=== PATIENT | female | born 1960 | race Caucasian/White ===

== ENCOUNTER 2016-10-24 21:49 | Inpatient (IN) | payer OTHER ==
[~2016-10-24] VITALS: Ht 154.9 cm; Wt 67.2 kg
[~2016-10-24 21:49] MED LIST: ACET325T96 PO; AMLO10TA4 PO; ASPI-461 PO; ATOR-24 PO; B-COCAP21 PO; BISA10SU3 PR; CALC1CHW43 PO; CLOP1TAB15 PO; CLR10 PO; CYAN10005 PO; FLV1 PO; GLGKIT IM; INSDGI SQ; INSPMPHMLG; INSU100I SQ; LCTX PO; METO25TA3 PO; MIRT15TA PO; PREG100C PO; PRLSR20 PO; PYRI50TA77 PO; SEVE800T7 PO; SUPPLEMENT SHAKE PO; TOPI25TA55 PO; VNCS125 PO; [UNRECOGNIZED DRUG - CODE] SC
[2016-10-24] MEDS ORDERED: ACETAMINOPHEN 500 MG TAB PO STA (21:56)
[2016-10-24] MEDS ORDERED: IBUPROFEN 800 MG TAB PO STA (21:56)
[2016-10-24] MEDS ORDERED: SODIUM CHLORIDE 0.9% 500ML 500 ML IV STA ×2 (21:56→23:56)
[2016-10-24] MEDS ORDERED: METRONIDAZOLE 500MG / 100ML NSS IV STA (22:08)
[2016-10-24] MEDS ORDERED: INSDGI SC ×2 (22:18→22:21)
[2016-10-24] MEDS ORDERED: Protein Supplement PO (22:27)
--- NOTE | 2016-10-24 22:51 | DIAGNOSTIC IMAGING REPORT ---
CHEST ONE VIEW PORTABLE HISTORY: Sepsis COMPARISON: None. FINDINGS: No pleural effusions. No pneumothorax. The heart is normal in size. Rotated study. Left upper extremity vascular stents are noted. Mild diffuse interstitial thickening which is likely chronic. No focal lung consolidations to suggest pneumonia. IMPRESSION: Mild diffuse interstitial thickening is likely chronic. Otherwise, no acute process within the chest. Electronically signed by: Bill Recinos M.D. 10/24/2016 10:49 PM Dictated Date/Time: 10/24/2016 10:48 PM
[2016-10-24] MEDS ORDERED: TAP WATER ENEMA PR (22:56)
[2016-10-24] MEDS ORDERED: DEXT40GE PO (22:56)
[2016-10-24 22:58] LABS: BASO % 0.3 %; BASO ABS # 0.03 K/uL (0-0.2); COMPLETE YES; EOS % 0.4 %; HEMATOCRIT 39.7 % (37-47); IG% 0.3 %; LYMPH % 10.6 %; LYMPH ABS # 1.24 K/uL (1.2-3.4); MEAN CELL VOLUME 85.6 fL (80-100); MEAN CORPUSCULAR HGB CONC 32.7 g/dl (32-36); MEAN PLATELET VOLUME 12.4 fL (7.4-10.4); MONO % 8.3 %; NEUT % 80.1 %; PLATELET COUNT 188 K/uL (130-400); RED BLOOD COUNT 4.64 M/uL (4.2-5.4); WHITE BLOOD COUNT 11.75 K/uL (4.8-10.8)
[2016-10-24] MEDS ORDERED: IBUPROFEN 200 MG TAB ONE (23:00)
[2016-10-24] MEDS ORDERED: IBUPROFEN 600 MG TAB ONE (23:00)
[2016-10-24 23:36] LABS: ALB/GLOB RATIO 0.7 (0.9-2); ALKALINE PHOSPHATASE 291 U/L (45-117); ALT/SGPT 27 U/L (12-78); BLOOD UREA NITROGEN 69 mg/dl (7-18); BUN/CREATININE RATIO 10.6 (10-20); CALCIUM 8.5 mg/dl (8.5-10.1); CARBON DIOXIDE 22 mmol/L (21-32); CHLORIDE 96 mmol/L (98-107); GLUCOSE 270 mg/dl (70-99); SODIUM 132 mmol/L (136-145)
[2016-10-25] VITALS (60 sets, daily range): BP systolic 60–131; BP diastolic 29–75; PULSE 68–97; TEMP 36.3–37.4; O2SAT 90–100; Ht 154.9 cm; Wt 67.2 kg
[2016-10-25 00:06] LABS: INR 1.3 (0.9-1.1); PARTIAL THROMBOPLASTIN RATIO 1.1; PROTHROMBIN TIME (PATIENT) 13.5 SECONDS (9.0-12.0)
[2016-10-25] MEDS ORDERED: SODIUM CHLORIDE 0.9% 500ML 500 ML IV STA (00:13)
[2016-10-25 00:22] LABS: MAGNESIUM 1.5 mg/dl (1.8-2.4); POTASSIUM 6.2 mmol/L (3.5-5.1)
--- NOTE | 2016-10-25 00:28 | History and Physical ---
History & Physical Date & Time of Service: Oct 25, 2016 at 00:24 Chief Complaint: Ab Pain Primary Care Physician: Shanna Boles History of Present Illness Source: patient Ms Lakisha Lam is a 56 yo F with multiple co-morbidities, including blindness from diabetic retinopathy and on dialysis, who presents from the [facility] with fever and abdominal pain. She reports she felt ok the last few days, and earlier today she was playing bingo and noticed a sudden onset right lower quadrant abdominal pain, 8/10 severity, which radiated to the upper right side of her abdomen. It was associated with feeling sweaty and a fever (though she did not measure it). She reports she had a few loose bowel movements, which were painful. She presumed she had the flu. She attended dialysis today and then came from there since she felt unwell. She gets dialysis Mon, Sat, Sat. In 08/22 she was recently admitted for C Diff ascending colitis and septic shock. She reports since then her blood pressure has always been low. Her only colonoscopy on file in [facility] records from 04/2014 shows gross findings c/w ischemic colitis in the same area of ascending colon and cecum. Past Medical/Surgical History Medical Problems: 1. ESRD, on dialysis. 2. Hypertension. 3. Hyperlipidemia. 4. Insulin-dependent diabetes, poorly-controlled. 5. GERD. 6. Renal cyst 7. Depression, previously requiring inpatient psychiatric stay Surgical Problems: (1) S/P appendectomy Status: Resolved Family History History of colostomy MOTHER SISTER Social History Smoking Status: Never Smoker Drug Use: none Marital Status: single Occupational Status: disabled Immunizations History of Influenza Vaccine: Unknown History of Tetanus Vaccine?: Unknown History of Pneumococcal: Unknown History of Hepatitis B Vaccine: Unknown Multi-Drug Resistant Organisms History of MDRO: No Allergies Coded Allergies: Penicillins (Verified Allergy, Mild, RASH, 05/05/13) Quinolones (Verified Allergy, Mild, (CIPRO) HOT;RED;ITCHY, 05/05/13) Ciprofloxacin (Unverified Allergy, Unknown, UNKNOWN, 07/15/16) Iodinated Diagnostic Agents (Verified Allergy, Unknown, IVP DYE, 08/17/16) Prednisone (Unverified Allergy, Unknown, POTASSIUM AND SUGAR SPIKES, ) Varenicline (Verified Allergy, Unknown, Unknown, 10/24/16) Home Medications Scheduled Amlodipine Besylate (Norvasc), 10 MG PO DAILY Aspirin (Aspirin), 81 MG PO DAILY Atorvastatin (Lipitor), 40 MG PO QPM B-Complex W/ C & Folic Acid ([place] Caps), 1 CAP PO DAILY Calcium Carbonate (Antacid) (Tums E-X 750), 750 MG PO TID Clopidogrel (Plavix), 75 MG PO DAILY Cyanocobalamin (Vitamin B-12), 1,000 MCG PO DAILY Folic Acid (Folic Acid), 1 MG PO BID Heparin Sod (Porcine) (Heparin Sodium), 1,000 UNITS SC 3XWK Insulin Glargine (Lantus), 5 UNITS SQ 3XWK Insulin Glargine (Lantus), 5 UNITS SC 4XWK Insulin Glargine (Lantus), 7 UNITS SC UD Insulin Lispro (Human) (Humalog), 5 UNITS SQ AC Lactobacillus Acidophilus (Lactinex), 1 TAB PO TID Metoprolol Succ (Toprol Xl) (Toprol-Xl), 12.5 MG PO DAILY Mirtazapine (Remeron), 15 MG PO HS Omeprazole (Prilosec), 20 MG PO DAILY Pregabalin (Lyrica), 100 MG PO BID Pyridoxine Hcl (Vitamin B 6), 50 MG PO DAILY Sevelamer Carbonate (Renvela), 800 MG PO TID [Protein Supplement], 30 ML PO BID Scheduled PRN Acetaminophen Tab (Tylenol), 650 MG PO Q6H PRN for Pain or Fever Bisacodyl (Dulcolax), 1 SUPP MO UD PRN for Constipation Dextrose (Diabetic Use) (Insta-Glucose), 1 APPLN PO UD PRN for HYPOGLYCEMIA PROTOCOL Glucagon (Glucagon Emergency Kit), 1 DOSE IM UD PRN for HYPOGLYCEMIA PROTOCOL Loratadine (Claritin), 10 MG PO Q24H PRN for Congestion [Tap Water Enema], 1 EA MO UD PRN for Constipation Review of Systems See HPI for pertinent positives & negatives. A total of 10 systems reviewed and were otherwise negative. Physical Exam Vital Signs Date Time Temp Pulse Resp B/P Pulse Ox O2 Delivery O2 Flow Rate FiO2 10/25/16 00:00 100 20 83/46 95 Room Air 10/24/16 23:46 39.5 108 20 74/44 95 Room Air 10/24/16 23:11 112 20 97/47 94 Room Air 10/24/16 22:05 121 10/24/16 22:03 38.9 126 20 114/67 97 General Appearance: WD/WN, + mild distress Head: normocephalic, atraumatic Eyes: normal inspection, + pertinent finding (poor visual acuity) ENT: normal ENT inspection Neck: supple, no JVD Respiratory/Chest: lungs clear, normal breath sounds, no respiratory distress Cardiovascular: regular rate, rhythm, no murmur, normal peripheral pulses, + systolic murmur Abdomen/GI: + tenderness (tenderness w/light palpation to RLQ and RUQ, with mild rebound. BS active.) Neurologic/Psych: alert, normal mood/affect, oriented x 3 Diagnostics Laboratory Results Results Past 24 Hours Test 10/24/16 22:35 10/24/16 23:41 Range/Units White Blood Count 11.75 4.8-10.8 K/uL Red Blood Count 4.64 4.2-5.4 M/uL Hemoglobin 13.0 12.0-16.0 g/dL Hematocrit 39.7 37-47 % Mean Corpuscular Volume 85.6 80-100 fL Mean Corpuscular Hemoglobin 28.0 25-34 pg Mean Corpuscular Hemoglobin Concent 32.7 32-36 g/dl Platelet Count 188 130-400 K/uL Mean Platelet Volume 12.4 7.4-10.4 fL Neutrophils (%) (Auto) 80.1 % Lymphocytes (%) (Auto) 10.6 % Monocytes (%) (Auto) 8.3 % Eosinophils (%) (Auto) 0.4 % Basophils (%) (Auto) 0.3 % Neutrophils # (Auto) 9.43 1.4-6.5 K/uL Lymphocytes # (Auto) 1.24 1.2-3.4 K/uL Monocytes # (Auto) 0.97 0.11-0.59 K/uL Eosinophils # (Auto) 0.05 0-0.5 K/uL Basophils # (Auto) 0.03 0-0.2 K/uL RDW Standard Deviation 49.8 36.4-46.3 fL RDW Coefficient of Variation 15.9 11.5-14.5 % Immature Granulocyte % (Auto) 0.3 % Immature Granulocyte # (Auto) 0.03 0.00-0.02 K/uL Sodium Level 132 136-145 mmol/L Potassium Level 6.2 3.5-5.1 mmol/L Chloride Level 96 98-107 mmol/L Carbon Dioxide Level 22 21-32 mmol/L Anion Gap 14.0 3-11 mmol/L Blood Urea Nitrogen 69 7-18 mg/dl Creatinine 6.40 0.60-1.20 mg/dl Est Creatinine Clear Calc Drug Dose 8.7 ml/min Estimated GFR () 7.8 Estimated GFR (Non- 6.8 BUN/Creatinine Ratio 10.6 10-20 Random Glucose 270 70-99 mg/dl Calcium Level 8.5 8.5-10.1 mg/dl Magnesium Level 1.5 1.8-2.4 mg/dl Total Bilirubin 0.5 0.2-1 mg/dl Aspartate Amino Transf (AST/SGOT) 20 15-37 U/L Alanine Aminotransferase (ALT/SGPT) 27 12-78 U/L Alkaline Phosphatase 291 45-117 U/L Total Creatine Kinase 45 26-192 U/L Creatine Kinase MB 1.5 0.5-3.6 ng/ml Creatine Kinase MB Ratio 0-3.0 Troponin I < 0.015 0-0.045 ng/ml Total Protein 7.7 6.4-8.2 gm/dl Albumin 3.2 3.4-5.0 gm/dl Globulin 4.5 2.5-4.0 gm/dl Albumin/Globulin Ratio 0.7 0.9-2 Prothrombin Time 13.5 9.0-12.0 SECONDS Prothromb Time International Ratio 1.3 0.9-1.1 Activated Partial Thromboplast Time 29.6 21.0-31.0 SECONDS Partial Thromboplastin Ratio 1.1 Microbiology Results 10/24/16 Blood Culture, Received Pending 10/24/16 Blood Culture, Received Pending 10/24/16 Shiga Toxin Test, Qi Batch Pending 10/24/16 Stool Culture, Qi Batch Pending 10/24/16 C.difficile Toxin B Gene (PCR), Qi Batch Pending Diagnostic Radiology CT ABDO PELVIS Prelim read: Small bowel wall thickening in pelvis, RLQ, and right abdomen concerning for infectious, inflammatory, or ischemic enteritis. Possible related colitis from the cecum and less likely tumor. No abscess or free air or free fluid. No evidence of appendicitis. Evidence of prior cholecystectomy. Borderline nonspecific splenomegaly. Impression Assessment and Plan 56 yo F on dialysis who presents with 1 day history of right sided abdominal pain, diarrhea, and fever - differential includes C Diff colitis, mesenteric ischemia, appendicitis, influenza, iatrogenic. Plan: Sepsis, from GI source - Was not hypotensive on arrival, now BP has decreased - Fluid resuscitation 250mL/hour bolus, then repeat if SBP < 85 - Will add pressors if no response to aim for MAP > 65 - Blood cultures taken - Pending C Diff result, will start PO Vanco and give a dose of IV Vanc. Received IV Flagyl in ED. - Will check lactic acid and repeat in 4 hours Diarrhea - Stool sample for C Diff and culture - Flu swab Diabetic nephropathy - Dialysis Sat/Sat/Sat - Needs repeat BMP from ED (specimen hemolyzed) T2DM - Recheck HbA1c - Glycemic consult History of hypertension - Will hold amlodipine and Toprol XL for now Depression - Continue mirtazapine 15mg qHS Diabetic neuropathy - Continue Lyrica 100mg BID VTE - Heparin CODE STATUS: Patient has a POLST form saying she is a DNR but told me that she wants to be a full code. Agreed to compressions and intubation if indicated. Resident Physician Supervision Note: I was present with Dr. Gutierrez during the history and exam. I discussed the case with the resident and agree with the findings and plan as documented in the note. Any exceptions or clarifications are listed here. Pt seen/examined - familiar to me from previous admit for C-diff and presents with similar symptoms of abd pain and diarrhea in addition to hypotension and fever. She has had only a minimal response to fluids thus far Plan: Admit to ICU - received PO Vanc and will provide 1 dose IV Vanc as she had symptom onset following dialysis and we do not have a (+) C-diff result at present She will be bolused with fluids and we will consider pressor use if her BP does not improve or she exhibitis volume overload She is due for dialysis AM - nephrology will be contacted Sliding scale provided for DM Of note - there is a DNR in chart however pt states she is full code presently Level of Care Critical Care Resuscitation Status FULL RESUSCITATION VTE Prophylaxis Given or contraindicated: Unfractionated heparin SQ Note Total Time: Critical Care 30 - 74 minutes Resident Tracking Resident Involvement: Resident Care Provided Care Provided: Adult [facility] Medicine
[2016-10-25] MEDS ORDERED: NovoLIN-R INSULIN PER UNIT CHARGE SC STA (00:30)
[2016-10-25] MEDS ORDERED: VANCOMYCIN INJ 1,300 MG in SODIUM CHLORIDE 0.9% 250ML 250 ML IV STA (00:52)
[2016-10-25] MEDS ORDERED: SODIUM CHLORIDE 0.9% 250ML 250 ML IV SCH (01:00)
[2016-10-25] MEDS ORDERED: VANCOMYCIN CONSULT ACTIVE PRN (01:00)
[2016-10-25] MEDS ORDERED: VANCOMYCIN HCL 125 MG/2.5ML SOLN PO SCH (01:15)
[2016-10-25] MEDS ORDERED: PHARMACY GLYCEMIC MGMT CONSULT PRN (01:30)
[2016-10-25] MEDS ORDERED: NOREPINEPHRINE BIT INJ 8 MG in DEXTROSE 5% 500ML 500 ML IV PRN (02:20)
[2016-10-25] MEDS ORDERED: INSULIN GLARGINE SOLOSTAR 100 UNITS/ML 3 ML PEN SC SCH ×2 (02:30)
[2016-10-25] MEDS: INSULIN ASPART 100 UNITS/ML 3 ML PEN SC SCH ×6 (02:30→23:38)
[2016-10-25] MEDS ORDERED: GLUCOSE 10 TABS/TUBE PO PRN (02:45)
[2016-10-25] MEDS ORDERED: GLUCAGON FOR INJ 1 MG VIAL SQ PRN (02:45)
[2016-10-25] MEDS ORDERED: GLUCOSE 40% GEL 15 GM TUBE PO PRN (02:45)
[2016-10-25] MEDS ORDERED: DEXTROSE 50% 50 ML SYR IV PRN (02:45)
[2016-10-25] MEDS: VANCOMYCIN HCL 125 MG/2.5ML SOLN PO SCH ×5 (02:48→20:25)
[2016-10-25] MEDS: RASPBERRY SYRUP 5 ML UDP PO SCH ×5 (02:48→20:25)
--- NOTE | 2016-10-25 02:48 | EMERGENCY ROOM VISIT NOTE ---
History First contact with patient: 21:53 Chief Complaint: ABDOMINAL PAIN Stated Complaint: DIARRHEA,SEPSIS Nursing Triage Summary: Patient presents from [facility] with c/c of lower abdominal pain, history of colitis, watery diarrhea. History of Present Illness The patient is a 56 year old female who presents to the Emergency Room with complaints of nausea, lower abdominal pain, fever, chills and diarrhea for the past day. Fever started tonight. Patient had C. difficile few months ago. Patient has had recent antibiotics. Patient was given Tylenol before dinner tonight. Patient denies chest pain, dyspnea, cough, congestion, back pain, sore throat, headache. She has end-stage renal disease and follow Dr. Ahmadi. She receives dialysis Saturday. Fistula left bicep region. Review of Systems See HPI for pertinent positives & negatives. A total of 10 systems reviewed and were otherwise negative. Past Medical/Surgical History Medical Problems: (1) Dependence on renal dialysis (2) Diarrhea (3) Major depression, chronic (4) Renal cyst (5) S/p nephrectomy (6) Sepsis Surgical Problems: (1) S/P appendectomy (2) S/P cholecystectomy Family History History of colostomy MOTHER SISTER Social History Smoking Status: Never Smoker Smokeless Tobacco Use: No Alcohol Use: none Drug Use: none Marital Status: single Housing Status: snf Occupation Status: disabled Current/Historical Medications Scheduled Amlodipine Besylate (Norvasc), 10 MG PO DAILY Aspirin (Aspirin), 81 MG PO DAILY Atorvastatin (Lipitor), 40 MG PO QPM B-Complex W/ C & Folic Acid ([place] Caps), 1 CAP PO DAILY Calcium Carbonate (Antacid) (Tums E-X 750), 750 MG PO TID Clopidogrel (Plavix), 75 MG PO DAILY Cyanocobalamin (Vitamin B-12), 1,000 MCG PO DAILY Folic Acid (Folic Acid), 1 MG PO BID Heparin Sod (Porcine) (Heparin Sodium), 1,000 UNITS SC 3XWK Insulin Glargine (Lantus), 5 UNITS SQ 3XWK Insulin Glargine (Lantus), 5 UNITS SC 4XWK Insulin Glargine (Lantus), 7 UNITS SC UD Insulin Lispro (Human) (Humalog), 5 UNITS SQ AC Lactobacillus Acidophilus (Lactinex), 1 TAB PO TID Metoprolol Succ (Toprol Xl) (Toprol-Xl), 12.5 MG PO DAILY Mirtazapine (Remeron), 15 MG PO HS Omeprazole (Prilosec), 20 MG PO DAILY Pregabalin (Lyrica), 100 MG PO BID Pyridoxine Hcl (Vitamin B 6), 50 MG PO DAILY Sevelamer Carbonate (Renvela), 800 MG PO TID [Protein Supplement], 30 ML PO BID Scheduled PRN Acetaminophen Tab (Tylenol), 650 MG PO Q6H PRN for Pain or Fever Bisacodyl (Dulcolax), 1 SUPP IA UD PRN for Constipation Dextrose (Diabetic Use) (Insta-Glucose), 1 APPLN PO UD PRN for HYPOGLYCEMIA PROTOCOL Glucagon (Glucagon Emergency Kit), 1 DOSE IM UD PRN for HYPOGLYCEMIA PROTOCOL Loratadine (Claritin), 10 MG PO Q24H PRN for Congestion [Tap Water Enema], 1 EA IA UD PRN for Constipation Allergies Coded Allergies: Penicillins (Verified Allergy, Mild, RASH, 05/05/13) Quinolones (Verified Allergy, Mild, (CIPRO) HOT;RED;ITCHY, 05/05/13) Ciprofloxacin (Unverified Allergy, Unknown, UNKNOWN, 07/15/16) Iodinated Diagnostic Agents (Verified Allergy, Unknown, IVP DYE, 08/17/16) Prednisone (Unverified Allergy, Unknown, POTASSIUM AND SUGAR SPIKES, ) Varenicline (Verified Allergy, Unknown, Unknown, 10/24/16) Physical Exam Vital Signs Date Time Temp Pulse Resp B/P Pulse Ox O2 Delivery O2 Flow Rate FiO2 10/25/16 00:30 96 20 80/43 95 Room Air 10/25/16 00:00 100 20 83/46 95 Room Air 10/24/16 23:46 39.5 108 20 74/44 95 Room Air 10/24/16 23:11 112 20 97/47 94 Room Air 10/24/16 22:05 121 10/24/16 22:03 38.9 126 20 114/67 97 Pain Rating (0-10): 0 Physical Exam VITALS: Vitals are noted on the nurse's note and reviewed by myself. Vital signs febrile and tachycardic GENERAL: Pleasant female mildly ill-appearing, in no acute distress, nondiaphoretic, well-developed well-nourished. SKIN: The skin was without rashes, erythema, edema, or bruising. There is no tenting of the skin. Capillary reflex less than 2 seconds. HEAD: Normocephalic atraumatic. EARS: External auditory canals clear, tympanic membranes pearly guthrie without erythema or effusion bilaterally. EYES: Pupils equal round and reactive to light and accommodation. Conjunctivae without injection, sclerae without icterus. Extraocular movements intact. NOSE: Patent, turbinates without inflammation or discharge. No sinus tenderness. MOUTH: Mucous membranes dry. Pharynx without erythema or exudate. Uvula midline. Airway patent. Tongue does not deviate. NECK: Supple without nuchal rigidity. No lymphadenopathy. No thyromegaly. Cervical spine is nontender. No JVD. HEART: Regular rate and rhythm LUNGS: Clear to auscultation bilaterally without wheezes, rales or rhonchi. No dullness to percussion. No retractions or accessory muscle use. ABDOMEN: Positive bowel sounds x 4. Normal tympanic percussion. Soft, tender to palpation lower abdomen, no CVA tenderness, without masses or organomegaly. Godfrey sign negative. No guarding or rebound tenderness. MUSCULOSKELETAL: No muscle atrophy, erythema, noted. Fistula left bicep region. NEURO: Patient was alert and oriented to person place and time. Normal sensation to light and sharp touch. No focal neurological deficits. Medical Decision & Procedures Laboratory Results 10/24/16 22:35 Red Blood Count 4.64, Mean Corpuscular Volume 85.6, Mean Corpuscular Hemoglobin 28.0, Mean Corpuscular Hemoglobin Concent 32.7, Mean Platelet Volume 12.4, Neutrophils (%) (Auto) 80.1, Lymphocytes (%) (Auto) 10.6, Monocytes (%) (Auto) 8.3, Eosinophils (%) (Auto) 0.4, Basophils (%) (Auto) 0.3, Neutrophils # (Auto) 9.43, Lymphocytes # (Auto) 1.24, Monocytes # (Auto) 0.97, Eosinophils # (Auto) 0.05, Basophils # (Auto) 0.03 10/24/16 22:35 10/25/16 00:41 Test 10/24/16 22:35 10/24/16 23:41 White Blood Count 11.75 K/uL (4.8-10.8) Red Blood Count 4.64 M/uL (4.2-5.4) Hemoglobin 13.0 g/dL (12.0-16.0) Hematocrit 39.7 % (37-47) Mean Corpuscular Volume 85.6 fL (80-100) Mean Corpuscular Hemoglobin 28.0 pg (25-34) Mean Corpuscular Hemoglobin Concent 32.7 g/dl (32-36) Platelet Count 188 K/uL (130-400) Mean Platelet Volume 12.4 fL (7.4-10.4) Neutrophils (%) (Auto) 80.1 % Lymphocytes (%) (Auto) 10.6 % Monocytes (%) (Auto) 8.3 % Eosinophils (%) (Auto) 0.4 % Basophils (%) (Auto) 0.3 % Neutrophils # (Auto) 9.43 K/uL (1.4-6.5) Lymphocytes # (Auto) 1.24 K/uL (1.2-3.4) Monocytes # (Auto) 0.97 K/uL (0.11-0.59) Eosinophils # (Auto) 0.05 K/uL (0-0.5) Basophils # (Auto) 0.03 K/uL (0-0.2) RDW Standard Deviation 49.8 fL (36.4-46.3) RDW Coefficient of Variation 15.9 % (11.5-14.5) Immature Granulocyte % (Auto) 0.3 % Immature Granulocyte # (Auto) 0.03 K/uL (0.00-0.02) Anion Gap 14.0 mmol/L (3-11) Est Creatinine Clear Calc Drug Dose 8.7 ml/min Estimated GFR () 7.8 Estimated GFR (Non- 6.8 BUN/Creatinine Ratio 10.6 (10-20) Calcium Level 8.5 mg/dl (8.5-10.1) Total Bilirubin 0.5 mg/dl (0.2-1) Alanine Aminotransferase (ALT/SGPT) 27 U/L (12-78) Alkaline Phosphatase 291 U/L (45-117) Creatine Kinase MB 1.5 ng/ml (0.5-3.6) Creatine Kinase MB Ratio (0-3.0) Troponin I < 0.015 ng/ml (0-0.045) Total Protein 7.7 gm/dl (6.4-8.2) Albumin 3.2 gm/dl (3.4-5.0) Globulin 4.5 gm/dl (2.5-4.0) Albumin/Globulin Ratio 0.7 (0.9-2) Prothrombin Time 13.5 SECONDS (9.0-12.0) Prothromb Time International Ratio 1.3 (0.9-1.1) Activated Partial Thromboplast Time 29.6 SECONDS (21.0-31.0) Partial Thromboplastin Ratio 1.1 Magnesium Level 1.5 mg/dl (1.8-2.4) Aspartate Amino Transf (AST/SGOT) 20 U/L (15-37) Total Creatine Kinase 45 U/L (26-192) Procalcitonin 7.03 ng/mL (0-0.5) Medications Administered Medications (Trade) Dose Ordered Sig/Sandy Route Start Time Stop Time Status Last Admin Dose Admin Acetaminophen 1000 mg 1,000 mg NOW STAT PO 10/24/16 21:56 10/24/16 22:01 DC 10/24/16 23:00 1,000 MG Sodium Chloride (Nss 500ml) 500 ml @ 999 mls/hr Q31M STAT IV 10/24/16 21:56 10/24/16 22:26 DC 10/24/16 22:30 999 MLS/HR Metronidazole (Flagyl / Nss) 500 mg NOW STAT IV 10/24/16 22:08 10/24/16 22:09 DC 10/24/16 23:00 500 MG Ibuprofen (Motrin Tab) 600 mg STK-MED ONCE .ROUTE 10/24/16 23:00 10/24/16 23:02 DC 10/24/16 23:04 600 MG Ibuprofen 200 mg 200 mg STK-MED ONCE .ROUTE 10/24/16 23:00 10/24/16 23:02 DC 10/24/16 23:03 200 MG Sodium Chloride 500 ml @ 999 mls/hr Q31M STAT IV 10/24/16 23:56 10/25/16 00:26 DC 10/25/16 00:13 999 MLS/HR Sodium Chloride (Nss 500ml) 500 ml @ 999 mls/hr Q31M STAT IV 10/25/16 00:13 10/25/16 00:43 DC 10/25/16 00:13 999 MLS/HR Insulin Human Regular 5 units 5 units NOW STAT SC 10/25/16 00:30 10/25/16 00:31 DC 10/25/16 00:41 5 UNITS Vancomycin HCl/ Sodium Chloride (Vancomycin Inj/ Nss 250ml) 276 ml @ 125 mls/hr NOW STAT IV 10/25/16 00:52 10/25/16 03:04 10/25/16 01:03 125 MLS/HR ED Course Prior records/ancillary studies reviewed. Triage Nursing notes reviewed. Additional history obtained from EMS The patient's history was concerning for fever, diarrhea and abdominal pain. Differential diagnosis: Etiologies such as sepsis, UTI, pneumonia, metabolic, electrolyte abnormalities , cardiac sources, intracerebral event, toxicologic, neurologic, as well as others were entertained. Physical examination: As above. Pertinent findings were fever, abdominal pain. Vital signs reviewed and revealed febrile and tachycardic. ER treatment provided: IV fluid resuscitation with Normal saline solution, 1,500 mL bolus. Flagyl as concerns for C. difficile was present Blood and urine cultures On reassessment the patient vital signs improved. Diagnostics interpretation by me: ECG: Normal sinus, normal intervals, no acute ST-T wave changes. Impression sinus tachycardia interpreted by myself The labs revealed leukocytosis on CBC. Chemistry panel revealed elevated creatinine stable for tye. LFTs revealed. Cardiac enzymes were negative. Serum Lactate measurement was 2.4. Blood pending. C. difficile ordered Imaging studies: Chest xray revealed and read by radiology. CT ABDOMEN & PELVIS: Small bowel wall thickening in the pelvis, right lower quadrant, and right abdomen concerning for infectious, inflammatory or ischemic enteritis. Possible related colitis from the cecum and less likely tumor. No abscess or free air or free fluid. No evidence for appendicitis. Evidence of prior cholecystectomy. Borderline nonspecific splenomegaly. Radiologist: Dane Trinh M.D. Consultation: A consultation was placed with Dr. Valadez, hospitalist. The case was discussed and diagnostics were reviewed. The patient was evaluated in the ER for further treatment. Exam and history seem consistent with sepsis concerns from a GI etiology. Patient started on Flagyl. C. difficile was ordered. Patient was hydrated as above. Repeat potassium was ordered as this seems slightly high for someone and just received dialysis. This was improved. She was given insulin. She became hypotensive in the ER was given a fluid bolus. Her vital signs did improve. Case reviewed by attending. Medical Decision As above Impression Primary Impression: Sepsis Additional Impressions: Diarrhea Colitis Hypotension Critical Care I have personally spent greater than 30 minutes of critical care time in the direct management of this patient. This includes bedside care, interpretation of diagnostic studies, and testing, discussion with consultants, patient, and family members, and other required patient management activities. This 30 minutes is in excess of all separately billable procedures. Departure Information Dispostion Being Evaluated By Hospitalist Condition FAIR Referrals Shanna Boles (PCP) Patient Instructions [facility] Problem Qualifiers Primary Impression: Sepsis Sepsis type: sepsis due to unspecified organism Qualified Codes: A41.9 - Sepsis, unspecified organism
[2016-10-25] MEDS ORDERED: MAGNESIUM SULFATE 1GM / D5W 1 GM in PREMIXED IN D5W 100 ML IV STA (04:54)
[2016-10-25] MEDS: HEPARIN SOD 5000 UNIT/0.5 ML CARP SQ SCH ×5 (05:07→20:26)
--- NOTE | 2016-10-25 07:38 | DIAGNOSTIC IMAGING REPORT ---
CT SCAN OF THE ABDOMEN AND PELVIS WITHOUT IV CONTRAST CLINICAL HISTORY: Generalized abdominal pain. COMPARISON STUDY: Abdominal CT dated 08/16/2016. TECHNIQUE: CT scan of the abdomen and pelvis is performed from the lung bases to the proximal femora. Images are reviewed in the axial, sagittal, and coronal planes. IV contrast was not administered for this examination as per the referring clinician. Note that the examination was performed in suboptimal fashion without oral and IV contrast. The examination is also degraded by motion artifact. Automated dose control exposure was utilized. CT DOSE: 280.18 mGy.cm FINDINGS: Lung bases: The heart is normal in size and without pericardial effusion. No airspace consolidation or pleural effusion is identified. Liver: The unenhanced liver is normal in size, contour, and attenuation. There is mild central intrahepatic biliary ductal dilatation, likely related to previous cholecystectomy. Gallbladder: Surgically absent noting clips in the gallbladder fossa. Spleen: The spleen is enlarged, measuring 14.5 cm in length. Pancreas: The unenhanced pancreas is atrophic and grossly unremarkable. Adrenal glands: Unremarkable. Kidneys: The left kidney is surgically absent. The unenhanced right kidney is markedly atrophic and without hydronephrosis.. There are no renal calculi identified. Numerous subcentimeter cortical hypodensities likely represent cysts but are too small for definitive characterization. Abdominal vasculature: The abdominal aorta is normal in course and caliber noting moderate to advanced atherosclerotic calcification. This is advanced for age. External iliac stents are suspected. Bowel: No bowel obstruction is identified. There is a long segment of thick-walled and edematous small bowel involving distal/terminal ileum with surrounding inflammatory change. There is also significant wall thickening and edema identified within the cecum. The remainder of the colon is within normal limits. No pneumatosis intestinalis or portal venous gas is seen. There are scattered colonic diverticula without CT evidence of acute diverticulitis. The cecum is located in the pelvis. There is moderate colonic fecal retention. The appendix is not identified and reported surgically absent. Peritoneum: There is no intraperitoneal free air or abdominal ascites. There is evidence of previous ventral hernia repair. Lymphadenopathy: None. Pelvic viscera: The bladder is decompressed and grossly unremarkable. The uterus is surgically absent. No adnexal lesion is identified. Skeletal structures: Findings suggest renal osteodystrophy. There is mild lumbosacral spondylosis. Degenerative change is noted in the sacroiliac joints. No lytic or blastic lesions are seen. There are healed right-sided rib fractures. IMPRESSION: 1. Significantly suboptimal examination without oral and IV contrast. 2. There is significant wall thickening and edema identified involving a long segment of the distal small bowel as well as the cecum. The appearance is consistently nonspecific ileocecitis. This could be on an infectious, inflammatory, or ischemic basis. Clinical correlation will be required. 3. No intraperitoneal free air is identified. There is no pneumatosis intestinalis or portal venous gas. 4. The left kidney is surgically absent. The right kidney is markedly atrophic and without hydronephrosis. 5. Splenomegaly. 6. Additional findings as detailed above. Electronically signed by: Dewayne Andrade M.D. 10/25/2016 7:36 AM Dictated Date/Time: 10/25/2016 7:28 AM
--- NOTE | 2016-10-25 08:35 | Clinical Documentation Query ---
Dr. PIERCE, [facility] : CLINICAL DOCUMENTATION QUERY Patient is a 56 year old female admitted for sepsis due to suspected GI source. BP noted to have decreased from time of arrival to time of admission, with further decrease shortly thereafter. Initially recieved bolus of NSS without effectual response. Subsequently, IV Norepinephrine was initiated to maintain SBP. As appropriate, consider clarification as below as this impacts severity of illness and risk of mortality measures. In your clinical opinion is this patient being managed for: (x ) Septic shock due to suspected GI source, treated with IVF, antibiotics, and IV Levophed ( ) Other explanation of clinical findings (Please Explain) ( ) Unable to determine (Please Define) ( ) Need to Discuss ( ) Not Agree The medical record reflects the following clinical findings, treatment, and risk factors. Clinical Indicators: Hypotension unresponsive to IVF bolus, requiring vasopressor utilization Treatment: As above Risk Factors: Suspected GI infectious etiologies as outlined. Please clarify and document your clinical opinion in the progress notes and discharge summary. Terms such as "probable", "suspected", "likely", "questionable", "possible", or "still to be ruled out" are acceptable. IF IN AGREEMENT, YOU MUST DOCUMENT ABOVE DIAGNOSTIC STATEMENT IN DAILY PROGRESS NOTES AND DISCHARGE SUMMARY. This document is not part of the patient's record. Thank You, Nadir Christie RN [phone]
[2016-10-25] MEDS: CLOPIDOGREL BISULFATE 75 MG TAB PO SCH (08:36)
[2016-10-25] MEDS: PREGABALIN 100 MG CAP PO SCH ×2 (08:36→20:25)
[2016-10-25] MEDS: ASPIRIN 81 MG ECTAB PO SCH (08:37)
[2016-10-25] MEDS ORDERED: AZTREONAM IV 2,000 MG in DEXTROSE 5% 100ML 100 ML IV ONE (09:01)
[2016-10-25] MEDS ORDERED: OSELTAMIVIR PHOSPHATE 75 MG CAP PO STA (09:01)
--- NOTE | 2016-10-25 10:02 | Critical Care Consultation ---
Critical Care Consultation Date of Consultation: Oct 25, 2016. Attending Physician: José Miguel Valadez MD Reason for Consultation: sepsis History of Present Illness This is a 56 yo f from [facility] with a h/o C Diff colitis, ESRD, DM which is presenting to us with acute onset abdominal pain, hypotension and diarrhea. She states that yesterday afternoon while she was playing Bingo she had an acute onset of right lower quadrant pain. It was a dull 8/10 pain that slightly radiated to the right back. She was also suffering from diarrhea which started yesterday. She was quickly transferred to the [facility] ED where she was found to be tachycardic, febrile and hypotensive. Her lactate on admission was 2.6 and she received 1.[address]SS[address] A CT revealed a thickening of the small bowel and cecum suspicious for infectious vs inflammatory vs ischemic. Since there was suspicion of a recurring colitis she was given Vanco 1300 mg IV and Flagyl 500 mg IV. She was started on Levophed and she was transferred to ICU for ongoing care. She was recently admitted in Aug 2016 for C Diff colitis with sepsis and after being hemodynamically stabilized she was discharged with 14 days of Vanco 125 mg qid. According to the patient she was compliant with the medications and has not had any recent abx that she could recall. She was also consulted by GI at this time. They note that the patient had a colonoscopy in [address] Smith. They noted that she had a congested, ulcerated, erythematous and hemorrhagic mucosa on the cecum and ascending colon. A biopsy revealed inflammatory cells. In Oct 2015 she apparently had a repeat CT of the abd and there was normal bowel at that time. No colonoscopy was done during the past admission. 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 She does have ESRD which she is followed by Dr Robbins. Dialysis is typically MWF and she did have dialysis yesterday. Fistula is in biceps. Past Medical/Surgical History DM ESRD PAD CAD Depression and SI Cholecystecomy Appendectomy Left nephrectomy Hysterectomy with unilateral oophorectomy Family History History of colostomy MOTHER SISTER Social History Smoking Status: Former Smoker Smokeless Tobacco Use: No Drug Use: none Marital Status: single Housing Status: intermediate Occupation Status: disabled Allergies Coded Allergies: Penicillins (Verified Allergy, Mild, RASH, 05/05/13) Quinolones (Verified Allergy, Mild, (CIPRO) HOT;RED;ITCHY, 05/05/13) Ciprofloxacin (Unverified Allergy, Unknown, UNKNOWN, 07/15/16) Iodinated Diagnostic Agents (Verified Allergy, Unknown, IVP DYE, 08/17/16) Prednisone (Unverified Allergy, Unknown, POTASSIUM AND SUGAR SPIKES, ) Varenicline (Verified Allergy, Unknown, Unknown, 10/24/16) Home Medications Scheduled Amlodipine Besylate (Norvasc), 10 MG PO DAILY Aspirin (Aspirin), 81 MG PO DAILY Atorvastatin (Lipitor), 40 MG PO QPM B-Complex W/ C & Folic Acid (Amrit Caps), 1 CAP PO DAILY Calcium Carbonate (Antacid) (Tums E-X 750), 750 MG PO TID Clopidogrel (Plavix), 75 MG PO DAILY Cyanocobalamin (Vitamin B-12), 1,000 MCG PO DAILY Folic Acid (Folic Acid), 1 MG PO BID Heparin Sod (Porcine) (Heparin Sodium), 1,000 UNITS SC 3XWK Insulin Glargine (Lantus), 5 UNITS SQ 3XWK Insulin Glargine (Lantus), 5 UNITS SC 4XWK Insulin Glargine (Lantus), 7 UNITS SC UD Insulin Lispro (Human) (Humalog), 5 UNITS SQ AC Lactobacillus Acidophilus (Lactinex), 1 TAB PO TID Metoprolol Succ (Toprol Xl) (Toprol-Xl), 12.5 MG PO DAILY Mirtazapine (Remeron), 15 MG PO HS Omeprazole (Prilosec), 20 MG PO DAILY Pregabalin (Lyrica), 100 MG PO BID Pyridoxine Hcl (Vitamin B 6), 50 MG PO DAILY Sevelamer Carbonate (Renvela), 800 MG PO TID [Protein Supplement], 30 ML PO BID Scheduled PRN Acetaminophen Tab (Tylenol), 650 MG PO Q6H PRN for Pain or Fever Bisacodyl (Dulcolax), 1 SUPP ND UD PRN for Constipation Dextrose (Diabetic Use) (Insta-Glucose), 1 APPLN PO UD PRN for HYPOGLYCEMIA PROTOCOL Glucagon (Glucagon Emergency Kit), 1 DOSE IM UD PRN for HYPOGLYCEMIA PROTOCOL Loratadine (Claritin), 10 MG PO Q24H PRN for Congestion [Tap Water Enema], 1 EA ND UD PRN for Constipation Current Inpatient Medications Current Inpatient Medications Medications (Trade) Dose Ordered Sig/Sandy Route Start Time Stop Time Status Last Admin Dose Admin Heparin Sodium (Porcine) (Heparin Sq 5000 Unit/0.5ml) 5,000 unit Q8H SQ 10/25/16 06:00 11/24/16 05:59 Acetaminophen (Tylenol Tab) 650 mg Q4H PRN PO 10/25/16 01:00 11/24/16 00:59 Vancomycin HCl (Consult) 1 ea UD PRN N/A 10/25/16 01:00 11/24/16 00:59 Vancomycin HCl (Vancomycin Oral Soln) 125 mg QID PO 10/25/16 02:30 11/08/16 02:29 10/25/16 08:36 125 MG Aspirin (Ecotrin Tab) 81 mg DAILY PO 10/25/16 09:00 11/24/16 08:59 10/25/16 08:37 81 MG Clopidogrel Bisulfate (plAVix TAB) 75 mg DAILY PO 10/25/16 09:00 11/24/16 08:59 10/25/16 08:36 75 MG Mirtazapine (Remeron Tab) 15 mg HS PO 10/25/16 21:00 11/24/16 20:59 Pregabalin (Lyrica Cap) 100 mg BID PO 10/25/16 09:00 11/24/16 08:59 10/25/16 08:36 100 MG Insulin Aspart (novoLOG ASPART) SLIDING SCALE ACHS SC 10/25/16 02:30 11/24/16 02:29 Miscellaneous Information 1 ea 1 ea UD PRN N/A 10/25/16 01:30 11/24/16 01:29 Norepinephrine Bitartrate/ Dextrose (Levophed Inj/ D5W 500ml) 508 ml @ 0 mls/hr Q0M PRN IV 10/25/16 02:20 11/24/16 02:19 10/25/16 02:50 23.6 MLS/HR Insulin Glargine (Lantus Solostar Pen) 5 unit HS SC 10/25/16 02:30 11/24/16 02:29 10/25/16 02:49 5 UNIT Raspberry (Raspberry Syrup 5ml Cup) 5 ml QID PO 10/25/16 02:30 11/04/16 02:29 10/25/16 08:36 5 ML Glucose (Glucose 40% Gel) 15-30 GRAMS 15 GRAMS... UD PRN PO 10/25/16 02:45 11/24/16 02:44 Glucose (Glucose Chew Tab) 4-8 Tablets 4 Tabl... UD PRN PO 10/25/16 02:45 11/24/16 02:44 Dextrose (Dextrose 50% 50ML Syringe) 25-50ML OF 50% DW IV FOR... UD PRN IV 10/25/16 02:45 11/24/16 02:44 10/25/16 08:55 50 ML Glucagon 1 mg 1 mg UD PRN SQ 10/25/16 02:45 11/24/16 02:44 Famotidine 20 mg/ Dextrose 102 ml @ 204 mls/hr DAILY@1400 IV 10/25/16 14:00 11/24/16 13:59 Metronidazole/Prmx (Flagyl / Nss/ Premixed Nss) 100 ml @ 100 mls/hr Q8H IV 10/25/16 10:00 11/08/16 09:59 Review of Systems Constitutional: + fever Eyes: No worsening of vision (blind) ENT: No hearing loss Respiratory: No cough, No dyspnea at rest, No dyspnea on exertion, No shortness of breath, No sputum, No wheezing Cardiovascular: No chest pain Abdomen: + diarrhea, + pain (as above), No nausea, No vomiting Musculoskeletal: No joint pain, No muscle pain Genitourinary - Female: + problem reported (anuric) Neurologic: No memory loss, No numbness/tingling, No weakness Psychiatric: No depression symptoms Endocrine: No fatigue Integumentary: No rash Physical Exam Date Time Temp Pulse Resp B/P Pulse Ox O2 Delivery O2 Flow Rate FiO2 10/25/16 06:43 69 13 103/52 100 10/25/16 06:28 69 12 93/57 95 10/25/16 06:14 70 16 87/50 10/25/16 06:00 71 15 98 10/25/16 05:43 69 12 89/49 98 10/25/16 05:43 69 12 89/49 98 10/25/16 05:28 68 12 93/52 98 10/25/16 05:28 68 12 93/52 98 10/25/16 05:13 70 14 106/53 98 10/25/16 05:13 70 14 106/53 98 10/25/16 05:08 69 12 103/53 99 10/25/16 05:08 69 12 103/53 99 10/25/16 05:03 70 12 106/54 99 10/25/16 05:03 70 12 106/54 99 10/25/16 05:00 71 12 99 10/25/16 05:00 71 12 99 10/25/16 04:58 70 12 89/50 99 10/25/16 04:45 70 12 100 10/25/16 04:43 70 12 94/52 99 10/25/16 04:30 72 13 99 10/25/16 04:28 70 11 99/52 99 10/25/16 04:13 70 12 99/50 99 10/25/16 04:00 36.3 69 12 111/58 99 Room Air 10/25/16 04:00 69 12 99 10/25/16 04:00 100 Room Air 10/25/16 03:58 72 12 111/58 98 10/25/16 03:45 69 12 99 10/25/16 03:43 70 12 110/52 99 10/25/16 03:30 70 15 99 10/25/16 03:23 71 14 122/54 98 10/25/16 03:20 71 12 99 10/25/16 03:18 71 13 127/56 99 10/25/16 03:13 73 13 126/58 99 10/25/16 03:08 73 13 127/59 99 10/25/16 03:05 74 13 99 10/25/16 03:03 74 15 122/55 99 10/25/16 02:58 74 13 127/57 99 10/25/16 02:58 74 13 127/57 99 10/25/16 02:53 75 15 131/67 100 10/25/16 02:50 76 13 99 10/25/16 02:48 76 13 129/63 98 10/25/16 02:43 71 13 115/57 98 10/25/16 02:39 76 14 74/39 10/25/16 02:35 76 13 96 10/25/16 02:28 76 12 76/40 96 10/25/16 02:28 76 12 76/40 96 10/25/16 02:22 37.4 81 18 79/36 95 Room Air 10/25/16 02:20 77 13 96 10/25/16 02:17 77 14 64/37 10/25/16 02:17 77 14 64/37 10/25/16 01:15 37.3 90 16 83/45 95 10/25/16 00:30 96 20 80/43 95 Room Air 10/25/16 00:00 100 20 83/46 95 Room Air 10/24/16 23:46 39.5 108 20 74/44 95 Room Air 10/24/16 23:11 112 20 97/47 94 Room Air 10/24/16 22:05 121 10/24/16 22:03 38.9 126 20 114/67 97 General Appearance: WD/WN, no apparent distress Head: normocephalic, atraumatic Eyes: normal inspection ENT: normal ENT inspection Neck: supple Respiratory/Chest: lungs clear, normal breath sounds, no respiratory distress Cardiovascular: regular rate, rhythm, normal peripheral pulses, + systolic murmur (3/6) Abdomen/GI: normal bowel sounds, soft, + tenderness (RLQ) Back: normal inspection Extremities/Musculoskelatal: normal inspection, no calf tenderness, no pedal edema, normal range of motion Neurologic/Psych: alert, normal mood/affect, oriented x 3 Skin: normal color, warm/dry, no rash Lymphatic: no adenopathy Laboratory Results Last 24 Hours Test 10/24/16 22:35 10/24/16 23:41 10/25/16 00:41 10/25/16 01:41 White Blood Count 11.75 K/uL Red Blood Count 4.64 M/uL Hemoglobin 13.0 g/dL Hematocrit 39.7 % Mean Corpuscular Volume 85.6 fL Mean Corpuscular Hemoglobin 28.0 pg Mean Corpuscular Hemoglobin Concent 32.7 g/dl Platelet Count 188 K/uL Mean Platelet Volume 12.4 fL Neutrophils (%) (Auto) 80.1 % Lymphocytes (%) (Auto) 10.6 % Monocytes (%) (Auto) 8.3 % Eosinophils (%) (Auto) 0.4 % Basophils (%) (Auto) 0.3 % Neutrophils # (Auto) 9.43 K/uL Lymphocytes # (Auto) 1.24 K/uL Monocytes # (Auto) 0.97 K/uL Eosinophils # (Auto) 0.05 K/uL Basophils # (Auto) 0.03 K/uL RDW Standard Deviation 49.8 fL RDW Coefficient of Variation 15.9 % Immature Granulocyte % (Auto) 0.3 % Immature Granulocyte # (Auto) 0.03 K/uL Sodium Level 132 mmol/L Potassium Level mmol/L 6.2 mmol/L 5.4 mmol/L Chloride Level 96 mmol/L Carbon Dioxide Level 22 mmol/L Anion Gap 14.0 mmol/L Blood Urea Nitrogen 69 mg/dl Creatinine 6.40 mg/dl Est Creatinine Clear Calc Drug Dose 8.7 ml/min Estimated GFR () 7.8 Estimated GFR (Non- 6.8 BUN/Creatinine Ratio 10.6 Random Glucose 270 mg/dl Calcium Level 8.5 mg/dl Magnesium Level mg/dl 1.5 mg/dl Total Bilirubin 0.5 mg/dl Aspartate Amino Transf (AST/SGOT) U/L 20 U/L Alanine Aminotransferase (ALT/SGPT) 27 U/L Alkaline Phosphatase 291 U/L Total Creatine Kinase U/L 45 U/L Creatine Kinase MB 1.5 ng/ml Creatine Kinase MB Ratio Troponin I < 0.015 ng/ml Total Protein 7.7 gm/dl Albumin 3.2 gm/dl Globulin 4.5 gm/dl Albumin/Globulin Ratio 0.7 Prothrombin Time 13.5 SECONDS Prothromb Time International Ratio 1.3 Activated Partial Thromboplast Time 29.6 SECONDS Partial Thromboplastin Ratio 1.1 Procalcitonin 7.03 ng/mL Lactic Acid Level 1.3 mmol/L Test 10/25/16 03:20 10/25/16 06:09 10/25/16 07:15 10/25/16 07:22 Influenza Type A Antigen Neg for Influ A Influenza Type B Antigen Neg for Influ B Lactic Acid Level 1.4 mmol/L Test 10/25/16 07:35 10/25/16 09:04 10/25/16 09:[address] SCAN OF THE ABDOMEN AND PELVIS WITHOUT IV CONTRAST CLINICAL HISTORY: Generalized abdominal pain. COMPARISON STUDY: Abdominal CT dated 08/16/2016. TECHNIQUE: CT scan of the abdomen and pelvis is performed from the lung bases to the proximal femora. Images are reviewed in the axial, sagittal, and coronal planes. IV contrast was not administered for this examination as per the referring clinician. Note that the examination was performed in suboptimal fashion without oral and IV contrast. The examination is also degraded by motion artifact. Automated dose control exposure was utilized. CT DOSE: 280.18 mGy.cm FINDINGS: Lung bases: The heart is normal in size and without pericardial effusion. No airspace consolidation or pleural effusion is identified. Liver: The unenhanced liver is normal in size, contour, and attenuation. There is mild central intrahepatic biliary ductal dilatation, likely related to previous cholecystectomy. Gallbladder: Surgically absent noting clips in the gallbladder fossa. Spleen: The spleen is enlarged, measuring 14.5 cm in length. Pancreas: The unenhanced pancreas is atrophic and grossly unremarkable. Adrenal glands: Unremarkable. Kidneys: The left kidney is surgically absent. The unenhanced right kidney is markedly atrophic and without hydronephrosis.. There are no renal calculi identified. Numerous subcentimeter cortical hypodensities likely represent cysts but are too small for definitive characterization. Abdominal vasculature: The abdominal aorta is normal in course and caliber noting moderate to advanced atherosclerotic calcification. This is advanced for age. External iliac stents are suspected. Bowel: No bowel obstruction is identified. There is a long segment of thick-walled and edematous small bowel involving distal/terminal ileum with surrounding inflammatory change. There is also significant wall thickening and edema identified within the cecum. The remainder of the colon is within normal limits. No pneumatosis intestinalis or portal venous gas is seen. There are scattered colonic diverticula without CT evidence of acute diverticulitis. The cecum is located in the pelvis. There is moderate colonic fecal retention. The appendix is not identified and reported surgically absent. Peritoneum: There is no intraperitoneal free air or abdominal ascites. There is evidence of previous ventral hernia repair. Lymphadenopathy: None. Pelvic viscera: The bladder is decompressed and grossly unremarkable. The uterus is surgically absent. No adnexal lesion is identified. Skeletal structures: Findings suggest renal osteodystrophy. There is mild lumbosacral spondylosis. Degenerative change is noted in the sacroiliac joints. No lytic or blastic lesions are seen. There are healed right-sided rib fractures. IMPRESSION: 1. Significantly suboptimal examination without oral and IV contrast. 2. There is significant wall thickening and edema identified involving a long segment of the distal small bowel as well as the cecum. The appearance is consistently nonspecific ileocecitis. This could be on an infectious, inflammatory, or ischemic basis. Clinical correlation will be required. 3. No intraperitoneal free air is identified. There is no pneumatosis intestinalis or portal venous gas. 4. The left kidney is surgically absent. The right kidney is markedly atrophic and without hydronephrosis. 5. Splenomegaly. 6. Additional findings as detailed above. CHEST ONE VIEW PORTABLE HISTORY: Sepsis COMPARISON: None. FINDINGS: No pleural effusions. No pneumothorax. The heart is normal in size. Rotated study. Left upper extremity vascular stents are noted. Mild diffuse interstitial thickening which is likely chronic. No focal lung consolidations to suggest pneumonia. IMPRESSION: Mild diffuse interstitial thickening is likely chronic. Otherwise, no acute process within the chest. Assessment & Plan 1. Sepsis due to an unknown organism as evidenced by achieving SIRS criteria 2. Ileocolitis, undifferentiated - infectious vs inflammatory vs ischemic 3. Diabetes mellitus 4. ESRD 5. Diabetic peripheral neuropathy 6. H/o C Diff 7. Depression with H/O SI 8. H/O systolic murmur 9. Hyponatremia 10. Hyperkalemia NVS - Patient is A+OX3 CVS - Levophed has been weaned and bp is stable in the 90s systolic - will continue to monitor - tachycardia has resolved - echo ordered RVS -CXR was WNL - monitor respiratory status GI - NPO - H2 anya for GI prophylaxis because of potential C diff RENAL - bedside USG to assess volume status - consult nephro - monitor BMP - Strict I&O ID - CBC in am - Flagyl IV and oral Vanco - if C diff negative will start Aztreonam for broader coverage - C diff culture pending - Stool cultures pending - blood cultures pending x 2 ENDO - Lantus 5 units given and patient hypoglycemic afterwards - insulin to sliding scale Electrolytes - hyponatremia- will recheck this morning DVT Prophylaxis - Heparin 5000 IU tid FULL CODE Resident Physician Supervision Note: Dr. Young was resident physician during care of patient. I separately evaluated patient and did history and exam. I discussed the case with the resident and generally agree with the findings and plan. Through the course of the day the patient's C. difficile toxin assay resulted positive, accordingly we have not started aztreonam, as they now feel that this is sepsis secondary to C. difficile colitis. Of note the patient has been relatively hypotensive, however she has maintained a normal mental status and her lactic acid remains normal. I do not believe that she is truly hypotensive , would not benefit from volume expansion and she is end-stage renal disease. We did however require placement of a arterial line to facilitate an accurate measurement of blood pressure as well as allow for frequency of lab draws as the patient has poor venous access. Of note the patient is not a full code and a previously completed POLST form on the patient's personal senior living was discovered. I confirmed that the patient didn't fact not want aggressive or heroic measures done in event of cardiac arrest. Accordingly the patient has been changed to a level V code. It is noted that the patient is not in an end- stage terminal condition with regards to C. difficile colitis. Accordingly we' re treating with antibiotics versus and according with her wishes and the POLST form. I have personally spent 55 minutes of critical care time in the direct management of this patient. This is a life/limb threatening event. This includes time spent evaluating patient, direct bedside care, chart review, placing orders, interpretation of diagnostic studies, discussion with consultants, patient, and family members, as well as other required patient management activities. This time is exclusive of all separately billable procedures, and teaching time and separate from and in addition to any other critical care service time. Documented By: Nadir Mata DO
--- NOTE | 2016-10-25 10:25 | Pharmacy Progress Note ---
Pharmacy Antibiotic Consult Date of Service: Oct 25, 2016. Pharmacy Dosing Scope Pharmacy is consulted to initiate IV VANCOMYCIN therapy, order appropriate labs and adjust drug dose/frequency. Subjective The patient is a 56 year old female admitted on Oct 25, 2016 at 00:55 for fever , diarrhea, hypotension, sepsis from possible GI source Objective Height (Feet): 5 Height (Inches): 1.00 Weight (Kilograms): 63.000 Lab Results (24hrs): Laboratory Tests Test 10/24/16 22:35 10/25/16 07:15 BUN/Creatinine Ratio 10.6 Blood Urea Nitrogen 69 mg/dl Creatinine 6.40 mg/dl White Blood Count 11.75 K/uL Red Blood Count 4.64 M/uL Hemoglobin 13.0 g/dL Hematocrit 39.7 % Mean Corpuscular Volume 85.6 fL Mean Corpuscular Hemoglobin 28.0 pg Mean Corpuscular Hemoglobin Concent 32.7 g/dl Platelet Count 188 K/uL Mean Platelet Volume 12.4 fL Neutrophils (%) (Auto) 80.1 % Lymphocytes (%) (Auto) 10.6 % Monocytes (%) (Auto) 8.3 % Eosinophils (%) (Auto) 0.4 % Basophils (%) (Auto) 0.3 % Neutrophils # (Auto) 9.43 K/uL Lymphocytes # (Auto) 1.24 K/uL Monocytes # (Auto) 0.97 K/uL Eosinophils # (Auto) 0.05 K/uL Basophils # (Auto) 0.03 K/uL Micro Results: 10/24 BLCX's x 2 results pending 10/24 Influenza A/B Ag negative; PCR to be checked today 10/25 Stool Cx results pending 10/25 C diff PCR screening pending Item Value Date Time C.difficile Toxin B Gene (PCR) - Final Complete 08/19/16 0955 Stool Positive for C. difficile toxin B gene C.difficile Toxin B Gene (PCR) - Final Complete 09/15/16 1700 Stool Positive for C. difficile toxin B gene 10/25 MRSA nasal swab negative Recent Pertinent Medications Item Value Date Time Vancomycin HCl 276 ml @ 125 mls/hr 10/25/16 0052 1300 mg/Sodium NOW STAT/IV 10/25/16 0103 Chloride Vancomycin HCl 125 mg 10/25/16 0230 (Vancomycin Oral QID/PO 10/25/16 0836 Soln) Metronidazole 500 mg 10/24/162207 (Flagyl / Nss) NOW STAT/IV 10/24/16 2300 Assessment & Plan * Patient admitted w/ fever, diarrhea, hypotension, sepsis from possible GI source. Pt did develop symptoms following HD yesterday however. * + h/o C diff * Patient was still on norepi infusion this AM, BPs 89-103/49-52 * LA 1.4, procalcitonin 7.03 (but ESRD can elevate procalcitonin), WBC 11.8, + left shift, Tmax since hospitalized 39.5 * CT scan: "There is significant wall thickening and edema identified involving a long segment of the distal small bowel as well as the cecum. The appearance is consistently nonspecific ileocecitis. This could be on an infectious, inflammatory, or ischemic basis" VANCOMYCIN: * 1300mg (~20mg/kg) IV x 1 given at 0103 today * Patient is ESRD and will not be dialyzed until tomorrow per normal schedule * First dose should have achieved a peak conc of ~30 * Redosing will likely not be required until after next HD treatment. Will redose when random level is 15-18 or anticipated to be in this range following HD * Will check random level w/ AM labs tomorrow Pharmacy will continue to follow and will adjust dose/frequency as necessary. Thank you
[2016-10-25] MEDS: METRONIDAZOLE 500MG / NSS IV SCH ×2 (10:31→17:57)
--- NOTE | 2016-10-25 10:52 | Pharmacy Progress Note ---
Glycemic Control Intl Consult Date of Service Oct 25, 2016. Scope Glycemic Pharmacist consulted by Dr Gutierrez on 10/25/16 for glycemic control and to write orders per [facility] inpatient glycemic control protocol Objective Weight (Kilograms): 63.000 Accuchecks BSG (last 24hrs): Test 10/24/16 22:35 Random Glucose 270 mg/dl (70-99) Missing BSGs: * 134 at ~0230 this AM * 44-49 ~0830 this AM Laboratory Data (last 24hrs) Test 10/24/16 22:35 10/24/16 23:41 10/25/16 00:41 10/25/16 07:15 Anion Gap 14.0 mmol/L BUN/Creatinine Ratio 10.6 Blood Urea Nitrogen 69 mg/dl Creatinine 6.40 mg/dl Potassium Level mmol/L 6.2 mmol/L 5.4 mmol/L Sodium Level 132 mmol/L White Blood Count 11.75 K/uL Red Blood Count 4.64 M/uL Hemoglobin 13.0 g/dL Hematocrit 39.7 % Mean Corpuscular Volume 85.6 fL Mean Corpuscular Hemoglobin 28.0 pg Mean Corpuscular Hemoglobin Concent 32.7 g/dl Platelet Count 188 K/uL Mean Platelet Volume 12.4 fL Neutrophils (%) (Auto) 80.1 % Lymphocytes (%) (Auto) 10.6 % Monocytes (%) (Auto) 8.3 % Eosinophils (%) (Auto) 0.4 % Basophils (%) (Auto) 0.3 % Neutrophils # (Auto) 9.43 K/uL Lymphocytes # (Auto) 1.24 K/uL Monocytes # (Auto) 0.97 K/uL Eosinophils # (Auto) 0.05 K/uL Basophils # (Auto) 0.03 K/uL Test 10/25/16 07:35 HbA1c Test 10/25/16 07:35 Recent Pertinent Medications Outpatient Anti-diabetic Regimen (per med rec): * Lantus 5 units daily and an additional 7 units at 0400 Sat, Sat * Humalog 5 units with meals unless BSG > 150 then additional coverage is added * A1c = 7.5 % 09/06/16 The patient is currently receiving: * Basal insulin: Lantus 5 units SQ Q HS * Correctional Insulin: Novolog Correction per scale ACHS Goal Range: Low 120 mg/dL - High 160 mg/dL Correction Factor: 35 mg/dL/unit * Prandial insulin: Per carb ratio of 1 unit per 12 grams CHO consumed * Oral Agents: None currently Risk Factors for Insulin Resistance: * Infection: sepsis - likely GI source, possible C diff; receiving Vancomycin PO + IV as well as Metronidazole IV; Tamiflu added for possible influenza * Pressors: Norepi @ 0.12-0.18mcg/kg/min * Diet: currently NPO Assessment & Plan ASSESSMENT: 10/25/16: * ADA & AACE recommend a goal blood sugar range 140-180 mg/dl for the majority of critically ill & non-critically ill patients. However, more stringent targets may be selected in individual cases. * Glu on initial PRP was 270. Patient was given a dose of Regular insulin 5 units SQ x 1 and a dose of Lantus 5 units SQ x 1. BSG at ~0230 reported to be 134 and the BSG drawn at ~0830 was in the 40's. This two BSG checks were via Accuchek fingerstick while on Norepinephrine infusion - reliability is questionable, she was not symptomatic. The patient did not yet have a central line to test using iSTAT. * Given this information, we will place the Lantus on hold - at least until we can confirm that she is not hypoglycemic. The dose that was ordered was equivalent to her home dosage. Will also lessen the Novolog dosing parameters until further BSGs are checked. She may have a central line later today for iSTAT Glu testing. PLAN FOR INPATIENT GLYCEMIC CONTROL: * Holding Lantus at this time * Changing correction factor to 40 mg/dl/unit * Changing carb ratio to 1 unit per 15 grams CHO consumed * Changing goal range to Low 140 mg/dL - High 180 mg/dL * Will f/u this afternoon to determine if central line has been placed for further Glu checks - if not will have to rely on fingerstick results. Provider was going to attempt to wean pressors, perhaps results will be more accurate if BP improves and pressor requirement decreases. * Please note that the plan above was derived based on current level of insulin resistance and hospital stress. These recommendations are appropriate for inpatient admission only. Plan of care upon discharge will need to be reassessed to avoid potential outpatient hypo/hyperglycemia. Thank you.
[2016-10-25 11:17] LABS: INFLUENZA A PCR Neg for Influ A (NEG); INFLUENZA B PCR Neg for Influ B (NEG)
[2016-10-25 11:52] LABS: ISTAT HEMOGLOBIN 14.6 g/dl (12.0-16.0)
[2016-10-25] MEDS ORDERED: FAMOTIDINE IV INJ 20 MG in DEXTROSE 5% 100ML 100 ML IV SCH (14:00)
[2016-10-25] MEDS: ACETAMINOPHEN 325 MG TAB PO PRN (15:14)
[2016-10-25] MEDS ORDERED: CALCIUM GLUCONATE 10% 1,000 MG in SODIUM CHLORIDE 0.9% 50ML 50 ML IV ONE (15:30)
--- NOTE | 2016-10-25 16:28 | NEPHROLOGY CONSULTATION ---
DATE OF CONSULTATION: 10/25/2016 ATTENDING OF RECORD: Dr. Valadez. REASON FOR CONSULTATION: ESRD. HISTORY OF PRESENT ILLNESS: This is a 56-year-old female who dialyzes on Mondays, Wednesdays, and Fridays at the [facility] dialysis unit in [place]. Her last dialysis treatment was Saturday. The patient's dialysis went well. She does have significant diabetes with retinopathy leading to poor vision. The patient came in last night with fevers and abdominal pain and C. diff reportedly positive, currently now on contact isolation. She continues to have significant abdominal pain and diarrhea, but is otherwise comfortable. In August of last year, the patient was admitted with C. diff colitis as well as septic shock and appears to have similar presentation during this admission. ROS: +abdominal pain, +diarrhea, +fevers, no n/v, no sob, no chest pain, no headaches, no dysphagia no rash, +poor vision, all other review of systems otherwise negative. PAST MEDICAL HISTORY: 1. ESRD on dialysis Mondays, Wednesdays and Fridays at the [facility] dialysis unit. 2. Hypertension. 3. Hyperlipidemia. 4. Diabetes. 5. GERD 6. Depression. PAST SURGICAL HISTORY: Fistula placement, stents to the legs, and appendectomy, nephrectomy FAMILY HISTORY: No significant renal disease in family. SOCIAL HISTORY: No smoking, no alcohol, and no drugs. Lives at [facility]. HOME MEDICATIONS: Significant for Plavix 75 mg a day, Norvasc 10 mg a day, Renvela 800 t.i.d. with meals and metoprolol 12.5 mg daily. CURRENT MEDICATIONS: Pepcid 20 mg IV on Mondays, Wednesdays, and Fridays; Nicoderm patch daily; Remeron 15 mg at night; Flagyl 500 mg IV q. 8 hours; aspirin 81 mg a day; Plavix 75 mg daily; Lyrica 100 mg p.o. b.i.d.; heparin 5000 units subQ q. 8 hours; oral vancomycin 125 mg 4 times a day; Levophed as needed; and raspberry syrup 5 mL p.o. 4 times a day. PHYSICAL EXAMINATION: VITAL SIGNS: Temperature is 37.4, pulse 97, respiratory rate 19, blood pressure 76/51, and satting 98% on room air. GENERAL: Awake, alert, and oriented x3. EYES: No scleral icterus. ENT: Moist mucous membranes. NECK: Supple. PULMONARY: Clear to auscultation. CARDIAC: Regular rate and rhythm with 2/6 systolic murmur. ABDOMEN: Generalized tenderness of the abdomen. EXTREMITIES: No significant clubbing, cyanosis or edema. NEUROLOGICALLY: Nonfocal. DERMATOLOGIC: No rash or ulcers noted. LABORATORIES: Flu was negative. White count on presentation was 11,000, H\T\H 13 and 39, and platelet count 188. Potassium level was 5.4 last night. Lactic acid was 1.3. Magnesium 1.5, sodium level was 131, potassium level was 6.7 last night, chloride 96, bicarbonate 25, BUN 76, and creatinine 6. Ionized calcium was 1. Procalcitonin 7.03. C. diff was positive. Stool cultures are pending. Blood cultures pending. Abdominal pelvis CT showed significant wall thickening and edema in the long segment of distal small bowel. Appearance is consistent with nonspecific ileocecitis. No intraperitoneal free air. Left kidney is surgically absent. Right kidney is markedly atrophic and signs of splenomegaly. IMPRESSION: 1. End-stage renal disease: had dialysis on saturday, Currently now with low blood pressures, currently monitoring with a goal map of greater than 60. The patient is mentating well and currently on therapy for C. diff. Hoping with therapy, blood pressure starts to stabilize. The patient's potassium levels were quite elevated on admission and repeat did come down to 5.4 as of midnight. The patient is a difficult stick and hard to repeat labs. We will follow labs periodically. If potassium levels start to trend back up, may consider doing dialysis for clearance of potassium with likely pressor support with no fluid removal. 2. Hypocalcemia. Ionized calcium was low and I would like to redose another gram of calcium gluconate to help with blood pressures and to ensure calcium levels are adequate since difficult to follow labs on the patient. 3. Anemia of chronic kidney disease. Hemoglobin level is 13. Although, may have had an element of hemoconcentration and is expected to trend down; however, if above 11, we will continue to hold Procrit. Appreciate consultation. KALINA
--- NOTE | 2016-10-25 17:56 | Procedure Note ---
Procedure Note Procedure Date Oct 25, 2016. (Suze Gonzalez PA-C) Procedure Description Procedure Name: Left Radial Arterial Line Insertion Procedure time out: side/site verified, patient ID confirmed, correct procedure Consent obtained: written (Obtained by Dr. Mata) Time of procedure: 17:35 Performed by: attending, physician financial economist Indications: diagnostic, therapeutic Contraindications: none Description: Using sterile technique; the left radial artery was cleaned with a chloro- hexadine scrub after adequate palpation and visualization with the ultrasound, a finder needle with overlaying catheter was then used with approach at a 45* angle until a flash was obtained with direct visualization on ultrasound. Using Seldinger technique, there was initially no difficulty passing the guide wire, on the second attempt the guide wire was then passed successfully into the artery and the catheter was threaded over the guide wire; which was then removed. Arterial blood was seen pulsating from catheter tip and a luer lock valve was attached to the catheter. The A-line catheter was then secured with one stat-lock and covered with a sterile surgical dressing. Pt was reassessed and no evidence of hematoma was appreciated. The tubing was placed between the first and second fingers and taped to the forearm. Pt tolerated the procedure well with no complications. Consent was obtained by Dr. Mata Complications: none Patient tolerated procedure: well Post-procedure vital signs: reviewed and stable Comments: Dr. Mata reached out to Dr. Robbins on behalf of this pt for permission to place line in left wrist distal to her dialysis fistula. He approved of the procedure and the pt was satisfied to continue. (Suze Gonzalez PA-C) Comments: I was physically present during the entire procedure (Nadir Mata, D.O.)
--- NOTE | 2016-10-25 18:01 | Medical Student: [facility] ---
Med Student Progress Note Date of Service Oct 25, 2016. Subjective Pt evaluation today including: conversation w/ patient, physical exam, chart review, lab review, review of studies Pain: patient reports mild abdominal pain, decreased since presentation yesterday PO Intake: npo except medications and sips Voiding: voiding difficulty (does not produce urine) patient reports no acute events overnight. she was feeling very poorly this morning. she does report that she feels somewhat better than at her initial presentation, but she feels very weak and tired. reports 3 episodes of incontinent stools as of this morning at 10 am. this evening she reported taking sips of water and said that this caused her to have bowel movements immediately after. she is not currently eating or drinking, but reports that she is feeling more hungry and thirsty now. patient reports her abdominal pain is improved. she denies shortness of breath, chest pain, current lower extremity edema. no other symptoms to report. Review of Systems Constitutional: + chills, + fever Eyes: + worsening of vision (legally blind due to diabetic retinopathy.) Respiratory: No cough, No shortness of breath, No wheezing Cardiac: No chest pain, No edema Abdomen: + diarrhea, + pain Objective Vital Signs Date Time Temp Pulse Resp B/P Pulse Ox O2 Delivery O2 Flow Rate FiO2 10/25/16 16:00 Room Air 10/25/16 15:14 91 17 85/52 98 Room Air 10/25/16 14:48 93 19 75/41 99 Room Air 10/25/16 12:13 97 19 76/51 98 Room Air 10/25/16 12:04 37.4 97 23 80/47 98 Room Air 10/25/16 12:00 Room Air 10/25/16 11:14 96 21 86/29 97 Room Air 10/25/16 10:59 94 22 94/51 100 Room Air 10/25/16 10:42 96 23 86/54 100 Room Air 10/25/16 10:00 86 20 76/58 94 Room Air 10/25/16 09:44 92 19 109/51 90 Room Air 10/25/16 09:35 88 22 85/58 99 Room Air 10/25/16 09:02 93 19 98/67 Room Air 10/25/16 08:14 36.4 71 14 94/52 96 Room Air 10/25/16 08:00 Room Air 10/25/16 08:00 Room Air 10/25/16 07:58 72 13 98/60 97 Room Air 10/25/16 07:28 69 13 88/48 99 Room Air 10/25/16 06:59 73 15 92/75 10/25/16 06:43 69 13 103/52 100 10/25/16 06:28 69 12 93/57 95 10/25/16 06:14 70 16 87/50 10/25/16 06:00 71 15 98 10/25/16 05:43 69 12 89/49 98 10/25/16 05:43 69 12 89/49 98 10/25/16 05:28 68 12 93/52 98 10/25/16 05:28 68 12 93/52 98 10/25/16 05:13 70 14 106/53 98 10/25/16 05:13 70 14 106/53 98 10/25/16 05:08 69 12 103/53 99 10/25/16 05:08 69 12 103/53 99 10/25/16 05:03 70 12 106/54 99 10/25/16 05:03 70 12 106/54 99 10/25/16 05:00 71 12 99 10/25/16 05:00 71 12 99 10/25/16 04:58 70 12 89/50 99 10/25/16 04:45 70 12 100 10/25/16 04:43 70 12 94/52 99 10/25/16 04:30 72 13 99 10/25/16 04:28 70 11 99/52 99 10/25/16 04:13 70 12 99/50 99 10/25/16 04:00 36.3 69 12 111/58 99 Room Air 10/25/16 04:00 69 12 99 10/25/16 04:00 100 Room Air 10/25/16 03:58 72 12 111/58 98 10/25/16 03:45 69 12 99 10/25/16 03:43 70 12 110/52 99 10/25/16 03:30 70 15 99 10/25/16 03:23 71 14 122/54 98 10/25/16 03:20 71 12 99 10/25/16 03:18 71 13 127/56 99 10/25/16 03:13 73 13 126/58 99 10/25/16 03:08 73 13 127/59 99 1/19/17 03:05 74 13 99 10/25/16 03:03 74 15 122/55 99 10/25/16 02:58 74 13 127/57 99 10/25/16 02:58 74 13 127/57 99 10/25/16 02:53 75 15 131/67 100 10/25/16 02:50 76 13 99 10/25/16 02:48 76 13 129/63 98 10/25/16 02:43 71 13 115/57 98 10/25/16 02:39 76 14 74/39 10/25/16 02:35 76 13 96 10/25/16 02:28 76 12 76/40 96 10/25/16 02:28 76 12 76/40 96 10/25/16 02:22 37.4 81 18 79/36 95 Room Air 10/25/16 02:20 77 13 96 10/25/16 02:17 77 14 64/37 10/25/16 02:17 77 14 64/37 10/25/16 01:15 37.3 90 16 83/45 95 10/25/16 00:30 96 20 80/43 95 Room Air 10/25/16 00:00 100 20 83/46 95 Room Air 10/24/16 23:46 39.5 108 20 74/44 95 Room Air 10/24/16 23:11 112 20 97/47 94 Room Air 10/24/16 22:05 121 10/24/16 22:03 38.9 126 20 114/67 97 Physical Exam General Appearance: + mild distress, + pertinent finding (ill-appearing) Eyes: bilateral eyes EOMI, bilateral eyes normal inspection ENT: hearing grossly normal, pharynx normal Neck: supple, no JVD Respiratory/Chest: chest non-tender, lungs clear, normal breath sounds, no respiratory distress Cardiovascular: regular rate, rhythm, no edema, no gallop, no JVD, + systolic murmur (I-II/ early systolic murmur heard throughout precordium) Abdomen: soft, + abnormal bowel sounds (hyperactive bowel sounds), + tenderness (mild tenderness to palpation, particularly on right side) Extremities: non-tender, no pedal edema Neurologic/Psychiatric: alert, normal mood/affect, oriented x 3 Skin: normal color, warm/dry, no rash Laboratory Results Last 24 Hours Test 10/24/16 22:35 10/24/16 22:45 10/24/16 22:52 10/24/16 23:41 White Blood Count 11.75 K/uL Red Blood Count 4.64 M/uL Hemoglobin 13.0 g/dL Hematocrit 39.7 % Mean Corpuscular Volume 85.6 fL Mean Corpuscular Hemoglobin 28.0 pg Mean Corpuscular Hemoglobin Concent 32.7 g/dl Platelet Count 188 K/uL Mean Platelet Volume 12.4 fL Neutrophils (%) (Auto) 80.1 % Lymphocytes (%) (Auto) 10.6 % Monocytes (%) (Auto) 8.3 % Eosinophils (%) (Auto) 0.4 % Basophils (%) (Auto) 0.3 % Neutrophils # (Auto) 9.43 K/uL Lymphocytes # (Auto) 1.24 K/uL Monocytes # (Auto) 0.97 K/uL Eosinophils # (Auto) 0.05 K/uL Basophils # (Auto) 0.03 K/uL RDW Standard Deviation 49.8 fL RDW Coefficient of Variation 15.9 % Immature Granulocyte % (Auto) 0.3 % Immature Granulocyte # (Auto) 0.03 K/uL Sodium Level 132 mmol/L Potassium Level mmol/L 6.2 mmol/L Chloride Level 96 mmol/L Carbon Dioxide Level 22 mmol/L Anion Gap 14.0 mmol/L 18.0 mmol/L Blood Urea Nitrogen 69 mg/dl Creatinine 6.40 mg/dl Est Creatinine Clear Calc Drug Dose 8.7 ml/min Estimated GFR () 7.8 Estimated GFR (Non- 6.8 BUN/Creatinine Ratio 10.6 Random Glucose 270 mg/dl Calcium Level 8.5 mg/dl Magnesium Level mg/dl 1.5 mg/dl Total Bilirubin 0.5 mg/dl Aspartate Amino Transf (AST/SGOT) U/L 20 U/L Alanine Aminotransferase (ALT/SGPT) 27 U/L Alkaline Phosphatase 291 U/L Total Creatine Kinase U/L 45 U/L Creatine Kinase MB 1.5 ng/ml Creatine Kinase MB Ratio Troponin I < 0.015 ng/ml Total Protein 7.7 gm/dl Albumin 3.2 gm/dl Globulin 4.5 gm/dl Albumin/Globulin Ratio 0.7 Bedside Lactic Acid Venous 2.74 mmol/L Bedside Hemoglobin 14.6 g/dl Bedside Hematocrit 43 % Bedside Sodium 131 mEq/L Bedside Potassium 6.7 mEq/L Bedside Chloride 96 mEq/L Bedside Total CO2 25 mEq/l Bedside Blood Urea Nitrogen 76 mg/dl Bedside Creatinine 6.0 mg/dl Bedside Glucose (other) 267 mg/dl Bedside Ionized Calcium (Ness) 1.00 mmol/l Prothrombin Time 13.5 SECONDS Prothromb Time International Ratio 1.3 Activated Partial Thromboplast Time 29.6 SECONDS Partial Thromboplastin Ratio 1.1 Procalcitonin 7.03 ng/mL Test 10/25/16 00:41 10/25/16 01:41 10/25/16 02:41 10/25/16 03:20 Potassium Level 5.4 mmol/L Lactic Acid Level 1.3 mmol/L Bedside Glucose 134 mg/dl Influenza Type A Antigen Neg for Influ A Influenza Type B Antigen Neg for Influ B Test 10/25/16 06:09 10/25/16 06:32 10/25/16 07:15 10/25/16 07:22 Lactic Acid Level 1.4 mmol/L Bedside Glucose 70 mg/dl Test 10/25/16 07:35 10/25/16 09:04 10/25/16 09:10 Influenza Type A (RT-PCR) Neg for Influ A Influenza Type B (RT-PCR) Neg for Influ B Medications Current Inpatient Medications Medications (Trade) Dose Ordered Sig/Sandy Route Start Time Stop Time Status Last Admin Dose Admin Heparin Sodium (Porcine) (Heparin Sq 5000 Unit/0.5ml) 5,000 unit Q8H SQ 10/25/16 06:00 11/24/16 05:59 10/25/16 14:43 5,000 UNIT Acetaminophen (Tylenol Tab) 650 mg Q4H PRN PO 10/25/16 01:00 11/24/16 00:59 10/25/16 15:14 650 MG Vancomycin HCl (Consult) 1 ea UD PRN N/A 10/25/16 01:00 11/24/16 00:59 Vancomycin HCl (Vancomycin Oral Soln) 125 mg QID PO 10/25/16 02:30 11/08/16 02:29 10/25/16 14:42 125 MG Aspirin (Ecotrin Tab) 81 mg DAILY PO 10/25/16 09:00 11/24/16 08:59 10/25/16 08:37 81 MG Clopidogrel Bisulfate (plAVix TAB) 75 mg DAILY PO 10/25/16 09:00 11/24/16 08:59 10/25/16 08:36 75 MG Mirtazapine (Remeron Tab) 15 mg HS PO 10/25/16 21:00 11/24/16 20:59 Pregabalin (Lyrica Cap) 100 mg BID PO 10/25/16 09:00 11/24/16 08:59 10/25/16 08:36 100 MG Miscellaneous Information 1 ea 1 ea UD PRN N/A 10/25/16 01:30 11/24/16 01:29 Norepinephrine Bitartrate/ Dextrose (Levophed Inj/ D5W 500ml) 508 ml @ 0 mls/hr Q0M PRN IV 10/25/16 02:20 11/24/16 02:19 10/25/16 02:50 23.6 MLS/HR Raspberry (Raspberry Syrup 5ml Cup) 5 ml QID PO 10/25/16 02:30 11/04/16 02:29 10/25/16 14:42 5 ML Glucose (Glucose 40% Gel) 15-30 GRAMS 15 GRAMS... UD PRN PO 10/25/16 02:45 11/24/16 02:44 Glucose (Glucose Chew Tab) 4-8 Tablets 4 Tabl... UD PRN PO 10/25/16 02:45 11/24/16 02:44 Dextrose (Dextrose 50% 50ML Syringe) 25-50ML OF 50% DW IV FOR... UD PRN IV 10/25/16 02:45 11/24/16 02:44 10/25/16 08:55 50 ML Glucagon 1 mg 1 mg UD PRN SQ 10/25/16 02:45 11/24/16 02:44 Famotidine 20 mg/ Dextrose 102 ml @ 204 mls/hr DAILY@1400 IV 10/25/16 14:00 10/25/16 18:00 10/25/16 14:42 204 MLS/HR Metronidazole 500 mg/Prmx 100 ml @ 100 mls/hr Q8H IV 10/25/16 10:00 11/08/16 09:59 10/25/16 10:31 100 MLS/HR Famotidine/ Dextrose (Pepcid IV Inj/ D5 100ml) 102 ml @ 204 mls/hr MoWeFr@2100 IV 10/26/16 21:00 11/25/16 20:59 Insulin Aspart (novoLOG ASPART) SLIDING SCALE Q6 SC 10/25/16 12:00 11/24/16 11:59 Nicotine (Nicoderm Cq 14MG Patch) 1 patch QAM TD 10/26/16 09:00 11/25/16 08:59 Miscellaneous (Remove Nicoderm Patch) 1 ea HS N/A 10/25/16 21:00 11/24/16 20:59 Assessment and Plan Assessment and Plan: Sepsis (source suspected to be from C. diff colitis evidenced by achieving SIRS criteria - positive c. diff toxin in stool sample - b/p has been low in ICU; received levophed but this was d/c this morning. - arterial line placed for more accurate BP measures and blood sampling - initial BP through line showed 60/29 - levophed to be resumed for goal MAP of 65 - follow lactate, procalcitonin - continue IV flagyl and oral vancomycin for treatment of C. diff colitis with sepsis - daily CBC, BMP Ileocolitis - evidence of inflammation in distal ileum and cecum on CT of abdomen - positive c. diff toxin - treating with flagyl and vancomycin Persistent hypotension - per reports has been hypotensive since last hospitalization - ordered serum cortisol and ACTH for evaluation of possible adrenal dysfunction Diabetes mellitus - Hgb A1C of 7.5 in september - d/c glargine insulin due to hypoglycemia this morning - sliding scale protocol with a goal of 140-180 glucose - will be monitoring glucose via arterial line ESRD - Nephrology has seen her and she is scheduled for dialysis tomorrow as normal ( MWF dialysis) - electrolytes will be assessed following dialysis tomorrow HTN - patient has a history of htn but has been hypotensive since being hospitalized in august per her reports - d/c amlodipine 10 mg and metoprolol succinate 12.5 mg until blood pressures are stable Diabetic peripheral neuropathy - continue pregabalin for neuropathic pain H/o C Diff - repeat infection of C diff as evidence by positive stool toxin Depression with H/O SI - continue mirtazapine 25 mg po qs H/O systolic murmur - stable, unchanged per patient report Hyponatremia - nephrology will address following dialysis Hyperkalemia - nephrology will address following dialysis Continued [facility] stay due to: abnormal vital signs, multiple IV medications needed Discharge planning: other ([facility])
[2016-10-25 18:50] LABS: INR 1.4 (0.9-1.1); PARTIAL THROMBOPLASTIN RATIO 1.3; PROTHROMBIN TIME (PATIENT) 14.7 SECONDS (9.0-12.0)
[2016-10-25 19:02] LABS: HEMATOCRIT 29.4 % (37-47); MEAN CELL VOLUME 84.5 fL (80-100); MEAN CORPUSCULAR HEMOGLOBIN 27.9 pg (25-34); RED BLOOD COUNT 3.48 M/uL (4.2-5.4)
[2016-10-25 19:03] LABS: MEAN PLATELET VOLUME 12.1 fL (7.4-10.4); PLATELET COUNT 147 K/uL (130-400)
[2016-10-25 20:09] LABS: ALB/GLOB RATIO 0.7 (0.9-2); BUN/CREATININE RATIO 11.7 (10-20); CALCIUM 8.4 mg/dl (8.5-10.1); MAGNESIUM 1.8 mg/dl (1.8-2.4); PHOSPHORUS 5.4 mg/dl (2.5-4.9); POTASSIUM 5.5 mmol/L (3.5-5.1)
[2016-10-25 20:10] LABS: CREATININE 7.3 mg/dl (0.60-1.20)
[2016-10-25] MEDS: MIRTAZAPINE TAB 15 MG TAB PO SCH (20:26)
--- NOTE | 2016-10-25 21:09 | Family Medicine Progress Note ---
Progress Note Date of Service Oct 25, 2016. Subjective Pt evaluation today including: conversation w/ patient, physical exam, chart review, lab review, review of studies, review of inpatient medication list Pain: Right sided abdominal pain PO Intake: npo Voiding: voiding difficulty (anuria) Pt reported rt sided abdominal pain 7-8/10, and chills, diarrhea, N/V. Pt [facility] the day before. Constitutional: + chills, No fever Respiratory: No cough, No shortness of breath, No sputum, No wheezing Cardiovascular: No chest pain, No palpitations Abdomen: + pain (RUQ, RLQ) Female : No dysuria, No urinary frequency Skin: No itch, No rash Medications Current Inpatient Medications Medications (Trade) Dose Ordered Sig/Sandy Route Start Time Stop Time Status Last Admin Dose Admin Heparin Sodium (Porcine) (Heparin Sq 5000 Unit/0.5ml) 5,000 unit Q8H SQ 10/25/16 06:00 11/24/16 05:59 Acetaminophen (Tylenol Tab) 650 mg Q4H PRN PO 10/25/16 01:00 11/24/16 00:59 10/25/16 15:14 650 MG Vancomycin HCl (Consult) 1 ea UD PRN N/A 10/25/16 01:00 11/24/16 00:59 Vancomycin HCl (Vancomycin Oral Soln) 125 mg QID PO 10/25/16 02:30 11/08/16 02:29 10/25/16 20:25 125 MG Aspirin (Ecotrin Tab) 81 mg DAILY PO 10/25/16 09:00 11/24/16 08:59 10/25/16 08:37 81 MG Clopidogrel Bisulfate (plAVix TAB) 75 mg DAILY PO 10/25/16 09:00 11/24/16 08:59 10/25/16 08:36 75 MG Mirtazapine (Remeron Tab) 15 mg HS PO 10/25/16 21:00 11/24/16 20:59 10/25/16 20:26 15 MG Pregabalin (Lyrica Cap) 100 mg BID PO 10/25/16 09:00 11/24/16 08:59 10/25/16 20:25 100 MG Miscellaneous Information 1 ea 1 ea UD PRN N/A 10/25/16 01:30 11/24/16 01:29 Norepinephrine Bitartrate/ Dextrose (Levophed Inj/ D5W 500ml) 508 ml @ 0 mls/hr Q0M PRN IV 10/25/16 02:20 11/24/16 02:19 10/25/16 02:50 23.6 MLS/HR Raspberry (Raspberry Syrup 5ml Cup) 5 ml QID PO 10/25/16 02:30 11/04/16 02:29 10/25/16 20:25 5 ML Glucose (Glucose 40% Gel) 15-30 GRAMS 15 GRAMS... UD PRN PO 10/25/16 02:45 11/24/16 02:44 Glucose (Glucose Chew Tab) 4-8 Tablets 4 Tabl... UD PRN PO 10/25/16 02:45 11/24/16 02:44 Dextrose (Dextrose 50% 50ML Syringe) 25-50ML OF 50% DW IV FOR... UD PRN IV 10/25/16 02:45 11/24/16 02:44 10/25/16 08:55 50 ML Glucagon 1 mg 1 mg UD PRN SQ 10/25/16 02:45 11/24/16 02:44 Metronidazole 500 mg/Prmx 100 ml @ 100 mls/hr Q8H IV 10/25/16 10:00 11/08/16 09:59 10/25/16 17:57 100 MLS/HR Famotidine/ Dextrose (Pepcid IV Inj/ D5 100ml) 102 ml @ 204 mls/hr MoWeFr@2100 IV 10/26/16 21:00 11/25/16 20:59 Insulin Aspart (novoLOG ASPART) SLIDING SCALE Q6 SC 10/25/16 12:00 11/24/16 11:59 Nicotine (Nicoderm Cq 14MG Patch) 1 patch QAM TD 10/26/16 09:00 11/25/16 08:59 Miscellaneous (Remove Nicoderm Patch) 1 ea HS N/A 10/25/16 21:00 11/24/16 20:59 Objective Vital Signs Date Time Temp Pulse Resp B/P Pulse Ox O2 Delivery O2 Flow Rate FiO2 10/25/16 17:25 84 19 79/40 98 Room Air 10/25/16 16:00 Room Air 10/25/16 15:58 37.1 81 17 60/32 94 Room Air 10/25/16 15:14 91 17 85/52 98 Room Air 10/25/16 14:48 93 19 75/41 99 Room Air 10/25/16 12:13 97 19 76/51 98 Room Air 10/25/16 12:04 37.4 97 23 80/47 98 Room Air 10/25/16 12:00 Room Air 10/25/16 11:14 96 21 86/29 97 Room Air 10/25/16 10:59 94 22 94/51 100 Room Air 10/25/16 10:42 96 23 86/54 100 Room Air 10/25/16 10:00 86 20 76/58 94 Room Air 10/25/16 09:44 92 19 109/51 90 Room Air 10/25/16 09:35 88 22 85/58 99 Room Air 10/25/16 09:02 93 19 98/67 Room Air 10/25/16 08:14 36.4 71 14 94/52 96 Room Air 10/25/16 08:00 Room Air 10/25/16 08:00 Room Air 10/25/16 07:58 72 13 98/60 97 Room Air 10/25/16 07:28 69 13 88/48 99 Room Air 10/25/16 06:59 73 15 92/75 10/25/16 06:43 69 13 103/52 100 10/25/16 06:28 69 12 93/57 95 10/25/16 06:14 70 16 87/50 10/25/16 06:00 71 15 98 10/25/16 05:43 69 12 89/49 98 10/25/16 05:43 69 12 89/49 98 10/25/16 05:28 68 12 93/52 98 10/25/16 05:28 68 12 93/52 98 10/25/16 05:13 70 14 106/53 98 10/25/16 05:13 70 14 106/53 98 10/25/16 05:08 69 12 103/53 99 10/25/16 05:08 69 12 103/53 99 10/25/16 05:03 70 12 106/54 99 10/25/16 05:03 70 12 106/54 99 10/25/16 05:00 71 12 99 10/25/16 05:00 71 12 99 10/25/16 04:58 70 12 89/50 99 10/25/16 04:45 70 12 100 10/25/16 04:43 70 12 94/52 99 10/25/16 04:30 72 13 99 10/25/16 04:28 70 11 99/52 99 10/25/16 04:13 70 12 99/50 99 10/25/16 04:00 36.3 69 12 111/58 99 Room Air 10/25/16 04:00 69 12 99 10/25/16 04:00 100 Room Air 10/25/16 03:58 72 12 111/58 98 10/25/16 03:45 69 12 99 10/25/16 03:43 70 12 110/52 99 10/25/16 03:30 70 15 99 10/25/16 03:23 71 14 122/54 98 10/25/16 03:20 71 12 99 10/25/16 03:18 71 13 127/56 99 10/25/16 03:13 73 13 126/58 99 10/25/16 03:08 73 13 127/59 99 10/25/16 03:05 74 13 99 10/25/16 03:03 74 15 122/55 99 10/25/16 02:58 74 13 127/57 99 10/25/16 02:58 74 13 127/57 99 10/25/16 02:53 75 15 131/67 100 10/25/16 02:50 76 13 99 10/25/16 02:48 76 13 129/63 98 10/25/16 02:43 71 13 115/57 98 10/25/16 02:39 76 14 74/39 10/25/16 02:35 76 13 96 10/25/16 02:28 76 12 76/40 96 10/25/16 02:28 76 12 76/40 96 10/25/16 02:22 37.4 81 18 79/36 95 Room Air 10/25/16 02:20 77 13 96 10/25/16 02:17 77 14 64/37 10/25/16 02:17 77 14 64/37 10/25/16 01:15 37.3 90 16 83/45 95 10/25/16 00:30 96 20 80/43 95 Room Air 10/25/16 00:00 100 20 83/46 95 Room Air 10/24/16 23:46 39.5 108 20 74/44 95 Room Air 10/24/16 23:11 112 20 97/47 94 Room Air 10/24/16 22:05 121 10/24/16 22:03 38.9 126 20 114/67 97 Physical Exam General Appearance: WD/WN, + mild distress Eyes: normal inspection, PERRL Neck: supple, trachea midline Respiratory/Chest: chest non-tender, lungs clear, no respiratory distress Cardiovascular: regular rate, rhythm, no murmur Abdomen: normal bowel sounds, soft, + tenderness (RUQ, RLQ ttp) Extremities: no pedal edema, no calf tenderness Neurologic/Psychiatric: alert, normal mood/affect Skin: normal color, warm/dry Laboratory Results Results Past 24 Hours Test 10/24/16 22:35 10/24/16 22:45 10/24/16 22:52 10/24/16 23:41 Range/Units White Blood Count 11.75 4.8-10.8 K/uL Red Blood Count 4.64 4.2-5.4 M/uL Hemoglobin 13.0 12.0-16.0 g/dL Hematocrit 39.7 37-47 % Mean Corpuscular Volume 85.6 80-100 fL Mean Corpuscular Hemoglobin 28.0 25-34 pg Mean Corpuscular Hemoglobin Concent 32.7 32-36 g/dl Platelet Count 188 130-400 K/uL Mean Platelet Volume 12.4 7.4-10.4 fL Neutrophils (%) (Auto) 80.1 % Lymphocytes (%) (Auto) 10.6 % Monocytes (%) (Auto) 8.3 % Eosinophils (%) (Auto) 0.4 % Basophils (%) (Auto) 0.3 % Neutrophils # (Auto) 9.43 1.4-6.5 K/uL Lymphocytes # (Auto) 1.24 1.2-3.4 K/uL Monocytes # (Auto) 0.97 0.11-0.59 K/uL Eosinophils # (Auto) 0.05 0-0.5 K/uL Basophils # (Auto) 0.03 0-0.2 K/uL RDW Standard Deviation 49.8 36.4-46.3 fL RDW Coefficient of Variation 15.9 11.5-14.5 % Immature Granulocyte % (Auto) 0.3 % Immature Granulocyte # (Auto) 0.03 0.00-0.02 K/uL Sodium Level 132 136-145 mmol/L Potassium Level 6.2 3.5-5.1 mmol/L Chloride Level 96 98-107 mmol/L Carbon Dioxide Level 22 21-32 mmol/L Anion Gap 14.0 18.0 16-25 mmol/L Blood Urea Nitrogen 69 7-18 mg/dl Creatinine 6.40 0.60-1.20 mg/dl Est Creatinine Clear Calc Drug Dose 8.7 ml/min Estimated GFR () 7.8 Estimated GFR (Non- 6.8 BUN/Creatinine Ratio 10.6 10-20 Random Glucose 270 70-99 mg/dl Calcium Level 8.5 8.5-10.1 mg/dl Magnesium Level 1.5 1.8-2.4 mg/dl Total Bilirubin 0.5 0.2-1 mg/dl Aspartate Amino Transf (AST/SGOT) 20 15-37 U/L Alanine Aminotransferase (ALT/SGPT) 27 12-78 U/L Alkaline Phosphatase 291 45-117 U/L Total Creatine Kinase 45 26-192 U/L Creatine Kinase MB 1.5 0.5-3.6 ng/ml Creatine Kinase MB Ratio 0-3.0 Troponin I < 0.015 0-0.045 ng/ml Total Protein 7.7 6.4-8.2 gm/dl Albumin 3.2 3.4-5.0 gm/dl Globulin 4.5 2.5-4.0 gm/dl Albumin/Globulin Ratio 0.7 0.9-2 Bedside Lactic Acid Venous 2.74 0.90-1.70 mmol/L Bedside Hemoglobin 14.6 12.0-16.0 g/dl Bedside Hematocrit 43 37-47 % Bedside Sodium 131 135-144 mEq/L Bedside Potassium 6.7 3.3-5.0 mEq/L Bedside Chloride 96 101-112 mEq/L Bedside Total CO2 25 24-31 mEq/l Bedside Blood Urea Nitrogen 76 7-18 mg/dl Bedside Creatinine 6.0 0.6-1.3 mg/dl Bedside Glucose (other) 267 70-99 mg/dl Bedside Ionized Calcium (Ness) 1.00 1.12-1.32 mmol/l Prothrombin Time 13.5 9.0-12.0 SECONDS Prothromb Time International Ratio 1.3 0.9-1.1 Activated Partial Thromboplast Time 29.6 21.0-31.0 SECONDS Partial Thromboplastin Ratio 1.1 Procalcitonin 7.03 0-0.5 ng/mL Test 10/25/16 00:41 10/25/16 01:41 10/25/16 02:41 10/25/16 03:20 Range/Units Potassium Level 5.4 3.5-5.1 mmol/L Lactic Acid Level 1.3 0.4-2.0 mmol/L Bedside Glucose 134 70-90 mg/dl Influenza Type A Antigen Neg for Influ A NEG Influenza Type B Antigen Neg for Influ B NEG Test 10/25/16 06:09 10/25/16 06:32 10/25/16 08:46 10/25/16 09:10 Range/Units Lactic Acid Level 1.4 0.4-2.0 mmol/L Bedside Glucose 70 49 70-90 mg/dl Influenza Type A (RT-PCR) Neg for Influ A NEG Influenza Type B (RT-PCR) Neg for Influ B NEG Test 10/25/16 09:18 10/25/16 10:44 10/25/16 14:55 10/25/16 18:18 Range/Units Bedside Glucose 167 115 135 70-90 mg/dl White Blood Count 14.00 4.8-10.8 K/uL Red Blood Count 3.48 4.2-5.4 M/uL Hemoglobin 9.7 12.0-16.0 g/dL Hematocrit 29.4 37-47 % Mean Corpuscular Volume 84.5 80-100 fL Mean Corpuscular Hemoglobin 27.9 25-34 pg Mean Corpuscular Hemoglobin Concent 33.0 32-36 g/dl RDW Standard Deviation 49.5 36.4-46.3 fL RDW Coefficient of Variation 16.1 11.5-14.5 % Platelet Count 147 130-400 K/uL Mean Platelet Volume 12.1 7.4-10.4 fL Prothrombin Time 14.7 9.0-12.0 SECONDS Prothromb Time International Ratio 1.4 0.9-1.1 Activated Partial Thromboplast Time 34.3 21.0-31.0 SECONDS Partial Thromboplastin Ratio 1.3 Random Cortisol 12.59 mcg/dl Test 10/25/16 19:23 Range/Units Sodium Level 136 136-145 mmol/L Potassium Level 5.5 3.5-5.1 mmol/L Chloride Level 104 98-107 mmol/L Carbon Dioxide Level 18 21-32 mmol/L Anion Gap 14.0 3-11 mmol/L Blood Urea Nitrogen 85 7-18 mg/dl Creatinine 7.30 0.60-1.20 mg/dl Est Creatinine Clear Calc Drug Dose 7.5 ml/min Estimated GFR () 6.7 Estimated GFR (Non- 5.8 BUN/Creatinine Ratio 11.7 10-20 Random Glucose 171 70-99 mg/dl Lactic Acid Level 1.4 0.4-2.0 mmol/L Calcium Level 8.4 8.5-10.1 mg/dl Phosphorus Level 5.4 2.5-4.9 mg/dl Magnesium Level 1.8 1.8-2.4 mg/dl Total Bilirubin 0.3 0.2-1 mg/dl Aspartate Amino Transf (AST/SGOT) 14 15-37 U/L Alanine Aminotransferase (ALT/SGPT) 19 12-78 U/L Alkaline Phosphatase 187 45-117 U/L Total Protein 5.5 6.4-8.2 gm/dl Albumin 2.2 3.4-5.0 gm/dl Globulin 3.3 2.5-4.0 gm/dl Albumin/Globulin Ratio 0.7 0.9-2 Microbiology Results 10/24/16 Blood Culture, Received Pending 10/24/16 Blood Culture, Received Pending 10/25/16 MRSA DNA Surveillance Screen - Final, Complete Specimen Negative for MRSA by DNA Probe 10/25/16 Shiga Toxin Test, Received Pending 10/25/16 Stool Culture, Received Pending 10/25/16 C.difficile Toxin B Gene (PCR) - Final, Complete Positive for C. difficile toxin B gene Assessment and Plan Sepsis -source secondary to C Diff colitis based on positive C Diff toxin - became hypotensive , admitted to icu started on PO Vanco and give a dose of IV Vanc. Received IV Flagyl in ED. F/u Blood cx's pt had trouble getting iv access, Arterial line established for blood samples Diarrhea - secondary to C diff colitis - Flu swab neg. ESRD -due to Diabetic nephropathy - Dialysis Mon/Sat/Fri - F/u prp HTN Amlodipine Metoprolol held HLD Statin Held, Elevated Alk Phos Consider adding back statin once alk phos goes down T2DM - Glycemic consult -Lantus 5 u HS, Novolog Sliding scale - F/u check HbA1c Hypotension - secondary to sepsis systolic bp ranged form 60's to 90's in 24 hrs -on levophed, weaning off GI Prophylaxis -Continue Famotidine History of hypertension - held amlodipine and Toprol XL Depression - Continue mirtazapine 15mg qHS Diabetic neuropathy - Continue Lyrica 100mg BID DVT prophylaxis: 5000u q8 Continued [facility] stay due to: abnormal vital signs Discharge planning: uncertain Resident Tracking Resident Involvement: Resident Care Provided Care Provided: Adult [facility] Medicine Reviewed: Pt Seen/Exam by SUDHIR Gongora Notes, Labs, RAD, EKG History Resident Physician Supervision Note: I was present with Dr. Wild during the history and exam. I discussed the case with the resident and agree with the findings and plan as documented in the note. Any exceptions or clarifications are listed here: Pt having incontinence to stool liquid. Has some abd pain, afebrile. Otherwise no CP or SOB Vitals reviewed and hypotensive Gen NAD AAOx3 RRR no mgr CTAB no wcr Abd soft +TTP RLQ without guarding or rebound Ext no edema, left arm with fistula in place A/P: Pt is a 56 yo female with ESRD, DMII, h/o C. diff, PAD, HTN, CAD, here with septic shock due to GI source of C. diff, treated with IVF, IV Flagyl and po Vanco, and on pressors Levophed. A-line placed and BPs are truly quite low although she is awake and talking, not altered. Checking for adrenal insufficiency. Also with hypoglycemia. Continue HD as scheduled with hyperkalemia intermittently. CCM management appreciated. Wean off pressors as tolerated. Documented By: Bisi Padilla
--- NOTE | 2016-10-25 21:16 | ECHOCARDIOGRAM REPORT ---
*NOTICE TO RECEIVING LIBERTARIAN AGENCY This information is strictly Confidential and protected under [place] law. [place] law prohibits you from making any further disclosure of this information unless further disclosure is expressly permitted by the written consent of the person to whom it pertains or is authorized by law. A general authorization for the release of medical or other information is not sufficient for this purpose. Hospital accepts no responsibility if the information is made available to any other person, INCLUDING THE PATIENT. Interpretation Summary * Name: KWASI JUAREZ Study Date: 10/25/2016 11:37 AM BP: 103/52 mmHg * [facility] HR: 96 * : 1960 (M/d/yyyy) Gender: Female Height: 61 in * Age: 56 yrs Ethnicity: [place] Weight: 138 lb * Ordering Physician: Suze Gonzalez * Referring Physician: Shanna Boles * Performed By: Ketty Simon RCS * * Reason For Study: HYPOTENSION * BSA: 1.6 m2 * -- Conclusions -- * 1. Normal left ventricular size with normal systolic function. EF 55-60%. No regional wall motion abnormalities. Mild concentric left ventricular hypertrophy. Septal flattening during diastole may suggest right ventricular volume overload. * 2. Aortic valve sclerosis moderate, without significant aortic valvular stenosis. * 3. Normal estimated right ventricular systolic pressure; 21 mmHg. * 4. No prior study available for comparison. Procedure Details * A complete two-dimensional transthoracic echocardiogram was performed (2D, M-mode, Doppler and color flow Doppler). Left Ventricle * Normal left ventricular size with normal systolic function. EF 55-60%. No regional wall motion abnormalities. Mild concentric left ventricular hypertrophy. Septal flattening during diastole may suggest right ventricular volume overload. Right Ventricle * The right ventricle is normal in size and function. * The right ventricular systolic function is normal as assessed by tricuspid annular plane systolic excursion (TAPSE) (normal >1.5 cm). Atria * The left atrial size is normal. * Right atrial size is normal. * There is no evidence of atrial septal defect, but resolution does not allow assessment for a patent foramen ovale. Mitral Valve * There is moderate mitral annular calcification. * There is no mitral valve stenosis. * Significant mitral regurgitation is absent. Tricuspid Valve * The tricuspid valve is not well visualized, but is grossly normal. * There is no tricuspid stenosis. * There is trace tricuspid regurgitation. Aortic Valve * Aortic valve sclerosis moderate, without significant aortic valvular stenosis. * No hemodynamically significant valvular aortic stenosis. * There is no significant aortic regurgitation. Pulmonic Valve * The pulmonary valve is inadequately visualized, but the Doppler data is adequate for interpretation. * There is no pulmonic valvular stenosis. * Trace pulmonic valvular regurgitation. Great Vessels * The aortic root is normal size. Pericardium/Pleural * There is no pericardial effusion. Great Vessels * Normal inferior vena cava size and collapsability with sniff indicates a normal right atrial pressure of 3 mmHg MMode 2D Measurements and Calculations IVSd 1.2 cm IVSs 1.6 cm LVIDd 3.7 cm LVIDs 2.6 cm LVPWd 1.2 cm LVPWs 1.4 cm IVS/LVPW 0.98 FS 29.7 % EDV(Teich) 58.2 ml ESV(Teich) 24.7 ml EF(Teich) 57.6 % EDV(cubed) 50.8 ml ESV(cubed) 17.6 ml EF(cubed) 65.2 % % IVS thick 29.4 % % LVPW thick 14.0 % LV mass(C)d 149.6 grams LV mass(C)dI 92.7 grams/m\S\2 LV mass(C)s 128.2 grams LV mass(C)sI 79.4 grams/m\S\2 SV(Teich) 33.5 ml SI(Teich) 20.8 ml/m\S\2 SV(cubed) 33.1 ml SI(cubed) 20.5 ml/m\S\2 Ao root diam 3.0 cm Ao root area 7.0 cm\S\2 LA dimension 2.8 cm LA/Ao 0.94 LVOT diam 2.0 cm LVOT area 3.2 cm\S\2 LVAd ap4 30.4 cm\S\2 LVLd ap4 8.1 cm EDV(MOD-sp4) 91.4 ml EDV(sp4-el) 97.3 ml LVAs ap4 16.7 cm\S\2 LVLs ap4 6.7 cm ESV(MOD-sp4) 34.7 ml ESV(sp4-el) 35.2 ml EF(MOD-sp4) 62.0 % EF(sp4-el) 63.9 % LVAd ap2 26.3 cm\S\2 LVLd ap2 7.5 cm EDV(MOD-sp2) 75.2 ml EDV(sp2-el) 78.1 ml LVAs ap2 15.8 cm\S\2 LVLs ap2 6.5 cm ESV(MOD-sp2) 32.6 ml ESV(sp2-el) 32.8 ml EF(MOD-sp2) 56.6 % EF(sp2-el) 58.0 % LVLd %diff -7.10 % EDV(MOD-bp) 85.9 ml LVLs %diff -3.63 % ESV(MOD-bp) 34.5 ml EF(MOD-bp) 59.8 % SV(MOD-sp4) 56.7 ml SI(MOD-sp4) 35.1 ml/m\S\2 SV(MOD-sp2) 42.6 ml SI(MOD-sp2) 26.4 ml/m\S\2 SV(MOD-bp) 51.4 ml SI(MOD-bp) 31.8 ml/m\S\2 SV(sp4-el) 62.2 ml SI(sp4-el) 38.5 ml/m\S\2 SV(sp2-el) 45.3 ml SI(sp2-el) 28.1 ml/m\S\2 Doppler Measurements and Calculations MV E max shelley 103.0 cm/sec MV A max shelley 120.2 cm/sec MV E/A 0.86 MV P1/2t max shelley 113.6 cm/sec MV P1/2t 75.2 msec MVA(P1/2t) 2.9 cm\S\2 MV dec slope 442.5 cm/sec\S\2 MV dec time 0.20 sec Ao V2 max 132.9 cm/sec Ao max PG 7.1 mmHg Ao max PG (full) 1.4 mmHg SHABBIR(V,A) 2.8 cm\S\2 SHABBIR(V,D) 2.8 cm\S\2 LV V1 max PG 5.7 mmHg LV V1 max 119.2 cm/sec PA V2 max 98.0 cm/sec PA max PG 3.8 mmHg TR max shelley 210.9 cm/sec RVSP(TR) 20.8 mmHg RAP systole 3.0 mmHg
[2016-10-26] VITALS (47 sets, daily range): BP systolic 67–135; BP diastolic 25–67; PULSE 49–105; TEMP 36.4–37.2; O2SAT 87–100
[2016-10-26] MEDS ORDERED: NURSING VERBAL MED ORDER ONE ×2 (01:00→14:15)
[2016-10-26] MEDS: HYDROCORTISONE IV 100 MG in SYRINGE 0 ML IV SCH ×3 (01:18→21:20)
[2016-10-26] MEDS: METRONIDAZOLE 500MG / NSS IV SCH ×3 (01:18→21:16)
[2016-10-26] MEDS: HEPARIN SOD 5000 UNIT/0.5 ML CARP SQ SCH ×3 (04:33→21:10)
[2016-10-26 04:52] LABS: HEMATOCRIT 31.5 % (37-47); MEAN CELL VOLUME 85.4 fL (80-100); MEAN CORPUSCULAR HEMOGLOBIN 27.6 pg (25-34); MEAN CORPUSCULAR HGB CONC 32.4 g/dl (32-36); MEAN PLATELET VOLUME 12.6 fL (7.4-10.4); PLATELET COUNT 162 K/uL (130-400); RED BLOOD COUNT 3.69 M/uL (4.2-5.4); WHITE BLOOD COUNT 12.09 K/uL (4.8-10.8)
[2016-10-26 05:28] LABS: ALB/GLOB RATIO 0.7 (0.9-2); BUN/CREATININE RATIO 12.1 (10-20); CALCIUM 8.7 mg/dl (8.5-10.1); CREATININE 7.7 mg/dl (0.60-1.20); MAGNESIUM 1.9 mg/dl (1.8-2.4); PHOSPHORUS 5.8 mg/dl (2.5-4.9)
[2016-10-26 06:08] LABS: ESTIMATED AVERAGE GLUCOSE 174 mg/dl; HA1C FLAG Normal (Normal)
[2016-10-26] MEDS: INSULIN ASPART 100 UNITS/ML 3 ML PEN SC SCH ×4 (06:08→22:01)
[2016-10-26 07:35] LABS: BASO % 0.1 %; BASO ABS # 0.01 K/uL (0-0.2); COMPLETE YES; EOS % 0.3 %; IG% 0.2 %; LYMPH ABS # 1.45 K/uL (1.2-3.4); MONO % 2.2 %; NEUT % 85.2 %
[2016-10-26] MEDS: NICOTINE 14 MG/24 HR TDSY TD SCH (09:00)
[2016-10-26] MEDS: PREGABALIN 100 MG CAP PO SCH ×2 (09:21→21:22)
[2016-10-26] MEDS: ASPIRIN 81 MG ECTAB PO SCH (09:21)
[2016-10-26] MEDS: RASPBERRY SYRUP 5 ML UDP PO SCH ×4 (09:21→21:23)
[2016-10-26] MEDS: VANCOMYCIN HCL 125 MG/2.5ML SOLN PO SCH ×4 (09:21→21:57)
[2016-10-26] MEDS: CLOPIDOGREL BISULFATE 75 MG TAB PO SCH (09:21)
[2016-10-26] MEDS: INSULIN GLARGINE SOLOSTAR 100 UNITS/ML 3 ML PEN SC SCH (09:27)
[2016-10-26] MEDS ORDERED: EPOETIN ALFA 10,000 UNITS/ML VIAL IV. ONE (09:45)
--- NOTE | 2016-10-26 10:20 | Nephrology Progress Note ---
Nephrology Progress Note Date of Service: Oct 26, 2016. Subjective This is a 56-year-old female with ESRD who presented with fevers and abdominal pain. was C. diff positive. Patient states that she is feeling slightly better today. she reports feeling hungry. had a bowel movement this morning. states that abdominal pain is improved. Denies any chest pain, SOB, nausea, or cramping. Objective Date Time Temp Pulse Resp B/P Pulse Ox O2 Delivery O2 Flow Rate FiO2 10/26/16 06:02 89 18 93/45 100 Nasal Cannula 2.0 71/27 10/26/16 04:00 100 Nasal Cannula 2.0 10/26/16 04:00 37.2 86 16 94/49 100 Nasal Cannula 2.0 67/28 10/26/16 02:00 94 17 75/31 97 Room Air 92/52 10/25/16 23:59 96 Nasal Cannula 2.0 10/25/16 23:58 37.2 88 17 75/36 96 Nasal Cannula 2.0 10/25/16 22:00 93 18 88/47 92 Room Air 10/25/16 20:00 95 Room Air 10/25/16 20:00 36.6 90 23 93/46 95 Room Air 10/25/16 17:25 84 19 79/40 98 Room Air 10/25/16 16:00 Room Air 10/25/16 15:58 37.1 81 17 60/32 94 Room Air 10/25/16 15:14 91 17 85/52 98 Room Air 10/25/16 14:48 93 19 75/41 99 Room Air 10/25/16 12:13 97 19 76/51 98 Room Air 10/25/16 12:04 37.4 97 23 80/47 98 Room Air 10/25/16 12:00 Room Air 10/25/16 11:14 96 21 86/29 97 Room Air 10/25/16 10:59 94 22 94/51 100 Room Air 10/25/16 10:42 96 23 86/54 100 Room Air Physical Exam: GENERAL: Awake, alert, and oriented x3. EYES: No scleral icterus. ENT: Moist mucous membranes. NECK: Supple. PULMONARY: Clear to auscultation. CARDIAC: Regular rate and rhythm with 2/6 systolic murmur. ABDOMEN: Generalized tenderness of the abdomen. EXTREMITIES: No significant clubbing, cyanosis or edema. NEUROLOGICALLY: Nonfocal. DERMATOLOGIC: No rash or ulcers noted. Current Inpatient Medications Medications (Trade) Dose Ordered Sig/Sandy Route Start Time Stop Time Status Last Admin Dose Admin Heparin Sodium (Porcine) (Heparin Sq 5000 Unit/0.5ml) 5,000 unit Q8H SQ 10/25/16 06:00 11/24/16 05:59 Acetaminophen (Tylenol Tab) 650 mg Q4H PRN PO 10/25/16 01:00 11/24/16 00:59 10/25/16 15:14 650 MG Vancomycin HCl (Consult) 1 ea UD PRN N/A 10/25/16 01:00 11/24/16 00:59 Vancomycin HCl (Vancomycin Oral Soln) 125 mg QID PO 10/25/16 02:30 11/08/16 02:29 10/26/16 09:21 125 MG Aspirin (Ecotrin Tab) 81 mg DAILY PO 10/25/16 09:00 11/24/16 08:59 10/26/16 09:21 81 MG Clopidogrel Bisulfate (plAVix TAB) 75 mg DAILY PO 10/25/16 09:00 11/24/16 08:59 10/26/16 09:21 75 MG Mirtazapine (Remeron Tab) 15 mg HS PO 10/25/16 21:00 11/24/16 20:59 10/25/16 20:26 15 MG Pregabalin (Lyrica Cap) 100 mg BID PO 10/25/16 09:00 11/24/16 08:59 10/26/16 09:21 100 MG Miscellaneous Information 1 ea 1 ea UD PRN N/A 10/25/16 01:30 11/24/16 01:29 Norepinephrine Bitartrate/ Dextrose (Levophed Inj/ D5W 500ml) 508 ml @ 0 mls/hr Q0M PRN IV 10/25/16 02:20 11/24/16 02:19 10/25/16 02:50 23.6 MLS/HR Raspberry (Raspberry Syrup 5ml Cup) 5 ml QID PO 10/25/16 02:30 11/04/16 02:29 10/26/16 09:21 5 ML Glucose (Glucose 40% Gel) 15-30 GRAMS 15 GRAMS... UD PRN PO 10/25/16 02:45 11/24/16 02:44 Glucose (Glucose Chew Tab) 4-8 Tablets 4 Tabl... UD PRN PO 10/25/16 02:45 11/24/16 02:44 Dextrose (Dextrose 50% 50ML Syringe) 25-50ML OF 50% DW IV FOR... UD PRN IV 10/25/16 02:45 11/24/16 02:44 10/25/16 08:55 50 ML Glucagon 1 mg 1 mg UD PRN SQ 10/25/16 02:45 11/24/16 02:44 Metronidazole 500 mg/Prmx 100 ml @ 100 mls/hr Q8H IV 10/25/16 10:00 11/08/16 09:59 10/26/16 09:21 100 MLS/HR Famotidine/ Dextrose (Pepcid IV Inj/ D5 100ml) 102 ml @ 204 mls/hr MoWeFr@2100 IV 10/26/16 21:00 11/25/16 20:59 Insulin Aspart (novoLOG ASPART) SLIDING SCALE Q6 SC 10/25/16 12:00 11/24/16 11:59 10/26/16 06:08 2 UNITS Nicotine (Nicoderm Cq 14MG Patch) 1 patch QAM TD 10/26/16 09:00 11/25/16 08:59 Miscellaneous (Remove Nicoderm Patch) 1 ea HS N/A 10/25/16 21:00 11/24/16 20:59 Insulin Glargine (Lantus Solostar Pen) 3 unit QAM SC 10/26/16 09:00 11/25/16 08:59 Future hold 10/26/16 09:27 3 UNIT Epoetin Johan 43104 units 10,000 units ONE ONCE IV. 10/26/16 09:45 10/26/16 09:46 UNV Hydrocortisone Sodium Succinate/ Syringe (Solu-Cortef IV/ Syringe) 2 ml @ 4 mls/min Q12H IV 10/26/16 21:00 11/25/16 20:59 Last 24 Hours Test 10/25/16 10:44 10/25/16 14:55 10/25/16 18:18 10/25/16 19:23 Bedside Glucose 115 mg/dl 135 mg/dl White Blood Count 14.00 K/uL Red Blood Count 3.48 M/uL Hemoglobin 9.7 g/dL Hematocrit 29.4 % Mean Corpuscular Volume 84.5 fL Mean Corpuscular Hemoglobin 27.9 pg Mean Corpuscular Hemoglobin Concent 33.0 g/dl RDW Standard Deviation 49.5 fL RDW Coefficient of Variation 16.1 % Platelet Count 147 K/uL Mean Platelet Volume 12.1 fL Prothrombin Time 14.7 SECONDS Prothromb Time International Ratio 1.4 Activated Partial Thromboplast Time 34.3 SECONDS Partial Thromboplastin Ratio 1.3 Estimated Average Glucose 174 mg/dl Hemoglobin A1c 7.7 % Random Cortisol 12.59 mcg/dl Sodium Level 136 mmol/L Potassium Level 5.5 mmol/L Chloride Level 104 mmol/L Carbon Dioxide Level 18 mmol/L Anion Gap 14.0 mmol/L Blood Urea Nitrogen 85 mg/dl Creatinine 7.30 mg/dl Est Creatinine Clear Calc Drug Dose 7.5 ml/min Estimated GFR () 6.7 Estimated GFR (Non- 5.8 BUN/Creatinine Ratio 11.7 Random Glucose 171 mg/dl Lactic Acid Level 1.4 mmol/L Calcium Level 8.4 mg/dl Phosphorus Level 5.4 mg/dl Magnesium Level 1.8 mg/dl Total Bilirubin 0.3 mg/dl Aspartate Amino Transf (AST/SGOT) 14 U/L Alanine Aminotransferase (ALT/SGPT) 19 U/L Alkaline Phosphatase 187 U/L Total Protein 5.5 gm/dl Albumin 2.2 gm/dl Globulin 3.3 gm/dl Albumin/Globulin Ratio 0.7 Test 10/25/16 23:27 10/25/16 23:48 10/26/16 04:37 10/26/16 05:58 Bedside Glucose 171 mg/dl Lactic Acid Level 0.9 mmol/L 0.7 mmol/L White Blood Count 12.09 K/uL Red Blood Count 3.69 M/uL Hemoglobin 10.2 g/dL Hematocrit 31.5 % Mean Corpuscular Volume 85.4 fL Mean Corpuscular Hemoglobin 27.6 pg Mean Corpuscular Hemoglobin Concent 32.4 g/dl Platelet Count 162 K/uL Mean Platelet Volume 12.6 fL Neutrophils (%) (Auto) 85.2 % Lymphocytes (%) (Auto) 12.0 % Monocytes (%) (Auto) 2.2 % Eosinophils (%) (Auto) 0.3 % Basophils (%) (Auto) 0.1 % Neutrophils # (Auto) 10.30 K/uL Lymphocytes # (Auto) 1.45 K/uL Monocytes # (Auto) 0.27 K/uL Eosinophils # (Auto) 0.04 K/uL Basophils # (Auto) 0.01 K/uL RDW Standard Deviation 50.5 fL RDW Coefficient of Variation 16.1 % Immature Granulocyte % (Auto) 0.2 % Immature Granulocyte # (Auto) 0.02 K/uL Red Blood Cell Morphology Unremarkable Sodium Level 136 mmol/L Potassium Level 6.0 mmol/L Chloride Level 103 mmol/L Carbon Dioxide Level 14 mmol/L Anion Gap 19.0 mmol/L Blood Urea Nitrogen 93 mg/dl Creatinine 7.70 mg/dl Est Creatinine Clear Calc Drug Dose 7.1 ml/min Estimated GFR () 6.3 Estimated GFR (Non- 5.4 BUN/Creatinine Ratio 12.1 Random Glucose 233 mg/dl Calcium Level 8.7 mg/dl Phosphorus Level 5.8 mg/dl Magnesium Level 1.9 mg/dl Total Bilirubin 0.4 mg/dl Aspartate Amino Transf (AST/SGOT) 12 U/L Alanine Aminotransferase (ALT/SGPT) 18 U/L Alkaline Phosphatase 198 U/L Total Protein 6.0 gm/dl Albumin 2.4 gm/dl Globulin 3.6 gm/dl Albumin/Globulin Ratio 0.7 Random Vancomycin Level 20.5 mcg/ml Test 10/26/16 06:01 10/26/16 06:03 10/26/16 08:25 Bedside Glucose 233 mg/dl 241 mg/dl Lactic Acid Level 0.7 mmol/L Other Studies: 10/24/16 10/25/16 10/26/16 08:00 08:00 08:00 Intake Total 571 ml 732 ml Balance 571 ml 732 ml Assessment & Plan ESRD-last treatment Saturday. Potassium is 6.0 and will attempt dialysis today without any fluid removal for clearance of toxins. continues to be hypotensive with a goal MAP of >60. Hypocalcemia: Calcium improved to 8.7. To continue to monitor ionized calcium levels for accurate repletion of calcium. Anemia of chronic kidney disease-Hgb remains in goal at 10.2 and will give procrit with dialysis today with a goal of 10-11. To hold procrit if hgb above 11. This patient was seen and treated with direct collaboration with Dr. Robbins. Thank you for the opportunity to participate in this patient's care. Appreciate the Consult. ATTENDING NOTE: I performed a history and physical examination of the patient, including specifically on history- pt doing better, continues to have abdominal pain but overall appears to be improving, on physical exam-+abdominal tenderness, and my impression and plan are ESRD-plan on dialysis today to help with clearance of toxins, may need pressors while on dialysis although not planning on any uf. I have discussed the patient's management with Miguelina Oneill PA-C, Please refer to above note for the documented findings and plan of care. Latrice Robbins DO
--- NOTE | 2016-10-26 11:49 | Critical Care Progress Note ---
Critical Care Progress Note Date of Service Oct 26, 2016. Attending Dr. Mata Subjective Patient has had improvement in her RLQ pain however to be tender to palpation She continues to suffer from diarrhea She also refuses Heparin prophylaxis - she was educated the necessity of this medication considering her immobility and she continues to refuse, all R/B/A were discussed by RN Aside from what was noted above ROS negative Objective General: ambulatory, not in acute distress, laying in bed comfortably Skin: no rashes noted, no suspicious lesions, no areas of inflammations/ lacerations/ erythema noted CVS: S1/ S2 noted, RRR, 3/6 systolic murmur noted, no cyanosis RVS: Clear throughout bilaterally, not in acute respiratory distress, no wheezing/ rales/ crackles noted ENT: no erythema/ injection/ ulcerations noted in the pharynx, no lymphadenopathy Neck: inspection WNL, full ROM of neck ABD: BSx4, tenderness on palpation of RLQ no rebound tenderness, nondistended, no organomegaly, negative murphys, psoas, Rovsing, CVA tenderness MSK: inspection of all limbs WNL, motor and sensation intact in all limbs, no swelling/ pain on palpation of joints NVS: A+Ox3, mood is appropriate Lymph: No lymphadenopathy palpable Assessment & Plan 1. Sepsis secondary to sever C Diff colitis infection 2. Ileocolitis secondary to C Diff infection 3. Diabetes mellitus 4. ESRD 5. Diabetic peripheral neuropathy 6. H/o C Diff 7. Depression with H/O SI 8. H/O systolic murmur 9. Hyponatremia - resolved 10. Hyperkalemia 11. Septal flattening on echocardiogram 12. Anemia of chronic disease NVS - Patient is A+OX3 CVS - Levophed has been weaned and bp is stable in the 90s systolic - A line is in place in left arm - lactate bid to assess hypoperfusion - will continue to monitor - tachycardia has resolved - echo - revealed EF 55-60%, moderate aortic sclerosis without stenosis and septal flattening which may indicate RV overload - Could be secondary to RV overload from volume however PE was considered, Well criteria 0 - Will order duplex of bilat LE - SCD since patient refuses heparin RVS -CXR was WNL - monitor respiratory status GI - DM/ Renal diet - H2 anya for GI prophylaxis because of potential C diff RENAL - consult nephro- due for dialysis today - monitor BMP - Strict I&O ID - Flagyl IV and oral Vanco - C diff culture positive - Stool cultures pending - blood cultures pending x 2 ENDO - Adjust lantus accordingly - insulin to sliding scale HEME - HGB 10. 2 - plan is procrit with dialysis today Electrolytes - hyponatremia- resolved DVT Prophylaxis - SCD DNR Patient was weaned down and off vasoactive medications early this morning. Still appears her's etiology of sepsis is from C. difficile colitis. Am hoping that we should be able to downgraded her tomorrow. I have personally spent 36 minutes of critical care time in the direct management of this patient. This is a life/limb threatening event. This includes time spent evaluating patient, direct bedside care, chart review, placing orders, interpretation of diagnostic studies, discussion with consultants, patient, and family members, as well as other required patient management activities. This time is exclusive of all separately billable procedures, and teaching time and separate from and in addition to any other critical care service time. Data Medications: Current Inpatient Medications Medications (Trade) Dose Ordered Sig/Sandy Route Start Time Stop Time Status Last Admin Dose Admin Heparin Sodium (Porcine) (Heparin Sq 5000 Unit/0.5ml) 5,000 unit Q8H SQ 10/25/16 06:00 11/24/16 05:59 Acetaminophen (Tylenol Tab) 650 mg Q4H PRN PO 10/25/16 01:00 11/24/16 00:59 10/25/16 15:14 650 MG Vancomycin HCl (Vancomycin Oral Soln) 125 mg QID PO 10/25/16 02:30 11/08/16 02:29 10/26/16 09:21 125 MG Aspirin (Ecotrin Tab) 81 mg DAILY PO 10/25/16 09:00 11/24/16 08:59 10/26/16 09:21 81 MG Clopidogrel Bisulfate (plAVix TAB) 75 mg DAILY PO 10/25/16 09:00 11/24/16 08:59 10/26/16 09:21 75 MG Mirtazapine (Remeron Tab) 15 mg HS PO 10/25/16 21:00 11/24/16 20:59 10/25/16 20:26 15 MG Pregabalin (Lyrica Cap) 100 mg BID PO 10/25/16 09:00 11/24/16 08:59 10/26/16 09:21 100 MG Miscellaneous Information (Consult Glycemic Management Pharmacy) 1 ea UD PRN N/A 10/25/16 01:30 11/24/16 01:29 Raspberry (Raspberry Syrup 5ml Cup) 5 ml QID PO 10/25/16 02:30 11/04/16 02:29 10/26/16 09:21 5 ML Glucose (Glucose 40% Gel) 15-30 GRAMS 15 GRAMS... UD PRN PO 10/25/16 02:45 11/24/16 02:44 Glucose (Glucose Chew Tab) 4-8 Tablets 4 Tabl... UD PRN PO 10/25/16 02:45 11/24/16 02:44 Dextrose (Dextrose 50% 50ML Syringe) 25-50ML OF 50% DW IV FOR... UD PRN IV 10/25/16 02:45 11/24/16 02:44 10/25/16 08:55 50 ML Glucagon 1 mg 1 mg UD PRN SQ 10/25/16 02:45 11/24/16 02:44 Metronidazole 500 mg/Prmx 100 ml @ 100 mls/hr Q8H IV 10/25/16 10:00 11/08/16 09:59 10/26/16 09:21 100 MLS/HR Famotidine/ Dextrose (Pepcid IV Inj/ D5 100ml) 102 ml @ 204 mls/hr MoWeFr@2100 IV 10/26/16 21:00 11/25/16 20:59 Insulin Aspart (novoLOG ASPART) SLIDING SCALE Q6 SC 10/25/16 12:00 11/24/16 11:59 10/26/16 06:08 2 UNITS Nicotine (Nicoderm Cq 14MG Patch) 1 patch QAM TD 10/26/16 09:00 11/25/16 08:59 Miscellaneous (Remove Nicoderm Patch) 1 ea HS N/A 10/25/16 21:00 11/24/16 20:59 Insulin Glargine 3 unit 3 unit QAM SC 10/26/16 09:00 11/25/16 08:59 Future hold 10/26/16 09:27 3 UNIT Hydrocortisone Sodium Succinate/ Syringe (Solu-Cortef IV/ Syringe) 2 ml @ 4 mls/min Q12H IV 10/26/16 21:00 11/25/16 20:59 I & O: 24-Hour Column 10/26/16 08:00 Intake Total 732 ml Balance 732 ml Vital Signs: Date Time Temp Pulse Resp B/P Pulse Ox O2 Delivery O2 Flow Rate FiO2 10/26/16 06:02 89 18 93/45 100 Nasal Cannula 2.0 71/27 10/26/16 04:00 100 Nasal Cannula 2.0 10/26/16 04:00 37.2 86 16 94/49 100 Nasal Cannula 2.0 6710/26/16 02:00 94 17 75/31 97 Room Air 92/52 10/25/16 23:59 96 Nasal Cannula 2.0 10/25/16 23:58 37.2 88 17 75/36 96 Nasal Cannula 2.0 10/25/16 22:00 93 18 88/47 92 Room Air 10/25/16 20:00 95 Room Air 10/25/16 20:00 36.6 90 23 93/46 95 Room Air 10/25/16 17:25 84 19 79/40 98 Room Air 10/25/16 16:00 Room Air 10/25/16 15:58 37.1 81 17 60/32 94 Room Air 10/25/16 15:14 91 17 85/52 98 Room Air 10/25/16 14:48 93 19 75/41 99 Room Air 10/25/16 12:13 97 19 76/51 98 Room Air 10/25/16 12:04 37.4 97 23 80/47 98 Room Air 10/25/16 12:00 Room Air Laboratory Results: Last 24 Hours Test 10/25/16 14:55 10/25/16 18:18 10/25/16 19:23 10/25/16 23:27 Bedside Glucose 135 mg/dl 171 mg/dl White Blood Count 14.00 K/uL Red Blood Count 3.48 M/uL Hemoglobin 9.7 g/dL Hematocrit 29.4 % Mean Corpuscular Volume 84.5 fL Mean Corpuscular Hemoglobin 27.9 pg Mean Corpuscular Hemoglobin Concent 33.0 g/dl RDW Standard Deviation 49.5 fL RDW Coefficient of Variation 16.1 % Platelet Count 147 K/uL Mean Platelet Volume 12.1 fL Prothrombin Time 14.7 SECONDS Prothromb Time International Ratio 1.4 Activated Partial Thromboplast Time 34.3 SECONDS Partial Thromboplastin Ratio 1.3 Estimated Average Glucose 174 mg/dl Hemoglobin A1c 7.7 % Random Cortisol 12.59 mcg/dl Sodium Level 136 mmol/L Potassium Level 5.5 mmol/L Chloride Level 104 mmol/L Carbon Dioxide Level 18 mmol/L Anion Gap 14.0 mmol/L Blood Urea Nitrogen 85 mg/dl Creatinine 7.30 mg/dl Est Creatinine Clear Calc Drug Dose 7.5 ml/min Estimated GFR () 6.7 Estimated GFR (Non- 5.8 BUN/Creatinine Ratio 11.7 Random Glucose 171 mg/dl Lactic Acid Level 1.4 mmol/L Calcium Level 8.4 mg/dl Phosphorus Level 5.4 mg/dl Magnesium Level 1.8 mg/dl Total Bilirubin 0.3 mg/dl Aspartate Amino Transf (AST/SGOT) 14 U/L Alanine Aminotransferase (ALT/SGPT) 19 U/L Alkaline Phosphatase 187 U/L Total Protein 5.5 gm/dl Albumin 2.2 gm/dl Globulin 3.3 gm/dl Albumin/Globulin Ratio 0.7 Test 10/25/16 23:48 10/26/16 04:37 10/26/16 05:58 10/26/16 06:01 Lactic Acid Level 0.9 mmol/L 0.7 mmol/L White Blood Count 12.09 K/uL Red Blood Count 3.69 M/uL Hemoglobin 10.2 g/dL Hematocrit 31.5 % Mean Corpuscular Volume 85.4 fL Mean Corpuscular Hemoglobin 27.6 pg Mean Corpuscular Hemoglobin Concent 32.4 g/dl Platelet Count 162 K/uL Mean Platelet Volume 12.6 fL Neutrophils (%) (Auto) 85.2 % Lymphocytes (%) (Auto) 12.0 % Monocytes (%) (Auto) 2.2 % Eosinophils (%) (Auto) 0.3 % Basophils (%) (Auto) 0.1 % Neutrophils # (Auto) 10.30 K/uL Lymphocytes # (Auto) 1.45 K/uL Monocytes # (Auto) 0.27 K/uL Eosinophils # (Auto) 0.04 K/uL Basophils # (Auto) 0.01 K/uL RDW Standard Deviation 50.5 fL RDW Coefficient of Variation 16.1 % Immature Granulocyte % (Auto) 0.2 % Immature Granulocyte # (Auto) 0.02 K/uL Red Blood Cell Morphology Unremarkable Sodium Level 136 mmol/L Potassium Level 6.0 mmol/L Chloride Level 103 mmol/L Carbon Dioxide Level 14 mmol/L Anion Gap 19.0 mmol/L Blood Urea Nitrogen 93 mg/dl Creatinine 7.70 mg/dl Est Creatinine Clear Calc Drug Dose 7.1 ml/min Estimated GFR () 6.3 Estimated GFR (Non- 5.4 BUN/Creatinine Ratio 12.1 Random Glucose 233 mg/dl Calcium Level 8.7 mg/dl Phosphorus Level 5.8 mg/dl Magnesium Level 1.9 mg/dl Total Bilirubin 0.4 mg/dl Aspartate Amino Transf (AST/SGOT) 12 U/L Alanine Aminotransferase (ALT/SGPT) 18 U/L Alkaline Phosphatase 198 U/L Total Protein 6.0 gm/dl Albumin 2.4 gm/dl Globulin 3.6 gm/dl Albumin/Globulin Ratio 0.7 Random Vancomycin Level 20.5 mcg/ml Bedside Glucose 233 mg/dl Test 10/26/16 06:03 10/26/16 08:25 Bedside Glucose 241 mg/dl Lactic Acid Level 0.7 mmol/L
[2016-10-26] MEDS ORDERED: INSULIN GLARGINE SOLOSTAR 100 UNITS/ML 3 ML PEN SC ONE (14:15)
--- NOTE | 2016-10-26 14:31 | Pharmacy Progress Note ---
Glycemic Control: Progress Nt Date of Service Oct 26, 2016. Scope Glycemic Pharmacist consulted by Dr Gutierrez on 10/25/16 for glycemic control and to write orders per [facility] inpatient glycemic control protocol. Objective Accuchecks BSG (last 24hrs): Test 10/25/16 14:55 10/25/16 19:23 10/25/16 23:27 10/26/16 04:37 Bedside Glucose 135 mg/dl (70-90) 171 mg/dl (70-90) Random Glucose 171 mg/dl (70-99) 233 mg/dl (70-99) Test 10/26/16 06:01 10/26/16 06:03 Bedside Glucose 233 mg/dl (70-90) 241 mg/dl (70-90) Laboratory Data (last 24hrs) Test 10/25/16 18:18 10/25/16 19:23 10/26/16 04:37 Hemoglobin A1c 7.7 % White Blood Count 14.00 K/uL 12.09 K/uL Anion Gap 14.0 mmol/L 19.0 mmol/L BUN/Creatinine Ratio 11.7 12.1 Blood Urea Nitrogen 85 mg/dl 93 mg/dl Creatinine 7.30 mg/dl 7.70 mg/dl Potassium Level 5.5 mmol/L 6.0 mmol/L Sodium Level 136 mmol/L 136 mmol/L Red Blood Count 3.69 M/uL Hemoglobin 10.2 g/dL Hematocrit 31.5 % Mean Corpuscular Volume 85.4 fL Mean Corpuscular Hemoglobin 27.6 pg Mean Corpuscular Hemoglobin Concent 32.4 g/dl Platelet Count 162 K/uL Mean Platelet Volume 12.6 fL Neutrophils (%) (Auto) 85.2 % Lymphocytes (%) (Auto) 12.0 % Monocytes (%) (Auto) 2.2 % Eosinophils (%) (Auto) 0.3 % Basophils (%) (Auto) 0.1 % Neutrophils # (Auto) 10.30 K/uL Lymphocytes # (Auto) 1.45 K/uL Monocytes # (Auto) 0.27 K/uL Eosinophils # (Auto) 0.04 K/uL Basophils # (Auto) 0.01 K/uL HbA1c: Test 10/25/16 18:18 Hemoglobin A1c 7.7 % (4.5-5.6) H Recent Pertinent Medications Outpatient Anti-diabetic Regimen (per med rec): * Lantus 5 units daily and an additional 7 units at 0400 Sat, Sat * Humalog 5 units with meals unless BSG > 150 then additional coverage is added * A1c = 7.5 % 09/06/16 The patient is currently receiving: * Basal insulin: None * Correctional Insulin: Novolog Correction per scale ACHS Goal Range: Low 140 mg/dL - High 180 mg/dL Correction Factor: 40 mg/dL/unit * Prandial insulin: Per carb ratio of 1 unit per 15 grams CHO consumed * Oral Agents: None currently Risk Factors for Insulin Resistance: * Steroids: Solu-Cortef 100mg IV Q 12 hours * Infection: sepsis - likely GI source, possible C diff; receiving Vancomycin PO as well as Metronidazole IV * Pressors: Norepi was titrated off * Diet: was NPO but diet has been advanced to Renal/T2DM Assessment & Plan ASSESSMENT: 10/25/16: * ADA & AACE recommend a goal blood sugar range 140-180 mg/dl for the majority of critically ill & non-critically ill patients. However, more stringent targets may be selected in individual cases. * Glu on initial PRP was 270. Patient was given a dose of Regular insulin 5 units SQ x 1 and a dose of Lantus 5 units SQ x 1. BSG at ~0230 reported to be 134 and the BSG drawn at ~0830 was in the 40's. This two BSG checks were via Accuchek fingerstick while on Norepinephrine infusion - reliability is questionable, she was not symptomatic. The patient did not yet have a central line to test using iSTAT. * Given this information, we will place the Lantus on hold - at least until we can confirm that she is not hypoglycemic. The dose that was ordered was equivalent to her home dosage. Will also lessen the Novolog dosing parameters until further BSGs are checked. She may have a central line later today for iSTAT Glu testing. 10/26/16: * No further episodes of hypoglycemia were seen observed yesterday following the AM low * She did begin IV Solu-Cortef yesterday as she was still hypotensive, after starting the steroids her BSG did climb to the 230-240's range * Her current BSG pattern suggests basal insulin deficiency. I did add a low dose of Lantus insulin, however the BSG continued to climb and is now up to 298. Predicting her insulin needs is going to be very difficult as she is now also starting a diet. Will add more basal insulin and increase BSG checks and coverage. PLAN FOR INPATIENT GLYCEMIC CONTROL: * Lantus 3 units Q AM but give addition 3 units SQ x 1 now * Changing correction factor to 30 mg/dl/unit * Changing carb ratio to 1 unit per 10 grams CHO consumed * Changing goal range to Low 120 mg/dL - High 160 mg/dL * Adding BSG check at 0200 and cover with Novolog per the above parameters * Reassess insulin doses with each step down in steroids * Please note that the plan above was derived based on current level of insulin resistance and hospital stress. These recommendations are appropriate for inpatient admission only. Plan of care upon discharge will need to be reassessed to avoid potential outpatient hypo/hyperglycemia. Thank you.
--- NOTE | 2016-10-26 15:37 | DIAGNOSTIC IMAGING REPORT ---
BILATERAL LOWER EXTREMITY VENOUS DOPPLER CLINICAL HISTORY: Increased right ventricular pressures. COMPARISON STUDY: No previous studies for comparison. TECHNIQUE: Sonography of the deep venous system of the bilateral lower extremities was performed. Compression and augmentation were evaluated. FINDINGS: The bilateral common femoral, superficial femoral and popliteal veins were compressible. Augmentation was normal. Flow was shown within the deep calf vessels. IMPRESSION: No evidence of deep venous thrombus within the bilateral lower extremities. Electronically signed by: Rory Baig M.D. 10/26/2016 3:35 PM Dictated Date/Time: 10/26/2016 3:34 PM
[2016-10-26] MEDS ORDERED: NOREPINEPHRINE BIT INJ 8 MG in DEXTROSE 5% 500ML 500 ML IV PRN (16:45)
--- NOTE | 2016-10-26 18:25 | Family Medicine Progress Note ---
Progress Note Date of Service Oct 26, 2016. Subjective Pt evaluation today including: conversation w/ patient, physical exam, chart review, lab review, review of studies, review of inpatient medication list Pain: reports Rt lower quadrant abdominal pain Voiding: voiding difficulty (anuric) Overnight no acute events. Constitutional: No chills, No fever Respiratory: No cough, No sputum Cardiovascular: No chest pain, No palpitations Abdomen: + diarrhea, + pain (RLQ), No constipation, No nausea, No vomiting Female : + problem reported (anuria (chronic)) Skin: No itch, No rash Medications Current Inpatient Medications Medications (Trade) Dose Ordered Sig/Sandy Route Start Time Stop Time Status Last Admin Dose Admin Heparin Sodium (Porcine) (Heparin Sq 5000 Unit/0.5ml) 5,000 unit Q8H SQ 10/25/16 06:00 11/24/16 05:59 Acetaminophen (Tylenol Tab) 650 mg Q4H PRN PO 10/25/16 01:00 11/24/16 00:59 10/25/16 15:14 650 MG Vancomycin HCl (Vancomycin Oral Soln) 125 mg QID PO 10/25/16 02:30 11/08/16 02:29 10/26/16 16:29 125 MG Aspirin (Ecotrin Tab) 81 mg DAILY PO 10/25/16 09:00 11/24/16 08:59 10/26/16 09:21 81 MG Clopidogrel Bisulfate (plAVix TAB) 75 mg DAILY PO 10/25/16 09:00 11/24/16 08:59 10/26/16 09:21 75 MG Mirtazapine (Remeron Tab) 15 mg HS PO 10/25/16 21:00 11/24/16 20:59 10/25/16 20:26 15 MG Pregabalin (Lyrica Cap) 100 mg BID PO 10/25/16 09:00 11/24/16 08:59 10/26/16 09:21 100 MG Miscellaneous Information (Consult Glycemic Management Pharmacy) 1 ea UD PRN N/A 10/25/16 01:30 11/24/16 01:29 Raspberry (Raspberry Syrup 5ml Cup) 5 ml QID PO 10/25/16 02:30 11/04/16 02:29 10/26/16 16:29 5 ML Glucose (Glucose 40% Gel) 15-30 GRAMS 15 GRAMS... UD PRN PO 10/25/16 02:45 11/24/16 02:44 Glucose (Glucose Chew Tab) 4-8 Tablets 4 Tabl... UD PRN PO 10/25/16 02:45 11/24/16 02:44 Dextrose (Dextrose 50% 50ML Syringe) 25-50ML OF 50% DW IV FOR... UD PRN IV 10/25/16 02:45 11/24/16 02:44 10/25/16 08:55 50 ML Glucagon 1 mg 1 mg UD PRN SQ 10/25/16 02:45 11/24/16 02:44 Metronidazole 500 mg/Prmx 100 ml @ 100 mls/hr Q8H IV 10/25/16 10:00 11/08/16 09:59 10/26/16 09:21 100 MLS/HR Famotidine/ Dextrose (Pepcid IV Inj/ D5 100ml) 102 ml @ 204 mls/hr MoWeFr@2100 IV 10/26/16 21:00 11/25/16 20:59 Nicotine (Nicoderm Cq 14MG Patch) 1 patch QAM TD 10/26/16 09:00 11/25/16 08:59 Miscellaneous (Remove Nicoderm Patch) 1 ea HS N/A 10/25/16 21:00 11/24/16 20:59 Insulin Glargine 3 unit 3 unit QAM SC 10/26/16 09:00 11/25/16 08:59 Future hold 10/26/16 09:27 3 UNIT Hydrocortisone Sodium Succinate/ Syringe (Solu-Cortef IV/ Syringe) 2 ml @ 4 mls/min Q12H IV 10/26/16 21:00 11/25/16 20:59 Atorvastatin Calcium (Lipitor Tab) 40 mg QPM PO 10/26/16 21:00 11/25/16 20:59 Insulin Aspart (novoLOG ASPART) SLIDING SCALE ACHS SC 10/26/16 16:00 11/25/16 15:59 10/26/16 16:53 8 UNITS Insulin Aspart SLIDING SCALE TODAY@0200 ONCE SC 10/27/16 02:00 10/27/16 02:01 Norepinephrine Bitartrate/ Dextrose (Levophed Inj/ D5W 500ml) 508 ml @ 0 mls/hr Q0M PRN IV 10/26/16 16:45 11/25/16 16:44 Objective Vital Signs Date Time Temp Pulse Resp B/P Pulse Ox O2 Delivery O2 Flow Rate FiO2 10/26/16 17:45 86 100/55 10/26/16 17:30 88 79/51 10/26/16 17:15 85 91/53 10/26/16 17:00 74 135/61 10/26/16 16:54 87 106/37 10/26/16 16:00 Room Air 10/26/16 15:58 78 17 100/44 97 Room Air 10/26/16 13:58 73 13 89/43 91 Room Air 10/26/16 12:00 Room Air 10/26/16 11:58 36.8 87 16 96/51 99 Room Air 10/26/16 11:30 86 19 92/50 99 Room Air 10/26/16 08:58 49 20 84/42 97 Room Air 10/26/16 08:00 Room Air 10/26/16 08:00 Nasal Cannula 10/26/16 07:58 74 13 95/49 10/26/16 07:11 36.4 86 20 100/50 99 Room Air 10/26/16 06:58 75 13 95/47 92 Room Air 10/26/16 06:02 89 18 93/45 100 Nasal Cannula 2.0 71/27 10/26/16 04:00 100 Nasal Cannula 2.0 10/26/16 04:00 37.2 86 16 94/49 100 Nasal Cannula 2.0 67/28 10/26/16 02:00 94 17 75/31 97 Room Air 92/52 10/25/16 23:59 96 Nasal Cannula 2.0 10/25/16 23:58 37.2 88 17 75/36 96 Nasal Cannula 2.0 10/25/16 22:00 93 18 88/47 92 Room Air 10/25/16 20:00 95 Room Air 10/25/16 20:00 36.6 90 23 93/46 95 Room Air Physical Exam General Appearance: WD/WN, no apparent distress Eyes: normal inspection, PERRL, EOMI Neck: supple, trachea midline Respiratory/Chest: chest non-tender, lungs clear, normal breath sounds Cardiovascular: regular rate, rhythm, no murmur Abdomen: normal bowel sounds, soft, + tenderness (generalized tenderness, moreso in the RLQ. no rebound tenderness, no rigidity, non-distended) Extremities: no pedal edema, no calf tenderness Neurologic/Psychiatric: alert, normal mood/affect Skin: normal color, warm/dry Laboratory Results Results Past 24 Hours Test 10/25/16 19:23 10/25/16 23:27 10/25/16 23:48 10/26/16 04:37 Range/Units Sodium Level 136 136 136-145 mmol/L Potassium Level 5.5 6.0 3.5-5.1 mmol/L Chloride Level 104 103 98-107 mmol/L Carbon Dioxide Level 18 14 21-32 mmol/L Anion Gap 14.0 19.0 3-11 mmol/L Blood Urea Nitrogen 85 93 7-18 mg/dl Creatinine 7.30 7.70 0.60-1.20 mg/dl Est Creatinine Clear Calc Drug Dose 7.5 7.1 ml/min Estimated GFR () 6.7 6.3 Estimated GFR (Non- 5.8 5.4 BUN/Creatinine Ratio 11.7 12.1 10-20 Random Glucose 171 233 70-99 mg/dl Lactic Acid Level 1.4 0.9 0.4-2.0 mmol/L Calcium Level 8.4 8.7 8.5-10.1 mg/dl Phosphorus Level 5.4 5.8 2.5-4.9 mg/dl Magnesium Level 1.8 1.9 1.8-2.4 mg/dl Total Bilirubin 0.3 0.4 0.2-1 mg/dl Aspartate Amino Transf (AST/SGOT) 14 12 15-37 U/L Alanine Aminotransferase (ALT/SGPT) 19 18 12-78 U/L Alkaline Phosphatase 187 198 45-117 U/L Total Protein 5.5 6.0 6.4-8.2 gm/dl Albumin 2.2 2.4 3.4-5.0 gm/dl Globulin 3.3 3.6 2.5-4.0 gm/dl Albumin/Globulin Ratio 0.7 0.7 0.9-2 Bedside Glucose 171 70-90 mg/dl White Blood Count 12.09 4.8-10.8 K/uL Red Blood Count 3.69 4.2-5.4 M/uL Hemoglobin 10.2 12.0-16.0 g/dL Hematocrit 31.5 37-47 % Mean Corpuscular Volume 85.4 80-100 fL Mean Corpuscular Hemoglobin 27.6 25-34 pg Mean Corpuscular Hemoglobin Concent 32.4 32-36 g/dl Platelet Count 162 130-400 K/uL Mean Platelet Volume 12.6 7.4-10.4 fL Neutrophils (%) (Auto) 85.2 % Lymphocytes (%) (Auto) 12.0 % Monocytes (%) (Auto) 2.2 % Eosinophils (%) (Auto) 0.3 % Basophils (%) (Auto) 0.1 % Neutrophils # (Auto) 10.30 1.4-6.5 K/uL Lymphocytes # (Auto) 1.45 1.2-3.4 K/uL Monocytes # (Auto) 0.27 0.11-0.59 K/uL Eosinophils # (Auto) 0.04 0-0.5 K/uL Basophils # (Auto) 0.01 0-0.2 K/uL RDW Standard Deviation 50.5 36.4-46.3 fL RDW Coefficient of Variation 16.1 11.5-14.5 % Immature Granulocyte % (Auto) 0.2 % Immature Granulocyte # (Auto) 0.02 0.00-0.02 K/uL Red Blood Cell Morphology Unremarkable Random Vancomycin Level 20.5 mcg/ml Test 10/26/16 05:58 10/26/16 06:01 10/26/16 06:03 10/26/16 08:25 Range/Units Lactic Acid Level 0.7 0.7 0.4-2.0 mmol/L Bedside Glucose 233 241 70-90 mg/dl Test 10/26/16 11:25 10/26/16 16:24 Range/Units Bedside Glucose 298 372 70-90 mg/dl Assessment and Plan 56 yo F with previous hx of C Diff colitis, ESRD, DM, HTN, HLD, p/w diarrhea , subjective fever/chills, RUQ pain admitted for Septic Shock in the setting of C Diff Colitis Septic Shock -source secondary to C Diff colitis based on positive C Diff toxin - became hypotensive , admitted to icu Continue PO Vanco and give a dose of IV Vanc. Continue IV Flagyl Blood cx/ no growth to date, Stool cx's negative pt had trouble getting peripheral iv access, Arterial line ( Left arm) established for blood samples Lactate (on arrival 2.74) latest is: 1.0 F/u repeat Diarrhea - secondary to C diff colitis - Flu swab neg. ESRD scheduled for Dialysis today -due to Diabetic nephropathy - Dialysis Sat/Sat/Sat - F/u prp HTN Amlodipine Metoprolol held HLD Restarted statin, T2DM - Glycemic consult -Lantus 5 u HS, Novolog Sliding scale - F/u check HbA1c Hypotension - secondary to sepsis systolic bp ranged form 60's to 90's in 24 hrs -on levophed, weaning off Hyponatremia resolved Na 136 GI Prophylaxis -Continue Famotidine History of hypertension - held amlodipine and Toprol XL Depression - Continue mirtazapine 15mg qHS Diabetic neuropathy - Continue Lyrica 100mg BID DVT prophylaxis: 5000u q8 Continued [facility] stay due to: abnormal vital signs Discharge planning: home Resident Tracking Resident Involvement: Resident Care Provided Care Provided: Adult [facility] Medicine Reviewed: Pt Seen/Exam by SUDHIR Gongora Notes, Labs, RAD History Resident Physician Supervision Note: I was present with Dr. Wild during the history and exam. I discussed the case with the resident and agree with the findings and plan as documented in the note. Any exceptions or clarifications are listed here: Pt feeling better, BPs remain very low and was started on HC today. Has new RV sys dysfxn mild, Doppler LEs neg. Still with diarrhea but abd pain improved. Vitals reviewed NAD, lying in bed Strabismus right eye RRR no mgr CTAB no wcr Abd soft +BS, +TTP RLQ without guarding or rebound Ext LUE with AV fistula upper arm, trace edema legs bilat, A-line left wrist A/P: Pt is a 56 yo female with ESRD, DMII, h/o C. diff, PAD, HTN, CAD, here with septic shock due to GI source of C. diff, treated with IVF, IV Flagyl and po Vanco, and on pressors Levophed which is now weaned off and started on HC IV. A-line placed and BPs are truly quite low although she is awake and talking , not altered. Checking for adrenal insufficiency but random cortisol ok at 12. ACTH pending. Also with hypoglycemia which is now improving. Continue HD as scheduled with hyperkalemia intermittently. CCM management appreciated. Wean off pressors as tolerated. Documented By: Bisi Padilla
[2016-10-26] MEDS ORDERED: FAMOTIDINE IV INJ 20 MG in DEXTROSE 5% 100ML 100 ML IV SCH (21:00)
[2016-10-26] MEDS ORDERED: HYDROCORTISONE IV 100 MG in SYRINGE 0 ML IV SCH (21:00)
[2016-10-26] MEDS: ATORVASTATIN 20 MG TAB PO SCH (21:22)
[2016-10-26] MEDS: MIRTAZAPINE TAB 15 MG TAB PO SCH (21:23)
[2016-10-27] VITALS (25 sets, daily range): BP systolic 80–127; BP diastolic 28–78; PULSE 67–87; TEMP 36.3–36.8; O2SAT 93–100
[2016-10-27] MEDS: METRONIDAZOLE 500MG / NSS IV SCH ×3 (01:51→17:32)
[2016-10-27] MEDS ORDERED: INSULIN ASPART 100 UNITS/ML 3 ML PEN SC ONE (02:00)
[2016-10-27] MEDS: INSULIN ASPART 100 UNITS/ML 3 ML PEN SC SCH ×4 (05:56→21:00)
[2016-10-27] MEDS: HEPARIN SOD 5000 UNIT/0.5 ML CARP SQ SCH ×3 (05:57→21:49)
[2016-10-27 06:05] LABS: BASO % 0.1 %; BASO ABS # 0.01 K/uL (0-0.2); COMPLETE YES; HEMATOCRIT 31.3 % (37-47); IG% 0.2 %; LYMPH % 10.3 %; LYMPH ABS # 1.02 K/uL (1.2-3.4); MEAN CELL VOLUME 83.9 fL (80-100); MEAN CORPUSCULAR HEMOGLOBIN 27.3 pg (25-34); MEAN CORPUSCULAR HGB CONC 32.6 g/dl (32-36); NEUT % 84.4 %; PLATELET COUNT 155 K/uL (130-400); RED BLOOD COUNT 3.73 M/uL (4.2-5.4); WHITE BLOOD COUNT 9.86 K/uL (4.8-10.8)
[2016-10-27 06:47] LABS: ALB/GLOB RATIO 0.6 (0.9-2); BUN/CREATININE RATIO 9.6 (10-20); CALCIUM 8.3 mg/dl (8.5-10.1); PHOSPHORUS 5.6 mg/dl (2.5-4.9)
[2016-10-27 06:48] LABS: CREATININE 5.1 mg/dl (0.60-1.20)
[2016-10-27 07:07] LABS: BETA-HYDROXYBUTYRATE 36.66 mg/dL (0.2-2.81)
[2016-10-27] MEDS: HYDROCORTISONE IV 100 MG in SYRINGE 0 ML IV SCH (08:32)
[2016-10-27] MEDS: NICOTINE 14 MG/24 HR TDSY TD SCH (08:33)
[2016-10-27] MEDS: VANCOMYCIN HCL 125 MG/2.5ML SOLN PO SCH ×4 (08:33→22:03)
[2016-10-27] MEDS: RASPBERRY SYRUP 5 ML UDP PO SCH ×4 (08:33→22:03)
[2016-10-27] MEDS: CLOPIDOGREL BISULFATE 75 MG TAB PO SCH (08:34)
[2016-10-27] MEDS: ASPIRIN 81 MG ECTAB PO SCH (08:34)
[2016-10-27] MEDS: INSULIN GLARGINE SOLOSTAR 100 UNITS/ML 3 ML PEN SC SCH (08:34)
[2016-10-27] MEDS: PREGABALIN 100 MG CAP PO SCH ×2 (09:00→22:03)
[2016-10-27] MEDS ORDERED: NURSING VERBAL MED ORDER ONE (12:00)
[2016-10-27] MEDS ORDERED: INSULIN HUMAN REGULAR PER UNIT 5 UNITS in SYRINGE 4.95 ML IV SCH (13:00)
--- NOTE | 2016-10-27 13:28 | Pharmacy Progress Note ---
Glycemic: Assessment & Plan Date of Service Oct 27, 2016. Assessment & Plan The patient received 10 units of insulin on 10/25, 26 units on 10/26. BSGs ranging 246-402 mg/dl over the past 24hrs. BSG's running high due to starting a diet while on steroids, as they primarily affect postprandial sugars. Extra insulin 5 units IV given. Correction factor and carb ratio tightened a bit, but hydrocortisone dose is being decreased so insulin needs should decrease. Lantus may not yet be steady-state. Will increase Lantus dose based on morning BSG tomorrow. Note that A1c may not be a reliable indicator of glycemic control in dialysis patient. * Basal insulin: Lantus qam: 10 units if BSG >180, 5 units if BSG 120-180, hold dose if BSG is less than 120 * Correctional Insulin: Novolog Correction per scale ACHS, also 0200 Goal Range: Low 120 mg/dL - High 160 mg/dL Correction Factor: 25 mg/dL/unit * Prandial insulin: Per carb ratio of 1 unit per 9 grams CHO consumed BSGs continue to improve, no other changes needed to inpatient regimen at this time. Pharmacy will continue to monitor patient daily and write orders per [facility] inpatient glycemic control protocol. Thanks. * Please note that the plan above was derived based on current level of insulin resistance and hospital stress. These recommendations are appropriate for inpatient admission only. Plan of care upon discharge will need to be reassessed to avoid potential outpatient hypo/hyperglycemia.
--- NOTE | 2016-10-27 13:48 | Medical Student: [facility] ---
Med Student Progress Note Date of Service Oct 27, 2016. Subjective Pt evaluation today including: conversation w/ patient, physical exam, chart review, lab review, review of studies Pain: moderate abdominal pain PO Intake: renal diet Voiding: voiding difficulty (does not produce urine) no acute events overnight. pt received dialysis yesterday evening but she says they just filtered her blood and did not take anything off. she reports that her diarrhea has been somewhat less frequent overnight, having only had 2 bowel movements. she also says that her pain in the right abdomen is improved, but says she has a sort of "bellyache" today. She says the pain is all over but worse on the right. pt. denies chest pain, shortness of breath, pain in her legs. she reports some nausea while she was eating this morning, but denies vomiting. she still feels somewhat tired. no other symptoms to report. Review of Systems Notes: see HPI for pertinent positives and negatives. Objective Vital Signs Date Time Temp Pulse Resp B/P Pulse Ox O2 Delivery O2 Flow Rate FiO2 10/27/16 11:58 36.7 77 16 123/55 97 Room Air 10/27/16 11:35 100 Room Air 2.0 10/27/16 11:00 71 16 91/37 98 10/27/16 10:58 72 15 103/56 97 10/27/16 10:00 79 18 80/32 100 Room Air 10/27/16 09:58 76 16 104/53 100 10/27/16 09:00 83 17 95/43 99 10/27/16 08:58 86 16 90/69 100 10/27/16 08:56 87 12 109/61 99 10/27/16 08:00 100 Room Air 2.0 10/27/16 08:00 36.5 83 14 82/32 100 Room Air 10/27/16 07:00 71 14 82/28 94 10/27/16 05:58 36.8 72 13 127/60 96 10/27/16 05:00 67 11 94/35 97 10/27/16 04:28 100 Room Air 2.0 10/27/16 04:00 72 11 94/37 99 10/27/16 03:58 73 13 122/59 95 10/27/16 03:00 71 13 87/34 95 10/27/16 02:00 36.7 85 14 94/37 98 1/21/17 01:58 81 18 110/78 95 10/27/16 01:00 82 16 83/35 95 10/27/16 00:06 100 Room Air 2.0 10/27/16 00:00 83 15 114/53 93 10/26/16 23:00 77 15 82/40 91 10/26/16 22:13 90 21 108/52 96 10/26/16 22:00 87 15 81/33 98 10/26/16 21:58 93 16 99/56 99 10/26/16 21:43 90 15 108/41 87 10/26/16 21:28 90 15 83/44 98 10/26/16 21:13 92 16 84/50 100 10/26/16 21:00 88 17 72/25 98 10/26/16 20:58 87 16 96/53 100 10/26/16 20:43 105 21 104/67 100 10/26/16 20:35 36.5 83 95/30 10/26/16 20:28 82 17 119/57 100 10/26/16 20:13 81 17 124/57 100 10/26/16 20:00 100 Room Air 2.0 10/26/16 20:00 36.8 84 22 116/35 100 10/26/16 19:58 85 19 116/53 100 10/26/16 19:55 86 91/30 10/26/16 19:45 85 100/51 10/26/16 19:43 79 15 100/51 100 10/26/16 19:30 79 109/50 10/26/16 19:28 80 15 109/50 100 10/26/16 19:15 83 96/31 10/26/16 19:13 81 18 110/50 100 10/26/16 19:00 82 113/35 10/26/16 19:00 81 16 108/33 100 10/26/16 18:45 79 93/55 10/26/16 18:30 81 97/52 10/26/16 18:15 81 83/29 10/26/16 18:00 85 16 85/33 100 Room Air 10/26/16 18:00 84 99/50 17 17:58 84 17 99/50 100 Room Air 10/26/16 17:45 86 100/55 10/26/16 17:30 88 79/51 10/26/16 17:15 85 91/53 10/26/16 17:13 81 16 91/53 100 Room Air 10/26/16 17:00 74 135/61 10/26/16 16:58 36.7 74 16 135/61 100 Room Air 10/26/16 16:54 87 106/37 10/26/16 16:40 36.4 84 83/32 10/26/16 16:00 Room Air 10/26/16 15:58 78 17 100/44 97 Room Air 10/26/16 13:58 73 13 89/43 91 Room Air Physical Exam General Appearance: no apparent distress, + pertinent finding (ill-appearing) Eyes: bilateral eyes EOMI, bilateral eyes PERRL, bilateral eyes normal inspection ENT: hearing grossly normal, pharynx normal Neck: supple, no JVD Respiratory/Chest: lungs clear, normal breath sounds, no respiratory distress Cardiovascular: regular rate, rhythm, no edema, no gallop, no JVD, + systolic murmur (II-III/ early systolic murmur) Abdomen: normal bowel sounds, soft, + tenderness (on right side and suprapubic area) Extremities: non-tender, no pedal edema Neurologic/Psychiatric: alert, normal mood/affect, oriented x 3 Skin: normal color, warm/dry, no rash Laboratory Results Last 24 Hours Test 10/26/16 16:24 10/26/16 21:42 10/27/16 00:55 10/27/16 05:52 Bedside Glucose 372 mg/dl Lactic Acid Level 1.0 mmol/L 0.7 mmol/L White Blood Count 9.86 K/uL Red Blood Count 3.73 M/uL Hemoglobin 10.2 g/dL Hematocrit 31.3 % Mean Corpuscular Volume 83.9 fL Mean Corpuscular Hemoglobin 27.3 pg Mean Corpuscular Hemoglobin Concent 32.6 g/dl Platelet Count 155 K/uL Mean Platelet Volume 12.0 fL Neutrophils (%) (Auto) 84.4 % Lymphocytes (%) (Auto) 10.3 % Monocytes (%) (Auto) 5.0 % Eosinophils (%) (Auto) 0.0 % Basophils (%) (Auto) 0.1 % Neutrophils # (Auto) 8.32 K/uL Lymphocytes # (Auto) 1.02 K/uL Monocytes # (Auto) 0.49 K/uL Eosinophils # (Auto) 0.00 K/uL Basophils # (Auto) 0.01 K/uL RDW Standard Deviation 49.4 fL RDW Coefficient of Variation 16.2 % Immature Granulocyte % (Auto) 0.2 % Immature Granulocyte # (Auto) 0.02 K/uL Sodium Level 139 mmol/L Potassium Level 4.0 mmol/L Chloride Level 97 mmol/L Carbon Dioxide Level 22 mmol/L Anion Gap 20.0 mmol/L Blood Urea Nitrogen 49 mg/dl Creatinine 5.10 mg/dl Est Creatinine Clear Calc Drug Dose 10.8 ml/min Estimated GFR () 10.3 Estimated GFR (Non- 8.9 BUN/Creatinine Ratio 9.6 Random Glucose 326 mg/dl Calcium Level 8.3 mg/dl Phosphorus Level 5.6 mg/dl Magnesium Level 2.0 mg/dl Total Bilirubin 0.4 mg/dl Aspartate Amino Transf (AST/SGOT) 10 U/L Alanine Aminotransferase (ALT/SGPT) 14 U/L Alkaline Phosphatase 196 U/L Total Protein 5.9 gm/dl Albumin 2.3 gm/dl Globulin 3.6 gm/dl Albumin/Globulin Ratio 0.6 Beta-Hydroxybutyric Acid 36.66 mg/dL Medications Current Inpatient Medications Medications (Trade) Dose Ordered Sig/Sandy Route Start Time Stop Time Status Last Admin Dose Admin Heparin Sodium (Porcine) (Heparin Sq 5000 Unit/0.5ml) 5,000 unit Q8H SQ 10/25/16 06:00 11/24/16 05:59 Acetaminophen (Tylenol Tab) 650 mg Q4H PRN PO 10/25/16 01:00 11/24/16 00:59 10/25/16 15:14 650 MG Vancomycin HCl (Vancomycin Oral Soln) 125 mg QID PO 10/25/16 02:30 11/08/16 02:29 10/27/16 08:33 125 MG Aspirin (Ecotrin Tab) 81 mg DAILY PO 10/25/16 09:00 11/24/16 08:59 10/27/16 08:34 81 MG Clopidogrel Bisulfate (plAVix TAB) 75 mg DAILY PO 10/25/16 09:00 11/24/16 08:59 10/27/16 08:34 75 MG Mirtazapine (Remeron Tab) 15 mg HS PO 10/25/16 21:00 11/24/16 20:59 10/26/16 21:23 15 MG Pregabalin (Lyrica Cap) 100 mg BID PO 10/25/16 09:00 11/24/16 08:59 10/26/16 21:22 100 MG Miscellaneous Information (Consult Glycemic Management Pharmacy) 1 ea UD PRN N/A 10/25/16 01:30 11/24/16 01:29 Raspberry (Raspberry Syrup 5ml Cup) 5 ml QID PO 10/25/16 02:30 11/04/16 02:29 10/27/16 08:33 5 ML Glucose (Glucose 40% Gel) 15-30 GRAMS 15 GRAMS... UD PRN PO 10/25/16 02:45 11/24/16 02:44 Glucose (Glucose Chew Tab) 4-8 Tablets 4 Tabl... UD PRN PO 10/25/16 02:45 11/24/16 02:44 Dextrose (Dextrose 50% 50ML Syringe) 25-50ML OF 50% DW IV FOR... UD PRN IV 10/25/16 02:45 11/24/16 02:44 10/25/16 08:55 50 ML Glucagon 1 mg 1 mg UD PRN SQ 10/25/16 02:45 11/24/16 02:44 Metronidazole 500 mg/Prmx 100 ml @ 100 mls/hr Q8H IV 10/25/16 10:00 11/08/16 09:59 10/27/16 08:33 100 MLS/HR Famotidine/ Dextrose (Pepcid IV Inj/ D5 100ml) 102 ml @ 204 mls/hr MoWeFr@2100 IV 10/26/16 21:00 11/25/16 20:59 10/26/16 21:22 204 MLS/HR Atorvastatin Calcium (Lipitor Tab) 40 mg QPM PO 10/26/16 21:00 11/25/16 20:59 10/26/16 21:22 40 MG Insulin Aspart SLIDING SCALE ACHS SC 10/26/16 16:00 11/25/16 15:59 10/27/16 11:43 16 UNITS Hydrocortisone Sodium Succinate/ Syringe (Solu-Cortef IV/ Syringe) 1 ml @ 4 mls/min Q12H IV 10/27/16 21:00 11/26/16 20:59 Insulin Glargine (Lantus Solostar Pen) 10 unit QAM SC 10/28/16 09:00 11/27/16 08:59 UNV Assessment and Plan Assessment and Plan: 56 yo woman w/hx of type 2 diabetes, ESRD on dialysis, diabetic retinopathy/ neuropathy, stroke, hypertension, hyperlipidemia, who presented with severe sepsis and severe c. diff ileocolitis. Neuro - Alert and oriented x 3 - Mentating appropriately - Neuropathic pain control on pregabalin Cardiovascular - Severe sepsis - C. diff colitis presumed source - tachycardia is resolved. - still hypotensive, but improved blood pressures today - receiving IV hydrocortisone for further blood pressure support - IV metronidazole and po Vancomycin for treatment of c. diff - Heart murmur - most likely due to aortic sclerosis - unchanged since previous discharge - echo shows mild aortic sclerosis and flattened septum consistent with some increased filling of right ventricle - Peripheral artery disease - no acute exacerbations of PAD - good pulses and no ulcers of lower extremities - aspirin and clopidogrel Respiratory - No reported issues - Investigated possible PE given evidence of pulmonary hypertension - Doppler US negative for DVT - no evidence of hypoxemia or shortness of breath - not tachycardic GI - C. diff ileocolitis - CT showed evidence of significant inflammation of terminal ileum and cecum - stool sample positive for c. diff toxin, negative for shiga toxin. stool cultures preliminarily negative - improving clinically with less diarrhea - receiving IV metronidazole and PO vancomycin - continue to monitor frequency and quality of stools for clinical resolution Renal/Feeding/Electrolytes/Nutrition - ESRD secondary to diabetic nephropathy - dialyzed yesterday. receives dialysis MWF - does not produce urine - Dr. Robbins following and providing recs - Electrolytes normalized following dialysis yesterday - Tolerating po intake with renal diet - Labs indicate protein malnutrition with hypoalbuminemia Endocrine - Diabetes mellitus type 2 - last A1c 7.5 (09/2016) - poor blood sugar control over last day following hypoglycemic measurements 2 days ago - increased glargine to 10 units daily - continue sliding scale protocol - Possible adrenal insufficiency - ACTH levels pending, random cortisol normal - BP remains low - continue to monitor BP for improvement - weaning hydrocortisone today MSK - No acute musculoskeletal abnormalities Skin/Lines - No lesions, or ulcers noted - Arterial line noted in left wrist - removed 10/27 - PIV in right wrist - Fistula in left arm DVT prophylaxis - patient refused heparin due to previous adverse event - SCDs on - Doppler US yesterday w/o evidence of DVT Dispo - ICU staff believe patient is appropriate for stepdown to telemetry unit, given clinical improvement - Will be transferred later today Continued [facility] stay due to: abnormal vital signs, multiple IV medications needed Discharge planning: home (to [facility])
--- NOTE | 2016-10-27 14:12 | Critical Care Progress Note ---
Critical Care Progress Note Date of Service Oct 27, 2016. Attending Dr. Mata Subjective Improvement in right lower quadrant pain Objective General: ambulatory, not in acute distress, laying in bed comfortably Skin: no rashes noted, no suspicious lesions, no areas of inflammations/ lacerations/ erythema noted CVS: S1/ S2 noted, RRR, 3/6 systolic murmur noted, no cyanosis RVS: Clear throughout bilaterally, not in acute respiratory distress, no wheezing/ rales/ crackles noted ENT: no erythema/ injection/ ulcerations noted in the pharynx, no lymphadenopathy Neck: inspection WNL, full ROM of neck ABD: BSx4, tenderness on palpation of RLQ no rebound tenderness, nondistended, no organomegaly, negative murphys, psoas, Rovsing, CVA tenderness MSK: inspection of all limbs WNL, motor and sensation intact in all limbs, no swelling/ pain on palpation of joints NVS: A+Ox3, mood is appropriate Lymph: No lymphadenopathy palpable Assessment & Plan 1. Sepsis secondary to sever C Diff colitis infection 2. Ileocolitis secondary to C Diff infection 3. Diabetes mellitus 4. ESRD 5. Diabetic peripheral neuropathy 6. H/o C Diff 7. Depression with H/O SI 8. H/O systolic murmur 9. Hyponatremia - resolved 10. Hyperkalemia 11. Septal flattening on echocardiogram 12. Anemia of chronic disease NVS - Patient is A+OX3 CVS -Patient remains off pressors and has a normal lactate - echo - revealed EF 55-60%, moderate aortic sclerosis without stenosis and septal flattening which may indicate RV overload - Could be secondary to RV overload from volume however PE was considered, Well criteria 0 - Will order duplex of bilat LE - SCD since patient refuses heparin RVS - Tolerating room air GI - DM/ Renal diet -Off pressors and eating no longer needs H2 anya RENAL -Renal following for dialysis ID - Flagyl IV and oral Vanco will need 14 days of treatment, stop states in place - C diff culture positive - Stool cultures: Unremarkable - blood cultures pending no growth to date ENDO - Adjust lantus accordingly - insulin to sliding scale - Decreased steroids from 100 twice a day to 50 twice a day starting this evening HEME - HGB 10. 2 - plan is procrit with dialysis today Electrolytes - hyponatremia- resolved DVT Prophylaxis - SCD DNR Patient has remained off pressors and hemodynamically stable for greater than 24 hours stable for downgraded to telemetry. Data Medications: Current Inpatient Medications Medications (Trade) Dose Ordered Sig/Sandy Route Start Time Stop Time Status Last Admin Dose Admin Heparin Sodium (Porcine) (Heparin Sq 5000 Unit/0.5ml) 5,000 unit Q8H SQ 10/25/16 06:00 11/24/16 05:59 Acetaminophen (Tylenol Tab) 650 mg Q4H PRN PO 10/25/16 01:00 11/24/16 00:59 10/25/16 15:14 650 MG Vancomycin HCl (Vancomycin Oral Soln) 125 mg QID PO 10/25/16 02:30 11/08/16 02:29 10/27/16 12:49 125 MG Aspirin (Ecotrin Tab) 81 mg DAILY PO 10/25/16 09:00 11/24/16 08:59 10/27/16 08:34 81 MG Clopidogrel Bisulfate (plAVix TAB) 75 mg DAILY PO 10/25/16 09:00 11/24/16 08:59 10/27/16 08:34 75 MG Mirtazapine (Remeron Tab) 15 mg HS PO 10/25/16 21:00 11/24/16 20:59 10/26/16 21:23 15 MG Pregabalin (Lyrica Cap) 100 mg BID PO 10/25/16 09:00 11/24/16 08:59 10/26/16 21:22 100 MG Miscellaneous Information (Consult Glycemic Management Pharmacy) 1 ea UD PRN N/A 10/25/16 01:30 11/24/16 01:29 Raspberry (Raspberry Syrup 5ml Cup) 5 ml QID PO 10/25/16 02:30 11/04/16 02:29 10/27/16 12:48 5 ML Glucose (Glucose 40% Gel) 15-30 GRAMS 15 GRAMS... UD PRN PO 10/25/16 02:45 11/24/16 02:44 Glucose (Glucose Chew Tab) 4-8 Tablets 4 Tabl... UD PRN PO 10/25/16 02:45 11/24/16 02:44 Dextrose (Dextrose 50% 50ML Syringe) 25-50ML OF 50% DW IV FOR... UD PRN IV 10/25/16 02:45 11/24/16 02:44 10/25/16 08:55 50 ML Glucagon 1 mg 1 mg UD PRN SQ 10/25/16 02:45 11/24/16 02:44 Metronidazole 500 mg/Prmx 100 ml @ 100 mls/hr Q8H IV 10/25/16 10:00 11/08/16 09:59 10/27/16 08:33 100 MLS/HR Famotidine/ Dextrose (Pepcid IV Inj/ D5 100ml) 102 ml @ 204 mls/hr MoWeFr@2100 IV 10/26/16 21:00 11/25/16 20:59 10/26/16 21:22 204 MLS/HR Atorvastatin Calcium (Lipitor Tab) 40 mg QPM PO 10/26/16 21:00 11/25/16 20:59 10/26/16 21:22 40 MG Insulin Aspart SLIDING SCALE ACHS SC 10/26/16 16:00 11/25/16 15:59 10/27/16 11:43 16 UNITS Hydrocortisone Sodium Succinate/ Syringe (Solu-Cortef IV/ Syringe) 1 ml @ 4 mls/min Q12H IV 10/27/16 21:00 11/26/16 20:59 Insulin Glargine (Lantus Solostar Pen) IF BSG IS GREATER THAN 1... QAM SC 10/28/16 09:00 11/27/16 08:59 I & O: 24-Hour Column 10/27/16 08:00 Intake Total 864 ml Output Total 0 ml Balance 864 ml Vital Signs: Date Time Temp Pulse Resp B/P Pulse Ox O2 Delivery O2 Flow Rate FiO2 10/27/16 11:58 36.7 77 16 123/55 97 Room Air 10/27/16 11:35 100 Room Air 2.0 10/27/16 11:00 71 16 91/37 98 10/27/16 10:58 72 15 103/56 97 10/27/16 10:00 79 18 80/32 100 Room Air 10/27/16 09:58 76 16 104/53 100 10/27/16 09:00 83 17 95/43 99 10/27/16 08:58 86 16 90/69 100 10/27/16 08:56 87 12 109/61 99 10/27/16 08:00 100 Room Air 2.0 10/27/16 08:00 36.5 83 14 82/32 100 Room Air 10/27/16 07:00 71 14 82/28 94 10/27/16 05:58 36.8 72 13 127/60 96 10/27/16 05:00 67 11 94/35 97 10/27/16 04:28 100 Room Air 2.0 10/27/16 04:00 72 11 94/37 99 10/27/16 03:58 73 13 122/59 95 10/27/16 03:00 71 13 87/34 95 10/27/16 02:00 36.7 85 14 94/37 98 10/27/16 01:58 81 18 110/78 95 10/27/16 01:00 82 16 83/35 95 10/27/16 00:06 100 Room Air 2.0 10/27/16 00:00 83 15 114/53 93 10/26/16 23:00 77 15 82/40 91 10/26/16 22:13 90 21 108/52 96 10/26/16 22:00 87 15 81/33 98 10/26/16 21:58 93 16 99/56 99 10/26/16 21:43 90 15 108/41 87 10/26/16 21:28 90 15 83/44 98 10/26/16 21:13 92 16 84/50 100 10/26/16 21:00 88 17 72/25 98 10/26/16 20:58 87 16 96/53 100 10/26/16 20:43 105 21 104/67 100 10/26/16 20:35 36.5 83 95/30 10/26/16 20:28 82 17 119/57 100 10/26/16 20:13 81 17 124/57 100 10/26/16 20:00 100 Room Air 2.0 10/26/16 20:00 36.8 84 22 116/35 100 10/26/16 19:58 85 19 116/53 100 10/26/16 19:55 86 91/30 10/26/16 19:45 85 100/51 10/26/16 19:43 79 15 100/51 100 10/26/16 19:30 79 109/50 10/26/16 19:28 80 15 109/50 100 10/26/16 19:15 83 96/31 10/26/16 19:13 81 18 110/50 100 10/26/16 19:00 82 113/35 10/26/16 19:00 81 16 108/33 100 10/26/16 18:45 79 93/55 10/26/16 18:30 81 97/52 10/26/16 18:15 81 83/29 10/26/16 18:00 85 16 85/33 100 Room Air 10/26/16 18:00 84 99/50 10/26/16 17:58 84 17 99/50 100 Room Air 10/26/16 17:45 86 100/55 10/26/16 17:30 88 79/51 10/26/16 17:15 85 91/53 10/26/16 17:13 81 16 91/53 100 Room Air 10/26/16 17:00 74 135/61 10/26/16 16:58 36.7 74 16 135/61 100 Room Air 10/26/16 16:54 87 106/37 10/26/16 16:40 36.4 84 83/32 10/26/16 16:00 Room Air 10/26/16 15:58 78 17 100/44 97 Room Air Laboratory Results: Last 24 Hours Test 10/26/16 16:24 10/26/16 21:42 10/27/16 00:55 10/27/16 05:52 Bedside Glucose 372 mg/dl Lactic Acid Level 1.0 mmol/L 0.7 mmol/L White Blood Count 9.86 K/uL Red Blood Count 3.73 M/uL Hemoglobin 10.2 g/dL Hematocrit 31.3 % Mean Corpuscular Volume 83.9 fL Mean Corpuscular Hemoglobin 27.3 pg Mean Corpuscular Hemoglobin Concent 32.6 g/dl Platelet Count 155 K/uL Mean Platelet Volume 12.0 fL Neutrophils (%) (Auto) 84.4 % Lymphocytes (%) (Auto) 10.3 % Monocytes (%) (Auto) 5.0 % Eosinophils (%) (Auto) 0.0 % Basophils (%) (Auto) 0.1 % Neutrophils # (Auto) 8.32 K/uL Lymphocytes # (Auto) 1.02 K/uL Monocytes # (Auto) 0.49 K/uL Eosinophils # (Auto) 0.00 K/uL Basophils # (Auto) 0.01 K/uL RDW Standard Deviation 49.4 fL RDW Coefficient of Variation 16.2 % Immature Granulocyte % (Auto) 0.2 % Immature Granulocyte # (Auto) 0.02 K/uL Sodium Level 139 mmol/L Potassium Level 4.0 mmol/L Chloride Level 97 mmol/L Carbon Dioxide Level 22 mmol/L Anion Gap 20.0 mmol/L Blood Urea Nitrogen 49 mg/dl Creatinine 5.10 mg/dl Est Creatinine Clear Calc Drug Dose 10.8 ml/min Estimated GFR () 10.3 Estimated GFR (Non- 8.9 BUN/Creatinine Ratio 9.6 Random Glucose 326 mg/dl Calcium Level 8.3 mg/dl Phosphorus Level 5.6 mg/dl Magnesium Level 2.0 mg/dl Total Bilirubin 0.4 mg/dl Aspartate Amino Transf (AST/SGOT) 10 U/L Alanine Aminotransferase (ALT/SGPT) 14 U/L Alkaline Phosphatase 196 U/L Total Protein 5.9 gm/dl Albumin 2.3 gm/dl Globulin 3.6 gm/dl Albumin/Globulin Ratio 0.6 Beta-Hydroxybutyric Acid 36.66 mg/dL
--- NOTE | 2016-10-27 15:01 | Family Medicine Progress Note ---
Progress Note Date of Service Oct 27, 2016. Subjective Pt evaluation today including: conversation w/ patient, physical exam, lab review Pain: generalized abdomen pain Patient continues to complain of abdomen pain, more on the RLQ. Denies nausea or vomiting. Tolerated breakfast well. Slept well. Diarrhea is improving, had 2 episodes today since morning. Constitutional: No fever Respiratory: No cough, No shortness of breath Cardiovascular: No chest pain Abdomen: + diarrhea, + pain (generalized abdomen pain, more on the RLQ and suprapubic region), No constipation, No nausea, No vomiting Musculoskeletal: No muscle pain Medications Current Inpatient Medications Medications (Trade) Dose Ordered Sig/Sandy Route Start Time Stop Time Status Last Admin Dose Admin Heparin Sodium (Porcine) (Heparin Sq 5000 Unit/0.5ml) 5,000 unit Q8H SQ 10/25/16 06:00 11/24/16 05:59 Acetaminophen (Tylenol Tab) 650 mg Q4H PRN PO 10/25/16 01:00 11/24/16 00:59 10/25/16 15:14 650 MG Vancomycin HCl (Vancomycin Oral Soln) 125 mg QID PO 10/25/16 02:30 11/08/16 02:29 10/27/16 08:33 125 MG Aspirin (Ecotrin Tab) 81 mg DAILY PO 10/25/16 09:00 11/24/16 08:59 10/27/16 08:34 81 MG Clopidogrel Bisulfate (plAVix TAB) 75 mg DAILY PO 10/25/16 09:00 11/24/16 08:59 10/27/16 08:34 75 MG Mirtazapine (Remeron Tab) 15 mg HS PO 10/25/16 21:00 11/24/16 20:59 10/26/16 21:23 15 MG Pregabalin (Lyrica Cap) 100 mg BID PO 10/25/16 09:00 11/24/16 08:59 10/26/16 21:22 100 MG Miscellaneous Information (Consult Glycemic Management Pharmacy) 1 ea UD PRN N/A 10/25/16 01:30 11/24/16 01:29 Raspberry (Raspberry Syrup 5ml Cup) 5 ml QID PO 10/25/16 02:30 11/04/16 02:29 10/27/16 08:33 5 ML Glucose (Glucose 40% Gel) 15-30 GRAMS 15 GRAMS... UD PRN PO 10/25/16 02:45 11/24/16 02:44 Glucose (Glucose Chew Tab) 4-8 Tablets 4 Tabl... UD PRN PO 10/25/16 02:45 11/24/16 02:44 Dextrose (Dextrose 50% 50ML Syringe) 25-50ML OF 50% DW IV FOR... UD PRN IV 10/25/16 02:45 11/24/16 02:44 10/25/16 08:55 50 ML Glucagon 1 mg 1 mg UD PRN SQ 10/25/16 02:45 11/24/16 02:44 Metronidazole 500 mg/Prmx 100 ml @ 100 mls/hr Q8H IV 10/25/16 10:00 11/08/16 09:59 10/27/16 08:33 100 MLS/HR Famotidine/ Dextrose (Pepcid IV Inj/ D5 100ml) 102 ml @ 204 mls/hr MoWeFr@2100 IV 10/26/16 21:00 11/25/16 20:59 10/26/16 21:22 204 MLS/HR Nicotine (Nicoderm Cq 14MG Patch) 1 patch QAM TD 10/26/16 09:00 11/25/16 08:59 Miscellaneous (Remove Nicoderm Patch) 1 ea HS N/A 10/25/16 21:00 11/24/16 20:59 10/26/16 21:23 1 EA Insulin Glargine 3 unit 3 unit QAM SC 10/26/16 09:00 11/25/16 08:59 Future hold 10/27/16 08:34 3 UNIT Hydrocortisone Sodium Succinate/ Syringe (Solu-Cortef IV/ Syringe) 2 ml @ 4 mls/min Q12H IV 10/26/16 21:00 11/25/16 20:59 10/27/16 08:32 4 MLS/MIN Atorvastatin Calcium (Lipitor Tab) 40 mg QPM PO 10/26/16 21:00 11/25/16 20:59 10/26/16 21:22 40 MG Insulin Aspart SLIDING SCALE ACHS SC 10/26/16 16:00 11/25/16 15:59 10/27/16 05:56 6 UNITS Norepinephrine Bitartrate/ Dextrose (Levophed Inj/ D5W 500ml) 508 ml @ 0 mls/hr Q0M PRN IV 10/26/16 16:45 11/25/16 16:44 Objective Vital Signs Date Time Temp Pulse Resp B/P Pulse Ox O2 Delivery O2 Flow Rate FiO2 10/27/16 08:00 100 Room Air 2.0 10/27/16 05:58 36.8 72 13 127/60 96 10/27/16 05:00 67 11 94/35 97 10/27/16 04:28 100 Room Air 2.0 10/27/16 04:00 72 11 94/37 99 10/27/16 03:58 73 13 122/59 95 10/27/16 03:00 71 13 87/34 95 10/27/16 02:00 36.7 85 14 94/37 98 10/27/16 01:58 81 18 110/78 95 10/27/16 01:00 82 16 83/35 95 10/27/16 00:06 100 Room Air 2.0 10/27/16 00:00 83 15 114/53 93 10/26/16 23:00 77 15 82/40 91 10/26/16 22:13 90 21 108/52 96 10/26/16 22:00 87 15 81/33 98 10/26/16 21:58 93 16 99/56 99 10/26/16 21:43 90 15 108/41 87 10/26/16 21:28 90 15 83/44 98 10/26/16 21:13 92 16 84/50 100 10/26/16 21:00 88 17 72/25 98 10/26/16 20:58 87 16 96/53 100 10/26/16 20:43 105 21 104/67 100 10/26/16 20:35 36.5 83 95/30 10/26/16 20:28 82 17 119/57 100 10/26/16 20:13 81 17 124/57 100 10/26/16 20:00 100 Room Air 2.0 10/26/16 20:00 36.8 84 22 116/35 100 10/26/16 19:58 85 19 116/53 100 10/26/16 19:55 86 91/30 10/26/16 19:45 85 100/51 10/26/16 19:43 79 15 100/51 100 10/26/16 19:30 79 109/50 10/26/16 19:28 80 15 109/50 100 10/26/16 19:15 83 96/31 10/26/16 19:13 81 18 110/50 100 10/26/16 19:00 82 113/35 10/26/16 19:00 81 16 108/33 100 10/26/16 18:45 79 93/55 10/26/16 18:30 81 97/52 10/26/16 18:15 81 83/29 10/26/16 18:00 85 16 85/33 100 Room Air 10/26/16 18:00 84 99/50 10/26/16 17:58 84 17 99/50 100 Room Air 10/26/16 17:45 86 100/55 10/26/16 17:30 88 79/51 10/26/16 17:15 85 91/53 10/26/16 17:13 81 16 91/53 100 Room Air 10/26/16 17:00 74 135/61 10/26/16 16:58 36.7 74 16 135/61 100 Room Air 10/26/16 16:54 87 106/37 10/26/16 16:40 36.4 84 83/32 10/26/16 16:00 Room Air 10/26/16 15:58 78 17 100/44 97 Room Air 10/26/16 13:58 73 13 89/43 91 Room Air 10/26/16 12:00 Room Air 10/26/16 11:58 36.8 87 16 96/51 99 Room Air 10/26/16 11:30 86 19 92/50 99 Room Air Physical Exam General Appearance: no apparent distress Neck: supple Respiratory/Chest: chest non-tender, lungs clear, normal breath sounds, no respiratory distress Cardiovascular: regular rate, rhythm, no edema, + systolic murmur (Grade 2/6 systolic murmur was noted) Abdomen: normal bowel sounds, soft, + tenderness (generalized tender on palpation, more on the RLQ) Extremities: normal range of motion, non-tender, no pedal edema Neurologic/Psychiatric: alert, normal mood/affect, oriented x 3 Skin: normal color, warm/dry Laboratory Results Results Past 24 Hours Test 10/26/16 16:24 10/26/16 21:42 10/27/16 00:55 10/27/16 05:52 Range/Units Bedside Glucose 372 70-90 mg/dl Lactic Acid Level 1.0 0.7 0.4-2.0 mmol/L White Blood Count 9.86 4.8-10.8 K/uL Red Blood Count 3.73 4.2-5.4 M/uL Hemoglobin 10.2 12.0-16.0 g/dL Hematocrit 31.3 37-47 % Mean Corpuscular Volume 83.9 80-100 fL Mean Corpuscular Hemoglobin 27.3 25-34 pg Mean Corpuscular Hemoglobin Concent 32.6 32-36 g/dl Platelet Count 155 130-400 K/uL Mean Platelet Volume 12.0 7.4-10.4 fL Neutrophils (%) (Auto) 84.4 % Lymphocytes (%) (Auto) 10.3 % Monocytes (%) (Auto) 5.0 % Eosinophils (%) (Auto) 0.0 % Basophils (%) (Auto) 0.1 % Neutrophils # (Auto) 8.32 1.4-6.5 K/uL Lymphocytes # (Auto) 1.02 1.2-3.4 K/uL Monocytes # (Auto) 0.49 0.11-0.59 K/uL Eosinophils # (Auto) 0.00 0-0.5 K/uL Basophils # (Auto) 0.01 0-0.2 K/uL RDW Standard Deviation 49.4 36.4-46.3 fL RDW Coefficient of Variation 16.2 11.5-14.5 % Immature Granulocyte % (Auto) 0.2 % Immature Granulocyte # (Auto) 0.02 0.00-0.02 K/uL Sodium Level 139 136-145 mmol/L Potassium Level 4.0 3.5-5.1 mmol/L Chloride Level 97 98-107 mmol/L Carbon Dioxide Level 22 21-32 mmol/L Anion Gap 20.0 3-11 mmol/L Blood Urea Nitrogen 49 7-18 mg/dl Creatinine 5.10 0.60-1.20 mg/dl Est Creatinine Clear Calc Drug Dose 10.8 ml/min Estimated GFR () 10.3 Estimated GFR (Non- 8.9 BUN/Creatinine Ratio 9.6 10-20 Random Glucose 326 70-99 mg/dl Calcium Level 8.3 8.5-10.1 mg/dl Phosphorus Level 5.6 2.5-4.9 mg/dl Magnesium Level 2.0 1.8-2.4 mg/dl Total Bilirubin 0.4 0.2-1 mg/dl Aspartate Amino Transf (AST/SGOT) 10 15-37 U/L Alanine Aminotransferase (ALT/SGPT) 14 12-78 U/L Alkaline Phosphatase 196 45-117 U/L Total Protein 5.9 6.4-8.2 gm/dl Albumin 2.3 3.4-5.0 gm/dl Globulin 3.6 2.5-4.0 gm/dl Albumin/Globulin Ratio 0.6 0.9-2 Beta-Hydroxybutyric Acid 36.66 0.2-2.81 mg/dL Assessment and Plan This is a 56 y/o F with previous hx of C Diff colitis, ESRD, DM, HTN, and HLD, presented with diarrhea, subjective fever/chills, RUQ pain admitted for septic shock in the setting of C Diff Colitis. 1. Septic Shock - 2/2 GI source of C Diff - Continue PO Vanco and IV Flagyl - Blood cx/ no growth to date, Stool cx's negative - Lactate (on arrival 2.74) latest is: 0.7 2. Diarrhea - 2/2 C diff colitis - Flu swab neg. 3. ESRD - 2/2 Diabetic nephropathy - Dialysis Sat/Sat/Sat - F/u bmp 4. HTN - Amlodipine Metoprolol held 5. HLD - Restarted statin 6. T2DM - Glycemic consult - Lantus was increased to 10 u HS given increased glucose level, Novolog Sliding scale 7. Hypotension - 2/2 to sepsis - improving, today's BP 123/53 - d/c levophed 8. Hyponatremia - resolved, Na 139 9. GI Prophylaxis -Continue Famotidine 10. History of hypertension - held amlodipine and Toprol XL 11. Depression - Continue mirtazapine 15mg qHS 12. Diabetic neuropathy - Continue Lyrica 100mg BID 13. DVT prophylaxis: - Heparin 14. Code Status: - DNR Dispo: Transfer from ICU to Tele given improved in blood pressure and symptoms. Reviewed: Pt Seen/Exam by SUDHIR Gongora Notes, Labs, RAD History Resident Physician Supervision Note: I was present with Dr. Mendez during the history and exam. I discussed the case with the resident and agree with the findings and plan as documented in the note. Any exceptions or clarifications are listed here: Pt feeling a bit better, still with abd ppain but diarrhea slowing down. BPs improved Vitals reviewed Gen" NAD, AAOx3 RRR 2/6 FANY at [facility] CTAB no wcr Abd soft +TTP RLQ w/o guarding or rebound Ext no edema SKin no rashes; left upper arm AV fistula, left radial A-line A/P: Pt is a 56 yo female with ESRD, DMII, h/o C. diff, PAD, HTN, CAD, here with septic shock due to GI source of C. diff, treated with IVF, IV Flagyl and po Vanco, and off pressor Levophed which is now weaned off and started on HC IV. A-line placed and BPs were quite low although she is awake and talking, not altered.BP now improved and will tx to tele. Checking for adrenal insufficiency but random cortisol ok at 12. ACTH pending. Also with hypoglycemia which is now hyperglycemia with glucose in 300s. Increase Lantus and Pharmacy consult managing as well. Continue HD as scheduled with hyperkalemia intermittently. CCM consult in ICU appreciated. Documented By: Bisi Padilla
[2016-10-27] MEDS: HYDROCORTISONE IV 50 MG in SYRINGE 0 ML IV SCH (21:00)
[2016-10-27] MEDS: MIRTAZAPINE TAB 15 MG TAB PO SCH (22:02)
[2016-10-27] MEDS: ATORVASTATIN 20 MG TAB PO SCH (22:03)
[2016-10-28] VITALS (10 sets, daily range): BP systolic 91–136; BP diastolic 37–74; PULSE 61–77; TEMP 36.4–36.9; O2SAT 94–99
[2016-10-28] MEDS: METRONIDAZOLE 500MG / NSS IV SCH ×2 (02:20→10:20)
[2016-10-28] MEDS: HEPARIN SOD 5000 UNIT/0.5 ML CARP SQ SCH ×3 (06:00→22:00)
[2016-10-28 06:15] LABS: BASO % 0.1 %; BASO ABS # 0.01 K/uL (0-0.2); COMPLETE YES; EOS % 0.1 %; HEMATOCRIT 36.3 % (37-47); IG% 0.4 %; LYMPH % 13.6 %; MEAN CELL VOLUME 84.4 fL (80-100); MEAN CORPUSCULAR HEMOGLOBIN 27.7 pg (25-34); MEAN CORPUSCULAR HGB CONC 32.8 g/dl (32-36); MEAN PLATELET VOLUME 12.3 fL (7.4-10.4); MONO % 5.8 %; PLATELET COUNT 155 K/uL (130-400); WHITE BLOOD COUNT 8.09 K/uL (4.8-10.8)
[2016-10-28 07:00] LABS: ALB/GLOB RATIO 0.7 (0.9-2); BUN/CREATININE RATIO 10.4 (10-20); CALCIUM 7.9 mg/dl (8.5-10.1); CREATININE 7.2 mg/dl (0.60-1.20); PHOSPHORUS 5.4 mg/dl (2.5-4.9); POTASSIUM 3.9 mmol/L (3.5-5.1)
[2016-10-28 07:12] LABS: BETA-HYDROXYBUTYRATE 5.87 mg/dL (0.2-2.81)
[2016-10-28] MEDS ORDERED: INSULIN HUMAN REGULAR PER UNIT 7 UNITS in SYRINGE 6.93 ML IV ONE (08:00)
[2016-10-28] MEDS: INSULIN ASPART 100 UNITS/ML 3 ML PEN SC SCH ×4 (08:35→21:00)
[2016-10-28] MEDS: INSULIN GLARGINE SOLOSTAR 100 UNITS/ML 3 ML PEN SC SCH ×2 (08:36→21:00)
[2016-10-28] MEDS: HYDROCORTISONE IV 50 MG in SYRINGE 0 ML IV SCH (08:39)
[2016-10-28] MEDS: ASPIRIN 81 MG ECTAB PO SCH (08:39)
[2016-10-28] MEDS: CLOPIDOGREL BISULFATE 75 MG TAB PO SCH (08:40)
[2016-10-28] MEDS: PREGABALIN 100 MG CAP PO SCH ×2 (08:47→20:52)
[2016-10-28] MEDS: VANCOMYCIN HCL 125 MG/2.5ML SOLN PO SCH ×4 (08:47→20:52)
[2016-10-28] MEDS: RASPBERRY SYRUP 5 ML UDP PO SCH ×4 (08:47→20:52)
[2016-10-28] MEDS ORDERED: INSULIN GLARGINE SOLOSTAR 100 UNITS/ML 3 ML PEN SC SCH ×3 (09:00)
[2016-10-28] MEDS: ACETAMINOPHEN 325 MG TAB PO PRN (10:33)
--- NOTE | 2016-10-28 13:35 | Pharmacy Progress Note ---
Glycemic Control Intl Consult Date of Service Oct 28, 2016. Scope Glycemic Pharmacist consulted by on 10/25/16 for glycemic control and to write orders per [facility] inpatient glycemic control protocol Objective Weight (Kilograms): 66.100 Accuchecks BSG (last 24hrs): Test 10/27/16 16:10 10/27/16 20:56 10/28/16 05:45 10/28/16 06:54 Bedside Glucose 350 mg/dl (70-90) 372 mg/dl (70-90) 487 mg/dl (70-90) Random Glucose 499 mg/dl (70-99) Test 10/28/16 10:24 10/28/16 11:15 Bedside Glucose 433 mg/dl (70-90) 344 mg/dl (70-90) Laboratory Data (last 24hrs) Test 10/28/16 05:45 Anion Gap 16.0 mmol/L BUN/Creatinine Ratio 10.4 Blood Urea Nitrogen 75 mg/dl Creatinine 7.20 mg/dl Potassium Level 3.9 mmol/L Sodium Level 138 mmol/L White Blood Count 8.09 K/uL Red Blood Count 4.30 M/uL Hemoglobin 11.9 g/dL Hematocrit 36.3 % Mean Corpuscular Volume 84.4 fL Mean Corpuscular Hemoglobin 27.7 pg Mean Corpuscular Hemoglobin Concent 32.8 g/dl Platelet Count 155 K/uL Mean Platelet Volume 12.3 fL Neutrophils (%) (Auto) 80.0 % Lymphocytes (%) (Auto) 13.6 % Monocytes (%) (Auto) 5.8 % Eosinophils (%) (Auto) 0.1 % Basophils (%) (Auto) 0.1 % Neutrophils # (Auto) 6.47 K/uL Lymphocytes # (Auto) 1.10 K/uL Monocytes # (Auto) 0.47 K/uL Eosinophils # (Auto) 0.01 K/uL Basophils # (Auto) 0.01 K/uL HbA1c Test 10/25/16 18:18 Hemoglobin A1c 7.7 % (4.5-5.6) H Recent Pertinent Medications Outpatient Anti-diabetic Regimen: * Lantus 5 units daily, Humalog 5 units plus SS (151-200 6 units, 201-250 8 units, 251-300 10 units) * A1c -- not reliable d/t HD Risk Factors for Insulin Resistance: * Steroids: HC IV taper 100mg q12h --> 50mg q12h --> 25mg q12h * Infection: sepsis, C.diff; On IV Flagyl (d/c'd today) and Vanc po * Diet: Renal/DM2 Assessment & Plan ASSESSMENT: * ADA & AACE recommend a goal blood sugar range 140-180 mg/dl for the majority of critically ill & non-critically ill patients. However, more stringent targets may be selected in individual cases. * Pt with severely elevated BSGs this morning secondary to steroid induced hyperglycemia. * Insulin needs have significantly increased since addition of steroids. Will need to reduce Lantus dose and loosen Novolog CF/CR when steroids discontinued. * In response to acutely elevated BSGs this morning a bolus dose of IV regular was ordered, dose of Lantus increased based upon yesterday's TDD of insulin administered, and Novolog CF/CR tightened. * Add Novolog 00 + 04 checks to resolve overnight hyperglycemia. PLAN FOR INPATIENT GLYCEMIC CONTROL: * IV Regular 7 units x 1 this morning * Increase Lantus to 14 units qAM (1/2 dose for BSG below 120 mg/dl) + qPM according to BSG scale: * 0 units for BSG 150mg/dl and below * 7 units for BSG 151 - 200 mg/dl * 14 units for BSG 201mg/dl and greater * Novolog ACHS + 00,04 * Tighten correction factor to 20 mg/dl/unit * Tighten carb ratio to 1 unit per 7 grams CHO consumed * Continue goal range of Low 120 mg/dL - High 160 mg/dL * Please note that the plan above was derived based on current level of insulin resistance and hospital stress. These recommendations are appropriate for inpatient admission only. Plan of care upon discharge will need to be reassessed to avoid potential outpatient hypo/hyperglycemia. Thank you.
--- NOTE | 2016-10-28 15:03 | PROGRESS NOTE ---
DATE: 10/28/2016 HISTORY OF PRESENT ILLNESS: This is a 56-year-old female with end-stage renal disease who presented with fevers and abdominal pain. She was C. diff positive. She is not having a lot of diarrhea at this time. She is feeling better. Her blood glucose just now was 94. Her blood pressure is still somewhat on the lower side, but not too low. She is concerned about gaining fluid weight. She is anuric and we have not taken fluid out with dialysis. She also claims she is drinking more water. PHYSICAL EXAMINATION: VITAL SIGNS: Blood pressure 100/43, 99% on room air. HEENT: Mucous membranes moist. NECK: Supple. No jugular venous distention. CHEST: Bilateral clear to auscultation. CARDIOVASCULAR: S1 and S2, regular. 2/6 systolic murmur heard. ABDOMEN: Soft, nontender. EXTREMITIES: Shows no edema. LABORATORY TESTS: From this morning shows hemoglobin of 11.9. Sodium 139, potassium 3.9, BUN 75, creatinine 7.2, glucose was 499, but the most recent on the Accu-Chek was 294. ASSESSMENT AND PLAN: End-stage renal disease. She had last dialysis on SaturdayOctober 26. Her next dialysis will be tomorrow. Orders have been written. We will do for 3 hours. We will try to take some fluid off as she is anuric and has high risk of getting fluid overload and we will try to take 2-3 kilo off. We will do on a 2K bath. The AV graft looks fine.
--- NOTE | 2016-10-28 15:27 | Family Medicine Progress Note ---
Progress Note Date of Service Oct 28, 2016. Subjective Pt evaluation today including: conversation w/ patient, physical exam, lab review No acute overnight events. Patient states that she has one bowel movement last night and 2 this morning. She continues to complains have RLQ and suprapubic pain but has improved since yesterday. Patient remains afebrile. Tolerating food well. Denies nausea, vomiting or any other additional complaints. Constitutional: No fever Respiratory: No cough, No shortness of breath, No wheezing Cardiovascular: No chest pain Abdomen: + diarrhea (had total 3 episodes since last night), + pain ( generalized pain more on the RLQ and suprapubic region. Improved since yesterday. ), No nausea, No vomiting Musculoskeletal: No muscle pain Skin: No rash Medications Current Inpatient Medications Medications (Trade) Dose Ordered Sig/Sandy Route Start Time Stop Time Status Last Admin Dose Admin Heparin Sodium (Porcine) (Heparin Sq 5000 Unit/0.5ml) 5,000 unit Q8H SQ 10/25/16 06:00 11/24/16 05:59 Acetaminophen (Tylenol Tab) 650 mg Q4H PRN PO 10/25/16 01:00 11/24/16 00:59 10/25/16 15:14 650 MG Vancomycin HCl (Vancomycin Oral Soln) 125 mg QID PO 10/25/16 02:30 11/08/16 02:29 10/28/16 08:47 125 MG Aspirin (Ecotrin Tab) 81 mg DAILY PO 10/25/16 09:00 11/24/16 08:59 10/28/16 08:39 81 MG Clopidogrel Bisulfate (plAVix TAB) 75 mg DAILY PO 10/25/16 09:00 11/24/16 08:59 10/28/16 08:40 75 MG Mirtazapine (Remeron Tab) 15 mg HS PO 10/25/16 21:00 11/24/16 20:59 10/27/16 22:02 15 MG Pregabalin (Lyrica Cap) 100 mg BID PO 10/25/16 09:00 11/24/16 08:59 10/28/16 08:47 100 MG Miscellaneous Information (Consult Glycemic Management Pharmacy) 1 ea UD PRN N/A 10/25/16 01:30 11/24/16 01:29 Raspberry (Raspberry Syrup 5ml Cup) 5 ml QID PO 10/25/16 02:30 11/04/16 02:29 10/28/16 08:47 5 ML Glucose (Glucose 40% Gel) 15-30 GRAMS 15 GRAMS... UD PRN PO 10/25/16 02:45 11/24/16 02:44 Glucose (Glucose Chew Tab) 4-8 Tablets 4 Tabl... UD PRN PO 10/25/16 02:45 11/24/16 02:44 Dextrose (Dextrose 50% 50ML Syringe) 25-50ML OF 50% DW IV FOR... UD PRN IV 10/25/16 02:45 11/24/16 02:44 10/25/16 08:55 50 ML Glucagon 1 mg 1 mg UD PRN SQ 10/25/16 02:45 11/24/16 02:44 Metronidazole/Prmx (Flagyl / Nss/ Premixed Nss) 100 ml @ 100 mls/hr Q8H IV 10/25/16 10:00 11/08/16 09:59 10/28/16 02:20 100 MLS/HR Atorvastatin Calcium (Lipitor Tab) 40 mg QPM PO 10/26/16 21:00 11/25/16 20:59 10/27/16 22:03 40 MG Insulin Aspart SLIDING SCALE ACHS SC 10/26/16 16:00 11/25/16 15:59 10/28/16 08:35 22 UNITS Hydrocortisone Sodium Succinate/ Syringe (Solu-Cortef IV/ Syringe) 1 ml @ 4 mls/min Q12H IV 10/27/16 21:00 11/26/16 20:59 10/28/16 08:39 4 MLS/MIN Insulin Aspart (novoLOG ASPART) SLIDING SCALE 0200 SC 10/29/16 02:00 11/28/16 01:59 Insulin Glargine (Lantus Solostar Pen) QAM SC 10/28/16 09:00 11/27/16 08:59 10/28/16 08:36 14 UNIT Insulin Glargine (Lantus Solostar Pen) 0 UNITS FOR BSG 150 MG... QPM SC 10/28/16 21:00 11/27/16 20:59 Objective Vital Signs Date Time Temp Pulse Resp B/P Pulse Ox O2 Delivery O2 Flow Rate FiO2 10/28/16 08:04 36.6 69 16 133/47 95 Room Air 10/28/16 04:00 Room Air 10/28/16 03:52 36.7 66 18 120/50 95 Room Air 10/28/16 00:02 Room Air 10/28/16 00:01 36.4 61 18 91/37 94 Room Air 10/27/16 20:17 36.3 73 16 100/52 98 Room Air 10/27/16 20:00 Room Air 10/27/16 18:04 36.4 77 18 85/44 98 Room Air 10/27/16 15:30 100 Room Air 10/27/16 11:58 36.7 77 16 123/55 97 Room Air 10/27/16 11:35 100 Room Air 2.0 10/27/16 11:00 71 16 91/37 98 10/27/16 10:58 72 15 103/56 97 Physical Exam General Appearance: no apparent distress Neck: supple Respiratory/Chest: chest non-tender, lungs clear, no respiratory distress Cardiovascular: regular rate, rhythm, no edema, + systolic murmur (grade 2/6 was noted) Abdomen: normal bowel sounds, soft, + pertinent finding (+TTP on RLQ and suprapubic) Extremities: non-tender, no pedal edema Neurologic/Psychiatric: alert, normal mood/affect Skin: normal color, warm/dry, no rash Laboratory Results Results Past 24 Hours Test 10/27/16 16:10 10/27/16 20:56 10/28/16 05:45 10/28/16 06:54 Range/Units Bedside Glucose 350 372 487 70-90 mg/dl White Blood Count 8.09 4.8-10.8 K/uL Red Blood Count 4.30 4.2-5.4 M/uL Hemoglobin 11.9 12.0-16.0 g/dL Hematocrit 36.3 37-47 % Mean Corpuscular Volume 84.4 80-100 fL Mean Corpuscular Hemoglobin 27.7 25-34 pg Mean Corpuscular Hemoglobin Concent 32.8 32-36 g/dl Platelet Count 155 130-400 K/uL Mean Platelet Volume 12.3 7.4-10.4 fL Neutrophils (%) (Auto) 80.0 % Lymphocytes (%) (Auto) 13.6 % Monocytes (%) (Auto) 5.8 % Eosinophils (%) (Auto) 0.1 % Basophils (%) (Auto) 0.1 % Neutrophils # (Auto) 6.47 1.4-6.5 K/uL Lymphocytes # (Auto) 1.10 1.2-3.4 K/uL Monocytes # (Auto) 0.47 0.11-0.59 K/uL Eosinophils # (Auto) 0.01 0-0.5 K/uL Basophils # (Auto) 0.01 0-0.2 K/uL RDW Standard Deviation 48.8 36.4-46.3 fL RDW Coefficient of Variation 15.9 11.5-14.5 % Immature Granulocyte % (Auto) 0.4 % Immature Granulocyte # (Auto) 0.03 0.00-0.02 K/uL Sodium Level 138 136-145 mmol/L Potassium Level 3.9 3.5-5.1 mmol/L Chloride Level 98 98-107 mmol/L Carbon Dioxide Level 24 21-32 mmol/L Anion Gap 16.0 3-11 mmol/L Blood Urea Nitrogen 75 7-18 mg/dl Creatinine 7.20 0.60-1.20 mg/dl Est Creatinine Clear Calc Drug Dose 7.6 ml/min Estimated GFR () 6.8 Estimated GFR (Non- 5.9 BUN/Creatinine Ratio 10.4 10-20 Random Glucose 499 70-99 mg/dl Calcium Level 7.9 8.5-10.1 mg/dl Phosphorus Level 5.4 2.5-4.9 mg/dl Magnesium Level 2.0 1.8-2.4 mg/dl Total Bilirubin 0.4 0.2-1 mg/dl Aspartate Amino Transf (AST/SGOT) 10 15-37 U/L Alanine Aminotransferase (ALT/SGPT) 17 12-78 U/L Alkaline Phosphatase 259 45-117 U/L Total Protein 6.8 6.4-8.2 gm/dl Albumin 2.7 3.4-5.0 gm/dl Globulin 4.1 2.5-4.0 gm/dl Albumin/Globulin Ratio 0.7 0.9-2 Beta-Hydroxybutyric Acid 5.87 0.2-2.81 mg/dL Assessment and Plan This is a 56 y/o F with previous hx of C Diff colitis, ESRD, DM, HTN, and HLD, presented with diarrhea, subjective fever/chills, RUQ pain admitted for septic shock in the setting of C Diff Colitis. 1. Septic Shock - 2/2 GI source of C Diff - d/c IV Flagyl - Continue PO Vanco - Blood cx/ no growth to date, Stool cx's negative - Lactate (on arrival 2.74) latest is: 0.7 2. Diarrhea - Improving - 2/2 C diff colitis - Flu swab neg. 3. ESRD - 2/2 Diabetic nephropathy - Dialysis Sat/Sat/Sat - F/u bmp 4. HTN - Amlodipine Metoprolol held 5. HLD - Restarted statin 6. T2DM - Glycemic consult, last glucose level was 350 - Lantus was increased to 14 u HS given increased glucose level, Novolog Sliding scale 7. Hypotension - 2/2 to sepsis - improving, today's BP 120/50 - Possible adrenal insufficiency: Random cortisol is normal, ACTH is pending - Steroid in decreased to 25mg given high glucose level 8. Hyponatremia - resolved, Na 138 9. GI Prophylaxis -Continue Famotidine 10. History of hypertension - held amlodipine and Toprol XL 11. Depression - Continue mirtazapine 15mg qHS 12. Diabetic neuropathy - Continue Lyrica 100mg BID 13. DVT prophylaxis: - Heparin 14. Code Status: - DNR OT/PT is ordered, awaiting for eval Reviewed: Pt Seen/Exam by SUDHIR Gongora Notes, Labs History Resident Physician Supervision Note: I was present with Dr. Mendez during the history and exam. I discussed the case with the resident and agree with the findings and plan as documented in the note. Any exceptions or clarifications are listed here: Pt feeling better overall, some abd pain still, less diarrhea. Vitals reviewed, BPs better NAD, alert awake, oriented RRR 2/6 FANY at [facility] CTAB no wcr Abd soft +TTP RLQ w/o guarding or rebound, +BS Ext AV fistula left upper arm, right hand and forearm with 1+ edema (previous PIV sites), now with PIV in right upper arm, no edema LEs bilat A/P:Pt is a 56 yo female with ESRD, DMII, h/o C. diff, PAD, HTN, CAD, here with septic shock due to GI source of C. diff, treated with IVF, IV Flagyl and po Vanco, and now off pressor Levophed and started on HC IV-wean down HC today. Profound hypotension on admission without altered mentation--> Checking for adrenal insufficiency but random cortisol ok at 12. ACTH pending. Also with hypoglycemia which is now hyperglycemia with glucose in 300s-400s. Increase Lantus and Pharmacy consult managing as well. Continue HD as scheduled with hyperkalemia intermittently. Stop IV Flagyl today and continue po Vanco for total 14 days for recurrent C. diff colitis. Documented By: Bisi Padilla
[2016-10-28] MEDS: ATORVASTATIN 20 MG TAB PO SCH (20:52)
[2016-10-28] MEDS: HYDROCORTISONE IV 25 MG in SYRINGE 0 ML IV SCH (20:52)
[2016-10-28] MEDS: MIRTAZAPINE TAB 15 MG TAB PO SCH (20:53)
[2016-10-29] VITALS (22 sets, daily range): BP systolic 74–138; BP diastolic 40–77; PULSE 65–88; TEMP 36.3–36.8; O2SAT 95–97
[2016-10-29] MEDS: INSULIN ASPART 100 UNITS/ML 3 ML PEN SC SCH ×6 (00:25→20:58)
[2016-10-29] MEDS ORDERED: INSULIN ASPART 100 UNITS/ML 3 ML PEN SC SCH (02:00)
[2016-10-29] MEDS: HEPARIN SOD 5000 UNIT/0.5 ML CARP SQ SCH ×3 (06:00→20:58)
[2016-10-29 06:34] LABS: MAGNESIUM 1.7 mg/dl (1.8-2.4); PHOSPHORUS 5.1 mg/dl (2.5-4.9)
[2016-10-29 06:48] LABS: HEMATOCRIT 35.4 % (37-47); MEAN CELL VOLUME 84.3 fL (80-100); MEAN CORPUSCULAR HEMOGLOBIN 27.6 pg (25-34); MEAN CORPUSCULAR HGB CONC 32.8 g/dl (32-36); MEAN PLATELET VOLUME 12.3 fL (7.4-10.4); PLATELET COUNT 157 K/uL (130-400); WHITE BLOOD COUNT 6.81 K/uL (4.8-10.8)
[2016-10-29 06:49] LABS: BASO % 0.1 %; BASO ABS # 0.01 K/uL (0-0.2); COMPLETE YES; EOS % 1.8 %; LYMPH % 20.7 %; LYMPH ABS # 1.41 K/uL (1.2-3.4); MONO % 5.7 %; NEUT % 70.7 %; PLT ESTIMATE NORMAL
[2016-10-29] MEDS: RASPBERRY SYRUP 5 ML UDP PO SCH ×4 (07:34→20:49)
[2016-10-29] MEDS: VANCOMYCIN HCL 125 MG/2.5ML SOLN PO SCH ×4 (07:34→20:59)
[2016-10-29] MEDS: ASPIRIN 81 MG ECTAB PO SCH (07:35)
[2016-10-29] MEDS: HYDROCORTISONE IV 25 MG in SYRINGE 0 ML IV SCH ×2 (07:35→20:47)
[2016-10-29] MEDS: CLOPIDOGREL BISULFATE 75 MG TAB PO SCH (07:35)
[2016-10-29] MEDS: INSULIN GLARGINE SOLOSTAR 100 UNITS/ML 3 ML PEN SC SCH ×2 (07:38→20:58)
[2016-10-29] MEDS: PREGABALIN 100 MG CAP PO SCH ×2 (07:42→20:58)
[2016-10-29 08:44] LABS: BUN/CREATININE RATIO 10.3 (10-20); CALCIUM 7.4 mg/dl (8.5-10.1); CREATININE 8.8 mg/dl (0.60-1.20); POTASSIUM 3.4 mmol/L (3.5-5.1)
[2016-10-29] MEDS ORDERED: BUTT PASTE 171 APPLN/57 GM JAR EXT PRN (15:15)
--- NOTE | 2016-10-29 16:33 | Nephrology Progress Note ---
Nephrology Progress Note Date of Service: Oct 29, 2016. Subjective 56 yo female with esrd with cdiff colitis and hypotension. abdominal pain has improved. continues to have diarrhea. seen this am and was for dialysis today. trying to be more aggressive with uf today as bp tolerates. pt does feel volume overloaded. no sob. no chest pain. Objective Date Time Temp Pulse Resp B/P Pulse Ox O2 Delivery O2 Flow Rate FiO2 10/29/16 16:15 78 74/44 10/29/16 16:00 74 82/44 10/29/16 16:00 Room Air 10/29/16 15:45 73 81/42 10/29/16 15:30 75 78/41 10/29/16 15:15 73 89/49 10/29/16 15:00 86 96/49 10/29/16 14:45 69 108/61 10/29/16 14:38 68 104/53 10/29/16 14:30 36.3 70 119/56 10/29/16 12:00 Room Air 10/29/16 11:55 36.8 73 18 118/62 95 10/29/16 08:23 36.8 88 18 115/66 97 10/29/16 08:00 Room Air 10/29/16 04:00 Room Air 10/29/16 03:51 36.3 65 20 138/58 96 Room Air 10/29/16 00:02 Room Air 10/28/16 23:46 36.5 77 16 136/54 96 Room Air 10/28/16 20:06 Room Air 10/28/16 20:00 36.8 63 18 110/63 98 Physical Exam: General-[id number] Eyes-no scleral icterus, lazy eye ENT-mmm Neck-supple Lungs-cta Heart-rrr Abdomen-bs+ s/nt/nd Extremities-mild edema Neuro-nonfocal Current Inpatient Medications Medications (Trade) Dose Ordered Sig/Sandy Route Start Time Stop Time Status Last Admin Dose Admin Heparin Sodium (Porcine) (Heparin Sq 5000 Unit/0.5ml) 5,000 unit Q8H SQ 10/25/16 06:00 11/24/16 05:59 Acetaminophen (Tylenol Tab) 650 mg Q4H PRN PO 10/25/16 01:00 11/24/16 00:59 10/28/16 10:33 650 MG Vancomycin HCl (Vancomycin Oral Soln) 125 mg QID PO 10/25/16 02:30 11/08/16 02:29 10/29/16 12:23 125 MG Aspirin (Ecotrin Tab) 81 mg DAILY PO 10/25/16 09:00 11/24/16 08:59 10/29/16 07:35 81 MG Clopidogrel Bisulfate (plAVix TAB) 75 mg DAILY PO 10/25/16 09:00 11/24/16 08:59 10/29/16 07:35 75 MG Mirtazapine (Remeron Tab) 15 mg HS PO 10/25/16 21:00 11/24/16 20:59 10/28/16 20:53 15 MG Pregabalin (Lyrica Cap) 100 mg BID PO 10/25/16 09:00 11/24/16 08:59 10/29/16 07:42 100 MG Miscellaneous Information (Consult Glycemic Management Pharmacy) 1 ea UD PRN N/A 10/25/16 01:30 11/24/16 01:29 Raspberry (Raspberry Syrup 5ml Cup) 5 ml QID PO 10/25/16 02:30 11/04/16 02:29 10/29/16 12:23 5 ML Glucose (Glucose 40% Gel) 15-30 GRAMS 15 GRAMS... UD PRN PO 10/25/16 02:45 11/24/16 02:44 Glucose (Glucose Chew Tab) 4-8 Tablets 4 Tabl... UD PRN PO 10/25/16 02:45 11/24/16 02:44 Dextrose (Dextrose 50% 50ML Syringe) 25-50ML OF 50% DW IV FOR... UD PRN IV 10/25/16 02:45 11/24/16 02:44 10/25/16 08:55 50 ML Glucagon (Glucagon Inj) 1 mg UD PRN SQ 10/25/16 02:45 11/24/16 02:44 Atorvastatin Calcium (Lipitor Tab) 40 mg QPM PO 10/26/16 21:00 11/25/16 20:59 10/28/16 20:52 40 MG Insulin Aspart (novoLOG ASPART) SLIDING SCALE ACHS SC 10/26/16 16:00 11/25/16 15:59 10/29/16 12:25 14 UNITS Insulin Glargine (Lantus Solostar Pen) QAM SC 10/28/16 09:00 11/27/16 08:59 10/29/16 07:38 14 UNIT Insulin Glargine 0 UNITS FOR BSG 150 MG... QPM SC 10/28/16 21:00 11/27/16 20:59 10/28/16 21:00 14 UNIT Hydrocortisone Sodium Succinate/ Syringe (Solu-Cortef IV/ Syringe) 0.5 ml @ 4 mls/min Q12H IV 10/28/16 21:00 11/27/16 20:59 10/29/16 07:35 4 MLS/MIN Insulin Aspart (novoLOG ASPART) SLIDING SCALE 0000,0400 SC 10/29/16 00:00 11/28/16 00:00 10/29/16 04:40 8 UNITS Last 24 Hours Test 10/28/16 20:09 10/29/16 00:21 10/29/16 04:36 10/29/16 05:40 Bedside Glucose 388 mg/dl 247 mg/dl 291 mg/dl White Blood Count 6.81 K/uL Red Blood Count 4.20 M/uL Hemoglobin 11.6 g/dL Hematocrit 35.4 % Mean Corpuscular Volume 84.3 fL Mean Corpuscular Hemoglobin 27.6 pg Mean Corpuscular Hemoglobin Concent 32.8 g/dl Platelet Count 157 K/uL Mean Platelet Volume 12.3 fL Neutrophils (%) (Auto) 70.7 % Lymphocytes (%) (Auto) 20.7 % Monocytes (%) (Auto) 5.7 % Eosinophils (%) (Auto) 1.8 % Basophils (%) (Auto) 0.1 % Neutrophils # (Auto) 4.81 K/uL Lymphocytes # (Auto) 1.41 K/uL Monocytes # (Auto) 0.39 K/uL Eosinophils # (Auto) 0.12 K/uL Basophils # (Auto) 0.01 K/uL RDW Standard Deviation 48.3 fL RDW Coefficient of Variation 15.6 % Immature Granulocyte % (Auto) 1.0 % Immature Granulocyte # (Auto) 0.07 K/uL Platelet Estimate NORMAL Red Blood Cell Morphology Unremarkable Sodium Level 137 mmol/L Potassium Level 3.4 mmol/L Chloride Level 98 mmol/L Carbon Dioxide Level 18 mmol/L Anion Gap 21.0 mmol/L Blood Urea Nitrogen 91 mg/dl Creatinine 8.80 mg/dl Est Creatinine Clear Calc Drug Dose 6.4 ml/min Estimated GFR () 5.3 Estimated GFR (Non- 4.6 BUN/Creatinine Ratio 10.3 Random Glucose 298 mg/dl Calcium Level 7.4 mg/dl Phosphorus Level 5.1 mg/dl Magnesium Level 1.7 mg/dl Test 10/29/16 07:13 10/29/16 10:58 Bedside Glucose 236 mg/dl 273 mg/dl Assessment & Plan ESRD-for dialysis today with uf as bp tolerates. cdiff slowly improving and pt appears more comfortable compared to admission.
--- NOTE | 2016-10-29 18:23 | Family Medicine Progress Note ---
Progress Note Date of Service Oct 29, 2016. Subjective Pt evaluation today including: conversation w/ patient, physical exam, chart review Patient says she is not feeling that well today. Is experiencing increased RLQ discomfort which is radiating to her right side. The pain is intermittent but worsening over the weekend. Patient says she does not void anymore and is on dialysis M,W,F. Says that yesterday she had 10 non-bloody, loose bowel movements, with acute onset abdominal pain associated with immediate urge to pass stool. Had incontinence and a large accident yesterday. Is otherwise tolerating diet well despite having decreased appetite, no nausea or vomiting. Constitutional: No chills, No fever, No sweats Respiratory: No cough, No shortness of breath, No wheezing Cardiovascular: + orthopnea, No PND, No chest pain, No edema, No palpitations Abdomen: + diarrhea, + pain, No GI bleeding, No constipation, No nausea, No vomiting Female : + see HPI Medications Medications Administered Medications (Trade) Dose Ordered Sig/Sandy Route Start Time Stop Time Status Last Admin Dose Admin Acetaminophen 1000 mg 1,000 mg NOW STAT PO 10/24/16 21:56 10/24/16 22:01 DC 10/24/16 23:00 1,000 MG Sodium Chloride (Nss 500ml) 500 ml @ 999 mls/hr Q31M STAT IV 10/24/16 21:56 10/24/16 22:26 DC 10/24/16 22:30 999 MLS/HR Metronidazole (Flagyl / Nss) 500 mg NOW STAT IV 10/24/16 22:08 10/24/16 22:09 DC 10/24/16 23:00 500 MG Ibuprofen (Motrin Tab) 600 mg STK-MED ONCE .ROUTE 10/24/16 23:00 10/24/16 23:02 DC 10/24/16 23:04 600 MG Ibuprofen 200 mg 200 mg STK-MED ONCE .ROUTE 10/24/16 23:00 10/24/16 23:02 DC 10/24/16 23:03 200 MG Sodium Chloride 500 ml @ 999 mls/hr Q31M STAT IV 10/24/16 23:56 10/25/16 00:26 DC 10/25/16 00:13 999 MLS/HR Sodium Chloride (Nss 500ml) 500 ml @ 999 mls/hr Q31M STAT IV 10/25/16 00:13 10/25/16 00:43 DC 10/25/16 00:13 999 MLS/HR Insulin Human Regular 5 units 5 units NOW STAT SC 10/25/16 00:30 10/25/16 00:31 DC 10/25/16 00:41 5 UNITS Vancomycin HCl/ Sodium Chloride (Vancomycin Inj/ Nss 250ml) 276 ml @ 125 mls/hr NOW STAT IV 10/25/16 00:52 10/25/16 03:04 DC 10/25/16 01:03 125 MLS/HR Acetaminophen 650 mg 650 mg Q4H PRN PO 10/25/16 01:00 11/24/16 00:59 10/28/16 10:33 650 MG Sodium Chloride (Nss 250ml) 250 ml @ 250 mls/hr Q1H IV 10/25/16 01:00 10/25/16 03:45 DC 10/25/16 02:48 250 MLS/HR Vancomycin HCl (Vancomycin Oral Soln) 125 mg QID PO 10/25/16 02:30 11/08/16 02:29 10/29/16 12:23 125 MG Aspirin (Ecotrin Tab) 81 mg DAILY PO 10/25/16 09:00 11/24/16 08:59 10/29/16 07:35 81 MG Clopidogrel Bisulfate (plAVix TAB) 75 mg DAILY PO 10/25/16 09:00 11/24/16 08:59 10/29/16 07:35 75 MG Mirtazapine (Remeron Tab) 15 mg HS PO 10/25/16 21:00 11/24/16 20:59 10/28/16 20:53 15 MG Pregabalin 100 mg 100 mg BID PO 10/25/16 09:00 11/24/16 08:59 10/29/16 07:42 100 MG Norepinephrine Bitartrate/ Dextrose (Levophed Inj/ D5W 500ml) 508 ml @ 0 mls/hr Q0M PRN IV 10/25/16 02:20 10/26/16 10:39 DC 10/25/16 02:50 23.6 MLS/HR Insulin Glargine (Lantus Solostar Pen) 5 unit HS SC 10/25/16 02:30 10/25/16 10:28 DC 10/25/16 02:49 5 UNIT Raspberry (Raspberry Syrup 5ml Cup) 5 ml QID PO 10/25/16 02:30 11/04/16 02:29 10/29/16 12:23 5 ML Dextrose 25-50ML OF 50% DW IV FOR... UD PRN IV 10/25/16 02:45 11/24/16 02:44 10/25/16 08:55 50 ML Magnesium Sulfate/ Prmx (Magnesium Sulfate/Premixed D5W) 100 ml @ 100 mls/hr NOW STAT IV 10/25/16 04:54 10/25/16 05:53 DC 10/25/16 05:02 100 MLS/HR Oseltamivir Phosphate 75 mg 75 mg NOW STAT PO 10/25/16 09:01 10/25/16 09:02 DC 10/25/16 10:31 75 MG Famotidine 20 mg/ Dextrose 102 ml @ 204 mls/hr DAILY@1400 IV 10/25/16 14:00 10/25/16 18:00 DC 10/25/16 14:42 204 MLS/HR Metronidazole 500 mg/Prmx 100 ml @ 100 mls/hr Q8H IV 10/25/16 10:00 10/28/16 10:51 DC 10/28/16 10:20 100 MLS/HR Famotidine/ Dextrose (Pepcid IV Inj/ D5 100ml) 102 ml @ 204 mls/hr MoWeFr@2100 IV 10/26/16 21:00 10/27/16 14:14 DC 10/26/16 21:22 204 MLS/HR Insulin Aspart (novoLOG ASPART) SLIDING SCALE Q6 SC 10/25/16 12:00 10/26/16 14:14 DC 10/26/16 11:47 6 UNITS Miscellaneous 1 ea 1 ea HS N/A 10/25/16 21:00 10/27/16 11:00 DC 10/26/16 21:23 1 EA Calcium Gluconate 1000 mg/Sodium Chloride 60 ml @ 240 mls/hr TODAY@1530 ONCE IV 10/25/16 15:30 10/25/16 15:44 DC 10/25/16 17:12 240 MLS/HR Hydrocortisone Sodium Succinate/ Syringe (Solu-Cortef IV/ Syringe) 2 ml @ 4 mls/min Q8H IV 10/26/16 01:00 10/26/16 10:09 DC 10/26/16 09:21 4 MLS/MIN Insulin Glargine (Lantus Solostar Pen) 3 unit QAM SC 10/26/16 09:00 10/27/16 10:55 DC 10/27/16 08:34 3 UNIT Epoetin Johan [address]494 units 10,000 units ONE ONCE IV. 10/26/16 09:45 10/26/16 10:21 DC 10/26/16 19:30 10,000 UNITS Hydrocortisone Sodium Succinate/ Syringe (Solu-Cortef IV/ Syringe) 2 ml @ 4 mls/min Q12H IV 10/26/16 21:00 10/27/16 11:01 DC 10/27/16 08:32 4 MLS/MIN Atorvastatin Calcium (Lipitor Tab) 40 mg QPM PO 10/26/16 21:00 11/25/16 20:59 10/28/16 20:52 40 MG Insulin Glargine (Lantus Solostar Pen) 3 unit NOW ONCE SC 10/26/16 14:15 10/26/16 14:16 DC 10/26/16 16:54 3 UNIT Insulin Aspart (novoLOG ASPART) SLIDING SCALE ACHS SC 10/26/16 16:00 11/25/16 15:59 10/29/16 12:25 14 UNITS Insulin Aspart SLIDING SCALE TODAY@0200 ONCE SC 10/27/16 02:00 10/27/16 02:01 DC 10/27/16 01:50 3 UNITS Hydrocortisone Sodium Succinate/ Syringe (Solu-Cortef IV/ Syringe) 1 ml @ 4 mls/min Q12H IV 10/27/16 21:00 10/28/16 10:58 DC 10/28/16 08:39 4 MLS/MIN Insulin Glargine QAM SC 10/28/16 09:00 10/28/16 09:00 DC 10/27/16 12:00 7 UNIT Insulin Human Regular 5 units/ Syringe 5 ml @ 30 mls/min TODAY@1300 IV 10/27/16 13:00 10/27/16 13:30 DC 10/27/16 13:27 30 MLS/MIN Insulin Human Regular/Syringe (novoLIN-R U-100 PER UNIT/Syringe) 7 ml @ 30 mls/min TODAY@0800 ONCE IV 10/28/16 08:00 10/28/16 08:01 DC 10/28/16 08:36 30 MLS/MIN Insulin Glargine (Lantus Solostar Pen) QAM SC 10/28/16 09:00 11/27/16 08:59 10/29/16 07:38 14 UNIT Insulin Glargine 0 UNITS FOR BSG 150 MG... QPM SC 10/28/16 21:00 11/27/16 20:59 10/28/16 21:00 14 UNIT Hydrocortisone Sodium Succinate/ Syringe (Solu-Cortef IV/ Syringe) 0.5 ml @ 4 mls/min Q12H IV 10/28/16 21:00 11/27/16 20:59 10/29/16 07:35 4 MLS/MIN Insulin Aspart (novoLOG ASPART) SLIDING SCALE 0000,0400 SC 10/29/16 00:00 11/28/16 00:00 10/29/16 04:40 8 UNITS Objective Physical Exam General Appearance: WD/WN, + mild distress Neck: supple Respiratory/Chest: chest non-tender, lungs clear, normal breath sounds, no respiratory distress Cardiovascular: regular rate, rhythm, no edema, no JVD, + diastolic murmur Abdomen: normal bowel sounds, soft, + tenderness (on RLQ), + pertinent finding (No guarding, no rebound, no distension. Mild right CVA tenderness) Extremities: no pedal edema, no calf tenderness Neurologic/Psychiatric: alert, normal mood/affect, oriented x 3 Skin: normal color, warm/dry, no rash Laboratory Results Results Past 24 Hours Test 10/28/16 20:09 10/29/16 00:21 10/29/16 04:36 10/29/16 05:40 Range/Units Bedside Glucose 388 247 291 70-90 mg/dl White Blood Count 6.81 4.8-10.8 K/uL Red Blood Count 4.20 4.2-5.4 M/uL Hemoglobin 11.6 12.0-16.0 g/dL Hematocrit 35.4 37-47 % Mean Corpuscular Volume 84.3 80-100 fL Mean Corpuscular Hemoglobin 27.6 25-34 pg Mean Corpuscular Hemoglobin Concent 32.8 32-36 g/dl Platelet Count 157 130-400 K/uL Mean Platelet Volume 12.3 7.4-10.4 fL Neutrophils (%) (Auto) 70.7 % Lymphocytes (%) (Auto) 20.7 % Monocytes (%) (Auto) 5.7 % Eosinophils (%) (Auto) 1.8 % Basophils (%) (Auto) 0.1 % Neutrophils # (Auto) 4.81 1.4-6.5 K/uL Lymphocytes # (Auto) 1.41 1.2-3.4 K/uL Monocytes # (Auto) 0.39 0.11-0.59 K/uL Eosinophils # (Auto) 0.12 0-0.5 K/uL Basophils # (Auto) 0.01 0-0.2 K/uL RDW Standard Deviation 48.3 36.4-46.3 fL RDW Coefficient of Variation 15.6 11.5-14.5 % Immature Granulocyte % (Auto) 1.0 % Immature Granulocyte # (Auto) 0.07 0.00-0.02 K/uL Platelet Estimate NORMAL Red Blood Cell Morphology Unremarkable Sodium Level 137 136-145 mmol/L Potassium Level 3.4 3.5-5.1 mmol/L Chloride Level 98 98-107 mmol/L Carbon Dioxide Level 18 21-32 mmol/L Anion Gap 21.0 3-11 mmol/L Blood Urea Nitrogen 91 7-18 mg/dl Creatinine 8.80 0.60-1.20 mg/dl Est Creatinine Clear Calc Drug Dose 6.4 ml/min Estimated GFR () 5.3 Estimated GFR (Non- 4.6 BUN/Creatinine Ratio 10.3 10-20 Random Glucose 298 70-99 mg/dl Calcium Level 7.4 8.5-10.1 mg/dl Phosphorus Level 5.1 2.5-4.9 mg/dl Magnesium Level 1.7 1.8-2.4 mg/dl Test 10/29/16 07:13 10/29/16 10:58 10/29/16 16:31 Range/Units Bedside Glucose 236 273 149 70-90 mg/dl Assessment and Plan This is a 56 year old female with previous history C.Diff colitis, ESRD on dialysis, DM, CAD, PAD, HTN, and HLD, presented with diarrhea, subjective fever/ chills, RUQ pain admitted for septic shock in the setting of C Diff Colitis recurrence. Septic Shock - Secondary to GI source of C Diff - Patient started on IV Flagyl and Vanco + IVF + Levophed - Blood cultures showed no growth, stool cultures were also negative, Flu swab neg. - Patient treated to for c.diff colitis - Levophed discontinued as patient stabilized - IV Flagyl discontinued on 10/28, and PO Vanco continues - Lactate last measured on 10/27 as 0.7, down from 2.74 on arrival - Vitals have stabilized Diarrhea - Positive for C.Diff toxin, stool cultures negative (no shiga, salmonella, Campylobacter jejuni), negative for shiga toxin - Diarrhea continuing to improve, mild increase in episodes over the weekend - Continue with PO Vanco 150mg QID. Can consider increase to 250mg QID if worsening or no improvement in diarrhea - Regimen of vanco recommended for 14 days for recurrent C. diff colitis. - Causing skin burn along inner thighs, prescribed zinc oxide ointment to be applied PRN - ESRD - 2/2 Diabetic nephropathy - Dialysis Sat/Sat/Sat - F/U BMP Blood Pressure - Amlodipine and Metoprolol held in view of septic hypotension on admission. - Considered adrenal insufficiency in view of profound hyptotension: random cortisol normal, ACTH performed on 10/25 is still pending - Was put on hydrocortisone in case of adrenal insufficiency, which has likely caused elevated glucose level - Consider discontinuing steroid tomorrow. - Current SBP in acceptable range without anti-hypertensives - Thus continue to hold for now. HLD - Continue with statin T2DM - Glycemic consult with pharmacy managing insulin levels in view of highly elevated blood sugars - Lantus was increased to 14 u HS given increased glucose level, Novolog Sliding scale - Will need to inform pharmacy once steroid discontinued as this may cause fluctuations and sugar, and risk of hypoglycemia if insulin not reduced Hyponatremia - Resolved with IVF GI Prophylaxis - Continue Famotidine Depression - Continue mirtazapine 15mg qHS Diabetic neuropathy - Continue Lyrica 100mg BID DVT prophylaxis: - Heparin Dispo - To return to [facility] - OT therapy plan: transfer training, bed mobility, increase activity level , balance training - PT treatment plan: therapeutic exercise, gait training, transfers, endurance Code Status: - DNR Resident Physician Supervision Note: I interviewed and examined the patient. Discussed with Dr. Webber and agree with findings and plan as documented in the note. Any exceptions or clarifications are listed here: None Documented By: Roel Crespo feeling tired but no other acute complaints. diarrhea starting to slow down. vitals noted, nad, fatigued, breathing unlabored lungs cta b/l no r/r/w, cardio reg but quiet abd soft nd nt Cdiff colitis w sepsis/septic shock - improving overall - continue PO vanco, diarrhea starting to slow. will need prolonged taper or pulsed dosing ESRD - ongoing HD Continued [facility] stay due to: inadequate oral pain control
[2016-10-29] MEDS ORDERED: POTASSIUM CHLORIDE 20 MEQ TABCR PO ONE (19:01)
[2016-10-29] MEDS ORDERED: MAGNESIUM OXIDE 400 MG TAB PO ONE (19:01)
[2016-10-29] MEDS: ATORVASTATIN 20 MG TAB PO SCH (20:47)
[2016-10-29] MEDS: MIRTAZAPINE TAB 15 MG TAB PO SCH (20:48)
[2016-10-30] VITALS (7 sets, daily range): BP systolic 85–125; BP diastolic 49–58; PULSE 67–89; TEMP 36.3–36.7; O2SAT 95–100
[2016-10-30] MEDS: INSULIN ASPART 100 UNITS/ML 3 ML PEN SC SCH ×6 (00:08→20:55)
[2016-10-30] MEDS: HEPARIN SOD 5000 UNIT/0.5 ML CARP SQ SCH ×3 (04:10→20:39)
[2016-10-30 06:43] LABS: BASO % 0.2 %; BASO ABS # 0.01 K/uL (0-0.2); COMPLETE YES; HEMATOCRIT 36.8 % (37-47); IG% 1.3 %; LYMPH % 27.4 %; LYMPH ABS # 1.71 K/uL (1.2-3.4); MEAN CORPUSCULAR HEMOGLOBIN 27.4 pg (25-34); MEAN CORPUSCULAR HGB CONC 32.6 g/dl (32-36); MEAN PLATELET VOLUME 11.1 fL (7.4-10.4); MONO % 12.2 %; NEUT % 57.9 %; PLATELET COUNT 130 K/uL (130-400); RED BLOOD COUNT 4.38 M/uL (4.2-5.4); WHITE BLOOD COUNT 6.24 K/uL (4.8-10.8)
--- NOTE | 2016-10-30 07:29 | Nephrology Progress Note ---
Nephrology Progress Note Date of Service: Oct 30, 2016. Subjective 56 yo female with esrd with cdiff colitis and hypotension. continues to have some abdominal pain on the right side. continues to have diarrhea. volume status though is better after dialysis. pt was starting to feel fluid overloaded. Objective Date Time Temp Pulse Resp B/P Pulse Ox O2 Delivery O2 Flow Rate FiO2 10/30/16 04:03 36.4 67 16 125/58 96 Room Air 10/30/16 04:02 Room Air 10/30/16 00:08 36.5 68 16 101/55 96 Room Air 10/30/16 00:02 Room Air 10/29/16 20:08 Room Air 10/29/16 19:49 36.5 68 18 97/40 96 10/29/16 18:13 36.3 67 109/60 10/29/16 17:39 70 84/56 10/29/16 17:30 69 75/53 10/29/16 17:15 74 81/51 10/29/16 17:00 74 78/40 10/29/16 16:45 79 112/77 10/29/16 16:30 80 82/47 10/29/16 16:15 78 74/44 10/29/16 16:00 74 82/44 10/29/16 16:00 Room Air 10/29/16 15:45 73 81/42 10/29/16 15:30 75 78/41 10/29/16 15:15 73 89/49 10/29/16 15:00 86 96/49 10/29/16 14:45 69 108/61 10/29/16 14:38 68 104/53 10/29/16 14:30 36.3 70 119/56 10/29/16 12:00 Room Air 10/29/16 11:55 36.8 73 18 118/62 95 10/29/16 08:23 36.8 88 18 115/66 97 10/29/16 08:00 Room Air Physical Exam: General-aaox3 Eyes-no scleral icterus, lazy eye ENT-mmm Neck-supple Lungs-clear Heart-regular Abdomen-bs+ s/+tenderness in right side Extremities-no edema Neuro-nonfocal Current Inpatient Medications Medications (Trade) Dose Ordered Sig/Sandy Route Start Time Stop Time Status Last Admin Dose Admin Heparin Sodium (Porcine) (Heparin Sq 5000 Unit/0.5ml) 5,000 unit Q8H SQ 10/25/16 06:00 11/24/16 05:59 Acetaminophen (Tylenol Tab) 650 mg Q4H PRN PO 10/25/16 01:00 11/24/16 00:59 10/28/16 10:33 650 MG Vancomycin HCl (Vancomycin Oral Soln) 125 mg QID PO 10/25/16 02:30 11/08/16 02:29 10/29/16 20:59 125 MG Aspirin (Ecotrin Tab) 81 mg DAILY PO 10/25/16 09:00 11/24/16 08:59 10/29/16 07:35 81 MG Clopidogrel Bisulfate (plAVix TAB) 75 mg DAILY PO 10/25/16 09:00 11/24/16 08:59 10/29/16 07:35 75 MG Mirtazapine (Remeron Tab) 15 mg HS PO 10/25/16 21:00 11/24/16 20:59 10/29/16 20:48 15 MG Pregabalin (Lyrica Cap) 100 mg BID PO 10/25/16 09:00 11/24/16 08:59 10/29/16 20:58 100 MG Miscellaneous Information (Consult Glycemic Management Pharmacy) 1 ea UD PRN N/A 10/25/16 01:30 11/24/16 01:29 Raspberry (Raspberry Syrup 5ml Cup) 5 ml QID PO 10/25/16 02:30 11/04/16 02:29 10/29/16 20:49 5 ML Glucose (Glucose 40% Gel) 15-30 GRAMS 15 GRAMS... UD PRN PO 10/25/16 02:45 11/24/16 02:44 Glucose (Glucose Chew Tab) 4-8 Tablets 4 Tabl... UD PRN PO 10/25/16 02:45 11/24/16 02:44 Dextrose (Dextrose 50% 50ML Syringe) 25-50ML OF 50% DW IV FOR... UD PRN IV 10/25/16 02:45 11/24/16 02:44 10/25/16 08:55 50 ML Glucagon (Glucagon Inj) 1 mg UD PRN SQ 10/25/16 02:45 11/24/16 02:44 Atorvastatin Calcium (Lipitor Tab) 40 mg QPM PO 10/26/16 21:00 11/25/16 20:59 10/29/16 20:47 40 MG Insulin Aspart (novoLOG ASPART) SLIDING SCALE ACHS SC 10/26/16 16:00 11/25/16 15:59 10/29/16 20:58 7 UNITS Insulin Glargine (Lantus Solostar Pen) QAM SC 10/28/16 09:00 11/27/16 08:59 10/29/16 07:38 14 UNIT Insulin Glargine 0 UNITS FOR BSG 150 MG... QPM SC 10/28/16 21:00 11/27/16 20:59 10/29/16 20:58 7 UNIT Hydrocortisone Sodium Succinate/ Syringe (Solu-Cortef IV/ Syringe) 0.5 ml @ 4 mls/min Q12H IV 10/28/16 21:00 11/27/16 20:59 10/29/16 20:47 4 MLS/MIN Insulin Aspart (novoLOG ASPART) SLIDING SCALE 0000,0400 MN 10/29/16 00:00 11/28/16 00:00 10/30/16 00:08 1 UNITS Magnesium Oxide (Mag-Ox Tab) 400 mg QAM PO 10/30/16 09:00 11/29/16 08:59 Potassium Chloride (Klor-Con Tab) 20 meq QAM PO 10/30/16 09:00 11/29/16 08:59 Last 24 Hours Test 10/29/16 10:58 10/29/16 16:31 10/29/16 19:43 10/30/16 00:00 Bedside Glucose 273 mg/dl 149 mg/dl 177 mg/dl 167 mg/dl Test 10/30/16 03:47 10/30/16 06:28 10/30/16 06:38 Bedside Glucose 142 mg/dl 112 mg/dl White Blood Count 6.24 K/uL Red Blood Count 4.38 M/uL Hemoglobin 12.0 g/dL Hematocrit 36.8 % Mean Corpuscular Volume 84.0 fL Mean Corpuscular Hemoglobin 27.4 pg Mean Corpuscular Hemoglobin Concent 32.6 g/dl Platelet Count 130 K/uL Mean Platelet Volume 11.1 fL Neutrophils (%) (Auto) 57.9 % Lymphocytes (%) (Auto) 27.4 % Monocytes (%) (Auto) 12.2 % Eosinophils (%) (Auto) 1.0 % Basophils (%) (Auto) 0.2 % Neutrophils # (Auto) 3.62 K/uL Lymphocytes # (Auto) 1.71 K/uL Monocytes # (Auto) 0.76 K/uL Eosinophils # (Auto) 0.06 K/uL Basophils # (Auto) 0.01 K/uL RDW Standard Deviation 47.9 fL RDW Coefficient of Variation 15.6 % Immature Granulocyte % (Auto) 1.3 % Immature Granulocyte # (Auto) 0.08 K/uL Assessment & Plan ESRD-will continue dialysis -- while inpatient. no role for dialysis today. Anemia of renal failure-hg levels are above 11-no indication for procrit at this time. hypokalemia-transient in setting of diarrhe. k was elevated several days ago and will naturally go up on esrd. hold on daily dosing of k and give prn doses only for fear of hyperkalemia.
[2016-10-30 07:32] LABS: BLOOD UREA NITROGEN 51 mg/dl (7-18); BUN/CREATININE RATIO 7.8 (10-20); CALCIUM 6.8 mg/dl (8.5-10.1); CARBON DIOXIDE 26 mmol/L (21-32); CHLORIDE 100 mmol/L (98-107); GLUCOSE 131 mg/dl (70-99); PHOSPHORUS 4.2 mg/dl (2.5-4.9); SODIUM 139 mmol/L (136-145)
[2016-10-30] MEDS: HYDROCORTISONE IV 25 MG in SYRINGE 0 ML IV SCH (07:52)
[2016-10-30] MEDS: MAGNESIUM OXIDE 400 MG TAB PO SCH (07:53)
[2016-10-30] MEDS: POTASSIUM CHLORIDE 20 MEQ TABCR PO SCH (07:54)
[2016-10-30] MEDS: RASPBERRY SYRUP 5 ML UDP PO SCH ×4 (07:54→20:37)
[2016-10-30] MEDS: CLOPIDOGREL BISULFATE 75 MG TAB PO SCH (07:54)
[2016-10-30] MEDS: VANCOMYCIN HCL 125 MG/2.5ML SOLN PO SCH (07:54)
[2016-10-30] MEDS: ASPIRIN 81 MG ECTAB PO SCH (07:54)
[2016-10-30] MEDS: PREGABALIN 100 MG CAP PO SCH ×2 (07:55→20:36)
[2016-10-30 09:14] LABS: POTASSIUM 3.4 mmol/L (3.5-5.1)
[2016-10-30 09:15] LABS: MAGNESIUM 1.9 mg/dl (1.8-2.4)
[2016-10-30] MEDS: INSULIN GLARGINE SOLOSTAR 100 UNITS/ML 3 ML PEN SC SCH (09:28)
--- NOTE | 2016-10-30 11:03 | Pharmacy Progress Note ---
Glycemic: Assessment & Plan Date of Service Oct 30, 2016. Assessment & Plan Assessment * Hydrocortisone discontinued this afternoon, last dose received this AM. Biologic half-life is only ~8-12 hours - steroid effects will decrease rather quickly * When off steroids, patient required significantly less than is currently receiving - risk for hypoglycemia. Patient received Lantus 12 units this AM. Home dose is 5 units qAM. Will d/c PM Lantus tonight * Will significantly loosen Novolog correction factor and carb ratio starting at dinner to about weight-based (but looser carb ratio 2nd additional Lantus this AM) * Will increase goal range to 140-180 mg/dL * Will add in overnight BSG check as Novolog is significantly loosened - may provide additional insulin if needed Plan * Basal insulin: Decrease Lantus 5 units qAM only (hold for BSG < 110 mg/dL) * Correctional Insulin: Novolog Correction per scale ACHS - additional check at 0200 Increase Goal Range: Low 140 mg/dL - High 180 mg/dL Loosen Correction Factor: 35 mg/dL/unit * Prandial insulin: Loosen carb ratio of 1 unit per 14 grams CHO consumed * Please note that the plan above was derived based on current level of insulin resistance and hospital stress. These recommendations are appropriate for inpatient admission only. Plan of care upon discharge will need to be reassessed to avoid potential outpatient hypo/hyperglycemia.
--- NOTE | 2016-10-30 16:57 | Family Medicine Progress Note ---
Progress Note Date of Service Oct 30, 2016. Subjective Pt evaluation today including: conversation w/ patient, physical exam, chart review, lab review Patient lying in bed, after having her third movement this morning. Complaining of ongoing abdominal discomfort and pain along her thighs secondary to 'scalding ' diarrhea. Otherwise patient is feeling very tired. Says she slept most of yesterday. No chest pain or dyspnea. Tolerating diet. Constitutional: No chills, No fever Respiratory: No cough, No shortness of breath, No wheezing Cardiovascular: + orthopnea, No PND, No chest pain, No palpitations Abdomen: + diarrhea, + pain, No constipation, No nausea, No vomiting Skin: + rash Medications Medications Administered Medications (Trade) Dose Ordered Sig/Sandy Route Start Time Stop Time Status Last Admin Dose Admin Acetaminophen 1000 mg 1,000 mg NOW STAT PO 10/24/16 21:56 10/24/16 22:01 DC 10/24/16 23:00 1,000 MG Sodium Chloride (Nss 500ml) 500 ml @ 999 mls/hr Q31M STAT IV 10/24/16 21:56 10/24/16 22:26 DC 10/24/16 22:30 999 MLS/HR Metronidazole (Flagyl / Nss) 500 mg NOW STAT IV 10/24/16 22:08 10/24/16 22:09 DC 10/24/16 23:00 500 MG Ibuprofen (Motrin Tab) 600 mg STK-MED ONCE .ROUTE 10/24/16 23:00 10/24/16 23:02 DC 10/24/16 23:04 600 MG Ibuprofen 200 mg 200 mg STK-MED ONCE .ROUTE 10/24/16 23:00 10/24/16 23:02 DC 10/24/16 23:03 200 MG Sodium Chloride 500 ml @ 999 mls/hr Q31M STAT IV 10/24/16 23:56 10/25/16 00:26 DC 10/25/16 00:13 999 MLS/HR Sodium Chloride (Nss 500ml) 500 ml @ 999 mls/hr Q31M STAT IV 10/25/16 00:13 10/25/16 00:43 DC 10/25/16 00:13 999 MLS/HR Insulin Human Regular 5 units 5 units NOW STAT SC 10/25/16 00:30 10/25/16 00:31 DC 10/25/16 00:41 5 UNITS Vancomycin HCl/ Sodium Chloride (Vancomycin Inj/ Nss 250ml) 276 ml @ 125 mls/hr NOW STAT IV 10/25/16 00:52 10/25/16 03:04 DC 10/25/16 01:03 125 MLS/HR Acetaminophen 650 mg 650 mg Q4H PRN PO 10/25/16 01:00 11/24/16 00:59 10/28/16 10:33 650 MG Sodium Chloride (Nss 250ml) 250 ml @ 250 mls/hr Q1H IV 10/25/16 01:00 10/25/16 03:45 DC 10/25/16 02:48 250 MLS/HR Vancomycin HCl (Vancomycin Oral Soln) 125 mg QID PO 10/25/16 02:30 10/30/16 13:42 DC 10/30/16 07:54 125 MG Aspirin (Ecotrin Tab) 81 mg DAILY PO 10/25/16 09:00 11/24/16 08:59 10/30/16 07:54 81 MG Clopidogrel Bisulfate (plAVix TAB) 75 mg DAILY PO 10/25/16 09:00 11/24/16 08:59 10/30/16 07:54 75 MG Mirtazapine (Remeron Tab) 15 mg HS PO 10/25/16 21:00 11/24/16 20:59 10/29/16 20:48 15 MG Pregabalin 100 mg 100 mg BID PO 10/25/16 09:00 11/24/16 08:59 10/30/16 07:55 100 MG Norepinephrine Bitartrate/ Dextrose (Levophed Inj/ D5W 500ml) 508 ml @ 0 mls/hr Q0M PRN IV 10/25/16 02:20 10/26/16 10:39 DC 10/25/16 02:50 23.6 MLS/HR Insulin Glargine (Lantus Solostar Pen) 5 unit HS SC 10/25/16 02:30 10/25/16 10:28 DC 10/25/16 02:49 5 UNIT Raspberry (Raspberry Syrup 5ml Cup) 5 ml QID PO 10/25/16 02:30 11/04/16 02:29 10/30/16 07:54 5 ML Dextrose 25-50ML OF 50% DW IV FOR... UD PRN IV 10/25/16 02:45 11/24/16 02:44 10/25/16 08:55 50 ML Magnesium Sulfate/ Prmx (Magnesium Sulfate/Premixed D5W) 100 ml @ 100 mls/hr NOW STAT IV 10/25/16 04:54 10/25/16 05:53 DC 10/25/16 05:02 100 MLS/HR Oseltamivir Phosphate 75 mg 75 mg NOW STAT PO 10/25/16 09:01 10/25/16 09:02 DC 10/25/16 10:31 75 MG Famotidine 20 mg/ Dextrose 102 ml @ 204 mls/hr DAILY@1400 IV 10/25/16 14:00 10/25/16 18:00 DC 10/25/16 14:42 204 MLS/HR Metronidazole 500 mg/Prmx 100 ml @ 100 mls/hr Q8H IV 10/25/16 10:00 10/28/16 10:51 DC 10/28/16 10:20 100 MLS/HR Famotidine/ Dextrose (Pepcid IV Inj/ D5 100ml) 102 ml @ 204 mls/hr MoWeFr@2100 IV 10/26/16 21:00 10/27/16 14:14 DC 10/26/16 21:22 204 MLS/HR Insulin Aspart (novoLOG ASPART) SLIDING SCALE Q6 SC 10/25/16 12:00 10/26/16 14:14 DC 10/26/16 11:47 6 UNITS Miscellaneous 1 ea 1 ea HS N/A 10/25/16 21:00 10/27/16 11:00 DC 10/26/16 21:23 1 EA Calcium Gluconate 1000 mg/Sodium Chloride 60 ml @ 240 mls/hr TODAY@1530 ONCE IV 10/25/16 15:30 10/25/16 15:44 DC 10/25/16 17:12 240 MLS/HR Hydrocortisone Sodium Succinate/ Syringe (Solu-Cortef IV/ Syringe) 2 ml @ 4 mls/min Q8H IV 10/26/16 01:00 10/26/16 10:09 DC 10/26/16 09:21 4 MLS/MIN Insulin Glargine (Lantus Solostar Pen) 3 unit QAM SC 10/26/16 09:00 10/27/16 10:55 DC 10/27/16 08:34 3 UNIT Epoetin Johna 15954 units 10,000 units ONE ONCE IV. 10/26/16 09:45 10/26/16 10:21 DC 10/26/16 19:30 10,000 UNITS Hydrocortisone Sodium Succinate/ Syringe (Solu-Cortef IV/ Syringe) 2 ml @ 4 mls/min Q12H IV 10/26/16 21:00 10/27/16 11:01 DC 10/27/16 08:32 4 MLS/MIN Atorvastatin Calcium (Lipitor Tab) 40 mg QPM PO 10/26/16 21:00 11/25/16 20:59 10/29/16 20:47 40 MG Insulin Glargine (Lantus Solostar Pen) 3 unit NOW ONCE SC 10/26/16 14:15 10/26/16 14:16 DC 10/26/16 16:54 3 UNIT Insulin Aspart (novoLOG ASPART) SLIDING SCALE ACHS SC 10/26/16 16:00 11/25/16 15:59 10/30/16 12:02 7 UNITS Insulin Aspart SLIDING SCALE TODAY@0200 ONCE SC 10/27/16 02:00 10/27/16 02:01 DC 10/27/16 01:50 3 UNITS Hydrocortisone Sodium Succinate/ Syringe (Solu-Cortef IV/ Syringe) 1 ml @ 4 mls/min Q12H IV 10/27/16 21:00 10/28/16 10:58 DC 10/28/16 08:39 4 MLS/MIN Insulin Glargine QAM MS 10/28/16 09:00 10/28/16 09:00 DC 10/27/16 12:00 7 UNIT Insulin Human Regular 5 units/ Syringe 5 ml @ 30 mls/min TODAY@1300 IV 10/27/16 13:00 10/27/16 13:30 DC 10/27/16 13:27 30 MLS/MIN Insulin Human Regular/Syringe (novoLIN-R U-100 PER UNIT/Syringe) 7 ml @ 30 mls/min TODAY@0800 ONCE IV 10/28/16 08:00 10/28/16 08:01 DC 10/28/16 08:36 30 MLS/MIN Insulin Glargine (Lantus Solostar Pen) 0 UNITS FOR BSG BELOW ... QAM SC 10/28/16 09:00 11/27/16 08:59 10/30/16 09:28 12 UNIT Insulin Glargine HOLD IF HYDROCORTISONE IS *N... QPM SC 10/28/16 21:00 10/30/16 15:05 DC 10/29/16 20:58 7 UNIT Hydrocortisone Sodium Succinate/ Syringe (Solu-Cortef IV/ Syringe) 0.5 ml @ 4 mls/min Q12H IV 10/28/16 21:00 10/30/16 13:45 DC 10/30/16 07:52 4 MLS/MIN Insulin Aspart (novoLOG ASPART) SLIDING SCALE 0000,0400 SC 10/29/16 00:00 10/30/16 07:51 DC 10/30/16 00:08 1 UNITS Magnesium Oxide (Mag-Ox Tab) 400 mg QAM PO 10/30/16 09:00 11/29/16 08:59 10/30/16 07:53 400 MG Magnesium Oxide (Mag-Ox Tab) 400 mg 1901 ONCE PO 10/29/16 19:01 10/29/16 19:15 DC 10/29/16 20:46 400 MG Potassium Chloride (Klor-Con Tab) 20 meq QAM PO 10/30/16 09:00 11/29/16 08:59 10/30/16 07:54 20 MEQ Potassium Chloride (Klor-Con Tab) 20 meq 1901 ONCE PO 10/29/16 19:01 10/30/16 07:28 DC 10/29/16 20:46 20 MEQ Objective Vital Signs Date Time Temp Pulse Resp B/P Pulse Ox O2 Delivery O2 Flow Rate FiO2 10/30/16 16:00 Room Air 10/30/16 12:18 36.3 80 18 85/51 100 Room Air 10/30/16 12:00 Room Air 10/30/16 08:19 36.4 79 20 112/57 97 Room Air 10/30/16 08:00 Room Air 10/30/16 04:03 36.4 67 16 125/58 96 Room Air 10/30/16 04:02 Room Air 10/30/16 00:08 36.5 68 16 101/55 96 Room Air 10/30/16 00:02 Room Air 10/29/16 20:08 Room Air 10/29/16 19:49 36.5 68 18 97/40 96 10/29/16 18:13 36.3 67 109/60 10/29/16 17:39 70 84/56 10/29/16 17:30 69 75/53 10/29/16 17:15 74 81/51 Physical Exam General Appearance: WD/WN, no apparent distress Neck: supple Respiratory/Chest: chest non-tender, lungs clear, normal breath sounds, no respiratory distress Cardiovascular: regular rate, rhythm, no JVD, + diastolic murmur Abdomen: normal bowel sounds, soft, + tenderness (RLQ), + pertinent finding ( No guarding no rigidity) Extremities: no calf tenderness Neurologic/Psychiatric: alert, oriented x 3, + pertinent finding (frustrated. low energy) Skin: warm/dry, + pertinent finding (erythema along inner thighs. Angry red. Covered in thick layer of zinc oxide) Laboratory Results Results Past 24 Hours Test 10/29/16 19:43 10/30/16 00:00 10/30/16 03:47 10/30/16 06:28 Range/Units Bedside Glucose 177 167 142 70-90 mg/dl White Blood Count 6.24 4.8-10.8 K/uL Red Blood Count 4.38 4.2-5.4 M/uL Hemoglobin 12.0 12.0-16.0 g/dL Hematocrit 36.8 37-47 % Mean Corpuscular Volume 84.0 80-100 fL Mean Corpuscular Hemoglobin 27.4 25-34 pg Mean Corpuscular Hemoglobin Concent 32.6 32-36 g/dl Platelet Count 130 130-400 K/uL Mean Platelet Volume 11.1 7.4-10.4 fL Neutrophils (%) (Auto) 57.9 % Lymphocytes (%) (Auto) 27.4 % Monocytes (%) (Auto) 12.2 % Eosinophils (%) (Auto) 1.0 % Basophils (%) (Auto) 0.2 % Neutrophils # (Auto) 3.62 1.4-6.5 K/uL Lymphocytes # (Auto) 1.71 1.2-3.4 K/uL Monocytes # (Auto) 0.76 0.11-0.59 K/uL Eosinophils # (Auto) 0.06 0-0.5 K/uL Basophils # (Auto) 0.01 0-0.2 K/uL RDW Standard Deviation 47.9 36.4-46.3 fL RDW Coefficient of Variation 15.6 11.5-14.5 % Immature Granulocyte % (Auto) 1.3 % Immature Granulocyte # (Auto) 0.08 0.00-0.02 K/uL Sodium Level 139 136-145 mmol/L Potassium Level 3.5-5.1 mmol/L Chloride Level 100 98-107 mmol/L Carbon Dioxide Level 26 21-32 mmol/L Anion Gap 13.0 3-11 mmol/L Blood Urea Nitrogen 51 7-18 mg/dl Creatinine 6.50 0.60-1.20 mg/dl Est Creatinine Clear Calc Drug Dose 8.6 ml/min Estimated GFR () 7.7 Estimated GFR (Non- 6.6 BUN/Creatinine Ratio 7.8 10-20 Random Glucose 131 70-99 mg/dl Calcium Level 6.8 8.5-10.1 mg/dl Phosphorus Level 4.2 2.5-4.9 mg/dl Magnesium Level 1.8-2.4 mg/dl Test 10/30/16 06:38 10/30/16 08:45 10/30/16 11:03 10/30/16 15:53 Range/Units Bedside Glucose 112 172 171 70-90 mg/dl Potassium Level 3.4 3.5-5.1 mmol/L Magnesium Level 1.9 1.8-2.4 mg/dl Assessment and Plan This is a 56 year old female with previous history C.Diff colitis, ESRD on dialysis, DM, CAD, PAD, HTN, and HLD, presented with diarrhea, subjective fever/ chills, RUQ pain admitted for septic shock in the setting of C Diff Colitis recurrence. Septic Shock - Secondary to GI source of C Diff - Patient started on IV Flagyl and Vanco + IVF + Levophed - Blood cultures showed no growth, stool cultures were also negative, Flu swab neg. - Patient treated to for c.diff colitis - Levophed discontinued as patient stabilized - IV Flagyl discontinued on 10/28, and PO Vanco continues - Lactate last measured on 10/27 as 0.7, down from 2.74 on arrival - Vitals have stabilized Diarrhea - Positive for C.Diff toxin, stool cultures negative (no shiga, salmonella, Campylobacter jejuni), negative for shiga toxin - Diarrhea continuing to improve, mild increase in episodes over the weekend - Continue with PO Vanco 150mg QID. Can consider increase to 250mg QID if worsening or no improvement in diarrhea - Regimen of vanco recommended for 14 days for recurrent C. diff colitis. - Causing skin burn along inner thighs, prescribed zinc oxide ointment to be applied PRN - In view of non-improving diarrhea, increased vancomycin dose to 250mg QID and ordered cholestyramine. Discussed with pharmacy to separate dose timings as much as possible - If ongoing failure to improve may need to consult GI (?need for scope) or ID (?refractory c.diff) ESRD - 2/2 Diabetic nephropathy - Dialysis Sat/Sat/Sat - F/U BMP Blood Pressure - Amlodipine and Metoprolol held in view of septic hypotension on admission. - Considered adrenal insufficiency in view of profound hyptotension: random cortisol normal, ACTH performed on 10/25 is still pending - Was put on hydrocortisone in case of adrenal insufficiency, which has likely caused elevated glucose level - Consider discontinuing steroid tomorrow. - Current SBP in acceptable range without anti-hypertensives - Thus continue to hold for now. - Hydrocortisone stopped as not likely to be adrenal insufficiency HLD - Continue with statin T2DM - Glycemic consult with pharmacy managing insulin levels in view of highly elevated blood sugars - Lantus was increased to 14 u HS given increased glucose level, Novolog Sliding scale - Hydrocortisone stopped. Pharmacy informed as this may cause fluctuations and sugar, and risk of hypoglycemia if insulin not reduced Electrolytes - Hyponatremia resolved with IVF - In view of ongoing diarrhea, K+ and Mg+ levels low - Started patient on KCL and MgO tablets once daily - Continue to follow up BMP GI Prophylaxis - Continue Famotidine Depression - Continue mirtazapine 15mg qHS Diabetic neuropathy - Continue Lyrica 100mg BID DVT prophylaxis: - Heparin Dispo - To return to [facility] - OT therapy plan: transfer training, bed mobility, increase activity level , balance training - PT treatment plan: therapeutic exercise, gait training, transfers, endurance Code Status: - DNR Resident Physician Supervision Note: I interviewed and examined the patient. Discussed with Dr. Webber and agree with findings and plan as documented in the note. Any exceptions or clarifications are listed here: None Documented By: Roel Crespo feels about the same - not better not worse, ongoing profuse diarrhea. legs still very sore and raw from diarrhea - but appear improved since zinc oxide being put on very liberally vitals noted, fatigued appearing, abdomen soft but mild LLQ TTP no guarding no rebound. skin b/l medial thighs red irritated appearing but not erythematous diarrhea - appearing from Cdiff colitis - but as treatment continues and diarrhea persists ?also concomitant enteritis of other cause (such as occult IBD ?) she did have ileitis on CT, as well as a nonspecific episode of colitis in september. definitely needs colo in near future; if diarrhea persists despite further treatment (see below) then would have to consult GI inpt. for now, increase vanco to 250 QID and add cholestyramine hypotension - due to above, fluid losses, etc. initially appeared septic on presentation as well. continue supportive care Continued [facility] stay due to: abnormal vital signs
[2016-10-30] MEDS ORDERED: VANCOMYCIN HCL 250 MG/5 ML SOLN PO SCH (17:00)
[2016-10-30] MEDS: VANCOMYCIN HCL 250 MG/5 ML SOLN PO SCH ×2 (18:01→23:01)
[2016-10-30] MEDS: CHOLESTYRAMINE LIGHT 4 GM PKT PO SCH (20:38)
[2016-10-30] MEDS: ATORVASTATIN 20 MG TAB PO SCH (20:38)
[2016-10-30] MEDS: MIRTAZAPINE TAB 15 MG TAB PO SCH (20:39)
[2016-10-31] VITALS (18 sets, daily range): BP systolic 103–173; BP diastolic 41–80; PULSE 54–96; TEMP 36.7–37; O2SAT 96–99
[2016-10-31] MEDS ORDERED: INSULIN ASPART 100 UNITS/ML 3 ML PEN SC SCH (02:00)
[2016-10-31] MEDS: HEPARIN SOD 5000 UNIT/0.5 ML CARP SQ SCH ×3 (05:23→21:26)
[2016-10-31] MEDS: VANCOMYCIN HCL 250 MG/5 ML SOLN PO SCH ×3 (05:58→17:51)
[2016-10-31] MEDS: RASPBERRY SYRUP 5 ML UDP PO SCH ×3 (05:59→17:50)
[2016-10-31] MEDS: CHOLESTYRAMINE LIGHT 4 GM PKT PO SCH ×2 (08:10→21:27)
[2016-10-31] MEDS: ASPIRIN 81 MG ECTAB PO SCH (08:10)
[2016-10-31] MEDS: CLOPIDOGREL BISULFATE 75 MG TAB PO SCH (08:10)
[2016-10-31] MEDS: POTASSIUM CHLORIDE 20 MEQ TABCR PO SCH (08:11)
[2016-10-31] MEDS: MAGNESIUM OXIDE 400 MG TAB PO SCH (08:11)
[2016-10-31] MEDS: PREGABALIN 100 MG CAP PO SCH ×2 (08:19→21:34)
[2016-10-31] MEDS: INSULIN ASPART 100 UNITS/ML 3 ML PEN SC SCH ×4 (08:21→21:26)
[2016-10-31] MEDS: INSULIN GLARGINE SOLOSTAR 100 UNITS/ML 3 ML PEN SC SCH (08:21)
--- NOTE | 2016-10-31 08:46 | Nephrology Progress Note ---
Nephrology Progress Note Date of Service: Oct 31, 2016. Subjective no interval events; moving bowels, less diarrhea. eating. not dyspneic; no uncontrolled abd or musculoskeletal pain Objective Date Time Temp Pulse Resp B/P Pulse Ox O2 Delivery O2 Flow Rate FiO2 10/31/16 04:01 Room Air 10/31/16 03:48 36.7 83 18 112/48 96 Room Air 10/31/16 00:02 Room Air 10/30/16 23:32 36.6 76 18 110/49 95 Room Air 10/30/16 20:37 36.7 81 20 108/56 99 Room Air 10/30/16 20:15 Room Air 10/30/16 17:18 36.6 89 18 120/55 99 Room Air 10/30/16 16:00 Room Air 10/30/16 12:18 36.3 80 18 85/51 100 Room Air 10/30/16 12:00 Room Air 10/30/16 08:19 36.4 79 20 112/57 97 Room Air 10/30/16 08:00 Room Air Physical Exam: General-aaox3, sitting on side of bed on RA Eyes-no scleral icterus, lazy eye ENT-mmm Neck-supple Lungs-clear but diminished, kyphotic Heart-regular Abdomen-bs+ s, NT Extremities-no edema , LUE AVF + t/b Neuro-nonfocal Current Inpatient Medications Medications (Trade) Dose Ordered Sig/Sandy Route Start Time Stop Time Status Last Admin Dose Admin Heparin Sodium (Porcine) (Heparin Sq 5000 Unit/0.5ml) 5,000 unit Q8H SQ 10/25/16 06:00 11/24/16 05:59 Acetaminophen (Tylenol Tab) 650 mg Q4H PRN PO 10/25/16 01:00 11/24/16 00:59 10/28/16 10:33 650 MG Aspirin (Ecotrin Tab) 81 mg DAILY PO 10/25/16 09:00 11/24/16 08:59 10/30/16 07:54 81 MG Clopidogrel Bisulfate (plAVix TAB) 75 mg DAILY PO 10/25/16 09:00 11/24/16 08:59 10/30/16 07:54 75 MG Mirtazapine (Remeron Tab) 15 mg HS PO 10/25/16 21:00 2/18/17 20:59 10/30/16 20:39 15 MG Pregabalin (Lyrica Cap) 100 mg BID PO 10/25/16 09:00 11/24/16 08:59 10/30/16 20:36 100 MG Miscellaneous Information (Consult Glycemic Management Pharmacy) 1 ea UD PRN N/A 10/25/16 01:30 11/24/16 01:29 Raspberry (Raspberry Syrup 5ml Cup) 5 ml QID PO 10/25/16 02:30 11/04/16 02:29 10/31/16 05:59 5 ML Glucose (Glucose 40% Gel) 15-30 GRAMS 15 GRAMS... UD PRN PO 10/25/16 02:45 11/24/16 02:44 Glucose (Glucose Chew Tab) 4-8 Tablets 4 Tabl... UD PRN PO 10/25/16 02:45 11/24/16 02:44 Dextrose (Dextrose 50% 50ML Syringe) 25-50ML OF 50% DW IV FOR... UD PRN IV 10/25/16 02:45 11/24/16 02:44 10/25/16 08:55 50 ML Glucagon (Glucagon Inj) 1 mg UD PRN SQ 10/25/16 02:45 11/24/16 02:44 Atorvastatin Calcium (Lipitor Tab) 40 mg QPM PO 10/26/16 21:00 11/25/16 20:59 10/30/16 20:38 40 MG Insulin Aspart (novoLOG ASPART) SLIDING SCALE ACHS SC 10/26/16 16:00 11/25/16 15:59 10/30/16 20:55 4 UNITS Insulin Glargine (Lantus Solostar Pen) 0 UNITS FOR BSG BELOW ... QAM SC 10/28/16 09:00 11/27/16 08:59 10/30/16 09:28 12 UNIT Magnesium Oxide (Mag-Ox Tab) 400 mg QAM PO 10/30/16 09:00 11/29/16 08:59 10/30/16 07:53 400 MG Potassium Chloride (Klor-Con Tab) 20 meq QAM PO 10/30/16 09:00 11/29/16 08:59 10/30/16 07:54 20 MEQ Cholestyramine Resin (Questran Powder Light) 4 gm BID@ PO 10/30/16 22:00 11/29/16 21:59 10/30/16 20:38 4 GM Vancomycin HCl (Vancomycin Oral Soln) 250 mg DAILY@0000,0600,1200,1800 PO 10/30/16 18:00 11/13/16 16:59 10/31/16 05:58 250 MG Last 24 Hours Test 10/30/16 08:45 10/30/16 11:03 10/30/16 15:53 10/30/16 20:52 Potassium Level 3.4 mmol/L Magnesium Level 1.9 mg/dl Bedside Glucose 172 mg/dl 171 mg/dl 227 mg/dl Test 10/31/16 02:02 10/31/16 04:44 10/31/16 06:46 Bedside Glucose 198 mg/dl 191 mg/dl Assessment & Plan 56 yo female with esrd with cdiff colitis and hypotension. abd pain resolved; diarrhea improving. no complaints now about vol status ESRD-will continue dialysis m-w-f while inpatient. >dialysis today. next tx on as inpt or outpt Anemia of renal failure-hg = 12 -no indication for procrit at this time. hypokalemia-transient in setting of diarrhea. k was elevated several days ago and will naturally go up on esrd. hold on daily dosing of k and give prn doses only for fear of hyperkalemia. yesterday's K was 3.4; level this am pending.
[2016-10-31 08:55] LABS: BUN/CREATININE RATIO 8.7 (10-20); CALCIUM 7.2 mg/dl (8.5-10.1); CREATININE 8.1 mg/dl (0.60-1.20); POTASSIUM 3.9 mmol/L (3.5-5.1)
[2016-10-31] MEDS ORDERED: MAGNESIUM OXIDE 400 MG TAB PO SCH (09:00)
[2016-10-31] MEDS ORDERED: POTASSIUM CHLORIDE 20 MEQ TABCR PO SCH (09:00)
--- NOTE | 2016-10-31 13:45 | Family Medicine Progress Note ---
Progress Note Date of Service Oct 31, 2016. Subjective Pt evaluation today including: conversation w/ patient, physical exam, chart review, lab review Patient feeling significantly better today. Had no overnight accidents, and has only had one episode this morning, which was large volume but less explosive. She is also burping and passing flatus, which she says she has not been able to do in a while. While previous abdominal pain has lessened, patient now experiencing increased cramping. Her skin on her inner thighs however are still significantly painful. Patient otherwise slept well overnight without acute issues. Constitutional: No chills, No fever Respiratory: No cough, No shortness of breath Cardiovascular: No chest pain, No palpitations Abdomen: + diarrhea, + pain, No GI bleeding, No constipation, No nausea, No vomiting Female : No dysuria Medications Medications Administered Medications (Trade) Dose Ordered Sig/Sandy Route Start Time Stop Time Status Last Admin Dose Admin Acetaminophen 1000 mg 1,000 mg NOW STAT PO 10/24/16 21:56 10/24/16 22:01 DC 10/24/16 23:00 1,000 MG Sodium Chloride (Nss 500ml) 500 ml @ 999 mls/hr Q31M STAT IV 10/24/16 21:56 10/24/16 22:26 DC 10/24/16 22:30 999 MLS/HR Metronidazole (Flagyl / Nss) 500 mg NOW STAT IV 10/24/16 22:08 10/24/16 22:09 DC 10/24/16 23:00 500 MG Ibuprofen (Motrin Tab) 600 mg STK-MED ONCE .ROUTE 10/24/16 23:00 10/24/16 23:02 DC 10/24/16 23:04 600 MG Ibuprofen 200 mg 200 mg STK-MED ONCE .ROUTE 10/24/16 23:00 10/24/16 23:02 DC 10/24/16 23:03 200 MG Sodium Chloride 500 ml @ 999 mls/hr Q31M STAT IV 10/24/16 23:56 10/25/16 00:26 DC 10/25/16 00:13 999 MLS/HR Sodium Chloride (Nss 500ml) 500 ml @ 999 mls/hr Q31M STAT IV 10/25/16 00:13 10/25/16 00:43 DC 10/25/16 00:13 999 MLS/HR Insulin Human Regular 5 units 5 units NOW STAT SC 10/25/16 00:30 10/25/16 00:31 DC 10/25/16 00:41 5 UNITS Vancomycin HCl/ Sodium Chloride (Vancomycin Inj/ Nss 250ml) 276 ml @ 125 mls/hr NOW STAT IV 10/25/16 00:52 10/25/16 03:04 DC 10/25/16 01:03 125 MLS/HR Heparin Sodium (Porcine) (Heparin Sq 5000 Unit/0.5ml) 5,000 unit Q8H SQ 10/25/16 06:00 11/24/16 05:59 10/31/16 13:42 5,000 UNIT Acetaminophen 650 mg 650 mg Q4H PRN PO 10/25/16 01:00 11/24/16 00:59 10/28/16 10:33 650 MG Sodium Chloride (Nss 250ml) 250 ml @ 250 mls/hr Q1H IV 10/25/16 01:00 10/25/16 03:45 DC 10/25/16 02:48 250 MLS/HR Vancomycin HCl (Vancomycin Oral Soln) 125 mg QID PO 10/25/16 02:30 10/30/16 13:42 DC 10/30/16 07:54 125 MG Aspirin (Ecotrin Tab) 81 mg DAILY PO 10/25/16 09:00 11/24/16 08:59 10/31/16 08:10 81 MG Clopidogrel Bisulfate (plAVix TAB) 75 mg DAILY PO 10/25/16 09:00 11/24/16 08:59 10/31/16 08:10 75 MG Mirtazapine (Remeron Tab) 15 mg HS PO 10/25/16 21:00 11/24/16 20:59 10/30/16 20:39 15 MG Pregabalin 100 mg 100 mg BID PO 10/25/16 09:00 11/24/16 08:59 10/31/16 08:19 100 MG Norepinephrine Bitartrate/ Dextrose (Levophed Inj/ D5W 500ml) 508 ml @ 0 mls/hr Q0M PRN IV 10/25/16 02:20 10/26/16 10:39 DC 10/25/16 02:50 23.6 MLS/HR Insulin Glargine (Lantus Solostar Pen) 5 unit HS SC 10/25/16 02:30 10/25/16 10:28 DC 10/25/16 02:49 5 UNIT Raspberry (Raspberry Syrup 5ml Cup) 5 ml QID PO 10/25/16 02:30 11/04/16 02:29 10/31/16 17:50 5 ML Dextrose 25-50ML OF 50% DW IV FOR... UD PRN IV 10/25/16 02:45 11/24/16 02:44 10/25/16 08:55 50 ML Magnesium Sulfate/ Prmx (Magnesium Sulfate/Premixed D5W) 100 ml @ 100 mls/hr NOW STAT IV 10/25/16 04:54 10/25/16 05:53 DC 10/25/16 05:02 100 MLS/HR Oseltamivir Phosphate 75 mg 75 mg NOW STAT PO 10/25/16 09:01 10/25/16 09:02 DC 10/25/16 10:31 75 MG Famotidine 20 mg/ Dextrose 102 ml @ 204 mls/hr DAILY@1400 IV 10/25/16 14:00 10/25/16 18:00 DC 10/25/16 14:42 204 MLS/HR Metronidazole 500 mg/Prmx 100 ml @ 100 mls/hr Q8H IV 10/25/16 10:00 10/28/16 10:51 DC 10/28/16 10:20 100 MLS/HR Famotidine/ Dextrose (Pepcid IV Inj/ D5 100ml) 102 ml @ 204 mls/hr MoWeFr@2100 IV 10/26/16 21:00 10/27/16 14:14 DC 10/26/16 21:22 204 MLS/HR Insulin Aspart (novoLOG ASPART) SLIDING SCALE Q6 SC 10/25/16 12:00 10/26/16 14:14 DC 10/26/16 11:47 6 UNITS Miscellaneous 1 ea 1 ea HS N/A 10/25/16 21:00 10/27/16 11:00 DC 10/26/16 21:23 1 EA Calcium Gluconate 1000 mg/Sodium Chloride 60 ml @ 240 mls/hr TODAY@1530 ONCE IV 10/25/16 15:30 10/25/16 15:44 DC 10/25/16 17:12 240 MLS/HR Hydrocortisone Sodium Succinate/ Syringe (Solu-Cortef IV/ Syringe) 2 ml @ 4 mls/min Q8H IV 10/26/16 01:00 10/26/16 10:09 DC 10/26/16 09:21 4 MLS/MIN Insulin Glargine (Lantus Solostar Pen) 3 unit QAM SC 10/26/16 09:00 10/27/16 10:55 DC 10/27/16 08:34 3 UNIT Epoetin Johan 69652 units 10,000 units ONE ONCE IV. 10/26/16 09:45 10/26/16 10:21 DC 10/26/16 19:30 10,000 UNITS Hydrocortisone Sodium Succinate/ Syringe (Solu-Cortef IV/ Syringe) 2 ml @ 4 mls/min Q12H IV 10/26/16 21:00 10/27/16 11:01 DC 10/27/16 08:32 4 MLS/MIN Atorvastatin Calcium (Lipitor Tab) 40 mg QPM PO 10/26/16 21:00 11/25/16 20:59 10/30/16 20:38 40 MG Insulin Glargine (Lantus Solostar Pen) 3 unit NOW ONCE SC 10/26/16 14:15 10/26/16 14:16 DC 10/26/16 16:54 3 UNIT Insulin Aspart (novoLOG ASPART) SLIDING SCALE ACHS SC 10/26/16 16:00 11/25/16 15:59 10/31/16 13:41 4 UNITS Insulin Aspart SLIDING SCALE TODAY@0200 ONCE SC 10/27/16 02:00 10/27/16 02:01 DC 10/27/16 01:50 3 UNITS Hydrocortisone Sodium Succinate/ Syringe (Solu-Cortef IV/ Syringe) 1 ml @ 4 mls/min Q12H IV 10/27/16 21:00 10/28/16 10:58 DC 10/28/16 08:39 4 MLS/MIN Insulin Glargine QAM SC 10/28/16 09:00 10/28/16 09:00 DC 10/27/16 12:00 7 UNIT Insulin Human Regular 5 units/ Syringe 5 ml @ 30 mls/min TODAY@1300 IV 10/27/16 13:00 10/27/16 13:30 DC 10/27/16 13:27 30 MLS/MIN Insulin Human Regular/Syringe (novoLIN-R U-100 PER UNIT/Syringe) 7 ml @ 30 mls/min TODAY@0800 ONCE IV 10/28/16 08:00 10/28/16 08:01 DC 10/28/16 08:36 30 MLS/MIN Insulin Glargine (Lantus Solostar Pen) 0 UNITS FOR BSG BELOW ... QAM SC 10/28/16 09:00 11/27/16 08:59 10/31/16 08:21 5 UNIT Insulin Glargine HOLD IF HYDROCORTISONE IS *N... QPM SC 10/28/16 21:00 10/30/16 15:05 DC 10/29/16 20:58 7 UNIT Hydrocortisone Sodium Succinate/ Syringe (Solu-Cortef IV/ Syringe) 0.5 ml @ 4 mls/min Q12H IV 10/28/16 21:00 10/30/16 13:45 DC 10/30/16 07:52 4 MLS/MIN Insulin Aspart (novoLOG ASPART) SLIDING SCALE 0000,0400 SC 10/29/16 00:00 10/30/16 07:51 DC 10/30/16 00:08 1 UNITS Magnesium Oxide (Mag-Ox Tab) 400 mg QAM PO 10/30/16 09:00 10/31/16 13:43 DC 10/31/16 08:11 400 MG Magnesium Oxide (Mag-Ox Tab) 400 mg 1901 ONCE PO 10/29/16 19:01 10/29/16 19:15 DC 10/29/16 20:46 400 MG Potassium Chloride (Klor-Con Tab) 20 meq QAM PO 10/30/16 09:00 10/31/16 13:42 DC 10/31/16 08:11 20 MEQ Potassium Chloride (Klor-Con Tab) 20 meq 1901 ONCE PO 10/29/16 19:01 10/30/16 07:28 DC 10/29/16 20:46 20 MEQ Cholestyramine Resin (Questran Powder Light) 4 gm BID@10,22 PO 10/30/16 22:00 11/29/16 21:59 10/31/16 08:10 4 GM Insulin Aspart (novoLOG ASPART) SLIDING SCALE TODAY@0200 SC 10/31/16 02:00 10/31/16 02:01 DC 10/31/16 02:14 1 UNITS Vancomycin HCl (Vancomycin Oral Soln) 250 mg DAILY@0000,0600,1200,1800 PO 10/30/16 18:00 11/13/16 16:59 10/31/16 17:51 250 MG Objective Vital Signs Date Time Temp Pulse Resp B/P Pulse Ox O2 Delivery O2 Flow Rate FiO2 10/31/16 17:39 37.0 89 148/73 10/31/16 17:00 96 109/73 10/31/16 16:45 90 119/68 10/31/16 16:30 84 111/75 10/31/16 16:15 91 118/70 10/31/16 16:00 Room Air 10/31/16 16:00 82 117/80 10/31/16 15:45 36.8 92 20 112/75 99 Room Air 10/31/16 15:45 85 112/75 10/31/16 15:30 89 103/64 10/31/16 15:15 92 136/78 10/31/16 15:00 93 164/58 10/31/16 14:45 89 152/51 10/31/16 14:30 89 147/70 10/31/16 14:15 54 130/69 10/31/16 14:00 91 173/41 10/31/16 13:50 36.8 93 148/72 10/31/16 12:00 Room Air 10/31/16 10:57 36.8 87 20 129/43 99 Room Air 10/31/16 08:00 Room Air 10/31/16 07:45 36.8 95 20 133/71 96 Room Air 10/31/16 04:01 Room Air 10/31/16 03:48 36.7 83 18 112/48 96 Room Air 10/31/16 00:02 Room Air 10/30/16 23:32 36.6 76 18 110/49 95 Room Air 10/30/16 20:37 36.7 81 20 108/56 99 Room Air 10/30/16 20:15 Room Air Physical Exam General Appearance: WD/WN, + mild distress Respiratory/Chest: chest non-tender, lungs clear, normal breath sounds, no respiratory distress Cardiovascular: regular rate, rhythm Abdomen: normal bowel sounds, soft, no organomegaly, + tenderness Extremities: no calf tenderness, + pertinent finding Neurologic/Psychiatric: alert, normal mood/affect, oriented x 3 Skin: warm/dry, + rash (erythema diminshed from yesterday) Laboratory Results Results Past 24 Hours Test 10/30/16 20:52 10/31/16 02:02 10/31/16 06:46 10/31/16 07:55 Range/Units Bedside Glucose 227 198 191 70-90 mg/dl Sodium Level 138 136-145 mmol/L Potassium Level 3.9 3.5-5.1 mmol/L Chloride Level 100 98-107 mmol/L Carbon Dioxide Level 20 21-32 mmol/L Anion Gap 18.0 3-11 mmol/L Blood Urea Nitrogen 71 7-18 mg/dl Creatinine 8.10 0.60-1.20 mg/dl Est Creatinine Clear Calc Drug Dose 6.9 ml/min Estimated GFR () 5.9 Estimated GFR (Non- 5.1 BUN/Creatinine Ratio 8.7 10-20 Random Glucose 194 70-99 mg/dl Calcium Level 7.2 8.5-10.1 mg/dl Test 10/31/16 10:57 10/31/16 17:36 10/31/16 19:57 Range/Units Bedside Glucose 173 81 204 70-90 mg/dl Assessment and Plan This is a 56 year old female with previous history C.Diff colitis, ESRD on dialysis, DM, CAD, PAD, HTN, and HLD, presented with diarrhea, subjective fever/ chills, RUQ pain admitted for septic shock in the setting of C Diff Colitis recurrence. Septic Shock - Secondary to GI source of C Diff - Patient started on IV Flagyl and Vanco + IVF + Levophed - Blood cultures showed no growth, stool cultures were also negative, Flu swab neg. - Patient treated to for c.diff colitis - Levophed discontinued as patient stabilized - IV Flagyl discontinued on 10/28, and PO Vanco continues - Lactate last measured on 10/27 as 0.7, down from 2.74 on arrival - Vitals have stabilized Diarrhea - Positive for C.Diff toxin, stool cultures negative (no shiga, salmonella, Campylobacter jejuni), negative for shiga toxin - Diarrhea continuing to improve, mild increase in episodes over the weekend - Continue with PO Vanco 150mg QID. Can consider increase to 250mg QID if worsening or no improvement in diarrhea - Regimen of vanco recommended for 14 days for recurrent C. diff colitis. - Causing skin burn along inner thighs, prescribed zinc oxide ointment to be applied PRN - In view of non-improving diarrhea, increased vancomycin dose to 250mg QID and ordered cholestyramine. Discussed with pharmacy to separate dose timings as much as possible - If failure to resolve may need to consult GI (?need for scope for underlying IBD, colitis etc.) or ID (?refractory c.diff) ESRD - 2/2 Diabetic nephropathy - Dialysis Sat/Sat/Sat - F/U BMP Blood Pressure - Amlodipine and Metoprolol held in view of septic hypotension on admission. - Considered adrenal insufficiency in view of profound hyptotension: random cortisol normal, ACTH performed on 10/25 is still pending - Was put on hydrocortisone in case of adrenal insufficiency, which has likely caused elevated glucose level - Consider discontinuing steroid tomorrow. - Current SBP in acceptable range without anti-hypertensives - Thus continue to hold for now. - Hydrocortisone stopped as not likely to be adrenal insufficiency HLD - Continue with statin T2DM - Glycemic consult with pharmacy managing insulin levels in view of highly elevated blood sugars - Lantus was increased to 14 u HS given increased glucose level, Novolog Sliding scale - Hydrocortisone stopped. Pharmacy informed as this may cause fluctuations and sugar, and risk of hypoglycemia if insulin not reduced Electrolytes - Hyponatremia resolved with IVF - In view of ongoing diarrhea, K+ and Mg+ levels low - Started patient on KCL and MgO tablets once daily - K+ and Mg+ levels improved - Continue to follow up BMP GI Prophylaxis - Continue Famotidine Depression - Continue mirtazapine 15mg qHS Diabetic neuropathy - Continue Lyrica 100mg BID DVT prophylaxis: - Heparin Dispo - To return to [facility] - OT therapy plan: transfer training, bed mobility, increase activity level , balance training - PT treatment plan: therapeutic exercise, gait training, transfers, endurance Code Status: - DNR Resident Physician Supervision Note: I interviewed and examined the patient. Discussed with Dr. Webber and agree with findings and plan as documented in the note. Any exceptions or clarifications are listed here: None Documented By: Roel Crespo diarrhea slowing, having more belly cramps but far less stool. legs still scalded but feeling better. vitals noted fatigued but nad abd soft, nd, mild diffuse tenderness no guarding/rebound Cdiff colitis (and question underlying IBD or other colitis) w sepsis/septic shock/hypovolemia on admission - now improving. continue vanco and cholestyramine. leg rash - from diarrhea - improving. continue butt paste. otherwise as above Continued [facility] stay due to: abnormal vital signs, home environment unsafe for pt
[2016-10-31] MEDS: ATORVASTATIN 20 MG TAB PO SCH (21:28)
[2016-10-31] MEDS: MIRTAZAPINE TAB 15 MG TAB PO SCH (21:28)
[2016-11-01] MEDS: RASPBERRY SYRUP 5 ML UDP PO SCH ×5 (00:07→23:26)
[2016-11-01] MEDS: VANCOMYCIN HCL 250 MG/5 ML SOLN PO SCH ×5 (00:09→23:26)
[2016-11-01] MEDS: HEPARIN SOD 5000 UNIT/0.5 ML CARP SQ SCH ×3 (04:54→20:41)
[2016-11-01 07:24] VITALS: BP 137/72; PULSE 85; TEMP 37.1; O2SAT 96
[2016-11-01] MEDS: PREGABALIN 100 MG CAP PO SCH ×2 (08:48→20:41)
[2016-11-01] MEDS: ASPIRIN 81 MG ECTAB PO SCH (08:49)
[2016-11-01] MEDS: CLOPIDOGREL BISULFATE 75 MG TAB PO SCH (08:49)
[2016-11-01] MEDS: CHOLESTYRAMINE LIGHT 4 GM PKT PO SCH ×2 (08:49→20:42)
[2016-11-01] MEDS: INSULIN ASPART 100 UNITS/ML 3 ML PEN SC SCH ×4 (08:52→20:26)
[2016-11-01] MEDS: INSULIN GLARGINE SOLOSTAR 100 UNITS/ML 3 ML PEN SC SCH (08:53)
[2016-11-01 09:22] LABS: BUN/CREATININE RATIO 6.1 (10-20); CALCIUM 7.1 mg/dl (8.5-10.1); CREATININE 5.8 mg/dl (0.60-1.20); POTASSIUM 4.1 mmol/L (3.5-5.1)
--- NOTE | 2016-11-01 11:55 | Family Medicine Progress Note ---
Progress Note Date of Service Nov 01, 2016. Subjective Patient feeling much better today. Had no overnight accidents, and has only had one bowel movement since this morning, which was not even water, just soft. Previous abdominal pain has lessened, and become more diffuse rather than localized. Her skin on her inner thighs is significantly improved, but continues to be sore with ambulation. Patient otherwise slept well overnight without acute issues. Constitutional: No chills, No fever Respiratory: No cough, No shortness of breath Cardiovascular: No PND, No chest pain, No edema, No orthopnea, No palpitations Abdomen: + pain, No constipation, No diarrhea, No nausea, No vomiting Female : No dysuria Medications Medications Administered Medications (Trade) Dose Ordered Sig/Sandy Route Start Time Stop Time Status Last Admin Dose Admin Acetaminophen 1000 mg 1,000 mg NOW STAT PO 10/24/16 21:56 10/24/16 22:01 DC 10/24/16 23:00 1,000 MG Sodium Chloride (Nss 500ml) 500 ml @ 999 mls/hr Q31M STAT IV 10/24/16 21:56 10/24/16 22:26 DC 10/24/16 22:30 999 MLS/HR Metronidazole (Flagyl / Nss) 500 mg NOW STAT IV 10/24/16 22:08 10/24/16 22:09 DC 10/24/16 23:00 500 MG Ibuprofen (Motrin Tab) 600 mg STK-MED ONCE .ROUTE 10/24/16 23:00 10/24/16 23:02 DC 10/24/16 23:04 600 MG Ibuprofen 200 mg 200 mg STK-MED ONCE .ROUTE 10/24/16 23:00 10/24/16 23:02 DC 10/24/16 23:03 200 MG Sodium Chloride 500 ml @ 999 mls/hr Q31M STAT IV 10/24/16 23:56 10/25/16 00:26 DC 10/25/16 00:13 999 MLS/HR Sodium Chloride (Nss 500ml) 500 ml @ 999 mls/hr Q31M STAT IV 10/25/16 00:13 10/25/16 00:43 DC 10/25/16 00:13 999 MLS/HR Insulin Human Regular 5 units 5 units NOW STAT SC 10/25/16 00:30 10/25/16 00:31 DC 10/25/16 00:41 5 UNITS Vancomycin HCl/ Sodium Chloride (Vancomycin Inj/ Nss 250ml) 276 ml @ 125 mls/hr NOW STAT IV 10/25/16 00:52 10/25/16 03:04 DC 10/25/16 01:03 125 MLS/HR Heparin Sodium (Porcine) (Heparin Sq 5000 Unit/0.5ml) 5,000 unit Q8H SQ 10/25/16 06:00 11/24/16 05:59 10/31/16 13:42 5,000 UNIT Acetaminophen 650 mg 650 mg Q4H PRN PO 10/25/16 01:00 11/24/16 00:59 10/28/16 10:33 650 MG Sodium Chloride (Nss 250ml) 250 ml @ 250 mls/hr Q1H IV 10/25/16 01:00 10/25/16 03:45 DC 10/25/16 02:48 250 MLS/HR Vancomycin HCl (Vancomycin Oral Soln) 125 mg QID PO 10/25/16 02:30 10/30/16 13:42 DC 10/30/16 07:54 125 MG Aspirin (Ecotrin Tab) 81 mg DAILY PO 10/25/16 09:00 11/24/16 08:59 11/01/16 08:49 81 MG Clopidogrel Bisulfate (plAVix TAB) 75 mg DAILY PO 10/25/16 09:00 11/24/16 08:59 11/01/16 08:49 75 MG Mirtazapine (Remeron Tab) 15 mg HS PO 10/25/16 21:00 11/24/16 20:59 10/31/16 21:28 15 MG Pregabalin 100 mg 100 mg BID PO 10/25/16 09:00 11/24/16 08:59 11/01/16 08:48 100 MG Norepinephrine Bitartrate/ Dextrose (Levophed Inj/ D5W 500ml) 508 ml @ 0 mls/hr Q0M PRN IV 10/25/16 02:20 10/26/16 10:39 DC 10/25/16 02:50 23.6 MLS/HR Insulin Glargine (Lantus Solostar Pen) 5 unit HS SC 10/25/16 02:30 10/25/16 10:28 DC 10/25/16 02:49 5 UNIT Raspberry (Raspberry Syrup 5ml Cup) 5 ml QID PO 10/25/16 02:30 10/31/16 22:51 DC 10/31/16 17:50 5 ML Dextrose 25-50ML OF 50% DW IV FOR... UD PRN IV 10/25/16 02:45 11/24/16 02:44 10/25/16 08:55 50 ML Magnesium Sulfate/ Prmx (Magnesium Sulfate/Premixed D5W) 100 ml @ 100 mls/hr NOW STAT IV 10/25/16 04:54 10/25/16 05:53 DC 10/25/16 05:02 100 MLS/HR Oseltamivir Phosphate 75 mg 75 mg NOW STAT PO 10/25/16 09:01 10/25/16 09:02 DC 10/25/16 10:31 75 MG Famotidine 20 mg/ Dextrose 102 ml @ 204 mls/hr DAILY@1400 IV 10/25/16 14:00 10/25/16 18:00 DC 10/25/16 14:42 204 MLS/HR Metronidazole 500 mg/Prmx 100 ml @ 100 mls/hr Q8H IV 10/25/16 10:00 10/28/16 10:51 DC 10/28/16 10:20 100 MLS/HR Famotidine/ Dextrose (Pepcid IV Inj/ D5 100ml) 102 ml @ 204 mls/hr MoWeFr@2100 IV 10/26/16 21:00 10/27/16 14:14 DC 10/26/16 21:22 204 MLS/HR Insulin Aspart (novoLOG ASPART) SLIDING SCALE Q6 SC 10/25/16 12:00 10/26/16 14:14 DC 10/26/16 11:47 6 UNITS Miscellaneous 1 ea 1 ea HS N/A 10/25/16 21:00 10/27/16 11:00 DC 10/26/16 21:23 1 EA Calcium Gluconate 1000 mg/Sodium Chloride 60 ml @ 240 mls/hr TODAY@1530 ONCE IV 10/25/16 15:30 10/25/16 15:44 DC 10/25/16 17:12 240 MLS/HR Hydrocortisone Sodium Succinate/ Syringe (Solu-Cortef IV/ Syringe) 2 ml @ 4 mls/min Q8H IV 10/26/16 01:00 10/26/16 10:09 DC 10/26/16 09:21 4 MLS/MIN Insulin Glargine (Lantus Solostar Pen) 3 unit QAM SC 10/26/16 09:00 10/27/16 10:55 DC 10/27/16 08:34 3 UNIT Epoetin Johan [address]26 units 10,000 units ONE ONCE IV. 10/26/16 09:45 10/26/16 10:21 DC 10/26/16 19:30 10,000 UNITS Hydrocortisone Sodium Succinate/ Syringe (Solu-Cortef IV/ Syringe) 2 ml @ 4 mls/min Q12H IV 10/26/16 21:00 10/27/16 11:01 DC 10/27/16 08:32 4 MLS/MIN Atorvastatin Calcium (Lipitor Tab) 40 mg QPM PO 10/26/16 21:00 11/25/16 20:59 10/31/16 21:28 40 MG Insulin Glargine (Lantus Solostar Pen) 3 unit NOW ONCE SC 10/26/16 14:15 10/26/16 14:16 DC 10/26/16 16:54 3 UNIT Insulin Aspart (novoLOG ASPART) SLIDING SCALE ACHS SC 10/26/16 16:00 11/25/16 15:59 11/01/16 13:07 5 UNITS Insulin Aspart SLIDING SCALE TODAY@0200 ONCE SC 10/27/16 02:00 10/27/16 02:01 DC 10/27/16 01:50 3 UNITS Hydrocortisone Sodium Succinate/ Syringe (Solu-Cortef IV/ Syringe) 1 ml @ 4 mls/min Q12H IV 10/27/16 21:00 10/28/16 10:58 DC 10/28/16 08:39 4 MLS/MIN Insulin Glargine QAM SC 10/28/16 09:00 10/28/16 09:00 DC 10/27/16 12:00 7 UNIT Insulin Human Regular 5 units/ Syringe 5 ml @ 30 mls/min TODAY@1300 IV 10/27/16 13:00 10/27/16 13:30 DC 10/27/16 13:27 30 MLS/MIN Insulin Human Regular/Syringe (novoLIN-R U-100 PER UNIT/Syringe) 7 ml @ 30 mls/min TODAY@0800 ONCE IV 10/28/16 08:00 10/28/16 08:01 DC 10/28/16 08:36 30 MLS/MIN Insulin Glargine (Lantus Solostar Pen) 0 UNITS FOR BSG BELOW ... QAM SC 10/28/16 09:00 11/27/16 08:59 11/01/16 08:53 5 UNIT Insulin Glargine HOLD IF HYDROCORTISONE IS *N... QPM SC 10/28/16 21:00 10/30/16 15:05 DC 10/29/16 20:58 7 UNIT Hydrocortisone Sodium Succinate/ Syringe (Solu-Cortef IV/ Syringe) 0.5 ml @ 4 mls/min Q12H IV 10/28/16 21:00 10/30/16 13:45 DC 10/30/16 07:52 4 MLS/MIN Insulin Aspart (novoLOG ASPART) SLIDING SCALE 0000,0400 SC 10/29/16 00:00 10/30/16 07:51 DC 10/30/16 00:08 1 UNITS Magnesium Oxide (Mag-Ox Tab) 400 mg QAM PO 10/30/16 09:00 10/31/16 13:43 DC 10/31/16 08:11 400 MG Magnesium Oxide (Mag-Ox Tab) 400 mg 1901 ONCE PO 10/29/16 19:01 10/29/16 19:15 DC 10/29/16 20:46 400 MG Potassium Chloride (Klor-Con Tab) 20 meq QAM PO 10/30/16 09:00 10/31/16 13:42 DC 10/31/16 08:11 20 MEQ Potassium Chloride (Klor-Con Tab) 20 meq 1901 ONCE PO 10/29/16 19:01 10/30/16 07:28 DC 10/29/16 20:46 20 MEQ Cholestyramine Resin (Questran Powder Light) 4 gm BID@10,22 PO 10/30/16 22:00 11/29/16 21:59 11/01/16 08:49 4 GM Insulin Aspart (novoLOG ASPART) SLIDING SCALE TODAY@0200 SC 10/31/16 02:00 10/31/16 02:01 DC 10/31/16 02:14 1 UNITS Vancomycin HCl (Vancomycin Oral Soln) 250 mg DAILY@0000,0600,1200,1800 PO 10/30/16 18:00 2/7/17 16:59 11/01/16 13:03 250 MG Raspberry (Raspberry Syrup 5ml Cup) 5 ml Q6 PO 11/01/16 00:00 11/13/16 16:59 11/01/16 13:04 5 ML Objective Vital Signs Date Time Temp Pulse Resp B/P Pulse Ox O2 Delivery O2 Flow Rate FiO2 11/01/16 07:24 37.1 85 16 137/72 96 Room Air 11/01/16 00:00 Room Air 10/31/16 17:39 37.0 89 148/73 10/31/16 17:00 96 109/73 10/31/16 16:45 90 119/68 10/31/16 16:30 84 111/75 10/31/16 16:15 91 118/70 10/31/16 16:00 Room Air 10/31/16 16:00 82 117/80 10/31/16 15:45 36.8 92 20 112/75 99 Room Air 10/31/16 15:45 85 112/75 10/31/16 15:30 89 103/64 10/31/16 15:15 92 136/78 10/31/16 15:00 93 164/58 10/31/16 14:45 89 152/51 10/31/16 14:30 89 147/70 10/31/16 14:15 54 130/69 Physical Exam General Appearance: WD/WN, no apparent distress Respiratory/Chest: chest non-tender, lungs clear, normal breath sounds, no respiratory distress Cardiovascular: regular rate, rhythm, no edema Abdomen: normal bowel sounds, non tender, soft, no organomegaly Extremities: no pedal edema, no calf tenderness Neurologic/Psychiatric: alert, normal mood/affect, oriented x 3 Skin: normal color, warm/dry, no rash Laboratory Results Results Past 24 Hours Test 10/31/16 17:36 10/31/16 19:57 11/01/16 07:35 11/01/16 07:43 Range/Units Bedside Glucose 81 204 158 70-90 mg/dl Sodium Level 138 136-145 mmol/L Potassium Level 4.1 3.5-5.1 mmol/L Chloride Level 98 98-107 mmol/L Carbon Dioxide Level 26 21-32 mmol/L Anion Gap 14.0 3-11 mmol/L Blood Urea Nitrogen 35 7-18 mg/dl Creatinine 5.80 0.60-1.20 mg/dl Est Creatinine Clear Calc Drug Dose 9.6 ml/min Estimated GFR () 8.8 Estimated GFR (Non- 7.6 BUN/Creatinine Ratio 6.1 10-20 Random Glucose 153 70-99 mg/dl Calcium Level 7.1 8.5-10.1 mg/dl Test 11/01/16 11:27 Range/Units Bedside Glucose 159 70-90 mg/dl Assessment and Plan This is a 56 year old female with previous history C.Diff colitis, ESRD on dialysis, DM, CAD, PAD, HTN, and HLD, presented with diarrhea, subjective fever/ chills, RUQ pain admitted for septic shock in the setting of C Diff Colitis recurrence. Septic Shock - Secondary to GI source of C Diff - Patient started on IV Flagyl and Vanco + IVF + Levophed - Blood cultures showed no growth, stool cultures were also negative, Flu swab neg. - Patient treated to for c.diff colitis - Levophed discontinued as patient stabilized - IV Flagyl discontinued on 10/28, and PO Vanco continues - Lactate last measured on 10/27 as 0.7, down from 2.74 on arrival - Vitals have stabilized Diarrhea - Positive for C.Diff toxin, stool cultures negative (no shiga, salmonella, Campylobacter jejuni), negative for shiga toxin - Diarrhea continuing to improve, mild increase in episodes over the weekend - Continue with PO Vanco 150mg QID. Can consider increase to 250mg QID if worsening or no improvement in diarrhea - Regimen of vanco recommended for 14 days for recurrent C. diff colitis. - Causing skin burn along inner thighs, prescribed zinc oxide ointment to be applied PRN - In view of non-improving diarrhea, increased vancomycin dose to 250mg QID and ordered cholestyramine. Discussed with pharmacy to separate dose timings as much as possible - If failure to resolve may need to consult GI (?need for scope for underlying IBD, colitis etc.) or ID (?refractory c.diff) - Luckily symptoms significantly improving with recent changes in vancomycin and addition of cholestyramine. Raspberry syrup makes oral ingestion of medication more tolerable. - Patient will continue with PO vancomycin upon discharge. - Recommend tapered/pulse regimen with probiotic overlap on last week of vanco and continued for two weeks thereafter ESRD - Secondary to diabetic nephropathy - Receives dialysis Mon/Sat/Sat - BMP trended Blood Pressure - Amlodipine and Metoprolol held in view of septic hypotension on admission. - Considered adrenal insufficiency in view of profound hypotension: random cortisol normal, ACTH normal - Was put on hydrocortisone in case of adrenal insufficiency, which has likely caused elevated glucose level - Current SBP in acceptable range without anti-hypertensives, thus continue to hold for now. - Hydrocortisone stopped as not likely to be adrenal insufficiency - Blood pressure noted to be in this range on outpatient basis, without acute illness, with antihypertensives - Needs to be follow up upon discharge to assess blood pressure and need to resume anti-hypertensives. HLD - Continue with statin T2DM - Glycemic consult with pharmacy managing insulin levels in view of highly elevated blood sugars - Lantus was increased to 14 u HS given increased glucose level, Novolog Sliding scale - Hydrocortisone stopped. Pharmacy informed as this may cause fluctuations and sugar, and risk of hypoglycemia if insulin not reduced - Better glycemic control attained Electrolytes - Hyponatremia resolved with IVF - Low levels of K+ and Mg+, likely secondary to high volume diarrhea - Started patient on KCL 20mEq and MgO 400mg tablets once daily --> K+ and Mg+ levels improved - KCl and MgO discontinued with resolution of diarrhea GI Prophylaxis - Continue Famotidine Depression - Continue mirtazapine 15mg qHS Diabetic neuropathy - Continue Lyrica 100mg BID DVT prophylaxis: - Heparin Dispo - Ongoing OT therapy plan: transfer training, bed mobility, increase activity level, balance training - Ongoing PT treatment plan: therapeutic exercise, gait training, transfers , endurance - Patient shows remarkable improvement, will reassess tomorrow for ability/ safety to return to [facility] Code Status: - DNR Resident Physician Supervision Note: I interviewed and examined the patient. Discussed with Dr. Webber and agree with findings and plan as documented in the note. Any exceptions or clarifications are listed here: None Documented By: Roel Crespo feeling better, far less diarrhea, stools starting to be more solid. less weak , less abdominal cramping vitals noted, nad, breathing unlabored, abd soft nd, mild diffuse tenderness no guarding no rebound recurrent Cdiff colitis w sepsis/hypovolemic shock - improving. vanco --> prolonged taper and pulsed dosing. cholestyramine. ESRD - ongoing HD. otherwise as above Continued [facility] stay due to: home environment unsafe for pt
[2016-11-01 15:09] VITALS: BP 154/75; PULSE 84; TEMP 36.4; O2SAT 97
[2016-11-01] MEDS: ATORVASTATIN 20 MG TAB PO SCH (20:42)
[2016-11-01] MEDS: MIRTAZAPINE TAB 15 MG TAB PO SCH (20:43)
[2016-11-01 23:00] VITALS: BP 99/58; PULSE 84; TEMP 37.2; O2SAT 95
[2016-11-02] VITALS (19 sets, daily range): BP systolic 121–170; BP diastolic 65–85; PULSE 79–95; TEMP 37–37.5; O2SAT 94–98
[2016-11-02] MEDS: HEPARIN SOD 5000 UNIT/0.5 ML CARP SQ SCH ×3 (04:41→21:43)
[2016-11-02] MEDS: RASPBERRY SYRUP 5 ML UDP PO SCH ×4 (06:07→23:55)
[2016-11-02] MEDS: VANCOMYCIN HCL 250 MG/5 ML SOLN PO SCH ×4 (06:07→23:55)
[2016-11-02 07:34] LABS: BUN/CREATININE RATIO 6.6 (10-20); CALCIUM 6.9 mg/dl (8.5-10.1); POTASSIUM 4.6 mmol/L (3.5-5.1)
[2016-11-02 07:38] LABS: CREATININE 7.5 mg/dl (0.60-1.20)
[2016-11-02] MEDS ORDERED: EPOETIN ALFA 10,000 UNITS/ML VIAL IV. ONE (07:45)
[2016-11-02] MEDS ORDERED: ALBUMIN HUMAN 25% 12.5 GM/50 ML VIAL IV SCH (08:00)
[2016-11-02] MEDS: INSULIN ASPART 100 UNITS/ML 3 ML PEN SC SCH ×4 (08:01→22:04)
[2016-11-02] MEDS: INSULIN GLARGINE SOLOSTAR 100 UNITS/ML 3 ML PEN SC SCH (08:02)
[2016-11-02] MEDS: PREGABALIN 100 MG CAP PO SCH ×2 (08:13→21:51)
[2016-11-02] MEDS: ASPIRIN 81 MG ECTAB PO SCH (08:13)
[2016-11-02] MEDS: CLOPIDOGREL BISULFATE 75 MG TAB PO SCH (08:13)
--- NOTE | 2016-11-02 10:15 | Nephrology Progress Note ---
Nephrology Progress Note Date of Service: Nov 02, 2016. Subjective 56 yo female with esrd with cdiff colitis and hypotension. pt doing much better. now with soft stools. no abdominal pain. pt is happy with her volume status. pt wants to go home after dialysis today. Objective Date Time Temp Pulse Resp B/P Pulse Ox O2 Delivery O2 Flow Rate FiO2 11/02/16 08:00 95 Room Air 11/02/16 07:41 37.3 89 18 154/74 95 Room Air 11/02/16 00:00 Room Air 11/01/16 23:00 37.2 84 18 99/58 95 Room Air 11/01/16 20:00 Room Air 11/01/16 16:00 Room Air 11/01/16 15:09 36.4 84 20 154/75 97 Room Air Physical Exam: General-[id number] Eyes-no scleral icterus, lazy eye ENT-mmm Neck-supple Lungs-cta Heart-rrr Abdomen-bs+ s/nt Extremities-no edema Neuro-nonfocal Current Inpatient Medications Medications (Trade) Dose Ordered Sig/Sandy Route Start Time Stop Time Status Last Admin Dose Admin Heparin Sodium (Porcine) (Heparin Sq 5000 Unit/0.5ml) 5,000 unit Q8H SQ 10/25/16 06:00 11/24/16 05:59 10/31/16 13:42 5,000 UNIT Acetaminophen (Tylenol Tab) 650 mg Q4H PRN PO 10/25/16 01:00 11/24/16 00:59 10/28/16 10:33 650 MG Aspirin (Ecotrin Tab) 81 mg DAILY PO 10/25/16 09:00 11/24/16 08:59 11/02/16 08:13 81 MG Clopidogrel Bisulfate (plAVix TAB) 75 mg DAILY PO 10/25/16 09:00 11/24/16 08:59 11/02/16 08:13 75 MG Mirtazapine (Remeron Tab) 15 mg HS PO 10/25/16 21:00 11/24/16 20:59 11/01/16 20:43 15 MG Pregabalin (Lyrica Cap) 100 mg BID PO 10/25/16 09:00 11/24/16 08:59 11/02/16 08:13 100 MG Miscellaneous Information (Consult Glycemic Management Pharmacy) 1 ea UD PRN N/A 10/25/16 01:30 11/24/16 01:29 Glucose (Glucose 40% Gel) 15-30 GRAMS 15 GRAMS... UD PRN PO 10/25/16 02:45 11/24/16 02:44 Glucose (Glucose Chew Tab) 4-8 Tablets 4 Tabl... UD PRN PO 10/25/16 02:45 11/24/16 02:44 Dextrose (Dextrose 50% 50ML Syringe) 25-50ML OF 50% DW IV FOR... UD PRN IV 10/25/16 02:45 11/24/16 02:44 10/25/16 08:55 50 ML Glucagon (Glucagon Inj) 1 mg UD PRN SQ 10/25/16 02:45 11/24/16 02:44 Atorvastatin Calcium (Lipitor Tab) 40 mg QPM PO 10/26/16 21:00 11/25/16 20:59 11/01/16 20:42 40 MG Insulin Aspart (novoLOG ASPART) SLIDING SCALE ACHS SC 10/26/16 16:00 11/25/16 15:59 11/02/16 08:01 5 UNITS Insulin Glargine (Lantus Solostar Pen) 0 UNITS FOR BSG BELOW ... QAM SC 10/28/16 09:00 11/27/16 08:59 11/02/16 08:02 5 UNIT Cholestyramine Resin (Questran Powder Light) 4 gm BID@10,22 PO 10/30/16 22:00 11/29/16 21:59 11/01/16 20:42 4 GM Vancomycin HCl (Vancomycin Oral Soln) 250 mg DAILY@0000,0600,1200,1800 PO 10/30/16 18:00 11/13/16 16:59 11/02/16 06:07 250 MG Raspberry (Raspberry Syrup 5ml Cup) 5 ml Q6 PO 11/01/16 00:00 11/13/16 16:59 11/02/16 06:07 5 ML Albumin Human (Albumin 25%) 12.5 gm TODAY@0800 IV 11/02/16 08:00 11/02/16 16:00 Last 24 Hours Test 11/01/16 11:27 11/01/16 16:08 11/01/16 20:07 11/02/16 06:31 Bedside Glucose 159 mg/dl 145 mg/dl 111 mg/dl Sodium Level 135 mmol/L Potassium Level 4.6 mmol/L Chloride Level 98 mmol/L Carbon Dioxide Level 22 mmol/L Anion Gap 15.0 mmol/L Blood Urea Nitrogen 49 mg/dl Creatinine 7.50 mg/dl Est Creatinine Clear Calc Drug Dose 7.4 ml/min Estimated GFR () 6.5 Estimated GFR (Non- 5.6 BUN/Creatinine Ratio 6.6 Random Glucose 193 mg/dl Calcium Level 6.9 mg/dl Test 11/02/16 07:33 Bedside Glucose 182 mg/dl Assessment & Plan ESRD-plan on dialysis today with 2 liter uf as bp tolerates. systolics in the 150s which is much better compared to admission. anemia of renal failure-hg levels are stable. no indication for procrit today. goal hg of 10 to 11 and hg above 11.
[2016-11-02] MEDS: CHOLESTYRAMINE LIGHT 4 GM PKT PO SCH ×2 (11:39→21:43)
--- NOTE | 2016-11-02 13:12 | Pharmacy Progress Note ---
Glycemic: Assessment & Plan Date of Service Nov 02, 2016. Assessment & Plan ASSESSMENT: * Patient is a 56yo diabetic female who receives intermittent hemodialysis treatments. * Patient has only been requiring ~18 units of insulin per day for the past two days, with reasonably well-controlled BSGs. Patient has been hyperglycemic so far today, but dialysis session is planned for this afternoon. * No changes for now, in anticipation of BSG drop following dialysis. PLAN FOR INPATIENT GLYCEMIC MANAGEMENT: * Basal insulin: Lantus 5 units SQ QAM -- give an extra 5 units x1 dose this evening if post-dialysis BSGs remain elevated -- hold if BSG less than 110mg/dL * Correctional Insulin: Novolog Correction per scale ACHS Goal Range: Low 110 mg/dL - High 150 mg/dL Correction Factor: 35 mg/dL/unit * Prandial insulin: Per carb ratio of 1 unit per 14 grams CHO consumed Pharmacy will continue to monitor patient daily and write orders per [facility] inpatient glycemic control protocol. Thanks. * Please note that the plan above was derived based on current level of insulin resistance and hospital stress. These recommendations are appropriate for inpatient admission only. Plan of care upon discharge will need to be reassessed to avoid potential outpatient hypo/hyperglycemia.
--- NOTE | 2016-11-02 20:46 | Family Medicine Progress Note ---
Progress Note Date of Service Nov 02, 2016. Subjective Pt evaluation today including: conversation w/ patient, physical exam, chart review, lab review Patient feeling much better today, especially after washing up. Had no overnight accidents x 3 nights. Had 3 bowel movements yesterday and has only had one bowel movement since this morning, which were just soft, not loose. Previous abdominal pain has lessened, and become more diffuse rather than localized. Her skin on her inner thighs is significantly improved, and even less sore with ambulation than before. Patient otherwise tolerating diet without nausea or vomiting and slept well overnight without acute issues. Constitutional: No chills, No fever Respiratory: No cough, No shortness of breath Cardiovascular: No chest pain, No edema, No palpitations Abdomen: + pain, No constipation, No diarrhea, No nausea, No vomiting Skin: + rash Objective Vital Signs Date Time Temp Pulse Resp B/P Pulse Ox O2 Delivery O2 Flow Rate FiO2 11/02/16 20:16 37.0 86 152/67 11/02/16 19:46 82 132/68 11/02/16 19:30 83 123/70 11/02/16 19:15 82 138/72 11/02/16 19:00 85 134/73 11/02/16 18:45 89 135/71 11/02/16 18:30 81 123/70 11/02/16 18:15 80 128/65 11/02/16 18:00 79 121/69 11/02/16 17:45 79 129/72 11/02/16 17:30 88 145/77 11/02/16 17:15 82 137/69 11/02/16 17:00 87 170/85 11/02/16 16:46 87 170/85 11/02/16 16:30 37.4 86 166/82 11/02/16 16:00 Room Air 11/02/16 15:24 37.0 83 18 144/73 94 Room Air 11/02/16 08:00 95 Room Air 11/02/16 07:41 37.3 89 18 154/74 95 Room Air 11/02/16 00:00 Room Air 11/01/16 23:00 37.2 84 18 99/58 95 Room Air Physical Exam General Appearance: WD/WN, no apparent distress Respiratory/Chest: chest non-tender, lungs clear, normal breath sounds, no respiratory distress Cardiovascular: regular rate, rhythm, no edema Abdomen: normal bowel sounds, soft, no organomegaly, + tenderness ( suprapubically) Extremities: no pedal edema, no calf tenderness Neurologic/Psychiatric: alert, normal mood/affect, oriented x 3 Skin: warm/dry, + rash Laboratory Results Results Past 24 Hours Test 11/02/16 06:31 11/02/16 07:33 11/02/16 11:26 11/02/16 16:24 Range/Units Sodium Level 135 136-145 mmol/L Potassium Level 4.6 3.5-5.1 mmol/L Chloride Level 98 98-107 mmol/L Carbon Dioxide Level 22 21-32 mmol/L Anion Gap 15.0 3-11 mmol/L Blood Urea Nitrogen 49 7-18 mg/dl Creatinine 7.50 0.60-1.20 mg/dl Est Creatinine Clear Calc Drug Dose 7.4 ml/min Estimated GFR () 6.5 Estimated GFR (Non- 5.6 BUN/Creatinine Ratio 6.6 10-20 Random Glucose 193 70-99 mg/dl Calcium Level 6.9 8.5-10.1 mg/dl Bedside Glucose 182 231 134 70-90 mg/dl Assessment and Plan This is a 56 year old female with previous history C.Diff colitis, ESRD on dialysis, DM, CAD, PAD, HTN, and HLD, presented with diarrhea, subjective fever/ chills, RUQ pain admitted for septic shock in the setting of C Diff Colitis recurrence. Septic Shock - Secondary to GI source of C Diff - Patient started on IV Flagyl and Vanco + IVF + Levophed - Blood cultures showed no growth, stool cultures were also negative, Flu swab neg. - Patient treated to for c.diff colitis - Levophed discontinued as patient stabilized - IV Flagyl discontinued on 10/28, and PO Vanco continues - Lactate last measured on 10/27 as 0.7, down from 2.74 on arrival - Vitals have stabilized Diarrhea - Positive for C.Diff toxin, stool cultures negative (no shiga, salmonella, Campylobacter jejuni), negative for shiga toxin - Diarrhea continuing to improve, mild increase in episodes over the weekend - Continue with PO Vanco 150mg QID. Can consider increase to 250mg QID if worsening or no improvement in diarrhea - Regimen of vanco recommended for 14 days for recurrent C. diff colitis. - Causing skin burn along inner thighs, prescribed zinc oxide ointment to be applied PRN - In view of non-improving diarrhea, increased vancomycin dose to 250mg QID and ordered cholestyramine. Discussed with pharmacy to separate dose timings as much as possible - If failure to resolve may need to consult GI (?need for scope for underlying IBD, colitis etc.) or ID (?refractory c.diff) - Luckily symptoms significantly improving with recent changes in vancomycin and addition of cholestyramine. Raspberry syrup makes oral ingestion of medication more tolerable. - Patient will continue with PO vancomycin upon discharge. - Recommend tapered/pulse regimen with probiotic overlap on last week of vanco and continued for two weeks thereafter. Regimen is as follows: Week 1: PO Vancomycin 125 QID (at 06:00, 13:00, 18:00, 01:00) x 7 days + cholestyramine PO 4gm BID x 7days (at 10:00, 22:00) - Please give at these specific timings to avoid drug interactions. 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 - Considered adrenal insufficiency in view of profound hypotension: random cortisol normal, ACTH normal - Was put on hydrocortisone in case of adrenal insufficiency, which has likely caused elevated glucose level - Current SBP in acceptable range without anti-hypertensives, thus continue to hold for now. - Hydrocortisone stopped as not likely to be adrenal insufficiency - Blood pressure noted to be in this range on outpatient basis, without acute illness, with antihypertensives - Needs to be follow up upon discharge to assess blood pressure and need to resume anti-hypertensives. HLD - Continue with statin T2DM - Glycemic consult with pharmacy managing insulin levels in view of highly elevated blood sugars - Lantus was increased to 14 u HS given increased glucose level, Novolog Sliding scale - Hydrocortisone stopped. Pharmacy informed as this may cause fluctuations and sugar, and risk of hypoglycemia if insulin not reduced - Better glycemic control attained Electrolytes - Hyponatremia resolved with IVF - Low levels of K+ and Mg+, likely secondary to high volume diarrhea - Started patient on KCL 20mEq and MgO 400mg tablets once daily --> K+ and Mg+ levels improved - KCl and MgO discontinued with resolution of diarrhea GI Prophylaxis - Continue Famotidine Depression - Continue mirtazapine 15mg qHS Diabetic neuropathy - Continue Lyrica 100mg BID DVT prophylaxis: - Heparin Dispo - Ongoing OT therapy plan: transfer training, bed mobility, increase activity level, balance training - Ongoing PT treatment plan: therapeutic exercise, gait training, transfers , endurance - Patient shows remarkable improvement, will reassess tomorrow for ability/ safety to return to [facility] Code Status: - DNR Resident Physician Supervision Note: I interviewed and examined the patient. Discussed with Dr. Webber and agree with findings and plan as documented in the note. Any exceptions or clarifications are listed here: None Documented By: Roel Crespo feeling better less weak still crampy abdominal pain but better than before. far less BMs and much more solid vitals noted, nad abd soft nd, mild diffuse tenderness no guarding no rebound a/p recurrent Cdiff colitis w sepsis/hypovolemic shock on admission - now much improved ESRD - ongoing HD back to [facility] once it can be arranged prolonged [email or web address] Continued [facility] stay due to: home environment unsafe for pt
[2016-11-02] MEDS: ATORVASTATIN 20 MG TAB PO SCH (21:43)
[2016-11-02] MEDS: MIRTAZAPINE TAB 15 MG TAB PO SCH (21:52)
--- NOTE | 2016-11-02 22:55 | Discharge Instructions ---
Discharge Instructions Admission Reason for Admission: Diarrhea,Sepsis (Alka. Webber MD) Discharge Discharge Diagnosis / Problem: sepsis secondary to C.diff colitis (Alka. Webber MD) Discharge Goals Goal(s): Improve disease control, Therapeutic intervention (Alka. Webber MD) Activity Recommendations Activity Limitations: resume your previous activity (Alka. Webber MD) Instructions / Follow-Up Instructions / Follow-Up This is a 56 year old female with previous history C.Diff colitis, DM with ESRD on dialysis, CAD, PAD, HTN, and HLD Presented with diarrhea, subjective fever/chills, RUQ pain. Admitted for septic shock in the setting of C Diff Colitis recurrence. Started on PO vancomycin with addition of cholestyramine to control and largely resolve symptoms. C. Diff Colitis - Continue with PO vancomycin upon discharge. - Recommend tapered/pulse regimen with probiotic overlap on last week of vanco and continued for two weeks thereafter. Regimen is as follows: Week 1: PO Vancomycin 125 QID (at 06:00, 13:00, 18:00, 01:00) x 7 days + cholestyramine PO 4gm BID x 7days (at 10:00, 22:00) - Please give at these specific timings to avoid drug interactions. Week 2: PO Vancomycin 125 QID x 7 days (no cholestyramine this week, unless diarrhea worsens, then continue week 1 regimen) Week 3: PO Vancomycin 125 BID x 7 days (only continue cholestyramine if symptoms worsen without it) Week 4: PO Vancomycin 125 daily x 7 days Week 5: PO Vancomycin 125 every other day x 7 days Week 6: PO Vancomycin 125 every 3 days x 7 days Week 7: PO Vancomycin 125 every 3 days x 7 days and ADD probiotics Week 8 and 9: Probiotics only x 14 days - ALSO recommend outpatient follow up with GI for colonoscopy 6 weeks from discharge to rule out inflammatory bowel disease such as Crohn's ESRD secondary to diabetic nephropathy - Continue dialysis Mon/Sat/Sat Blood Pressure - Amlodipine and Metoprolol held in view of septic hypotension on admission. - Blood pressure noted to be in low/acceptable range with antihypertensives, even upon resolution of sepsis - Follow up upon discharge to assess blood pressure and need to resume anti- hypertensives. Titrate as appropriate. (Alka. Webber MD) Current Hospital Diet Patient's current hospital diet: Renal Diet, Diabetes Type 2 Diet (Alka. Webber MD) Discharge Diet Recommended Diet: Diabetes Type 2 Diet, Renal Diet Fluid Restriction: 1000 ml (4 cups) (Alka. Webber MD) Pending Studies Studies pending at discharge: no (Alka. Webber MD) Laboratory Results Hemoglobin A1c Test 10/25/16 18:18 Range/Units Estimated Average Glucose 174 mg/dl Hemoglobin A1c 7.7 H 4.5-5.6 % (Alka. Webber MD) Medical Emergencies . Who to Call and When: Medical Emergencies: If at any time you feel your situation is an emergency, please call 911 immediately. . (Alka. Webber MD) Non-Emergent Contact Non-Emergency issues call your: Primary Care Provider . (Alka. Webber MD) . "Provider Documentation" section prepared by Delia Webber. (Alka. Webber MD) VTE Core Measure Inpt VTE Proph given/why not?: Unfractionated heparin SQ (Alka. Webber MD)
[2016-11-03] MEDS: HEPARIN SOD 5000 UNIT/0.5 ML CARP SQ SCH (05:11)
[2016-11-03] MEDS: RASPBERRY SYRUP 5 ML UDP PO SCH ×2 (06:04→12:12)
[2016-11-03] MEDS: VANCOMYCIN HCL 250 MG/5 ML SOLN PO SCH ×2 (06:04→12:18)
[2016-11-03 07:21] VITALS: BP 105/63; PULSE 80; TEMP 37; O2SAT 91
[2016-11-03 08:00] VITALS: O2SAT 91
[2016-11-03] MEDS: ASPIRIN 81 MG ECTAB PO SCH (08:10)
[2016-11-03] MEDS: CLOPIDOGREL BISULFATE 75 MG TAB PO SCH (08:10)
[2016-11-03] MEDS: INSULIN ASPART 100 UNITS/ML 3 ML PEN SC SCH ×2 (08:23→12:18)
[2016-11-03] MEDS: PREGABALIN 100 MG CAP PO SCH (08:24)
[2016-11-03] MEDS: INSULIN GLARGINE SOLOSTAR 100 UNITS/ML 3 ML PEN SC SCH (08:24)
[2016-11-03 08:50] LABS: CALCIUM 6.9 mg/dl (8.5-10.1); CREATININE 5.3 mg/dl (0.60-1.20); POTASSIUM 4.2 mmol/L (3.5-5.1)
[2016-11-03] MEDS ORDERED: VNCS250 PO (11:23)
[2016-11-03] MEDS ORDERED: BUTTP EXT (11:23)
[2016-11-03] MEDS ORDERED: QSTP PO (11:23)
[2016-11-03 11:59] VITALS: BP 105/63; PULSE 80; TEMP 37; O2SAT 91
[2016-11-03] MEDS: CHOLESTYRAMINE LIGHT 4 GM PKT PO SCH (12:12)
--- NOTE | 2016-11-03 18:46 | Discharge Summary ---
Discharge Summary Admission Date: Oct 25, 2016 at 00:55 Discharge Date: Nov 03, 2016 Discharge Disposition: senior living facility Principal Diagnosis: Sepsis secondary to c.diff colitis Immunizations: Have You Had Influenza Vaccine: Unknown History of Tetanus Vaccine?: Unknown History of Pneumococcal: Unknown History of Hepatitis B Vaccine: Unknown (Alka. Webber MD) Principal Diagnosis: Cdiff colitis w sepsis and hypotension (Roel Crespo D.O.) Medication Reconciliation New Medications: Cholestyramine (Cholestyramine Light) 4 Gm Pack 4 GM PO BID@10,22 for 7 Days Vancomycin HCl (Vancomycin HCl) 250 Mg/5 Ml Susp 125 MG PO UD, #1 TAB See tapering schedule outlined on discharge instructions Zinc Oxide (Topical) (Boudreauxs Butt Paste) 171 Appln/57 Gm Pste 1 APPLN EXT PRN PRN for Diarrhea for 30 Days, #1 TUBE Continued Medications: Acetaminophen Tab (Tylenol) 325 Mg Tab 650 MG PO Q6H PRN for Pain or Fever, TAB NEEDED FOR PAIN RATED 1-10 ON A SCALE OF "0-10" OR FOR TEMPERATURE. DO NOT EXCEED 3 GM APAP/24 HOURS Aspirin (Aspirin) 81 Mg Tab 81 MG PO DAILY Atorvastatin (Lipitor) 40 Mg Tab 40 MG PO QPM, TAB B-Complex W/ C & Folic Acid (Warren Caps) 1 Cap Cap 1 CAP PO DAILY Bisacodyl (Dulcolax) 10 Mg Sup 1 SUPP NJ UD PRN for Constipation, SUP NEEDED FOR NO BOWEL MOVEMENT FOR 4 DAYS Calcium Carbonate (Antacid) (Tums E-X 750) 750 Mg Chw 750 MG PO TID Clopidogrel (Plavix) 75 Mg Tab 75 MG PO DAILY, TAB Cyanocobalamin (Vitamin B-12) 1,000 Mcg Tab 1000 MCG PO DAILY, TAB Dextrose (Diabetic Use) (Insta-Glucose) 77.4 % Gel 1 APPLN PO UD PRN for HYPOGLYCEMIA PROTOCOL NEEDED FOR HYPOGLYCEMIA BLOOD GLUCOSE < 60 AND/OR SYMPTOMATIC HYPOGLYCEMIA. MUST BE RESPONSIVE AND ABLE TO SAFELY SWALLOW. Folic Acid (Folic Acid) 1 Mg Tab 1 MG PO BID Glucagon (Glucagon Emergency Kit) 1 Mg Kit 1 DOSE IM UD PRN for HYPOGLYCEMIA PROTOCOL NEEDED FOR HYPOGLYCEMIA BLOOD GLUCOSE < 60 AND/OR SYMPTOMATIC/UNRESPONSIVE HYPOGLYCEMIA. MAY REPEAT IN 15 MINUTES IF NEEDED. Heparin Sod (Porcine) (Heparin Sodium) 1,000 Unit/Ml Inj 1000 UNITS SC 3XWK ADMINISTER THIS MEDICATION EVERY SATURDAY,SATURDAY AND SATURDAY Insulin Glargine (Lantus) 100 Unit/Ml Inj 5 UNITS SQ 3XWK ADMINISTER ONE TIME A DAY EVERY SATURDAY,SATURDAY AND SATURDAY Insulin Glargine (Lantus) 100 Unit/Ml Inj 5 UNITS SC 4XWK, VIAL ADMINISTER ONE TIME A DAY EVERY SATURDAY,SATURDAY,SATURDAY AND SATURDAY Insulin Glargine (Lantus) 100 Unit/Ml Inj 7 UNITS SC UD, VIAL ADMINISTER ONE TIME A DAY AT 0400 HOURS EVERY SATURDAY,SATURDAY AND SATURDAY Insulin Lispro (Human) (Humalog) 100 Unit/Ml Inj 5 UNITS SQ AC PLUS SLIDING SCALE FOLLOWS: 0 - 150 0 UNITS 151 - 200 6 UNITS 201 - 250 8 UNITS 251 - 300 10 UNITS 301 - 350 12 UNITS 351 - 400 14 UNITS 401 - 450 16 UNITS Loratadine (Claritin) 10 Mg Tab 10 MG PO Q24H PRN for Congestion, TAB Mirtazapine (Remeron) 15 Mg Tab 15 MG PO HS, TAB Omeprazole (Prilosec) 20 Mg Capcr 20 MG PO DAILY, CAP Pregabalin (Lyrica) 100 Mg Cap 100 MG PO BID, CAP Pyridoxine Hcl (Vitamin B 6) 50 Mg Tab 50 MG PO DAILY Sevelamer Carbonate (Renvela) 800 Mg Tab 800 MG PO TID [Protein Supplement] () 30 ML PO BID [Tap Water Enema] () 1 EA NJ UD PRN for Constipation IF AFTER 4 HOURS DULCOLAX SUPPOSITORY WAS INEFFECTIVE GIVE 500 CC TAP WATER ENEMA Discontinued Medications: Amlodipine Besylate (Norvasc) 10 Mg Tab 10 MG PO DAILY, TAB Lactobacillus Acidophilus (Lactinex) Tab 1 TAB PO TID, TAB Metoprolol Succ (Toprol Xl) (Toprol-Xl) 25 Mg Tabcr 12.5 MG PO DAILY, TAB HOLD THIS MEDICATION FOR APICAL HEART RATE LESS THAN 50 Discharge Exam Patient feeling much better today, especially after washing up. Had no overnight accidents x 4 nights in a row. Had 3 bowel movements yesterday and has only had one bowel movement since this morning. Bowel movements not watery, just soft. Previous abdominal pain has lessened, and become more diffuse rather than localized. Her skin on her inner thighs is significantly improved, and even less sore with ambulation than before. Patient otherwise tolerating diet without nausea or vomiting and slept well overnight without acute issues. Review of Systems: Constitutional: No chills, No fever Respiratory: No cough, No shortness of breath, No wheezing Cardiovascular: No chest pain, No edema, No orthopnea, No palpitations Abdomen: + pain, No constipation, No diarrhea, No nausea, No vomiting Integumentary: + rash, No color change, No itch Physical Exam: General Appearance: WD/WN, no apparent distress Neck: supple Respiratory/Chest: chest non-tender, lungs clear, normal breath sounds, no respiratory distress Cardiovascular: regular rate, rhythm, no edema, no JVD Abdomen / GI: normal bowel sounds, soft, no organomegaly, + tenderness ( minimal) Extremities: no calf tenderness, no pedal edema Neurologic/Psychiatric: alert, normal mood/affect, oriented x 3 Skin: normal color, warm/dry, + rash (significantly improved, minimal pinkness) (Alka. Webber MD) Hospital Course This is a 56 year old female with previous history C.Diff colitis, ESRD on dialysis, DM, CAD, PAD, HTN, and HLD, presented with diarrhea, subjective fever/ chills, RUQ pain admitted for septic shock in the setting of C Diff Colitis recurrence. Septic Shock - Secondary to GI source of C Diff - Patient started on IV Flagyl and Vanco + IVF + Levophed - Blood cultures showed no growth, stool cultures were also negative, Flu swab neg. - Patient treated to for c.diff colitis - Levophed discontinued as patient stabilized - IV Flagyl discontinued on 10/28, and PO Vanco continues - Lactate last measured on 10/27 as 0.7, down from 2.74 on arrival - Vitals have stabilized Diarrhea - Positive for C.Diff toxin, stool cultures negative (no shiga, salmonella, Campylobacter jejuni), negative for shiga toxin - Diarrhea continuing to improve, mild increase in episodes over the weekend - Continue with PO Vanco 150mg QID. Can consider increase to 250mg QID if worsening or no improvement in diarrhea - Regimen of vanco recommended for 14 days for recurrent C. diff colitis. - Causing skin burn along inner thighs, prescribed zinc oxide ointment to be applied PRN - In view of non-improving diarrhea, increased vancomycin dose to 250mg QID and ordered cholestyramine. Discussed with pharmacy to separate dose timings as much as possible - If failure to resolve may need to consult GI (?need for scope for underlying IBD, colitis etc.) or ID (?refractory c.diff) - Luckily symptoms significantly improving with recent changes in vancomycin and addition of cholestyramine. Raspberry syrup makes oral ingestion of medication more tolerable. - Patient will continue with PO vancomycin upon discharge. - Recommend tapered/pulse regimen with probiotic overlap on last week of vanco and continued for two weeks thereafter. Regimen is as follows: Week 1: PO Vancomycin 125 QID (at 06:00, 13:00, 18:00, 01:00) x 7 days + cholestyramine PO 4gm BID x 7days (at 10:00, 22:00) - Please give at these specific timings to avoid drug interactions. Week 2: PO Vancomycin 125 QID x 7 days (no cholestyramine this week, unless diarrhea worsens, then continue week 1 regimen) Week 3: PO Vancomycin 125 BID x 7 days (only continue cholestyramine if symptoms worsen without it) Week 4: PO Vancomycin 125 daily x 7 days Week 5: PO Vancomycin 125 every other day x 7 days Week 6: PO Vancomycin 125 every 3 days x 7 days Week 7: PO Vancomycin 125 every 3 days x 7 days and ADD probiotics Week 8 and 9: Probiotics only x 14 days - Recommend outpatient follow up with GI for colonoscopy 6 weeks after discharge to rule out inflammatory bowel disease such as Crohn's ESRD - Secondary to diabetic nephropathy - Receives dialysis Mon/Wed/Fri - BMP trended Blood Pressure - Amlodipine and Metoprolol held in view of septic hypotension on admission. - Considered adrenal insufficiency in view of profound hypotension: random cortisol normal, ACTH normal - Was put on hydrocortisone in case of adrenal insufficiency, which has likely caused elevated glucose level - Current SBP in acceptable range without anti-hypertensives, thus continue to hold for now. - Hydrocortisone stopped as not likely to be adrenal insufficiency - Blood pressure noted to be in this range on outpatient basis, without acute illness, with antihypertensives - Needs to be follow up upon discharge to assess blood pressure and need to resume anti-hypertensives. HLD - Continue with statin T2DM - Glycemic consult with pharmacy managing insulin levels in view of highly elevated blood sugars - Lantus was increased to 14 u HS given increased glucose level, Novolog Sliding scale - Hydrocortisone stopped. Pharmacy informed as this may cause fluctuations and sugar, and risk of hypoglycemia if insulin not reduced - Better glycemic control attained Electrolytes - Hyponatremia resolved with IVF - Low levels of K+ and Mg+, likely secondary to high volume diarrhea - Started patient on KCL 20mEq and MgO 400mg tablets once daily --> K+ and Mg+ levels improved - KCl and MgO discontinued with resolution of diarrhea GI Prophylaxis - Continue Famotidine Depression - Continue mirtazapine 15mg qHS Diabetic neuropathy - Continue Lyrica 100mg BID DVT prophylaxis: - Heparin Dispo - Ongoing OT therapy plan: transfer training, bed mobility, increase activity level, balance training - Ongoing PT treatment plan: therapeutic exercise, gait training, transfers , endurance - Would recommend continued OT/PT upon discharge Code Status: - DNR Total Time Spent: Less than 30 minutes This includes examination of the patient, discharge planning, medication reconciliation, and communication with other providers. (Alka. Webber MD) Resident Physician Supervision Note: I interviewed and examined the patient. Discussed with Dr. Webber and agree with findings and plan as documented in the note. Any exceptions or clarifications are listed here: None Documented By: Roel Crespo feeling better stools getting more solid ready for discharge. vitals noted, nad abd soft mild distention nontender no guarding no rebound recurrent Cdiff colitis w sepsis/hypotension on admission - now improved. hypovolemia improved. ESRD ongoing HD. stable for transfer to [facility] - prolonged taper of vanco as above Total Time Spent: Less than 30 minutes (Roel Crespo, D.O.) Discharge Instructions Please refer to the electronic Patient Visit Report (Discharge Instructions) for additional information. (Alka. Webbre MD)
== END 2016-11-03 13:10 | DRG 871 ==
LOC: ENRESERVTM → ENRESERVDT → EDBD 21:49 → C.EDB 21:50 → C.MSICU 10-25 00:55 → C.2E 10-27 16:40 → C.MS2W 10-31 17:59
PROVIDERS: ADMIT Internal Medicine; ATTEND Family Medicine
PROC: 03HY32Z Insertion of Monitoring Device into Upper Artery, Percutaneous Approach (ICD-10-PCS; principal; 2016-10-25)
DX: A41.9 Sepsis, unspecified organism (principal); R65.21 Severe sepsis with septic shock; N18.6 End stage renal disease; A04.7 Enterocolitis due to Clostridium difficile; I12.0 Hypertensive chronic kidney disease with stage 5 chronic kidney disease or end stage renal disease; E87.1 Hypo-osmolality and hyponatremia; F32.9 Major depressive disorder, single episode, unspecified; E11.319 Type 2 diabetes mellitus with unspecified diabetic retinopathy without macular edema; E16.2 Hypoglycemia, unspecified; Z66 Do not resuscitate; E11.21 Type 2 diabetes mellitus with diabetic nephropathy; E11.65 Type 2 diabetes mellitus with hyperglycemia; I73.9 Peripheral vascular disease, unspecified; I25.10 Atherosclerotic heart disease of native coronary artery without angina pectoris; E87.5 Hyperkalemia; R74.8 Abnormal levels of other serum enzymes; E11.42 Type 2 diabetes mellitus with diabetic polyneuropathy; H54.0 Blindness, both eyes; D63.1 Anemia in chronic kidney disease; E83.51 Hypocalcemia; E78.5 Hyperlipidemia, unspecified; K21.9 Gastro-esophageal reflux disease without esophagitis; E11.22 Type 2 diabetes mellitus with diabetic chronic kidney disease; E87.6 Hypokalemia; R20.8 Other disturbances of skin sensation; Z87.891 Personal history of nicotine dependence; Z99.2 Dependence on renal dialysis; Z90.710 Acquired absence of both cervix and uterus; Z90.721 Acquired absence of ovaries, unilateral; Z90.5 Acquired absence of kidney; Z90.49 Acquired absence of other specified parts of digestive tract; Z90.89 Acquired absence of other organs; Z84.89 Family history of other specified conditions; Z79.02 Long term (current) use of antithrombotics/antiplatelets; Z79.4 Long term (current) use of insulin; Z79.82 Long term (current) use of aspirin; Z79.899 Other long term (current) drug therapy

== ENCOUNTER → 2016-11-12 | Outpatient (CLI) | payer OTHER ==
[~2016-11-12] MED LIST changes: -AMLO10TA4 PO; +BUTTP EXT; +DEXT40GE PO; +INSDGI SC; -INSPMPHMLG; -LCTX PO; -METO25TA3 PO; +Protein Supplement PO; +QSTP PO; -SUPPLEMENT SHAKE PO; +TAP WATER ENEMA PR; -TOPI25TA55 PO; -VNCS125 PO; +VNCS250 PO
[2016-11-12 15:35] LABS: HEMATOCRIT 29.7 % (37-47); MEAN CELL VOLUME 86.3 fL (80-100); MEAN CORPUSCULAR HEMOGLOBIN 27.9 pg (25-34); MEAN CORPUSCULAR HGB CONC 32.3 g/dl (32-36); MEAN PLATELET VOLUME 11.3 fL (7.4-10.4); PLATELET COUNT 216 K/uL (130-400); RED BLOOD COUNT 3.44 M/uL (4.2-5.4); WHITE BLOOD COUNT 9.31 K/uL (4.8-10.8)
[2016-11-12 15:57] LABS: ALB/GLOB RATIO 0.6 (0.9-2); ALKALINE PHOSPHATASE 255 U/L (45-117); ALT/SGPT 16 U/L (12-78); AST/SGOT 16 U/L (15-37); BLOOD UREA NITROGEN 48 mg/dl (7-18); BUN/CREATININE RATIO 7.9 (10-20); CALCIUM 8.3 mg/dl (8.5-10.1); CARBON DIOXIDE 21 mmol/L (21-32); CHLORIDE 95 mmol/L (98-107); GLUCOSE 347 mg/dl (70-99); SODIUM 130 mmol/L (136-145)
[2016-11-12 16:15] LABS: BETA-HYDROXYBUTYRATE 1.04 mg/dL (0.2-2.81)
[2016-11-12 16:30] LABS: BASO % 0.3 %; BASO ABS # 0.03 K/uL (0-0.2); COMPLETE YES; EOS % 1.1 %; IG% 0.3 %; LYMPH % 23.1 %; LYMPH ABS # 2.15 K/uL (1.2-3.4); MONO % 7.8 %; NEUT % 67.4 %
--- NOTE | 2016-11-13 13:55 | CODING QUERY NO DIAGNOSIS ---
TREATMENT RENDERED WITHOUT A DIAGNOSIS To promote full compliance with coding requirements relating to patient care, physician participation is requested in all cases of supervisor policy change clerks uncertainty. Please assist us with providing a diagnosis/symptom for the test(s) below: A diagnosis/symptom was not documented on your Order. A valid diagnosis/symptom is required to bill all insurances. Please remember that we are unable to code a diagnosis of rule out, probable, possible, questionable, or suspected. Tests that require a diagnosis: DOS: 11/12/16 * FLU SWAB DIAGNOSIS: * BLOOD CULTURE DIAGNOSIS: * CBC DIAGNOSIS: * CMP DIAGNOSIS: * BETA HYDROXYBUTYRATE DIAGNOSIS: Provider Signature: Date: Thank you Alicja Woody [facility] Information Management Once completed, please kindly fax back to [phone] For questions please call [phone]
== END ==
LOC: C.LABUPHEI 14:12
PROVIDERS: ATTEND Family Medicine
DX: R50.9 Fever, unspecified (principal)

== ENCOUNTER → 2017-01-30 | Outpatient (CLI) | payer OTHER ==
[~2017-01-30] MED LIST changes: +CALC500C3 PO; +CINA0.42 PO; +INSU1.2I SC; +NVLGI/PEN SC; +ONDA4TAB46 PO; +OXYC-57 PO; +TOPI25TA99 PO
== END ==
LOC: C.LABUPNIT 14:58
PROVIDERS: ATTEND Family Medicine
DX: A04.7 Enterocolitis due to Clostridium difficile (principal)

== ENCOUNTER → 2017-02-23 | Outpatient (CLI) | payer OTHER | LOC: C.LABUPNIT 15:11 | PROVIDERS: ATTEND Nurse Practitioner Family | DX: A04.7 Enterocolitis due to Clostridium difficile (principal) ==

== ENCOUNTER → 2017-02-26 | Outpatient (CLI) | payer OTHER ==
--- NOTE | 2017-02-26 14:35 | DIAGNOSTIC IMAGING REPORT ---
ULTRASOUND OF THE PELVIS CLINICAL HISTORY: Pelvic pain. COMPARISON STUDY: Pelvic CT dated 10/24/2016. TECHNIQUE: Real-time, grayscale, and color flow sonography of the pelvis is performed transabdominally. The patient declined the endovaginal assessment. Images are reviewed in the transverse and longitudinal planes. FINDINGS: Uterus: The uterus is surgically absent Ovaries: The ovaries were not visualized. The left ovary is reported surgically absent. Pelvis: There is no free fluid in the cul-de-sac. No concerning adnexal lesion is seen. IMPRESSION: 1. The uterus is surgically absent. 2. The ovaries were not identified and the left ovary is reported surgically absent. 3. No acute abnormality is seen. Electronically signed by: Dewayne Andrade M.D. 02/26/2017 2:34 PM Dictated Date/Time: 02/26/2017 2:32 PM
== END | disposition home or self-care (01) ==
LOC: C.ULTR 09:35
PROVIDERS: ATTEND Nurse Practitioner Family
DX: R10.2 Pelvic and perineal pain (principal); Z90.710 Acquired absence of both cervix and uterus

== ENCOUNTER → 2017-07-04 | Outpatient (CLI) | payer OTHER ==
[~2017-07-04] MED LIST changes: -CALC500C3 PO; -CINA0.42 PO; -INSU1.2I SC; -NVLGI/PEN SC; -ONDA4TAB46 PO; -OXYC-57 PO; -TOPI25TA99 PO
[2017-07-04 08:39] LABS: ESTIMATED AVERAGE GLUCOSE 171 mg/dl; HA1C FLAG Normal (Normal)
== END ==
LOC: C.LABUPNIT 08:06
PROVIDERS: ATTEND Nurse Practitioner Family
DX: E13.40 Other specified diabetes mellitus with diabetic neuropathy, unspecified (principal)

== ENCOUNTER 2017-09-02 17:14 | Emergency (ER) | payer OTHER ==
[~2017-09-02] VITALS: Ht 154.9 cm; Wt 77.2 kg
[2017-09-02 17:21] VITALS: O2SAT 92; Ht 154.9 cm; Wt 77.2 kg
[2017-09-02] MEDS ORDERED: ONDANSETRON INJ 2 MG/ML 2 ML VIAL IV STA (17:26)
[2017-09-02] MEDS ORDERED: HYDROmorphone INJ 1 MG/ML SYR IV STA (17:26)
[2017-09-02] MEDS ORDERED: SODIUM CHLORIDE 0.9% 1000ML 1,000 ML IV STA ×2 (17:26→18:55)
--- NOTE | 2017-09-02 17:34 | EMERGENCY ROOM VISIT NOTE ---
History Report prepared by Martita: Sahara Sullivan Under the Supervision of: Dr. Sheng Lancaster M.D. First contact with patient: 17:16 Chief Complaint: ABDOMINAL PAIN Stated Complaint: GI BLEED Nursing Triage Summary: Diffuse lower abdominal pain started while patient was at dialysis this date. Described as severe. Patient arrives hypotensive, tachycardiac, tachypnea. Patient has guarding of lower abdomen. She describes this as severe. Patient has associated nausea/vomiting. [facility], [place] reports a very large BM after dialysis which they describe as concerning for GI bleed. History of Present Illness The patient is a 57 year old female who presents to the Emergency Room with complaints of persistent lower abdominal pain. She was brought to the ED via EMS. She describes her pain as feeling "severe" in nature. She was at dialysis when the pain started. EMS reports she was hypotensive, tachycardic and tachypneic when they arrived. The patient has also been nauseous and has vomited. She had a large BM after dialysis, which staff at [facility], where she resides, felt was concerning for a GI bleed, and called EMS. 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 A total of 10 systems reviewed and were otherwise negative. Past Medical & Surgical Medical Problems: (1) Dependence on renal dialysis (2) Diarrhea (3) Major depression, chronic (4) Renal cyst (5) S/p nephrectomy (6) Sepsis Surgical Problems: (1) S/P appendectomy (2) S/P cholecystectomy Family History History of colostomy MOTHER SISTER Social History Smoking Status: Former Smoker Alcohol Use: none Drug Use: none Marital Status: single Housing Status: senior living Occupation Status: disabled Current/Historical Medications Scheduled Aspirin (Aspirin), 81 MG PO DAILY Atorvastatin (Lipitor), 40 MG PO QPM B-Complex W/ C & Folic Acid (Amrit Caps), 1 CAP PO DAILY Calcium Carbonate (Tums), 1,000 MG PO HS Calcium Carbonate (Antacid) (Tums E-X 750), 750 MG PO BID Cinacalcet (Sensipar), 30 MG PO DAILY Clopidogrel (Plavix), 75 MG PO DAILY Cyanocobalamin (Vitamin B-12), 1,000 MCG PO DAILY Folic Acid (Folic Acid), 1 MG PO BID Insulin Glargine (Toujeo Solostar), 10 UNITS SC QAM Mirtazapine (Remeron), 15 MG PO HS Omeprazole (Prilosec), 20 MG PO DAILY Pregabalin (Lyrica), 100 MG PO BID Pyridoxine Hcl (Vitamin B 6), 50 MG PO TID Sevelamer Carbonate (Renvela), 2,400 MG PO BID Topiramate (Topamax ), 25 MG PO BID [Protein Supplement], 30 ML PO BID Scheduled PRN Dextrose (Diabetic Use) (Insta-Glucose), 1 APPLN PO UD PRN for HYPOGLYCEMIA PROTOCOL Glucagon (Glucagon Emergency Kit), 1 DOSE IM UD PRN for HYPOGLYCEMIA PROTOCOL Insulin Aspart (Novolog Flexpen), 1 DOSE SC ACHS PRN for SLIDING SCALE Ondansetron Hcl (Zofran), 4 MG PO Q8 PRN for Nausea Oxycodone/Acetaminophen 5MG/325MG (Percocet 5MG/325MG), 1 TABLET PO Q6H PRN for Pain Sevelamer Carbonate (Renvela), 1,600 MG PO TID PRN for PROPHYLACTIC WITH SNACKS Allergies Coded Allergies: Penicillins (Verified Allergy, Mild, RASH, 09/02/17) Quinolones (Verified Allergy, Mild, (CIPRO) HOT;RED;ITCHY, 09/02/17) Ciprofloxacin (Verified Allergy, Unknown, UNKNOWN, 09/02/17) Iodinated Diagnostic Agents (Verified Allergy, Unknown, IVP DYE, 09/02/17) Varenicline (Verified Allergy, Unknown, Unknown, 09/02/17) Prednisone (Verified Adverse Reaction, Unknown, POTASSIUM AND SUGAR SPIKES , 09/02/17) Physical Exam Vital Signs Date Time Temp Pulse Resp B/P (MAP) Pulse Ox O2 Delivery O2 Flow Rate FiO2 09/02/17 20:21 115 12 107/67 100 09/02/17 20:08 104 12 99 09/02/17 20:01 83/57 09/02/17 19:58 105 14 99 09/02/17 19:51 76/58 09/02/17 19:48 106 13 100 09/02/17 19:41 80/34 09/02/17 19:38 109 17 100 09/02/17 19:33 85/59 11/27/17 19:32 117 24 100 09/02/17 19:22 115 19 99 09/02/17 19:20 92/61 09/02/17 19:12 113 19 100 09/02/17 19:02 113 17 81/39 100 09/02/17 18:52 113 21 100 09/02/17 18:51 37.9 09/02/17 18:47 102/37 09/02/17 18:44 137 25 100 09/02/17 18:37 89 99 50 09/02/17 18:35 77/63 09/02/17 18:29 123 23 93 09/02/17 18:17 104/41 09/02/17 18:14 119 26 92 09/02/17 18:02 118/50 09/02/17 17:59 108 30 93 09/02/17 17:52 94/51 09/02/17 17:40 68/35 09/02/17 17:31 121 09/02/17 17:31 68/35 09/02/17 17:27 59/39 09/02/17 17:21 36.7 120 30 61/43 91 Room Air 09/02/17 17:21 92 Room Air Physical Exam GENERAL: Patient is a well nourished 57 year old female, writhing around the bed in pain HEAD: Normocephalic atraumatic EYES: Ocular movements intact pupils equal and react to light OROPHARYNX mucous membranes are moist no exudates present no erythema or edema present NECK: Supple no nuchal rigidity CHEST: Good equal expansion LUNGS: Clear and equal to auscultation CARDIAC: Normal S1 and S2 ABDOMEN: Soft,exquisite tenderness to touch, no guarding BACK: No CVA tenderness EXTREMITIES: No pain upon palpation normal muscle strength in all groups no clubbing cyanosis or edema NEURO: Patient is following commands and answering questions appropriately. Alert and oriented x3 Cranial Nerves 2-12 grossly intact Medical Decision & Procedures ER Provider Diagnostic Interpretation: Free fluid was seen on FAST exam. Radiology results as stated below per my review and radiologist interpretation: ANGIO ABD/PELVIS WITH CONTRAST CLINICAL HISTORY: 57 years-old Female presenting with Pt diffuse abd pain, severe abdominal pain, on dialysis. TECHNIQUE: Multidetector CT angiography of the abdomen and pelvis was performed after the administration of intravenous contrast. 3-D volumetric and/or maximum intensity projection (MIP) images were subsequently reconstructed for review. IV contrast: 115 mL of Optiray 320. A dose lowering technique was used consistent with the principles of ALARA (as low as reasonably achievable). Stenosis measurements were based on NASCET-like criteria. COMPARISON: Noncontrast CT from 10/24/2016. CT DOSE (mGy.cm): The estimated cumulative dose is 785.34 mGycm. FINDINGS: Boiling Tub Operator topogram: Cholecystectomy clips. Dilated small bowel loops with pneumatosis suggested in the mid abdomen. Vasculature: Atherosclerosis of the normal caliber abdominal aorta. Extensive atherosclerosis of the celiac artery and superior mesenteric artery as well as their branch vessels. The common hepatic artery origin is extensively irregular secondary to plaque as is the proximal splenic artery. Similarly, the SMA demonstrates extensive intimal irregularity. However, no focal occlusion is evident. The inferior mesenteric artery is also patent. Bilateral common iliac arteries are narrowed by diffuse atherosclerotic plaque. Bilateral external iliac arteries patent with a lesser degree of plaque. Bilateral superficial and deep femoral arteries are patent though narrow in caliber measuring 3 mm on the right and 3 mm on the left. No focal stenosis. Allowing for the phase of contrast, normal early filling in the superior mesenteric vein is suggested. Other abdomen and pelvis: Lung bases: Minimal dependent changes likely atelectasis. Normal heart size. No pericardial or pleural effusion. Liver: Normal morphology. Extensive portal venous gas noted. Trace perihepatic fluid. Allowing for the phase of contrast, no lesion is apparent. The hepatic artery is patent. Biliary: Mild extrahepatic biliary ductal dilatation, possibly a reservoir effect in the post cholecystectomy state. Gallbladder surgically absent. Pancreas: Mild parenchymal atrophy. Spleen: Normal parenchyma. Trace perisplenic fluid. Adrenal glands: Normal. Kidneys and ureters: The left kidney is absent. The right kidney is atrophic with multiple cysts. No hydronephrosis. Bladder: Incompletely evaluated secondary to underdistention. Pelvic organs: Uterus surgically absent. Bowel: Wall thickening of the under distended descending and sigmoid colon suggested. Extensive small bowel wall thickening with evidence of pneumatosis and relative hypoenhancement of small bowel wall in an extended segment of small bowel in the mid abdomen. This appears to involve the majority of small bowel. No obstruction. Peritoneal cavity: Small amount of free fluid throughout the abdomen and pelvis. No pneumoperitoneum at this time. Lymph nodes: No enlarged lymph nodes in the abdomen or pelvis. Abdominal wall: Midline ventral hernia containing fat and small amount of fluid. Musculoskeletal: Diffusely sclerotic bone marrow suggests renal osteodystrophy. IMPRESSION: 1. Findings highly suspicious for acute ischemia of small bowel with associated pneumatosis and portal venous gas. This the majority of small bowel. 2. Extensive atherosclerosis without a focal vessel occlusion. 3. Small amount of ascites. 4. Atrophic right kidney with absent left kidney. 5. Findings suggest renal osteodystrophy. These findings were discussed with Dr. Lancaster at 5:56 PM on 09/02/[address] Lozano. Electronically signed by: German Lozano M.D. 09/02/2017 6:06 PM CHEST ONE VIEW PORTABLE CLINICAL HISTORY: 57 years-old Female presenting with Pt c/o abd pain . TECHNIQUE: Portable upright AP view of the chest was obtained. COMPARISON: 10/24/2016. FINDINGS: Cardiomediastinal silhouette normal. Diffuse reticular lung markings with overall normal to slightly decreased lung volumes. Mild bronchial wall thickening may be present. These findings are largely unchanged from the prior exam. No new focal infiltrate. No large effusion or pneumothorax. Osteopenia suspected. Vascular stents project over the left axilla and left upper arm. Upper abdomen normal. IMPRESSION: 1. Persistent extensive reticular lung markings suggest chronic lung disease. A fibrotic process cannot be excluded. No superimposed acute disease is evident. Electronically signed by: German Lozano M.D. 09/02/2017 7:05 PM Laboratory Results 09/02/17 17:20 Red Blood Count 4.93, Mean Corpuscular Volume 92.5, Mean Corpuscular Hemoglobin 30.4, Mean Corpuscular Hemoglobin Concent 32.9, Mean Platelet Volume 12.6, Neutrophils (%) (Auto) 78.8, Lymphocytes (%) (Auto) 16.9, Monocytes (%) (Auto) 4.1, Eosinophils (%) (Auto) 0.0, Basophils (%) (Auto) 0.0, Neutrophils # (Auto) 4.19, Lymphocytes # (Auto) 0.90, Monocytes # (Auto) 0.22, Eosinophils # (Auto) 0.00, Basophils # (Auto) 0.00 09/02/17 17:20 Test 09/02/17 17:20 09/02/17 17:31 09/02/17 17:34 White Blood Count 5.32 K/uL (4.8-10.8) Red Blood Count 4.93 M/uL (4.2-5.4) Hemoglobin 15.0 g/dL (12.0-16.0) Hematocrit 45.6 % (37-47) Mean Corpuscular Volume 92.5 fL (80-100) Mean Corpuscular Hemoglobin 30.4 pg (25-34) Mean Corpuscular Hemoglobin Concent 32.9 g/dl (32-36) Platelet Count 197 K/uL (130-400) Mean Platelet Volume 12.6 fL (7.4-10.4) Neutrophils (%) (Auto) 78.8 % Lymphocytes (%) (Auto) 16.9 % Monocytes (%) (Auto) 4.1 % Eosinophils (%) (Auto) 0.0 % Basophils (%) (Auto) 0.0 % Neutrophils # (Auto) 4.19 K/uL (1.4-6.5) Lymphocytes # (Auto) 0.90 K/uL (1.2-3.4) Monocytes # (Auto) 0.22 K/uL (0.11-0.59) Eosinophils # (Auto) 0.00 K/uL (0-0.5) Basophils # (Auto) 0.00 K/uL (0-0.2) RDW Standard Deviation 46.6 fL (36.4-46.3) RDW Coefficient of Variation 13.7 % (11.5-14.5) Immature Granulocyte % (Auto) 0.2 % Immature Granulocyte # (Auto) 0.01 K/uL (0.00-0.02) Prothrombin Time 12.1 SECONDS (9.0-12.0) Prothromb Time International Ratio 1.1 (0.9-1.1) Activated Partial Thromboplast Time 26.0 SECONDS (21.0-31.0) Partial Thromboplastin Ratio 1.0 Est Creatinine Clear Calc Drug Dose 6.9 ml/min Estimated GFR () 5.4 Estimated GFR (Non- 4.7 BUN/Creatinine Ratio 9.8 (10-20) Calcium Level 8.6 mg/dl (8.5-10.1) Total Bilirubin 1.9 mg/dl (0.2-1) Direct Bilirubin 0.4 mg/dl (0-0.2) Aspartate Amino Transf (AST/SGOT) 33 U/L (15-37) Alanine Aminotransferase (ALT/SGPT) 24 U/L (12-78) Alkaline Phosphatase 197 U/L (45-117) Total Creatine Kinase 166 U/L (26-192) Creatine Kinase MB 6.2 ng/ml (0.5-3.6) Troponin I 0.018 ng/ml (0-0.045) Total Protein 7.4 gm/dl (6.4-8.2) Albumin 3.6 gm/dl (3.4-5.0) Lipase 96 U/L (73-393) Beta-Hydroxybutyric Acid 2.21 mg/dL (0.2-2.81) Creatine Kinase MB Ratio (0-3.0) Bedside Hemoglobin 17.0 g/dl (12.0-16.0) Bedside Hematocrit 50 % (37-47) Bedside Sodium 130 mEq/L (135-144) Bedside Potassium 4.9 mEq/L (3.3-5.0) Bedside Chloride 89 mEq/L (101-112) Bedside Total CO2 24 mEq/l (24-31) Anion Gap 23.0 mmol/L (16-25) Bedside Blood Urea Nitrogen 83 mg/dl (7-18) Bedside Creatinine 8.5 mg/dl (0.6-1.3) Bedside Glucose (other) 316 mg/dl (70-99) Bedside Ionized Calcium (Ness) 0.97 mmol/l (1.12-1.32) Labs reviewed by ED physician. Medications Administered Medications (Trade) Dose Ordered Sig/Sandy Route Start Time Stop Time Status Last Admin Dose Admin Sodium Chloride 1,000 ml @ 999 mls/hr Q1H1M STAT IV 09/02/17 17:26 09/02/17 18:26 DC 09/02/17 17:32 999 MLS/HR Hydromorphone HCl (Dilaudid Inj) 1 mg NOW STAT IV 09/02/17 17:26 09/02/17 17:27 DC 09/02/17 17:32 0.5 MG Ondansetron HCl (Zofran Inj) 4 mg NOW STAT IV 09/02/17 17:26 09/02/17 17:27 DC 09/02/17 17:32 4 MG Cefepime HCl 1000 mg/Dextrose 111 ml @ 200 mls/hr NOW STAT IV 09/02/17 17:50 09/02/17 18:23 DC 09/02/17 18:07 200 MLS/HR Clindamycin Phosphate (Cleocin 600mg/ 54ml D5W) 600 mg ONE STAT IV 09/02/17 17:50 09/02/17 17:52 DC 09/02/17 18:42 600 MG Vancomycin HCl (Vancomycin 1gm/ 270ml Nss) 1 gm NOW STAT IV 09/02/17 17:50 09/02/17 17:52 DC 09/02/17 18:55 1 GM Sodium Chloride 1,000 ml @ 999 mls/hr Q1H1M STAT IV 09/02/17 18:55 09/02/17 19:55 DC 09/02/17 19:01 999 MLS/HR Hydromorphone HCl (Dilaudid Inj) 0.5 mg NOW STAT IV 09/02/17 19:19 09/02/17 19:20 DC 09/02/17 19:30 0.5 MG ECG Indication: abdominal pain Rate (beats per minute): 121 Rhythm: sinus tachycardia Findings: no acute ischemic change, no ectopy ED Course 1726: Past medical records reviewed. The patient was evaluated in room B9 . A complete history and physical examination was performed. 1726: Zofran 4 mg IV, Dilaudid 1 mg IV, NSS 1000 ml @ 999 mls/hr IV. 1736: Nursing informed me the patients Hemoglobin is 17. 1750: Vancomycin HCl 1 gm IV, Clindamycin Phosphate 600 mg IV, Cefepime HCl 1000 mg/Dextrose 111 ml @ 200 mls/hr IV. 1800: I discussed the patients case with Dr. Barrow, [facility] General Surgery. He recommends the patient be evaluated at a tertiary care center. 1828: I discussed the patients case with Dr. Shelton, [facility] Vascular Surgery. He agrees with transfer. 1845: Nursing informed me the patients lactate is 6.95. 1855: Sodium Chloride 1000 ml @ 999 mls/hr IV 1910: I discussed the patients case with Dr. Arora, [facility] ICU. The patient has been accepted as a transfer and will be further evaluated. 1915: [facility] been [facility] and will be transferred via [facility]. 1918: Hydromorphone HCl 0.5 mg IV 2044: [facility] has arrived to transport the patient to [place]. Medical Decision Prior records/ancillary studies reviewed. Triage Nursing notes reviewed. The patient's history was concerning for abdominal pain. Differential diagnosis: Etiologies such as appendicitis, diverticulitis, PUD, biliary pathology, UTI, pancreatitis, obstruction, mesenteric ischemia, aortic pathology, infections, inflammatory bowel disease, renal colic, as well as others were entertained. This is a 57-year-old female who presents emergency department complaining of diffuse abdominal pain along with hypotension. The patient's abdominal pain started during dialysis today. I will note that the patient is listed as a DO NOT RESUSCITATE on her paperwork however the patient is telling me that she wants everything done including surgery as well as intubation if needed. The patient is exquisitely tender on physical examination and I'm concerned that the patient has a surgical abdomen. An IV was established, the patient is given normal saline bolus. As the patient is on dialysis and her volemic state is precarious, she was placed on BiPAP and given multiple doses of Dilaudid for her pain. She was immediately sent for CAT scan which was concerning for ischemic mesentery. Her lactate was found to be 7. Based on these findings I immediately called the vascular surgeon as well as the surgeon on-call. The surgeon on-call asked that the patient be transferred to a tertiary care center. I did discuss the case with [place] ICU as well as the [place] surgeon who readily accepted the patient. The patient will be transferred via [facility]. The patient was started on broad-spectrum antibiotics including cefepime and clindamycin as well as vancomycin. Patient and family members were in agreement with the treatment plan. Medication Reconcilliation Current Medication List: was personally reviewed by me Blood Pressure Screening Patient's blood pressure: Low blood pressure Consults Time Called: 175 Consulting Physician: Dr. Barrow, [facility] General Surgery Returned Call: 1800 I discussed the patients case with Dr. Barrow, [facility] General Surgery. He recommends the patient be evaluated at a tertiary care center. Additional Consults: Time Called: 175 Consulted Physician: Dr. Shelton, [facility] Vascular Surgery Returned Call: 1828 Additional Comments: I discussed the patients case with Dr. Shelton, [facility] Vascular Surgery. He agrees with transfer. Time Called: 180 Consulted Physician: Dr. Arora, [facility] Returned Call: 1909 Additional Comments: I discussed the patients case with Dr. Arora, [facility] ICU. The patient has been accepted as a transfer and will be further evaluated. Impression Primary Impression: Abdominal pain Additional Impression: Ischemia, bowel Critical Care I have personally spent greater than 180 minutes of critical care time in the direct management of this patient. This includes bedside care, interpretation of diagnostic studies, and testing, discussion with consultants, patient, and family members, and other required patient management activities. This 180 minutes is in excess of all separately billable procedures. Scribe Attestation The scribe's documentation has been prepared under my direction and personally reviewed by me in its entirety. I confirm that the note above accurately reflects all work, treatment, procedures, and medical decision making performed by me. Departure Information Dispostion Transfer Acute Care Facility (The patient has been accepted as a transfer to [facility] in [place]) Referrals Stalin Boles (PCP) Patient Instructions My [facility] Problem Qualifiers Primary Impression: Abdominal pain Abdominal location: generalized Qualified Codes: R10.84 - Generalized abdominal pain
[2017-09-02 17:46] LABS: COMPLETE YES; HEMATOCRIT 45.6 % (37-47); IG% 0.2 %; LYMPH % 16.9 %; MEAN CELL VOLUME 92.5 fL (80-100); MEAN CORPUSCULAR HEMOGLOBIN 30.4 pg (25-34); MEAN CORPUSCULAR HGB CONC 32.9 g/dl (32-36); MEAN PLATELET VOLUME 12.6 fL (7.4-10.4); MONO % 4.1 %; NEUT % 78.8 %; PLATELET COUNT 197 K/uL (130-400); RED BLOOD COUNT 4.93 M/uL (4.2-5.4); WHITE BLOOD COUNT 5.32 K/uL (4.8-10.8)
[2017-09-02 17:47] LABS: ISTAT CREATININE 8.5 mg/dl (0.6-1.3); ISTAT IONIZED CALCIUM 0.97 mmol/l (1.12-1.32)
[2017-09-02] MEDS ORDERED: VANCOMYCIN 1GM/270ML NSS IV STA (17:50)
[2017-09-02] MEDS ORDERED: CEFEPIME IV 1,000 MG in DEXTROSE 5% 100ML 100 ML IV STA (17:50)
[2017-09-02] MEDS ORDERED: CLINDAMYCIN 600 MG/54 ML D5W IV STA (17:50)
[2017-09-02 17:58] LABS: INR 1.1 (0.9-1.1); PROTHROMBIN TIME (PATIENT) 12.1 SECONDS (9.0-12.0)
[2017-09-02] MEDS ORDERED: OPTIRAY 320 IV PRN (18:00)
--- NOTE | 2017-09-02 18:07 | DIAGNOSTIC IMAGING REPORT ---
ANGIO ABD/PELVIS WITH CONTRAST CLINICAL HISTORY: 57 years-old Female presenting with Pt diffuse abd pain, severe abdominal pain, on dialysis. TECHNIQUE: Multidetector CT angiography of the abdomen and pelvis was performed after the administration of intravenous contrast. 3-D volumetric and/or maximum intensity projection (MIP) images were subsequently reconstructed for review. IV contrast: 115 mL of Optiray 320. A dose lowering technique was used consistent with the principles of ALARA (as low as reasonably achievable). Stenosis measurements were based on NASCET-like criteria. COMPARISON: Noncontrast CT from 10/24/2016. CT DOSE (mGy.cm): The estimated cumulative dose is 785.34 mGycm. 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 Dilated small bowel loops with pneumatosis suggested in the mid abdomen. Vasculature: Atherosclerosis of the normal caliber abdominal aorta. Extensive atherosclerosis of the celiac artery and superior mesenteric artery as well as their branch vessels. The common hepatic artery origin is extensively irregular secondary to plaque as is the proximal splenic artery. Similarly, the SMA demonstrates extensive intimal irregularity. However, no focal occlusion is evident. The inferior mesenteric artery is also patent. Bilateral common iliac arteries are narrowed by diffuse atherosclerotic plaque. Bilateral external iliac arteries patent with a lesser degree of plaque. Bilateral superficial and deep femoral arteries are patent though narrow in caliber measuring 3 mm on the right and 3 mm on the left. No focal stenosis. Allowing for the phase of contrast, normal early filling in the superior mesenteric vein is suggested. Other abdomen and pelvis: Lung bases: Minimal dependent changes likely atelectasis. Normal heart size. No pericardial or pleural effusion. Liver: Normal morphology. Extensive portal venous gas noted. Trace perihepatic fluid. Allowing for the phase of contrast, no lesion is apparent. The hepatic artery is patent. Biliary: Mild extrahepatic biliary ductal dilatation, possibly a reservoir effect in the post cholecystectomy state. Gallbladder surgically absent. Pancreas: Mild parenchymal atrophy. Spleen: Normal parenchyma. Trace perisplenic fluid. Adrenal glands: Normal. Kidneys and ureters: The left kidney is absent. The right kidney is atrophic with multiple cysts. No hydronephrosis. Bladder: Incompletely evaluated secondary to underdistention. Pelvic organs: Uterus surgically absent. Bowel: Wall thickening of the under distended descending and sigmoid colon suggested. Extensive small bowel wall thickening with evidence of pneumatosis and relative hypoenhancement of small bowel wall in an extended segment of small bowel in the mid abdomen. This appears to involve the majority of small bowel. No obstruction. Peritoneal cavity: Small amount of free fluid throughout the abdomen and pelvis. No pneumoperitoneum at this time. Lymph nodes: No enlarged lymph nodes in the abdomen or pelvis. Abdominal wall: Midline ventral hernia containing fat and small amount of fluid. Musculoskeletal: Diffusely sclerotic bone marrow suggests renal osteodystrophy. IMPRESSION: 1. Findings highly suspicious for acute ischemia of small bowel with associated pneumatosis and portal venous gas. This the majority of small bowel. 2. Extensive atherosclerosis without a focal vessel occlusion. 3. Small amount of ascites. 4. Atrophic right kidney with absent left kidney. 5. Findings suggest renal osteodystrophy. These findings were discussed with Dr. Lancaster at 5:56 PM on 09/02/[address] Lozano. Electronically signed by: German Lozano M.D. 09/02/2017 6:06 PM Dictated Date/Time: 09/02/2017 5:52 PM
[2017-09-02 18:18] LABS: BUN/CREATININE RATIO 9.8 (10-20); CALCIUM 8.6 mg/dl (8.5-10.1); CKMB/CK RATIO 3.7 (0-3.0); CREATININE 8.66 mg/dl (0.60-1.20); POTASSIUM 4.8 mmol/L (3.5-5.1)
[2017-09-02 18:29] LABS: BETA-HYDROXYBUTYRATE 2.21 mg/dL (0.2-2.81)
[2017-09-02] MEDS ORDERED: NVLGI/PEN SC (18:32)
[2017-09-02] MEDS ORDERED: OXYC-57 PO (18:35)
[2017-09-02 18:37] VITALS: PULSE 89; O2SAT 99
[2017-09-02] MEDS ORDERED: ONDA4TAB46 PO (18:37)
[2017-09-02 18:51] VITALS: TEMP 37.9
[2017-09-02] MEDS ORDERED: CINA0.42 PO (18:51)
[2017-09-02] MEDS ORDERED: INSU1.2I SC (18:53)
[2017-09-02] MEDS ORDERED: CALC500C3 PO (18:55)
[2017-09-02] MEDS ORDERED: CALC1CHW43 PO (18:56)
[2017-09-02] MEDS ORDERED: TOPI25TA99 PO (18:59)
[2017-09-02] MEDS ORDERED: SEVE800T7 PO (18:59)
--- NOTE | 2017-09-02 19:06 | DIAGNOSTIC IMAGING REPORT ---
CHEST ONE VIEW PORTABLE CLINICAL HISTORY: 57 years-old Female presenting with Pt c/o abd pain . TECHNIQUE: Portable upright AP view of the chest was obtained. COMPARISON: 10/24/2016. FINDINGS: Cardiomediastinal silhouette normal. Diffuse reticular lung markings with overall normal to slightly decreased lung volumes. Mild bronchial wall thickening may be present. These findings are largely unchanged from the prior exam. No new focal infiltrate. No large effusion or pneumothorax. Osteopenia suspected. Vascular stents project over the left axilla and left upper arm. Upper abdomen normal. IMPRESSION: 1. Persistent extensive reticular lung markings suggest chronic lung disease. A fibrotic process cannot be excluded. No superimposed acute disease is evident. Electronically signed by: German Lozano M.D. 09/02/2017 7:05 PM Dictated Date/Time: 09/02/2017 7:03 PM
[2017-09-02] MEDS ORDERED: HYDROmorphone INJ 0.5 MG/0.5 ML SYR IV STA (19:19)
[2017-09-02 20:21] VITALS: BP 107/67; PULSE 115; O2SAT 100
== END 2017-09-02 20:22 | disposition short-term general hospital (02) ==
LOC: EDBD 17:14 → C.EDB 17:15 → C.EDA 20:22
DX: K55.059 Acute (reversible) ischemia of intestine, part and extent unspecified (principal); I95.9 Hypotension, unspecified; Z99.2 Dependence on renal dialysis; F32.9 Major depressive disorder, single episode, unspecified; Z79.82 Long term (current) use of aspirin; Z79.02 Long term (current) use of antithrombotics/antiplatelets; Z79.4 Long term (current) use of insulin; Z90.5 Acquired absence of kidney; Z90.89 Acquired absence of other organs; Z90.49 Acquired absence of other specified parts of digestive tract; Z87.891 Personal history of nicotine dependence; Z83.79 Family history of other diseases of the digestive system

== ENCOUNTER → 2017-09-27 | Outpatient (CLI) | payer OTHER ==
[~2017-09-27] MED LIST changes: -ACET325T96 PO; -BISA10SU3 PR; -BUTTP EXT; +CALC500C3 PO; +CHOL4POW12 PO; +CINA0.42 PO; +DIPH25CA5 PO; +DOXY100T PO; +ENOX40IN SQ; +IMD/2 PO; -INSDGI SC; -INSDGI SQ; +INSU1.2I SC; -INSU100I SQ; +LACTCAP3 PO; +NVLGI/PEN SC; +ONDA4TAB46 PO; +OXYC-57 PO; -QSTP PO; -TAP WATER ENEMA PR; +TOPI25TA99 PO; -VNCS250 PO; -[UNRECOGNIZED DRUG - CODE] SC
== END ==
LOC: C.LABUPBEA 08:14
PROVIDERS: ATTEND Nurse Practitioner Family
DX: K51.80 Other ulcerative colitis without complications (principal); Z93.3 Colostomy status

== ENCOUNTER 2017-10-08 12:30 | Emergency (ER) | payer OTHER ==
[~2017-10-08] VITALS: Ht 167.6 cm; Wt 72.2 kg
[~2017-10-08 12:30] MED LIST changes: -CHOL4POW12 PO; -CLR10 PO; -DIPH25CA5 PO; -DOXY100T PO; -ENOX40IN SQ; -IMD/2 PO; -LACTCAP3 PO
[2017-10-08] MEDS ORDERED: GLUCOSE 40% GEL 15 GM TUBE ONE (12:39)
[2017-10-08 12:41] VITALS: TEMP 36.7; Ht 167.6 cm; Wt 72.2 kg
[2017-10-08 13:07] VITALS: O2SAT 100
[2017-10-08] MEDS ORDERED: CHOL4POW12 PO (13:08)
[2017-10-08] MEDS ORDERED: LACTCAP3 PO (13:08)
[2017-10-08] MEDS ORDERED: DOXY100T PO (13:08)
[2017-10-08] MEDS ORDERED: DIPH25CA5 PO (13:08)
[2017-10-08] MEDS ORDERED: ENOX40IN SQ (13:08)
[2017-10-08] MEDS ORDERED: IMD/2 PO (13:08)
[2017-10-08] MEDS ORDERED: CLR10 PO (13:08)
--- NOTE | 2017-10-08 14:23 | EMERGENCY ROOM VISIT NOTE ---
History Report prepared by Martita: Collin Meade Under the Supervision of: Dr. Marlon Lindsay M.D. 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 The patient currently resides at [facility]. PER EMS, the patient's blood sugar was 54 and they gave her oral glucose en route. HPI is limited secondary to patient's mental status. Source of History: patient History Limited By: AMS Onset: SHAPER MACHINE HAND Position: other (global ) Quality: other (altered mental status) Timing: constant Note: HPI is limited secondary to patient's mental status. Review of Systems ROS is limited secondary to patient's mental status. Past Medical & Surgical Medical Problems: (1) Dependence on renal dialysis (2) Diarrhea (3) Major depression, chronic (4) Renal cyst (5) S/p nephrectomy (6) Sepsis Surgical Problems: (1) S/P appendectomy (2) S/P cholecystectomy Family History History of colostomy MOTHER SISTER Social History Smoking Status: Unknown if Ever Smoked Alcohol Use: none Drug Use: none Marital Status: single [facility] Status: [facility] Occupation Status: disabled Current/Historical Medications Scheduled Aspirin (Aspirin), 81 MG PO DAILY Atorvastatin (Lipitor), 40 MG PO QPM B-Complex W/ C & Folic Acid (Adams Caps), 1 CAP PO DAILY Calcium Carbonate (Tums), 1,000 MG PO HS Calcium Carbonate (Antacid) (Tums E-X 750), 750 MG PO BID Cholestyramine (Questran), 1 PKT PO BID Cinacalcet (Sensipar), 30 MG PO DAILY Clopidogrel (Plavix), 75 MG PO DAILY Cyanocobalamin (Vitamin B-12), 1,000 MCG PO DAILY Diphenhydramine Hcl (Benadryl), 50 MG PO 3XWK Doxycycline Hyclate (Doxycycline Hyclate), 100 MG PO BID Enoxaparin (Lovenox), 40 MG SQ DAILY Folic Acid (Folic Acid), 2 MG PO BID Insulin Glargine (Toujeo Solostar), 10 UNITS SC QAM Lactobacillus (Acidophilus), 1 CAP PO DAILY Loperamide Hcl (Imodium), 2 MG PO BID Loratadine (Claritin), 10 MG PO DAILY Mirtazapine (Remeron), 7.5 MG PO HS Omeprazole (Prilosec), 20 MG PO DAILY Pregabalin (Lyrica), 100 MG PO BID Pyridoxine Hcl (Vitamin B 6), 50 MG PO DAILY Sevelamer Carbonate (Renvela), 1,600 MG PO AC Topiramate (Topamax ), 25 MG PO BID [Protein Supplement], 30 ML PO BID Scheduled PRN Dextrose (Diabetic Use) (Insta-Glucose), 1 APPLN PO UD PRN for HYPOGLYCEMIA PROTOCOL Glucagon (Glucagon Emergency Kit), 1 DOSE IM UD PRN for HYPOGLYCEMIA PROTOCOL Insulin Aspart (Novolog Flexpen), 1 DOSE SC ACHS PRN for SLIDING SCALE Oxycodone/Acetaminophen 5MG/325MG (Percocet 5MG/325MG), 1 TABLET PO Q6H PRN for Pain Allergies Coded Allergies: Penicillins (Verified Allergy, Mild, RASH, 10/08/17) Quinolones (Verified Allergy, Mild, (CIPRO) HOT;RED;ITCHY, 10/08/17) Ciprofloxacin (Verified Allergy, Unknown, UNKNOWN, 10/08/17) Iodinated Diagnostic Agents (Verified Allergy, Unknown, IVP DYE, 10/08/17) Varenicline (Verified Allergy, Unknown, Unknown, 10/08/17) Prednisone (Verified Adverse Reaction, Unknown, POTASSIUM AND SUGAR SPIKES , 10/08/17) Physical Exam Vital Signs Date Time Temp Pulse Resp B/P (MAP) Pulse Ox O2 Delivery O2 Flow Rate FiO2 10/08/17 22:55 94 17 10/08/17 22:40 86 17 100 Nasal Cannula 2.0 10/08/17 22:32 124/49 10/08/17 22:25 87 17 100 10/08/17 22:10 89 21 100 10/08/17 22:01 106/56 10/08/17 21:55 87 18 100 10/08/17 21:40 87 18 100 10/08/17 21:35 89 15 100 1/2/18 21:32 105/56 1/2/18 21:20 87 15 100 1/2/18 21:05 85 16 100 1/2/18 21:01 100/38 1/2/18 20:57 102/51 1/2/18 20:50 87 16 100 1/2/18 20:35 89 17 99 1/2/18 20:30 91 17 102/71 100 1/2/18 20:15 91 16 100 1/2/18 20:01 95/62 1/2/18 20:00 88 16 100 1/2/18 19:45 90 20 100 1/2/18 19:30 90 16 104/63 100 1/2/18 19:15 91 14 100 1/2/18 19:00 88 19 101/48 98 1/2/18 17:46 85 16 103/58 100 1/2/18 17:41 86 15 100 1/2/18 17:36 85 18 100 1/2/18 17:31 85 19 100 1/2/18 17:30 102/67 1/2/18 17:26 86 16 100 1/2/18 17:21 92 15 100 1/2/18 17:16 89 18 116/67 100 1/2/18 17:11 85 16 100 1/2/18 17:06 90 16 100 1/2/18 17:01 85 16 100 1/2/18 17:00 120/63 1/2/18 16:56 85 16 100 1/2/18 16:51 85 16 100 1/2/18 16:46 116/67 1/2/18 16:45 87 13 100 1/2/18 16:40 87 16 100 1/2/18 16:35 85 16 100 1/2/18 16:31 121/63 1/2/18 16:30 91 19 100 1/2/18 16:28 /65 1/2/18 16:25 86 15 100 1/2/18 16:20 86 15 100 1/2/18 16:15 84 16 100 1/2/18 16:10 86 14 100 1/2/18 16:05 85 14 100 1/2/18 16:00 91 15 100 1/2/18 15:55 87 14 100 1/2/18 15:50 89 16 100 1/2/18 15:45 89 21 100 1/2/18 15:40 92 17 1/2/18 15:39 114/64 1/2/18 15:15 89 22 99 1/2/18 15:10 88 15 95 1/2/18 15:05 86 18 96 1/2/18 15:00 89 14 112/59 94 1/2/18 14:55 89 15 100 1/2/18 14:50 93 18 100 1/2/18 14:40 103/62 1/2/18 14:40 92 15 100 1/2/18 14:36 103/62 1/2/18 14:35 94 16 100 1/2/18 14:30 98 15 100 1/2/18 14:25 95 20 100 1/2/18 14:20 95 16 100 1/2/18 14:15 98 20 100 1/2/18 14:10 101 18 100 1/2/18 14:05 100 23 100 //18 14:00 98 19 100 //18 13:55 97 22 100 /18 13:50 97 15 100 /2/18 13:45 94 16 100 //18 13:40 93 15 100 //18 13:35 95 15 99 /2/18 13:31 /63 /18 13:30 93 17 100 1/2/18 13:25 94 18 100 1/2/18 13:20 92 19 100 /2/18 13:15 94 24 100 /2/18 13:10 94 15 100 18 13:07 100 Room Air 10/08/17 13:05 97 16 103/85 94 1/2/18 13:01 /102 18 13:00 98 18 98 1/2/18 12:58 97 1/2/18 12:55 103 15 98 1/2/18 12:50 97 20 100 1/2/18 12:41 36.7 97 18 116/78 Room Air 18 12:35 116/78 Physical Exam GENERAL: Arousable, not alert, GCS 12 HENT: Normocephalic, atraumatic. EYES: Normal conjunctiva. Sclera non-icteric. NECK: Supple. No nuchal rigidity. FROM. RESPIRATORY: CTAB, no rhonchi, wheezing, crackles CARDIAC: RRR, no MRG ABDOMEN: Soft, NTND, BS+ Ecchymosis to RLQ, midline abdominal incisional wound, LLQ colostomy. MSK: No chest wall TTP, no LE edema. palpable thrill to LUE. NEURO: GCS 12, CN 2-12 intact, moves all 4s to pain. A&Ox0. SKIN: No rash or jaundice noted. Medical Decision & Procedures ER Provider Diagnostic Interpretation: Radiology results as stated below per my review and radiologist interpretation: CHEST ONE VIEW PORTABLE CLINICAL HISTORY: Weakness. COMPARISON STUDY: Chest radiograph September 02, 2017. FINDINGS: Vascular stent projects over the left axilla. Lung volumes are normal. There is no pneumothorax or pleural effusion. Cardiomediastinal silhouette is normal. There is no consolidation to suggest pneumonia. Mild interstitial thickening is unchanged. There is no evidence for overt pulmonary edema. IMPRESSION: No acute cardiopulmonary findings. Electronically signed by: Rory Baig M.D. 10/08/2017 2:54 PM Dictated Date/Time: 10/08/2017 2:52 PM CHEST ONE VIEW PORTABLE CLINICAL HISTORY: post R IJ COMPARISON STUDY: Chest radiograph October 08, 2017 2:43 PM. FINDINGS: There has been interval placement of a right internal jugular central line. Catheter tip projects over the proximal right atrium. Vascular stent projects of the left axilla. There is no pneumothorax. There is no evidence of pulmonary edema. Cardiomediastinal silhouette is unremarkable. IMPRESSION: No pneumothorax following placement of a right internal jugular central line. Electronically signed by: Rory Baig M.D. 10/08/2017 3:32 PM Dictated Date/Time: 10/08/2017 3:[address] OF THE HEAD WITHOUT CONTRAST CLINICAL HISTORY: Weakness. Altered mental status. COMPARISON STUDY: No previous studies for comparison. CT DOSE: 638.56 mGycm TECHNIQUE: Helical axial images of the head were obtained without IV contrast. Automated exposure control was utilized for the study. A dose lowering technique was utilized adhering to the principles of ALARA. FINDINGS: There are several foci of trace acute subarachnoid hemorrhage overlying the left frontal lobe. Mild ventricular dilatation is likely due to atrophy. The basilar cisterns are patent. A 9 mm hypodensity within the right centrum semiovale is noted. This is age indeterminate. A 6 mm hypodensity within the left centrum semiovale suggests an old lacunar infarct. There are no CT findings to suggest acute dural sinus thrombosis or acute territorial infarct. Visualized portions of the sinuses and mastoid air cells are clear. There is diffuse increased density of the calvarium which may be related to chronic renal failure. IMPRESSION: 1. Three trace foci of acute subarachnoid hemorrhage overlying the left frontal lobe of uncertain etiology. A short-term follow-up head CT in 12 to 24 hours is recommended. 2. Age indeterminate 9 mm lacunar infarct within the right centrum semiovale. 3. Moderate small vessel disease. Electronically signed by: Rory Baig M.D. 10/08/2017 3:47 PM Dictated Date/Time: 10/08/2017 3:37 PM ABD/PELVIS NO IV OR ORAL CONT CT DOSE: 941.80 mGycm HISTORY: Pain ESRD, recent bowel ischemia s/p colectomy 1 month prior TECHNIQUE: Multiaxial CT images of the abdomen and pelvis were performed without contrast. A dose lowering technique was utilized adhering to the principles of ALARA. COMPARISON STUDY: 09/02/2017 FINDINGS: Study is compromised due to the absence of contrast enhancement. Minimal bibasilar dependent atelectasis. Configuration of liver is unremarkable. Prior cholecystectomy. Portal venous gas present described is no longer present. Bowel pattern currently is nonobstructive. There is trace amount of free fluid within the pelvic cul-de-sac. The ascites in the prior study is diminished/nearly resolved. Pneumatosis previously described is no longer present. There is evidence for an interval midline incision and a left anterior ostomy. There appears to been a partial bowel resection. Slight increase in density of the mesentery likely on a postoperative basis. Mild increase in splenic size. Absent left kidney. Atrophy right kidney unchanged. Minimal soft tissue contusion left lateral aspect abdominal wall/subcutaneous fat. IMPRESSION: 1. Interval bowel resection as compared to the prior study with interval resolution of the pneumatosis and portal venous air. 2. Expected postoperative changes of the omentum and mesentery post partial bowel resection. 3. Pre-existing and unchanged absence of the left kidney and atrophy of the right kidney. 4. Interval decrease in abdominal and pelvic ascites. 5. Moderate splenomegaly slightly progressive from the prior exam. 6. Left anterior ostomy 7. Interval soft tissue contusion and/or infiltrative process left lateral abdominal wall subcutaneous fat. The above report was generated using voice recognition software. It may contain grammatical, syntax or spelling errors. Electronically signed by: Daniel Griffith M.D. 10/08/2017 3:48 PM Dictated Date/Time: 10/08/2017 3:39 PM Laboratory Results 10/08/17 14:56 Red Blood Count 3.03, Mean Corpuscular Volume 95.0, Mean Corpuscular Hemoglobin 30.0, Mean Corpuscular Hemoglobin Concent 31.6, Mean Platelet Volume 11.0, Neutrophils (%) (Auto) 73.1, Lymphocytes (%) (Auto) 19.4, Monocytes (%) (Auto) 5.8, Eosinophils (%) (Auto) 0.9, Basophils (%) (Auto) 0.4, Neutrophils # (Auto) 5.86, Lymphocytes # (Auto) 1.55, Monocytes # (Auto) 0.46, Eosinophils # (Auto) 0.07, Basophils # (Auto) 0.03 10/08/17 14:56 Test 10/08/17 14:56 10/08/17 15:14 10/08/17 15:15 10/08/17 15:17 White Blood Count 8.00 K/uL (4.8-10.8) Red Blood Count 3.03 M/uL (4.2-5.4) Hemoglobin 9.1 g/dL (12.0-16.0) Hematocrit 28.8 % (37-47) Mean Corpuscular Volume 95.0 fL (80-100) Mean Corpuscular Hemoglobin 30.0 pg (25-34) Mean Corpuscular Hemoglobin Concent 31.6 g/dl (32-36) Platelet Count 174 K/uL (130-400) Mean Platelet Volume 11.0 fL (7.4-10.4) Neutrophils (%) (Auto) 73.1 % Lymphocytes (%) (Auto) 19.4 % Monocytes (%) (Auto) 5.8 % Eosinophils (%) (Auto) 0.9 % Basophils (%) (Auto) 0.4 % Neutrophils # (Auto) 5.86 K/uL (1.4-6.5) Lymphocytes # (Auto) 1.55 K/uL (1.2-3.4) Monocytes # (Auto) 0.46 K/uL (0.11-0.59) Eosinophils # (Auto) 0.07 K/uL (0-0.5) Basophils # (Auto) 0.03 K/uL (0-0.2) RDW Standard Deviation 59.8 fL (36.4-46.3) RDW Coefficient of Variation 17.4 % (11.5-14.5) Immature Granulocyte % (Auto) 0.4 % Immature Granulocyte # (Auto) 0.03 K/uL (0.00-0.02) Prothrombin Time 15.1 SECONDS (9.0-12.0) Prothromb Time International Ratio 1.4 (0.9-1.1) Activated Partial Thromboplast Time 27.5 SECONDS (21.0-31.0) Partial Thromboplastin Ratio 1.1 Est Creatinine Clear Calc Drug Dose 10.4 ml/min Estimated GFR () 8.1 Estimated GFR (Non- 7.0 BUN/Creatinine Ratio 3.5 (10-20) Calcium Level 7.5 mg/dl (8.5-10.1) Magnesium Level 1.4 mg/dl (1.8-2.4) Total Bilirubin 0.4 mg/dl (0.2-1) Direct Bilirubin 0.2 mg/dl (0-0.2) Aspartate Amino Transf (AST/SGOT) 30 U/L (15-37) Alanine Aminotransferase (ALT/SGPT) 17 U/L (12-78) Alkaline Phosphatase 334 U/L (45-117) Total Creatine Kinase 15 U/L (26-192) Troponin I < 0.015 ng/ml (0-0.045) Pro-B-Type Natriuretic Peptide 3491 pg/ml (0-900) Total Protein 5.7 gm/dl (6.4-8.2) Albumin 1.7 gm/dl (3.4-5.0) Lipase 34 U/L (73-393) Thyroid Stimulating Hormone (TSH) 4.040 uIu/ml (0.300-4.500) Bedside Troponin I < 0.030 ng/ml (0-0.045) Venous Blood pH 7.43 (7.36-7.41) Venous Blood Partial Pressure CO2 49 mmHg (38.0-50.0) Venous Blood Partial Pressure O2 53 mmHg Venous Blood HCO3 31 mmol/L Venous Blood Oxygen Saturation 85.2 % Venous Blood Base Excess 6.2 mEq/L Lactic Acid Level 1.0 mmol/L (0.4-2.0) Bedside Hemoglobin 10.5 g/dl (12.0-16.0) Bedside Hematocrit 31 % (37-47) Bedside Sodium 135 mEq/L (135-144) Bedside Potassium 3.3 mEq/L (3.3-5.0) Bedside Chloride 92 mEq/L (101-112) Bedside Total CO2 30 mEq/l (24-31) Anion Gap 18.0 mmol/L (16-25) Bedside Blood Urea Nitrogen 22 mg/dl (7-18) Bedside Creatinine 6.6 mg/dl (0.6-1.3) Bedside Glucose (other) 189 mg/dl (70-99) Bedside Ionized Calcium (Ness) 1.16 mmol/l (1.12-1.32) Test 10/08/17 15:19 10/08/17 22:22 Bedside Prothrombin Time INR 1.4 (0.9-1.1) Bedside Glucose 116 mg/dl (70-90) Laboratory results reviewed by me Medications Administered Medications (Trade) Dose Ordered Sig/Sandy Route Start Time Stop Time Status Last Admin Dose Admin Glucose (Glucose 40% Gel) 15 gm DeskMetrics-MED ONCE .ROUTE 10/08/17 12:39 10/08/17 12:40 DC 10/08/17 12:45 15 GM Levetiracetam 1500 mg/Dextrose 115 ml @ 440 mls/hr ONE ONCE IV 10/08/17 16:15 10/08/17 16:30 DC 10/08/17 16:32 440 MLS/HR Phytonadione 10 mg/Sodium Chloride 51 ml @ 102 mls/hr ONE ONCE IV 10/08/17 16:45 10/08/17 17:14 DC 10/08/17 17:01 102 MLS/HR Dextrose (Dextrose 50% 50ML Syringe) 50 ml NOW STAT IV 10/08/17 20:32 10/08/17 20:33 DC 10/08/17 20:42 50 ML Procedure Central Venous Catheter Indication: No IV access Catheter type: Triple Lumen Location: Right IJ Verbal consent was obtained after the risks and benefits were explained, including but not limited to pneumothorax, hemothorax, vessel injury, bleeding, scarring, infection, pain, and bone/joint/nerve damage. At this time, the risks of the procedure are less than the risks of NOT performing the procedure. A time out was taken and the correct patient and site identified. The patient was placed in the Trendelenburg position and the skin was prepped in the standard fashion with chlorhexidine and full sterile drapes applied. The proper landmarks were identified with ultrasound, anesthetized with 1% lidocaine without epinephrine, and the needle was inserted through the skin in the standard fashion. The needle was carefully advanced into blood vessel lumen under ultrasound guidance. The guidewire was placed uneventfully. The vessel is dilated and the catheter was placed. It was sutured into position. There was good blood return from all ports. The patient tolerated the procedure well and there were no complications. Post procedure x-ray was normal. ED Course 1353: The patient was evaluated in room B12A. A complete history and physical exam was performed. 1430: The patient was moved to room B1. 1450: I reassessed the patient at this time. I placed central line in the patient. Please see procedural note. 1635: I reassessed the patient at this time. She is feeling better and resting comfortably. The patient can follow commands. 1642: I spoke with Sandro Moreno neurosurgeon. We discussed the patients case. 1702: I spoke with Sandro Teran [facility]. We discussed the patients case. The patient will be transferred. 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 Prior records/ancillary studies reviewed and summarized above. Nursing notes reviewed. The patient's history was concerning for altered mental status. Differential diagnosis: Etiologies such as metabolic, infection, hypoglycemia, electrolyte abnormalities , cardiac sources, intracerebral event, toxicologic, neurologic, as well as others were entertained. Patient was seen and evaluated at the bedside. Patient is a resident of [facility]. Purportedly the patient has been fairly unresponsive and confused. On exam the patient is not awake but is easily arousable. Patient has nonsensical speech. Patient reportedly had some hypoglycemia so she was given some oral sugar. Patient's repeat sugars were unremarkable. Patient does not follow commands but she does respond pain in all 4 extremities. Of note the patient did have a recent abdominal surgery, which after looking through the electronic medical record the patient was recently transferred for ischemic bowel status and I imagine she likely had a partial colectomy. Patient did have blood work completed along with blood and urine cultures. Patient did have a chest x-ray CT of the brain, EKG, troponin, CT the abdomen pelvis. Patient's chest x-ray was negative acute. I foresee secondary to problems obtaining IV access in the restrictive limbs that she has a she has a left upper extremity fistula and a recently changed right upper extremity fistula a right internal jugular CVC line was placed. The patient tolerated the procedure without competition and a postprocedure film did not show any pneumothorax. Patient had an elevated creatinine but B when was fairly normal. Patient had a low potassium but this was not repleted as the patient gets dialysis. Patient is post dialysis Saturday was a Saturday but she was just to get it on Saturday due to the holiday but we're unable to confirm this per nursing calling the home. Patient's EKG is nonischemic patient is a negative troponin. Patient did have a CT of the brain which did show several areas of subarachnoid hemorrhage. Given that the patient's INR was 1.4 the patient was given vitamin K. Upon reassessment of the patient the patient was a note 2 and was following commands at this time. Transfer center was called in order to obtain some additional consultation from neurosurgery at [facility]. They stated that they would see the patient is a consult but that she would be better suited to the medicine service. I subsequently did speak with the medicine service who agreed to accept the patient to medical surgery floor. I did explain also that per the patient's advanced directives she was comfort measures and more or less fairly basic care. However, after looking at the most recent note in our system at this hospital the patient had gone back and wanted everything done which is why she was transferred for for ischemic bowel for further care. I do not believe that the patient can be incest for competency in order to assess whether or not she is still comfort care. Given the most recent change in her advanced directives we will continue with a transfer. I did discuss this with the accepting hospitalist at [facility] so that they were aware. The patient was pending ambulance transfer was transferred to [facility]. Head Trauma GCS Score: 14 Medication Reconcilliation Current Medication List: was personally reviewed by me Blood Pressure Screening Patient's blood pressure: Normal blood pressure Consults Time Called: 1610 Consulting Physician: Sandro Moreno neurosurgeon Returned Call: 1642 I spoke with Sandro Moreno neurosurgeon. We discussed the patients case. Additional Consults: Time Called: 1648 Consulted Physician: Sadnro Teran hospitalist Returned Call: 1702 Additional Comments: I spoke with Sandro Teran hospitalist. We discussed the patients case. The patient will be transferred. Impression Primary Impression: SAH (subarachnoid hemorrhage) Additional Impressions: Hypoglycemia ESRD (end stage renal disease) Anemia Hypokalemia Altered mental status Critical Care I have personally spent greater than 80 minutes of critical care time in the direct management of this patient. This includes bedside care, interpretation of diagnostic studies, and testing, discussion with consultants, patient, and family members, and other required patient management activities. This 80 minutes is in excess of all separately billable procedures. Scribe Attestation The scribe's documentation has been prepared under my direction and personally reviewed by me in its entirety. I confirm that the note above accurately reflects all work, treatment, procedures, and medical decision making performed by me. Departure Information Dispostion Transfer Acute Care Facility Referrals Reddy Boles (PCP) Patient Instructions My [facility] Problem Qualifiers Additional Impressions: Anemia Anemia type: unspecified type Qualified Codes: D64.9 - Anemia, unspecified Altered mental status Altered mental status type: coma Coma depth: Bridget coma 13-15 Coma timing : at hospital admission Qualified Codes: R40.2413 - [place] coma scale score 13-15, at hospital admission
--- NOTE | 2017-10-08 14:55 | DIAGNOSTIC IMAGING REPORT ---
CHEST ONE VIEW PORTABLE CLINICAL HISTORY: Weakness. COMPARISON STUDY: Chest radiograph September 02, 2017. FINDINGS: Vascular stent projects over the left axilla. Lung volumes are normal. There is no pneumothorax or pleural effusion. Cardiomediastinal silhouette is normal. There is no consolidation to suggest pneumonia. Mild interstitial thickening is unchanged. There is no evidence for overt pulmonary edema. IMPRESSION: No acute cardiopulmonary findings. Electronically signed by: Rory Baig M.D. 10/08/2017 2:54 PM Dictated Date/Time: 10/08/2017 2:52 PM
[2017-10-08 15:27] LABS: BASO % 0.4 %; BASO ABS # 0.03 K/uL (0-0.2); EOS % 0.9 %; EOS ABS # 0.07 K/uL (0-0.5); HEMATOCRIT 28.8 % (37-47); HEMOGLOBIN 9.1 g/dL (12.0-16.0); IG# 0.03 K/uL (0.00-0.02); LYMPH % 19.4 %; LYMPH ABS # 1.55 K/uL (1.2-3.4); MEAN CORPUSCULAR HGB CONC 31.6 g/dl (32-36); MONO % 5.8 %; MONO ABS # 0.46 K/uL (0.11-0.59); NEUT % 73.1 %; NEUT ABS # 5.86 K/uL (1.4-6.5); PLATELET COUNT 174 K/uL (130-400); RED CELL DISTRIBUTION WIDTH CV 17.4 % (11.5-14.5); RED CELL DISTRIBUTION WIDTH SD 59.8 fL (36.4-46.3)
[2017-10-08 15:33] LABS: ISTAT CREATININE 6.6 mg/dl (0.6-1.3); ISTAT IONIZED CALCIUM 1.16 mmol/l (1.12-1.32); ISTAT POTASSIUM 3.3 mEq/L (3.3-5.0)
--- NOTE | 2017-10-08 15:34 | DIAGNOSTIC IMAGING REPORT ---
CHEST ONE VIEW PORTABLE CLINICAL HISTORY: post R IJ COMPARISON STUDY: Chest radiograph October 08, 2017 2:43 PM. FINDINGS: There has been interval placement of a right internal jugular central line. Catheter tip projects over the proximal right atrium. Vascular stent projects of the left axilla. There is no pneumothorax. There is no evidence of pulmonary edema. Cardiomediastinal silhouette is unremarkable. IMPRESSION: No pneumothorax following placement of a right internal jugular central line. Electronically signed by: Rory Baig M.D. 10/08/2017 3:32 PM Dictated Date/Time: 10/08/2017 3:31 PM
[2017-10-08 15:36] LABS: INR 1.4 (0.9-1.1); PTT PATIENT 27.5 SECONDS (21.0-31.0)
--- NOTE | 2017-10-08 15:48 | DIAGNOSTIC IMAGING REPORT ---
CT OF THE HEAD WITHOUT CONTRAST CLINICAL HISTORY: Weakness. Altered mental status. COMPARISON STUDY: No previous studies for comparison. CT DOSE: 638.56 mGycm TECHNIQUE: Helical axial images of the head were obtained without IV contrast. Automated exposure control was utilized for the study. A dose lowering technique was utilized adhering to the principles of ALARA. FINDINGS: There are several foci of trace acute subarachnoid hemorrhage overlying the left frontal lobe. Mild ventricular dilatation is likely due to atrophy. The basilar cisterns are patent. A 9 mm hypodensity within the right centrum semiovale is noted. This is age indeterminate. A 6 mm hypodensity within the left centrum semiovale suggests an old lacunar infarct. There are no CT findings to suggest acute dural sinus thrombosis or acute territorial infarct. Visualized portions of the sinuses and mastoid air cells are clear. There is diffuse increased density of the calvarium which may be related to chronic renal failure. IMPRESSION: 1. Three trace foci of acute subarachnoid hemorrhage overlying the left frontal lobe of uncertain etiology. A short-term follow-up head CT in 12 to 24 hours is recommended. 2. Age indeterminate 9 mm lacunar infarct within the right centrum semiovale. 3. Moderate small vessel disease. Electronically signed by: Rroy Baig M.D. 10/08/2017 3:47 PM Dictated Date/Time: 10/08/2017 3:37 PM
--- NOTE | 2017-10-08 15:49 | DIAGNOSTIC IMAGING REPORT ---
ABD/PELVIS NO IV OR ORAL CONT CT DOSE: 941.80 mGycm HISTORY: Pain ESRD, recent bowel ischemia s/p colectomy 1 month prior TECHNIQUE: Multiaxial CT images of the abdomen and pelvis were performed without contrast. A dose lowering technique was utilized adhering to the principles of ALARA. COMPARISON STUDY: 09/02/2017 FINDINGS: Study is compromised due to the absence of contrast enhancement. Minimal bibasilar dependent atelectasis. Configuration of liver is unremarkable. Prior cholecystectomy. Portal venous gas present described is no longer present. Bowel pattern currently is nonobstructive. There is trace amount of free fluid within the pelvic cul-de-sac. The ascites in the prior study is diminished/nearly resolved. Pneumatosis previously described is no longer present. There is evidence for an interval midline incision and a left anterior ostomy. There appears to been a partial bowel resection. Slight increase in density of the mesentery likely on a postoperative basis. Mild increase in splenic size. Absent left kidney. Atrophy right kidney unchanged. Minimal soft tissue contusion left lateral aspect abdominal wall/subcutaneous fat. IMPRESSION: 1. Interval bowel resection as compared to the prior study with interval resolution of the pneumatosis and portal venous air. 2. Expected postoperative changes of the omentum and mesentery post partial bowel resection. 3. Pre-existing and unchanged absence of the left kidney and atrophy of the right kidney. 4. Interval decrease in abdominal and pelvic ascites. 5. Moderate splenomegaly slightly progressive from the prior exam. 6. Left anterior ostomy 7. Interval soft tissue contusion and/or infiltrative process left lateral abdominal wall subcutaneous fat. The above report was generated using voice recognition software. It may contain grammatical, syntax or spelling errors. Electronically signed by: Daniel Griffith M.D. 10/08/2017 3:48 PM Dictated Date/Time: 10/08/2017 3:39 PM
[2017-10-08 16:00] LABS: ALBUMIN 1.7 gm/dl (3.4-5.0); ALKALINE PHOSPHATASE 334 U/L (45-117); ALT/SGPT 17 U/L (12-78); AST/SGOT 30 U/L (15-37); BLOOD UREA NITROGEN 22 mg/dl (7-18); CALCIUM 7.5 mg/dl (8.5-10.1); CARBON DIOXIDE 31 mmol/L (21-32); GLUCOSE 175 mg/dl (70-99); LIPASE 34 U/L (73-393); SODIUM 134 mmol/L (136-145); TOTAL PROTEIN 5.7 gm/dl (6.4-8.2)
[2017-10-08] MEDS ORDERED: LEVETIRACETAM IV 1,500 MG in DEXTROSE 5% 100ML 100 ML IV ONE (16:15)
[2017-10-08] MEDS ORDERED: PHYTONADIONE INJ 10 MG in SODIUM CHLORIDE 0.9% 50ML 50 ML IV ONE (16:45)
[2017-10-08] MEDS ORDERED: DEXTROSE 50% 50 ML SYR IV STA (20:32)
[2017-10-08 22:32] VITALS: BP 124/49
[2017-10-08 22:40] VITALS: O2SAT 100
[2017-10-08 22:55] VITALS: PULSE 94
--- NOTE | 2017-10-09 05:50 | EMERGENCY ROOM VISIT NOTE ---
ED Visit Note First contact with patient: 20:32 s/o from Dr. Lindsay. 57F with nontraumatic SAH. INR 1.4 Given Vit. K. [facility] [place] [facility] [place]. While waiting for transfer patient was hypoglycemic to 60. Given D50 x 1.
== END 2017-10-08 23:00 | disposition short-term general hospital (02) ==
LOC: EDBD 12:30 → C.EDB 12:32
DX: I60.9 Nontraumatic subarachnoid hemorrhage, unspecified (principal); E11.649 Type 2 diabetes mellitus with hypoglycemia without coma; N18.6 End stage renal disease; D64.9 Anemia, unspecified; E87.6 Hypokalemia; R41.82 Altered mental status, unspecified; E11.22 Type 2 diabetes mellitus with diabetic chronic kidney disease; I12.0 Hypertensive chronic kidney disease with stage 5 chronic kidney disease or end stage renal disease; I25.10 Atherosclerotic heart disease of native coronary artery without angina pectoris; I73.9 Peripheral vascular disease, unspecified; E78.5 Hyperlipidemia, unspecified; F32.9 Major depressive disorder, single episode, unspecified; Z99.2 Dependence on renal dialysis; Z90.5 Acquired absence of kidney; Z79.82 Long term (current) use of aspirin; Z79.4 Long term (current) use of insulin

== ENCOUNTER → 2017-10-22 | Outpatient (CLI) | payer OTHER ==
[~2017-10-22] MED LIST changes: +CHOL4POW12 PO; +CLR10 PO; +DIPH25CA5 PO; +DOXY100T PO; +ENOX40IN SQ; +IMD/2 PO; +LACTCAP3 PO; -ONDA4TAB46 PO
[2017-10-22 09:42] LABS: ALBUMIN 1.8 gm/dl (3.4-5.0); ALT/SGPT 24 U/L (12-78); AST/SGOT 46 U/L (15-37); BLOOD UREA NITROGEN 14 mg/dl (7-18); CALCIUM 7.8 mg/dl (8.5-10.1); CARBON DIOXIDE 33 mmol/L (21-32); CREATININE 3.92 mg/dl (0.60-1.20); GLUCOSE 118 mg/dl (70-99); POTASSIUM 3.5 mmol/L (3.5-5.1); SODIUM 131 mmol/L (136-145)
[2017-10-22 09:45] LABS: ALKALINE PHOSPHATASE 421 U/L (45-117); TOTAL PROTEIN 5.4 gm/dl (6.4-8.2)
[2017-10-22 10:03] LABS: HEMATOCRIT 30.6 % (37-47); HEMOGLOBIN 9.9 g/dL (12.0-16.0); MEAN CELL VOLUME 94.4 fL (80-100); MEAN CORPUSCULAR HEMOGLOBIN 30.6 pg (25-34); MEAN CORPUSCULAR HGB CONC 32.4 g/dl (32-36); MEAN PLATELET VOLUME 12.6 fL (7.4-10.4); PLATELET COUNT 116 K/uL (130-400); RED CELL DISTRIBUTION WIDTH CV 18.3 % (11.5-14.5); RED CELL DISTRIBUTION WIDTH SD 63.3 fL (36.4-46.3); WHITE BLOOD COUNT 4.94 K/uL (4.8-10.8)
== END ==
LOC: C.LABUPBEA 07:52
PROVIDERS: ATTEND Nurse Practitioner Family
DX: I10 Essential (primary) hypertension (principal); D63.1 Anemia in chronic kidney disease

== ENCOUNTER → 2017-10-26 | Outpatient (CLI) | payer OTHER ==
[~2017-10-26] MED LIST changes: +AMINLIQ31 PO; +MIRT30TA PO; +NUTR-7 PO; +[UNRECOGNIZED DRUG - CODE] PO
[2017-10-26 07:04] LABS: BLOOD UREA NITROGEN 24 mg/dl (7-18); CALCIUM 8.3 mg/dl (8.5-10.1); CARBON DIOXIDE 32 mmol/L (21-32); CREATININE 3.96 mg/dl (0.60-1.20); GLUCOSE 72 mg/dl (70-99); PHOSPHORUS 2.5 mg/dl (2.5-4.9); SODIUM 133 mmol/L (136-145)
== END ==
LOC: C.LABUPUNI 12:07
PROVIDERS: ATTEND Nurse Practitioner Family
DX: R79.89 Other specified abnormal findings of blood chemistry (principal); E83.39 Other disorders of phosphorus metabolism

== ENCOUNTER 2017-10-28 09:34 | Inpatient (IN) | payer OTHER ==
[~2017-10-28] VITALS: Ht 154.9 cm; Wt 66.3 kg
[~2017-10-28 09:34] MED LIST changes: -AMINLIQ31 PO; -MIRT30TA PO; -[UNRECOGNIZED DRUG - CODE] PO
[2017-10-28] MEDS ORDERED: ALBUT/IPRATROP 3MG/0.5MG NEB 3 ML VIAL INH STA (09:52)
[2017-10-28] MEDS ORDERED: MAGNESIUM SULFATE 1GM / D5W 1 GM BAG IV STA (09:52)
[2017-10-28] MEDS ORDERED: SODIUM CHLORIDE 0.9% 500ML 500 ML IV SCH (10:00)
--- NOTE | 2017-10-28 10:41 | EMERGENCY ROOM VISIT NOTE ---
History Report prepared by Martita: Jose Alejandro Mills Under the Supervision of: Dr. Marlon Lindsay M.D. First contact with patient: 09:37 Chief Complaint: HEADACHE Stated Complaint: HEADACHE/RESPIRATORY History of Present Illness The patient is a 57 year old white female with a past medical history of subarachnoid hemorrhage, ESRD, on dialysis, HTN, HLD, DM, GERD, renal cyst, depression, nephrectomy, cholecystectomy, and appendectomy who presents to the ED with a cc of constant right sided headaches beginning this morning. Negative SOB, chest pain, abdominal pain, swelling in her legs. She does not use oxygen at home. History is limited to cognitive deficit. Source of History: patient, nursing staff History Limited By: other (cognitive deficit) Onset: this morning Position: other Quality: ache Timing: constant Associated Symptoms: No chest pain, No SOB, No abdominal pain Review of Systems History is limited secondary to cognitive deficits. Past Medical & Surgical Medical Problems: (1) Colostomy in place (2) Dependence on renal dialysis (3) Diarrhea (4) ESRD (end stage renal disease) on dialysis (5) History of ischemic colitis (6) Hyperlipidemia (7) Hypotension (8) Major depression, chronic (9) Renal cyst (10) S/p nephrectomy (11) Sepsis (12) Subarachnoid hemorrhage Surgical Problems: (1) S/P appendectomy (2) S/P cholecystectomy Family History History of colostomy MOTHER SISTER Social History Smoking Status: Unknown if Ever Smoked Alcohol Use: none Drug Use: none Marital Status: single Housing Status: [facility] Occupation Status: disabled Current/Historical Medications Scheduled Amino Acids (Liquacel), 30 ML PO BID Aspirin (Aspirin), 81 MG PO DAILY Atorvastatin (Lipitor), 40 MG PO QPM B-Complex W/ C & Folic Acid ([place] Caps), 1 CAP PO DAILY Cyanocobalamin (Vitamin B-12), 1,000 MCG PO DAILY Doxercalciferol (Doxercalciferol), 2 MCG PO 3XWK Doxycycline Hyclate (Doxycycline Hyclate), 100 MG PO BID Enoxaparin (Lovenox), 40 MG SQ DAILY Folic Acid (Folic Acid), 2 MG PO DAILY Lactobacillus (Acidophilus), 1 CAP PO DAILY Loratadine (Claritin), 10 MG PO DAILY Mirtazapine (Remeron), 30 MG PO HS Pregabalin (Lyrica), 100 MG PO BID Pyridoxine Hcl (Vitamin B 6), 50 MG PO DAILY Topiramate (Topamax ), 25 MG PO BID [Protein Supplement], 30 ML PO BID Scheduled PRN Dextrose (Diabetic Use) (Insta-Glucose), 1 APPLN PO UD PRN for HYPOGLYCEMIA PROTOCOL Glucagon (Glucagon Emergency Kit), 1 DOSE IM UD PRN for HYPOGLYCEMIA PROTOCOL Oxycodone/Acetaminophen 5MG/325MG (Percocet 5MG/325MG), 1 TABLET PO Q6H PRN for Pain Allergies Coded Allergies: Penicillins (Verified Allergy, Mild, RASH, 10/28/17) Quinolones (Verified Allergy, Mild, (CIPRO) HOT;RED;ITCHY, 10/28/17) Ciprofloxacin (Verified Allergy, Unknown, UNKNOWN, 10/28/17) Iodinated Diagnostic Agents (Verified Allergy, Unknown, IVP DYE, 10/28/17) Varenicline (Verified Allergy, Unknown, Unknown, 10/28/17) Prednisone (Verified Adverse Reaction, Unknown, POTASSIUM AND SUGAR SPIKES , 10/28/17) Physical Exam Vital Signs Date Time Temp Pulse Resp B/P (MAP) Pulse Ox O2 Delivery O2 Flow Rate FiO2 10/28/17 14:31 116 86/41 100 Nasal Cannula 2.0 10/28/17 14:06 112 18 72/41 100 2.0 10/28/17 13:08 117 10/28/17 13:04 115 93/43 10/28/17 12:50 36.3 115 20 114/46 100 Nasal Cannula 2.0 10/28/17 12:14 109 22 74/61 94 2.0 10/28/17 11:43 98 20 75/38 92 2.0 10/28/17 11:03 102 14 84/34 96 10/28/17 10:45 96 74/38 95 Nasal Cannula 2.0 10/28/17 10:34 103 78/39 97 10/28/17 09:50 92 10/28/17 09:48 Nasal Cannula 2.0 10/28/17 09:42 36.5 94 16 89/46 91 Room Air Physical Exam GENERAL: Awake, alert, well-appearing, NAD HENT: Normocephalic, atraumatic. EYES: Normal conjunctiva. Sclera non-icteric. NECK: Supple. No nuchal rigidity. FROM. RESPIRATORY: Diffuse inspiratory and expiratory wheezing and sonorous breath sounds throughout. CARDIAC: RRR, no MRG ABDOMEN: Soft, NTND, BS+, LLQ ostomy. MSK: No chest wall TTP, no LE edema. AVF with palpable thrill in the LUE NEURO: GCS 15, CN 2-12 intact, moves all 4s on command. RLE weakness SKIN: No rash or jaundice noted. Medical Decision & Procedures ER Provider Diagnostic Interpretation: Radiology results as stated below per my review and radiologist interpretation: CT SCAN OF THE BRAIN WITHOUT IV CONTRAST CLINICAL HISTORY: Headache. COMPARISON STUDY: CT of the brain dated 10/08/2017. TECHNIQUE: Unenhanced axial CT scan of the brain is performed from the vertex to the skull base. A dose lowering technique was utilized adhering to the principles of ALARA. CT DOSE: 614.27 mGy.cm FINDINGS: Brain parenchyma: There are age-related involutional changes noting [id number] patchy subcortical and periventricular microangiopathic change. There is no hemorrhage, mass effect, or evidence of acute territorial ischemia by CT criteria. A tiny chronic lacunar infarct is seen in the right cerebellar hemisphere. Perdomo-white matter is preserved. No extra-axial fluid collection is seen. Ventricles, sulci, cisterns: Prominent secondary to involutional change. Intracranial vasculature: There is abdomen atherosclerotic calcification of the cavernous carotid and vertebral arteries. Calvarium: Unremarkable. Sinuses and mastoids: The visualized paranasal sinuses are clear. The mastoid air cells are well pneumatized. Orbits: The bony orbits are grossly intact. There are bilateral ocular lens implants. IMPRESSION: There is no hemorrhage, mass effect, or evidence of acute territorial ischemia by CT criteria. Electronically signed by: Dewayne Andrade M.D. 10/28/2017 10:59 AM Dictated Date/Time: 10/28/2017 10:57 AM CHEST ONE VIEW PORTABLE HISTORY: wheezing, sonorous breathe sounds COMPARISON: Chest 10/08/2017. FINDINGS: Mild diffuse interstitial thickening most pronounced within the left lower lobe, unchanged. The heart is normal in size. No pleural effusions. No pneumothorax. No new focal lung consolidations. Left axillary vascular stent is unchanged in position. IMPRESSION: Stable mild diffuse interstitial thickening which is likely chronic. No acute process within the chest. Electronically signed by: Bill Recinos M.D. 10/28/2017 12:09 PM Dictated Date/Time: 10/28/2017 12:08 PM Laboratory Results 10/28/17 10:30 Red Blood Count 3.84, Mean Corpuscular Volume 95.1, Mean Corpuscular Hemoglobin 30.5, Mean Corpuscular Hemoglobin Concent 32.1, Mean Platelet Volume 12.5, Neutrophils (%) (Auto) 66.2, Lymphocytes (%) (Auto) 24.9, Monocytes (%) (Auto) 8.3, Eosinophils (%) (Auto) 0.0, Basophils (%) (Auto) 0.3, Neutrophils # (Auto) 5.28, Lymphocytes # (Auto) 1.98, Monocytes # (Auto) 0.66, Eosinophils # (Auto) 0.00, Basophils # (Auto) 0.02 10/28/17 12:13 10/28/17 13:36 Test 10/28/17 10:30 10/28/17 12:13 10/28/17 13:36 White Blood Count 7.96 K/uL (4.8-10.8) Red Blood Count 3.84 M/uL (4.2-5.4) Hemoglobin 11.7 g/dL (12.0-16.0) Hematocrit 36.5 % (37-47) Mean Corpuscular Volume 95.1 fL (80-100) Mean Corpuscular Hemoglobin 30.5 pg (25-34) Mean Corpuscular Hemoglobin Concent 32.1 g/dl (32-36) Platelet Count 122 K/uL (130-400) Mean Platelet Volume 12.5 fL (7.4-10.4) Neutrophils (%) (Auto) 66.2 % Lymphocytes (%) (Auto) 24.9 % Monocytes (%) (Auto) 8.3 % Eosinophils (%) (Auto) 0.0 % Basophils (%) (Auto) 0.3 % Neutrophils # (Auto) 5.28 K/uL (1.4-6.5) Lymphocytes # (Auto) 1.98 K/uL (1.2-3.4) Monocytes # (Auto) 0.66 K/uL (0.11-0.59) Eosinophils # (Auto) 0.00 K/uL (0-0.5) Basophils # (Auto) 0.02 K/uL (0-0.2) RDW Standard Deviation 65.2 fL (36.4-46.3) RDW Coefficient of Variation 19.2 % (11.5-14.5) Immature Granulocyte % (Auto) 0.3 % Immature Granulocyte # (Auto) 0.02 K/uL (0.00-0.02) Large Platelets 1+ Prothrombin Time 17.1 SECONDS (9.0-12.0) Prothromb Time International Ratio 1.6 (0.9-1.1) Activated Partial Thromboplast Time 30.3 SECONDS (21.0-31.0) Partial Thromboplastin Ratio 1.2 Troponin I 0.017 ng/ml (0-0.045) Pro-B-Type Natriuretic Peptide 5286 pg/ml (0-900) Anion Gap 10.0 mmol/L (3-11) Est Creatinine Clear Calc Drug Dose 7.0 ml/min Estimated GFR () 5.8 Estimated GFR (Non- 5.0 BUN/Creatinine Ratio 5.5 (10-20) Calcium Level 8.3 mg/dl (8.5-10.1) Magnesium Level mg/dl (1.8-2.4) Laboratory results reviewed by me Medications Administered Medications (Trade) Dose Ordered Sig/Sandy Route Start Time Stop Time Status Last Admin Dose Admin Albuterol/ Ipratropium (Duoneb) 3 ml ONE STAT INH 10/28/17 09:52 10/28/17 09:55 DC 10/28/17 10:08 3 ML ECG Indication: weakness, other (headache) Rate (beats per minute): 91 Rhythm: normal sinus Findings: T-wave inversion (Lateral and high lateral), other (Normal intervals and normal axis) Comparison ECG Date: 09/02/17 Change: T wave inversions are new. Patient's electrocardiogram interpreted by me. ED Course 0943: The patient was evaluated in room B7. A complete history and physical exam was performed. 1158: I reevaluated the patient, and she was resting. 1324: I discussed the patient's case with [facility]phrology, and he is willing to do gentle dialysis with the patient if she is evaluated by the hospitalist. 1343: Discussed the patient's case with Dr. Iniguez. The patient will be evaluated for further treatment and disposition. Medical Decision The patient is a 57 year old white female with a past medical history of subarachnoid hemorrhage, ESRD, on dialysis, HTN, HLD, DM, GERD, renal cyst, depression, nephrectomy, cholecystectomy, and appendectomy who presents to the ED with a cc of constant right sided headaches beginning this morning. Differential diagnosis: Etiologies such as migraine headache, meningitis, sinusitis, CO exposure, ICH, SAH, infection, tumor, headache, sinus thrombosis, arterial dissection, as well as others were entertained. Patient was seen and evaluated at the bedside. Patient does have known history of ESRD on HD did not receive dialysis today. Likely gets Saturday dialysis. Patient was referred as the patient did complain of some mild headache yesterday. On exam the patient denies any headache. Patient just states that she was brought to the hospital. Patient on exam does have some mild right lower extremity weakness. Patient did have blood work completed, CT of the brain. Of note the patient did have a low blood pressure. Patient otherwise had no other symptomatically complaints. On exam the patient also did have some wheezing. Patient was given a DuoNeb. The patient's low blood pressure the patient was started on IV fluids. No aggressive initial measures were attempted as the patient is DO NOT RESUSCITATE and comfort measures only. Patient's CT brain was negative acute. Patient's white blood cell count within normal limits. Patient has a chronic anemia with a hemoglobin of 11. Mild elevation INR 1.6. Patient's chest x-ray did show some scarring that nothing acute. Patient's CT brain negative acute. Patient's EKG did show some lateral T-wave inversions appear new in nature. This was not aggressively pursued other than aspirin given the patient's CODE STATUS and living will. I discussed the patient with the on-call waste duster who agreed that if the patient was to be admitted they can do some gentle dialysis. I did revisit the patient's living will which was signed by the patient. Given this no attempts were made to further discuss the patient's living will with the family. I did discuss the patient with the hospitalist who agreed to further evaluate and treat the patient. I did discuss them to be some benefit to obtain a formal echo. Patient was admitted to the medicine service. Medication Reconcilliation Current Medication List: was personally reviewed by me Blood Pressure Screening Patient's blood pressure: Low blood pressure Monitored by the hospitalist Consults Time Called: 1228 Consulting Physician: Dr. Itzel Oviedo Nephcher Returned Call: 1324 I discussed the patient's case with Dr. Itzel Murillo, and he is willing to do gentle dialysis with the patient if she is evaluated by the hospitalist. Additional Consults: Time Called: 1335 Consulted Physician: Dr. Iniguez Returned Call: 1343 Additional Comments: Discussed the patient's case with Dr. Iniguez. The patient will be evaluated for further treatment and disposition. Impression Primary Impression: Headache Additional Impressions: Hypotension ESRD (end stage renal disease) on dialysis Anemia Critical Care I have personally spent greater than 35 minutes of critical care time in the direct management of this patient. This includes bedside care, interpretation of diagnostic studies, and testing, discussion with consultants, patient, and family members, and other required patient management activities. This 35 minutes is in excess of all separately billable procedures. Scribe Attestation The scribe's documentation has been prepared under my direction and personally reviewed by me in its entirety. I confirm that the note above accurately reflects all work, treatment, procedures, and medical decision making performed by me. Departure Information Dispostion Being Evaluated By Hospitalist Referrals Reddy Boles (PCP) Patient Instructions My [facility] Problem Qualifiers Primary Impression: Headache Headache type: unspecified Headache chronicity pattern: acute headache Intractability: not intractable Qualified Codes: R51 - Headache Additional Impressions: Hypotension Hypotension type: unspecified hypotension type Qualified Codes: I95.9 - Hypotension, unspecified Anemia Anemia type: unspecified type Qualified Codes: D64.9 - Anemia, unspecified
[2017-10-28 10:53] LABS: INR 1.6 (0.9-1.1); PTT PATIENT 30.3 SECONDS (21.0-31.0)
--- NOTE | 2017-10-28 11:00 | DIAGNOSTIC IMAGING REPORT ---
CT SCAN OF THE BRAIN WITHOUT IV CONTRAST CLINICAL HISTORY: Headache. COMPARISON STUDY: CT of the brain dated 10/08/2017. TECHNIQUE: Unenhanced axial CT scan of the brain is performed from the vertex to the skull base. A dose lowering technique was utilized adhering to the principles of ALARA. CT DOSE: 614.27 mGy.cm FINDINGS: Brain parenchyma: There are age-related involutional changes noting [id number] patchy subcortical and periventricular microangiopathic change. There is no hemorrhage, mass effect, or evidence of acute territorial ischemia by CT criteria. A tiny chronic lacunar infarct is seen in the right cerebellar hemisphere. Perdomo-white matter is preserved. No extra-axial fluid collection is seen. Ventricles, sulci, cisterns: Prominent secondary to involutional change. Intracranial vasculature: There is abdomen atherosclerotic calcification of the cavernous carotid and vertebral arteries. Calvarium: Unremarkable. Sinuses and mastoids: The visualized paranasal sinuses are clear. The mastoid air cells are well pneumatized. Orbits: The bony orbits are grossly intact. There are bilateral ocular lens implants. IMPRESSION: There is no hemorrhage, mass effect, or evidence of acute territorial ischemia by CT criteria. Electronically signed by: Dewayne Andrade M.D. 10/28/2017 10:59 AM Dictated Date/Time: 10/28/2017 10:57 AM
[2017-10-28 11:05] LABS: HEMATOCRIT 36.5 % (37-47); HEMOGLOBIN 11.7 g/dL (12.0-16.0); MEAN CELL VOLUME 95.1 fL (80-100); MEAN CORPUSCULAR HEMOGLOBIN 30.5 pg (25-34); MEAN CORPUSCULAR HGB CONC 32.1 g/dl (32-36); MEAN PLATELET VOLUME 12.5 fL (7.4-10.4); PLATELET COUNT 122 K/uL (130-400); RED CELL DISTRIBUTION WIDTH CV 19.2 % (11.5-14.5); RED CELL DISTRIBUTION WIDTH SD 65.2 fL (36.4-46.3); WHITE BLOOD COUNT 7.96 K/uL (4.8-10.8)
[2017-10-28 11:10] LABS: BASO % 0.3 %; BASO ABS # 0.02 K/uL (0-0.2); IG# 0.02 K/uL (0.00-0.02); LYMPH % 24.9 %; LYMPH ABS # 1.98 K/uL (1.2-3.4); MONO % 8.3 %; MONO ABS # 0.66 K/uL (0.11-0.59); NEUT % 66.2 %; NEUT ABS # 5.28 K/uL (1.4-6.5)
[2017-10-28] MEDS ORDERED: MIRT30TA PO (11:26)
[2017-10-28] MEDS ORDERED: AMINLIQ31 PO (11:26)
[2017-10-28] MEDS ORDERED: B-COCAP21 PO (11:26)
[2017-10-28] MEDS ORDERED: [UNRECOGNIZED DRUG - CODE] PO (11:26)
[2017-10-28 11:29] LABS: CALCIUM 8.6 mg/dl (8.5-10.1); CREATININE 7.95 mg/dl (0.60-1.20)
--- NOTE | 2017-10-28 12:10 | DIAGNOSTIC IMAGING REPORT ---
CHEST ONE VIEW PORTABLE HISTORY: wheezing, sonorous breathe sounds COMPARISON: Chest 10/08/2017. FINDINGS: Mild diffuse interstitial thickening most pronounced within the left lower lobe, unchanged. The heart is normal in size. No pleural effusions. No pneumothorax. No new focal lung consolidations. Left axillary vascular stent is unchanged in position. IMPRESSION: Stable mild diffuse interstitial thickening which is likely chronic. No acute process within the chest. Electronically signed by: Bill Recinos M.D. 10/28/2017 12:09 PM Dictated Date/Time: 10/28/2017 12:08 PM
[2017-10-28 13:01] LABS: CALCIUM 8.3 mg/dl (8.5-10.1); CREATININE 8.14 mg/dl (0.60-1.20)
--- NOTE | 2017-10-28 14:13 | History and Physical ---
History & Physical Date & Time of Service: Oct 28, 2017 at 14:06 Chief Complaint: Headache/Respiratory Primary Care Physician: Reddy Boles History of Present Illness This is a 57 yo M with PMHx of ESRD on HD M/W/F, HTN, HLD, diabetic neuropathy, depression, hx of subarachnoid hemorrhage Sep 2017 where pt was admitted x ~1 month and was intubated and extubated several times, and required artificial ventilation for over 3 weeks, cognitive dysfunction, GERD, inflammatory polyneuropathy, who presents with acute onset of headache 1 day ago. The patient and family are unable to provide much history. Per documentation the patient was transferred from [facility] for headache which started today. Currently the patient denies having a headache. Her blood pressure was low this morning running in the 60s/40s, therefore her normally scheduled dialysis was not performed. Nursing at [facility] was spoken to via phone and reports low-grade temperature of 99 last night. This morning she was less responsive, weak, not able to feed herself which she normally does, and slumped forward in her chair breakfast. At that time she was placed on supplemental oxygen and was found to have rhonchi in her lung bases. The patient typically requires a Jarred lift and is oriented to place and date. Here in the ER potassium has not been able to be collected due to hemolysis, no WBC, INR equals 1.6. Chest x-ray was obtained showing LLL interstitial thickening which appears to be chronic. EKG reviewed. Past Medical/Surgical History Medical Problems: (1) Colostomy in place (2) Dependence on renal dialysis (3) Diarrhea (4) ESRD (end stage renal disease) on dialysis (5) History of ischemic colitis (6) Hyperlipidemia (7) Hypotension (8) Major depression, chronic (9) Renal cyst (10) S/p nephrectomy (11) Sepsis (12) Subarachnoid hemorrhage 13 - Hx of C. 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 Allergies Coded Allergies: Penicillins (Verified Allergy, Mild, RASH, 10/28/17) Quinolones (Verified Allergy, Mild, (CIPRO) HOT;RED;ITCHY, 10/28/17) Ciprofloxacin (Verified Allergy, Unknown, UNKNOWN, 10/28/17) Iodinated Diagnostic Agents (Verified Allergy, Unknown, IVP DYE, 10/28/17) Varenicline (Verified Allergy, Unknown, Unknown, 10/28/17) Prednisone (Verified Adverse Reaction, Unknown, POTASSIUM AND SUGAR SPIKES , 10/28/17) Home Medications Scheduled Amino Acids (Liquacel), 30 ML PO BID Aspirin (Aspirin), 81 MG PO DAILY Atorvastatin (Lipitor), 40 MG PO QPM B-Complex W/ C & Folic Acid (Amrit Caps), 1 CAP PO DAILY Cyanocobalamin (Vitamin B-12), 1,000 MCG PO DAILY Doxercalciferol (Doxercalciferol), 2 MCG PO 3XWK Doxycycline Hyclate (Doxycycline Hyclate), 100 MG PO BID Enoxaparin (Lovenox), 40 MG SQ DAILY Folic Acid (Folic Acid), 2 MG PO DAILY Lactobacillus (Acidophilus), 1 CAP PO DAILY Loratadine (Claritin), 10 MG PO DAILY Mirtazapine (Remeron), 30 MG PO HS Pregabalin (Lyrica), 100 MG PO BID Pyridoxine Hcl (Vitamin B 6), 50 MG PO DAILY Topiramate (Topamax ), 25 MG PO BID [Protein Supplement], 30 ML PO BID Scheduled PRN Dextrose (Diabetic Use) (Insta-Glucose), 1 APPLN PO UD PRN for HYPOGLYCEMIA PROTOCOL Glucagon (Glucagon Emergency Kit), 1 DOSE IM UD PRN for HYPOGLYCEMIA PROTOCOL Oxycodone/Acetaminophen 5MG/325MG (Percocet 5MG/325MG), 1 TABLET PO Q6H PRN for Pain Review of Systems Constitutional: No fever, sweats or chills Eyes: No diplopia, no worsening or blurred vision ENT: normal hearing, no trouble swallowing Respiratory: No cough, sputum, dyspnea at rest or on exertion Cardiovascular: No chest pain, tightness or palpitations Abdomen: No pain, nausea, vomiting, diarrhea or constipation Musculoskeletal: No joint pain, calf pain, swelling Neurologic: No weakness, numbness/tingling, or balance problems Psychiatric: No anxiety or depression Skin: No rash or itch Physical Exam Vital Signs Date Time Temp Pulse Resp B/P (MAP) Pulse Ox O2 Delivery O2 Flow Rate FiO2 10/28/17 13:08 117 10/28/17 13:04 115 93/43 10/28/17 12:50 36.3 115 20 114/46 100 Nasal Cannula 2.0 10/28/17 12:14 109 22 74/61 94 2.0 10/28/17 11:43 98 20 75/38 92 2.0 10/28/17 11:03 102 14 84/34 96 10/28/17 10:45 96 74/38 95 Nasal Cannula 2.0 10/28/17 10:34 103 78/39 97 10/28/17 09:50 92 10/28/17 09:48 Nasal Cannula 2.0 10/28/17 09:42 36.5 94 16 89/46 91 Room Air General Appearance: WD/WN, no apparent distress, + pertinent finding (in reverse Trendelenburg position) Head: normocephalic, atraumatic Eyes: PERRL, EOMI ENT: hearing grossly normal, + pertinent finding (pharynx nonerythematous, very dry) Neck: supple, no JVD Respiratory/Chest: + pertinent finding (on 2 L with sats high 90s, + coarse rhonchi in RLL, diminished breath sounds in Left base. ) Cardiovascular: no JVD, no murmur, + tachycardia Abdomen/GI: normal bowel sounds, soft, + pertinent finding (hypoactive bowel sounds, + tunneling abdominal wound with packing, + colostomy RLQ, nontender with palpation) Back: normal inspection, no CVA tenderness Extremities/Musculoskelatal: no calf tenderness, no pedal edema, + pertinent finding (AVF in LUE with +thrill) Neurologic/Psych: alert, + disoriented (unable to follow commands and says "give me a minute" when asked, ) Skin: warm/dry, + cyanosis (in finger tips), + pertinent finding (slightly cyanotic in fingers ) Diagnostics Laboratory Results Results Past 24 Hours Test 10/28/17 10:30 10/28/17 12:13 10/28/17 13:11 10/28/17 13:36 Range/Units White Blood Count 7.96 4.8-10.8 K/uL Red Blood Count 3.84 4.2-5.4 M/uL Hemoglobin 11.7 12.0-16.0 g/dL Hematocrit 36.5 37-47 % Mean Corpuscular Volume 95.1 80-100 fL Mean Corpuscular Hemoglobin 30.5 25-34 pg Mean Corpuscular Hemoglobin Concent 32.1 32-36 g/dl Platelet Count 122 130-400 K/uL Mean Platelet Volume 12.5 7.4-10.4 fL Neutrophils (%) (Auto) 66.2 % Lymphocytes (%) (Auto) 24.9 % Monocytes (%) (Auto) 8.3 % Eosinophils (%) (Auto) 0.0 % Basophils (%) (Auto) 0.3 % Neutrophils # (Auto) 5.28 1.4-6.5 K/uL Lymphocytes # (Auto) 1.98 1.2-3.4 K/uL Monocytes # (Auto) 0.66 0.11-0.59 K/uL Eosinophils # (Auto) 0.00 0-0.5 K/uL Basophils # (Auto) 0.02 0-0.2 K/uL RDW Standard Deviation 65.2 36.4-46.3 fL RDW Coefficient of Variation 19.2 11.5-14.5 % Immature Granulocyte % (Auto) 0.3 % Immature Granulocyte # (Auto) 0.02 0.00-0.02 K/uL Large Platelets 1+ Prothrombin Time 17.1 9.0-12.0 SECONDS Prothromb Time International Ratio 1.6 0.9-1.1 Activated Partial Thromboplast Time 30.3 21.0-31.0 SECONDS Partial Thromboplastin Ratio 1.2 Sodium Level 136 135 136-145 mmol/L Potassium Level 3.5-5.1 mmol/L Chloride Level 93 93 98-107 mmol/L Carbon Dioxide Level 32 32 21-32 mmol/L Anion Gap 11.0 10.0 3-11 mmol/L Blood Urea Nitrogen 44 45 7-18 mg/dl Creatinine 7.95 8.14 0.60-1.20 mg/dl Est Creatinine Clear Calc Drug Dose 7.2 7.0 ml/min Estimated GFR () 6.0 5.8 Estimated GFR (Non- 5.2 5.0 BUN/Creatinine Ratio 5.5 5.5 10-20 Random Glucose 216 187 70-99 mg/dl Calcium Level 8.6 8.3 8.5-10.1 mg/dl Magnesium Level 1.8-2.4 mg/dl Troponin I 0.017 0-0.045 ng/ml Pro-B-Type Natriuretic Peptide 5286 0-900 pg/ml Diagnostic Radiology CT SCAN OF THE BRAIN WITHOUT IV CONTRAST CLINICAL HISTORY: Headache. COMPARISON STUDY: CT of the brain dated 10/08/2017. TECHNIQUE: Unenhanced axial CT scan of the brain is performed from the vertex to the skull base. A dose lowering technique was utilized adhering to the principles of ALARA. CT DOSE: 614.27 mGy.cm FINDINGS: Brain parenchyma: There are age-related involutional changes noting [id number] patchy subcortical and periventricular microangiopathic change. There is no hemorrhage, mass effect, or evidence of acute territorial ischemia by CT criteria. A tiny chronic lacunar infarct is seen in the right cerebellar hemisphere. Perdomo-white matter is preserved. No extra-axial fluid collection is seen. Ventricles, sulci, cisterns: Prominent secondary to involutional change. Intracranial vasculature: There is abdomen atherosclerotic calcification of the cavernous carotid and vertebral arteries. Calvarium: Unremarkable. Sinuses and mastoids: The visualized paranasal sinuses are clear. The mastoid air cells are well pneumatized. Orbits: The bony orbits are grossly intact. There are bilateral ocular lens implants. IMPRESSION: There is no hemorrhage, mass effect, or evidence of acute territorial ischemia by CT criteria. Electronically signed by: Dewayne Andrade M.D. 10/28/2017 10:59 AM Dictated Date/Time: 10/28/2017 10:57 AM The status of this report is Signed CHEST ONE VIEW PORTABLE HISTORY: wheezing, sonorous breathe sounds COMPARISON: Chest 10/08/2017. FINDINGS: Mild diffuse interstitial thickening most pronounced within the left lower lobe, unchanged. The heart is normal in size. No pleural effusions. No pneumothorax. No new focal lung consolidations. Left axillary vascular stent is unchanged in position. IMPRESSION: Stable mild diffuse interstitial thickening which is likely chronic. No acute process within the chest. Electronically signed by: Bill Recinos M.D. 10/28/2017 12:09 PM Dictated Date/Time: 10/28/2017 12:08 PM The status of this report is Signed. EKG Normal sinus rhythm T wave abnormality, consider lateral ischemia Abnormal ECG When compared with ECG of 08-OCT-2017 15:53, ST no longer depressed in Inferior leads ST no longer elevated in Lateral leads Nonspecific T wave abnormality has replaced inverted T waves in Inferior leads T wave inversion now evident in Lateral leads Vent. rate 91 BPM FL interval 158 ms QRS duration 92 ms QT/QTc 368/452 ms P-R-T axes 60 6 101 Impression Assessment and Plan This is a 57 yo M with PMHx of ESRD on HD M/W/F, HTN, HLD, DMII, diabetic neuropathy, depression, hx of subarachnoid hemorrhage Sep 2017 where pt was admitted x ~1 month and was intubated and extubated several times, and required artificial ventilation for over 3 weeks, cognitive dysfunction, GERD, inflammatory polyneuropathy, who presents with acute onset of headache 1 day ago Headache/lethargy/weakness Hypotension - Admit to tele due to hypotension - patient remains in reverse Trendelenburg position due to SBP in 70s. Patient is status post 500 ml bolus. Per long term patient typically runs in the 80s up into the 110s at baseline. - Awaiting PRP with potassium results-hemolyzing - Will check BCx and lactic acid as has not been done, UA and Culture - pt with low grade fever overnight, currently has chills with shaking. Although wbc = 8K - MRSA swab - Start on levaquin and vancomycin empirically - antibiotics okay with family - Check Echo with severe hypotension, initial troponin was negative but will trend x 2 more sets. ESRD on HD - Normal schedule M/W/, did not receive dialysis today due to hypotension as above - Consult Dr. Robbins for dialysis - Cr. elevated around 8 Hx of ischemic colitis, s/p colostomy placement - Patient was admitted in [place] end of August through most of September for this, was intubated during ~3 weeks at that time. - [place] [facility] [place] Armando Marques with gen surg - has fu appt on . - Wound care consulted - Abdominal wound at the bottom of vertical incision appears to be unhealed, has Kerlix packing inside, continue doxycycline for this - No sacral decub wounds, requires jarred lift, waffle boots for heel pressure offloading Hx subarachnoid hemorrhage - Continue on lovenox at this time as CT of the head was negative. If any changes in mental status and consider urgent MRI of the brain and in stopping Lovenox DM II Diabetic neuropathy - ISS with accuchecks achs Depression -Continue home meds DVT prophylaxis: Lovenox CODE STATUS: DO NOT RESUSCITATE - POLST completed saying pt is on comfort measures only. Will not provide aggressive measures - this rest with the family at bedside and they are agreeable. Disposition: Patient from [facility] Level of Care Telemetry Resuscitation Status DO NOT RESUSCITATE VTE Prophylaxis Risk Level: Low Given or contraindicated: Enoxaparin (Lovenox)SQ, T.E.D. Stockings, SCD's Reviewed: Pt Seen/Exam by Me History Pt denies any pain, SOB. Family is present and state that she has been confused at times but that she did have a normal conversation with her daughter via phone while in the ED. Pt has not had anything to eat today. Missed HD due to coming to the ED. Agree with HPI/ROS as noted by PA. General Appearance: WD/WN, no apparent distress Respiratory: no respiratory distress, rhonchi Cardiovascular: normal peripheral pulses, tachycardia Gastrointestinal: non tender, soft Extremities: non-tender, no pedal edema Neurologic/Psychiatric: alert, other (answers questions but difficult to understand at times) Skin Characteristics: normal color, warm/dry Assessment/Plan Agree with plan as outlined above HypoTN and intermittent confusion with missed HD today Unable to obtain K due to hemolysis ED spoke with Dr. Robbins who follows pt and is hoping for HD today vs tomorrow pending BP improvement Pt is for comfort care otherwise, only wants abx DNR/DNI, no lines BP improved in the ED to 90s systolic Family states pt typically runs low L heel sore and abd ulceration Wound care c/s Abx given tenuous status, but no clear signs of infection
[2017-10-28] MEDS ORDERED: NON-FORMULARY MEDICATION (Dextrose (Diabetic Use) (Insta-Glucose) 1 APPLN) PO PRN (14:45)
[2017-10-28] MEDS ORDERED: GLUCOSE 10 TABS/TUBE PO PRN (15:30)
[2017-10-28] MEDS ORDERED: GLUCOSE 40% GEL 15 GM TUBE PO PRN (15:30)
[2017-10-28] MEDS ORDERED: GLUCAGON FOR INJ 1 MG VIAL SQ PRN (15:30)
[2017-10-28] MEDS ORDERED: LEVOFLOXACIN / D5W 750 MG in PREMIXED IN D5W 150 ML IV SCH (15:30)
[2017-10-28] MEDS ORDERED: VANCOMYCIN CONSULT ACTIVE PRN (15:30)
[2017-10-28] MEDS ORDERED: DEXTROSE 50% 50 ML SYR IV PRN (15:30)
[2017-10-28 16:33] VITALS: BP 97/63; PULSE 109; TEMP 37; O2SAT 96
[2017-10-28] MEDS ORDERED: LEVOFLOXACIN CONSULT ACTIVE PRN (16:45)
[2017-10-28 16:46] VITALS: BP 97/58; PULSE 105; TEMP 36.9; O2SAT 96; BMI 26.7
[2017-10-28] MEDS ORDERED: VANCOMYCIN INJ 1,250 MG in SODIUM CHLORIDE 0.9% 250ML 250 ML IV ONE (17:00)
[2017-10-28] MEDS: INSULIN ASPART 100 UNITS/ML 3 ML PEN SC SCH ×2 (17:33→21:43)
[2017-10-28 19:10] VITALS: BP 92/59; PULSE 89; TEMP 36.9; O2SAT 93
[2017-10-28] MEDS ORDERED: VANCOMYCIN INJ 1,250 MG in SODIUM CHLORIDE 0.9% 250ML 250 ML IV SCH (20:00)
[2017-10-28] MEDS ORDERED: VANCOMYCIN INJ 1,000 MG in SODIUM CHLORIDE 0.9% 250ML 250 ML IV SCH (21:00)
[2017-10-28] MEDS: TOPIRAMATE 25 MG TAB PO SCH (21:42)
[2017-10-28] MEDS: ATORVASTATIN 40 MG TAB PO SCH (21:42)
[2017-10-28] MEDS: PREGABALIN 100 MG CAP PO SCH (21:42)
[2017-10-28] MEDS: DOXYCYCLINE HYCLATE 100 MG CAP PO SCH (21:42)
[2017-10-28] MEDS: MIRTAZAPINE TAB 15 MG TAB PO SCH (21:42)
[2017-10-28 22:37] LABS: INFLUENZA B ANTIGEN Neg for Influ B (NEG)
[2017-10-28 23:17] LABS: INFLUENZA A PCR Neg for Influ A (NEG); INFLUENZA B PCR Neg for Influ B (NEG)
[2017-10-28 23:33] VITALS: BP 96/60; PULSE 98; TEMP 37.5; O2SAT 90
[2017-10-29] VITALS (19 sets, daily range): BP systolic 69–114; BP diastolic 30–68; PULSE 80–98; TEMP 36.5–37.5; O2SAT 90–93; Ht 154.9 cm; Wt 66.3 kg
[2017-10-29 06:15] LABS: HEMOGLOBIN 11.6 g/dL (12.0-16.0); MEAN CELL VOLUME 93.8 fL (80-100); MEAN CORPUSCULAR HEMOGLOBIN 30.2 pg (25-34); MEAN CORPUSCULAR HGB CONC 32.2 g/dl (32-36); MEAN PLATELET VOLUME 12.1 fL (7.4-10.4); PLATELET COUNT 93 K/uL (130-400); RED CELL DISTRIBUTION WIDTH CV 18.9 % (11.5-14.5); RED CELL DISTRIBUTION WIDTH SD 64.6 fL (36.4-46.3); WHITE BLOOD COUNT 11.25 K/uL (4.8-10.8)
[2017-10-29 06:53] LABS: BASO % 0.2 %; BASO ABS # 0.02 K/uL (0-0.2); EOS % 0.3 %; EOS ABS # 0.03 K/uL (0-0.5); IG# 0.02 K/uL (0.00-0.02); LYMPH % 21.3 %; MONO % 8.4 %; MONO ABS # 0.94 K/uL (0.11-0.59); NEUT % 69.6 %; NEUT ABS # 7.84 K/uL (1.4-6.5)
[2017-10-29] MEDS: INSULIN ASPART 100 UNITS/ML 3 ML PEN SC SCH ×4 (07:00→21:00)
[2017-10-29 07:02] LABS: CALCIUM 8.3 mg/dl (8.5-10.1); CREATININE 8.91 mg/dl (0.60-1.20); POTASSIUM 3.8 mmol/L (3.5-5.1)
--- NOTE | 2017-10-29 07:35 | NEPHROLOGY CONSULTATION ---
DATE OF CONSULTATION: 10/29/2017 ATTENDING OF RECORD: Vanna Iniguez MD. REASON FOR CONSULTATION: End-stage renal disease. HISTORY OF PRESENT ILLNESS: This is a 57-year-old female who dialyzes Mondays, Wednesdays and Fridays at the [facility] dialysis unit. The patient was recently admitted in [facility] and had ischemia requiring a colostomy and was intubated and came back to the outpatient unit this month significantly weaker and chronic diffuse pains, decreased appetite. The patient's blood pressures were low at [facility] and patient was more confused. The patient was admitted overnight. The patient on doxycycline 100 mg p.o. b.i.d. for a nonhealing incisional wound and did receive 1 dose of IV vancomycin. Blood pressures are in the 90s, pulse in the 90s. The patient is sleepy, tired, wakes up and is confused, complaining of pain. PAST MEDICAL/SURGICAL HISTORY: End-stage renal disease, colostomy, hyperlipidemia, history of subarachnoid hemorrhage, depression, appendectomy, cholecystectomy, fistula placement, nephrectomy, partial colectomy. FAMILY HISTORY: No renal disease in family. SOCIAL HISTORY: No tobacco, no alcohol, no drugs. CURRENT MEDICATIONS: Reviewed. REVIEW OF SYSTEMS: The patient confused this morning, unable to get reliable review of systems. PHYSICAL EXAMINATION: VITAL SIGNS: Temperature 37.5, pulse 98, respiratory rate 17, blood pressure is 96/60, satting 90% on 2 liters. GENERAL: Awake, alert, oriented x1, sleepy. EYES: No scleral icterus. ENT: Moist mucous membranes. NECK: Supple. PULMONARY: Decreased breath sounds at the bases. CARDIAC: Regular rate and rhythm. ABDOMEN: Bowel sounds positive. Positive colostomy. EXTREMITIES: No significant clubbing, cyanosis or edema. NEUROLOGICAL: Confused. DERMATOLOGIC: Has mild heel ulcer. LABORATORIES: White count is 11, H&H 11 and 36, platelet count is 93. INR is 1.6. Labs are pending for this morning. Blood cultures are pending. Chest x-ray shows stable mild diffuse interstitial thickening, likely chronic. No acute process within the chest. IMPRESSION AND PLAN: End-stage renal disease. Plan on dialysis today for clearance of toxins only. Potassium level last night was 3.4. The patient did have elevated lactic acid last night. Troponin negative. No signs of volume overload per chest x-ray and/or physical exam. The patient, after prolonged hospitalization, was very weak and will need prolonged rehab to get back to where she was if she ever does. Overall, poor prognosis given her debilitated state. We will dialyze for clearance only and continue to monitor for signs of infection. Appreciate consultation. KALINA
[2017-10-29] MEDS: PYRIDOXINE HCL 50 MG TAB PO SCH (07:57)
[2017-10-29] MEDS: DOXYCYCLINE HYCLATE 100 MG CAP PO SCH (07:57)
[2017-10-29] MEDS: LORATADINE 10 MG TAB PO SCH (07:58)
[2017-10-29] MEDS: ASPIRIN 81 MG ECTAB PO SCH (07:58)
[2017-10-29] MEDS: LACTOBACILLUS ACIDOPHILUS (FLORANEX) TAB PO SCH (07:58)
[2017-10-29] MEDS: CYANOCOBALAMIN 500 MCG TAB (VIT B-12) PO SCH (07:58)
[2017-10-29] MEDS: NEPHROCAPS PO SCH (07:59)
[2017-10-29] MEDS: OXYCODONE/ACETAMINOPHEN 5-325 TAB PO PRN ×3 (08:00→19:25)
[2017-10-29] MEDS: PREGABALIN 100 MG CAP PO SCH (08:02)
[2017-10-29] MEDS: TOPIRAMATE 25 MG TAB PO SCH (08:03)
--- NOTE | 2017-10-29 08:23 | Hospitalist Progress Note ---
Hospitalist Progress Note Date of Service Oct 29, 2017. Subjective The patient was seen and examined this morning. Pt reports feeling pretty good today. She is much more awake and talkative today. She understands the plan to have dialysis today. She denies any acute complaints. Additional Comments: Constitutional: No fever, sweats or chills Eyes: No diplopia, no worsening or blurred vision ENT: normal hearing, no trouble swallowing Respiratory: No cough, sputum, dyspnea at rest or on exertion Cardiovascular: No chest pain, tightness or palpitations Abdomen: No pain, nausea, vomiting, diarrhea or constipation Musculoskeletal: No joint pain, calf pain, swelling Neurologic: No weakness, numbness/tingling, or balance problems Psychiatric: No anxiety or depression Skin: No rash or itch Objective Vital Signs Date Time Temp Pulse Resp B/P (MAP) Pulse Ox O2 Delivery O2 Flow Rate FiO2 10/29/17 04:00 Room Air 10/29/17 03:35 37.5 98 17 96/60 (72) 90 Nasal Cannula 2.0 10/29/17 00:01 Room Air 10/28/17 23:33 37.5 98 17 96/60 (72) 90 Room Air 10/28/17 20:00 Room Air 10/28/17 19:10 36.9 89 18 92/59 (70) 93 Room Air 10/28/17 16:46 36.9 105 18 97/58 96 Nasal Cannula 2.0 10/28/17 16:33 37.0 109 16 97/63 (74) 96 Nasal Cannula 10/28/17 15:46 107 20 81/54 96 Nasal Cannula 2.0 10/28/17 14:31 116 86/41 100 Nasal Cannula 2.0 10/28/17 14:06 112 18 72/41 100 2.0 10/28/17 13:08 117 10/28/17 13:04 115 93/43 10/28/17 12:50 36.3 115 20 114/46 100 Nasal Cannula 2.0 10/28/17 12:14 109 22 74/61 94 2.0 10/28/17 11:43 98 20 75/38 92 2.0 10/28/17 11:03 102 14 84/34 96 10/28/17 10:45 96 74/38 95 Nasal Cannula 2.0 10/28/17 10:34 103 78/39 97 1/22/18 09:50 92 10/28/17 09:48 Nasal Cannula 2.0 10/28/17 09:42 36.5 94 16 89/46 91 Room Air Physical Exam Notes: General Appearance: WD/WN, no apparent distress, sitting up in bed, awake and alert Head: normocephalic, atraumatic Eyes: PERRL, EOMI ENT: hearing grossly normal, + pertinent finding (MM dry) Neck: supple, no JVD Respiratory/Chest: + pertinent finding (on room air, improved breath sounds, faint rhonchi in RLL, diminished breath sounds in Left base. ) Cardiovascular: no JVD, no murmur, NSR Abdomen/GI: normal bowel sounds, soft, + pertinent finding (hypoactive bowel sounds, + tunneling abdominal wound with packing, + colostomy RLQ, nontender with palpation) Back: normal inspection, no CVA tenderness Extremities/Musculoskeletal: no calf tenderness, no pedal edema, + pertinent finding (AVF in LUE with +thrill) Neurologic/Psych: alert, + oriented to place, self and time Skin: warm/dry, normal color Laboratory Results Last 24 Hours Test 10/28/17 10:30 10/28/17 12:13 10/28/17 13:36 10/28/17 17:26 White Blood Count 7.96 K/uL Red Blood Count 3.84 M/uL Hemoglobin 11.7 g/dL Hematocrit 36.5 % Mean Corpuscular Volume 95.1 fL Mean Corpuscular Hemoglobin 30.5 pg Mean Corpuscular Hemoglobin Concent 32.1 g/dl Platelet Count 122 K/uL Mean Platelet Volume 12.5 fL Neutrophils (%) (Auto) 66.2 % Lymphocytes (%) (Auto) 24.9 % Monocytes (%) (Auto) 8.3 % Eosinophils (%) (Auto) 0.0 % Basophils (%) (Auto) 0.3 % Neutrophils # (Auto) 5.28 K/uL Lymphocytes # (Auto) 1.98 K/uL Monocytes # (Auto) 0.66 K/uL Eosinophils # (Auto) 0.00 K/uL Basophils # (Auto) 0.02 K/uL RDW Standard Deviation 65.2 fL RDW Coefficient of Variation 19.2 % Immature Granulocyte % (Auto) 0.3 % Immature Granulocyte # (Auto) 0.02 K/uL Large Platelets 1+ Prothrombin Time 17.1 SECONDS Prothromb Time International Ratio 1.6 Activated Partial Thromboplast Time 30.3 SECONDS Partial Thromboplastin Ratio 1.2 Sodium Level 136 mmol/L 135 mmol/L Potassium Level mmol/L mmol/L mmol/L Chloride Level 93 mmol/L 93 mmol/L Carbon Dioxide Level 32 mmol/L 32 mmol/L Anion Gap 11.0 mmol/L 10.0 mmol/L Blood Urea Nitrogen 44 mg/dl 45 mg/dl Creatinine 7.95 mg/dl 8.14 mg/dl Est Creatinine Clear Calc Drug Dose 7.2 ml/min 7.0 ml/min Estimated GFR () 6.0 5.8 Estimated GFR (Non- 5.2 5.0 BUN/Creatinine Ratio 5.5 5.5 Random Glucose 216 mg/dl 187 mg/dl Calcium Level 8.6 mg/dl 8.3 mg/dl Magnesium Level mg/dl mg/dl Troponin I 0.017 ng/ml Pro-B-Type Natriuretic Peptide 5286 pg/ml Bedside Glucose 193 mg/dl Test 10/28/17 19:45 10/28/17 20:19 10/28/17 21:57 10/28/17 23:15 Potassium Level 3.4 mmol/L Lactic Acid Level 4.9 mmol/L Troponin I 0.022 ng/ml Bedside Glucose 93 mg/dl 75 mg/dl Influenza Type A (RT-PCR) Neg for Influ A Influenza Type A Antigen Neg for Influ A Influenza Type B Antigen Neg for Influ B Influenza Type B (RT-PCR) Neg for Influ B Test 10/28/17 23:54 10/29/17 00:12 10/29/17 02:02 10/29/17 03:13 Bedside Glucose 60 mg/dl 119 mg/dl 106 mg/dl Troponin I 0.022 ng/ml Test 10/29/17 05:43 10/29/17 06:40 White Blood Count 11.25 K/uL Red Blood Count 3.84 M/uL Hemoglobin 11.6 g/dL Hematocrit 36.0 % Mean Corpuscular Volume 93.8 fL Mean Corpuscular Hemoglobin 30.2 pg Mean Corpuscular Hemoglobin Concent 32.2 g/dl Platelet Count 93 K/uL Mean Platelet Volume 12.1 fL Neutrophils (%) (Auto) 69.6 % Lymphocytes (%) (Auto) 21.3 % Monocytes (%) (Auto) 8.4 % Eosinophils (%) (Auto) 0.3 % Basophils (%) (Auto) 0.2 % Neutrophils # (Auto) 7.84 K/uL Lymphocytes # (Auto) 2.40 K/uL Monocytes # (Auto) 0.94 K/uL Eosinophils # (Auto) 0.03 K/uL Basophils # (Auto) 0.02 K/uL RDW Standard Deviation 64.6 fL RDW Coefficient of Variation 18.9 % Immature Granulocyte % (Auto) 0.2 % Immature Granulocyte # (Auto) 0.02 K/uL Large Platelets 1+ Sodium Level 135 mmol/L Potassium Level 3.8 mmol/L Chloride Level 95 mmol/L Carbon Dioxide Level 33 mmol/L Anion Gap 7.0 mmol/L Blood Urea Nitrogen 54 mg/dl Creatinine 8.91 mg/dl Est Creatinine Clear Calc Drug Dose 6.1 ml/min Estimated GFR () 5.2 Estimated GFR (Non- 4.5 BUN/Creatinine Ratio 6.1 Random Glucose 88 mg/dl Calcium Level 8.3 mg/dl Bedside Glucose 90 mg/dl Assessment and Plan This is a 57 yo M with PMHx of ESRD on HD M/W/F, HTN, HLD, DMII, diabetic neuropathy, depression, hx of subarachnoid hemorrhage Sep 2017 where pt was admitted x ~1 month and was intubated and extubated several times, and required artificial ventilation for over 3 weeks, cognitive dysfunction, GERD, inflammatory polyneuropathy, who presents with acute onset of headache 1 day ago Headache/lethargy/weakness due to metabolic encephalopathy Hypotension Unidentified bacterial/infectious process - Admit to tele due to hypotension - patient remains in reverse Trendelenburg position due to SBP in 70s. Patient is status post 500 ml bolus. Today BP improved into the 90s. - K = 3.9 - Follow BCx - urine not collected last evening, pt appears to be improving. If any changes in mentation/symptoms or vitals, then will need a catheterized urine. Already on antibiotics. - WBC 11.25 and slightly elevated compared to at admission - MRSA swab neg - Start on levaquin and vancomycin empirically - antibiotics okay with family - Check Echo with severe hypotension, troponins x 3 are neg ESRD on HD - Normal schedule M/W/F, did not receive dialysis on 10/28 due to hypotension as above - HD today per nephro Hx of ischemic colitis, s/p colostomy placement - Patient was admitted in [place] end of August through most of September for this, was intubated during ~3 weeks at that time. - Follows with [facility] [place]- Dr. Armando Marques with gen surg - has fu appt on . - Wound care consulted - Abdominal wound at the bottom of vertical incision appears to be unhealed, has Kerlix packing inside, continue doxycycline for this - No sacral decub wounds, requires molly lift, waffle boots for heel pressure offloading Hx subarachnoid hemorrhage - Continue on lovenox at this time as CT of the head was negative. If any changes in mental status and consider urgent MRI of the brain - Will use heparin subq for DVT ppx instead of lovenox in the setting of ESRD. DM II Diabetic neuropathy - ISS with accuchecks achs Depression -Continue home meds DVT prophylaxis: heparin subq CODE STATUS: DO NOT RESUSCITATE - POLST completed saying pt is on comfort measures only. Will not provide aggressive measures - this rest with the family at bedside and they are agreeable. Continue dialysis and antibiotics Disposition: Patient from [facility], possible discharge tomorrow.
[2017-10-29] MEDS ORDERED: ENOXAPARIN 40 MG/0.4 ML SYR SQ SCH (09:00)
[2017-10-29] MEDS ORDERED: CYCLOBENZAPRINE HCL 10 MG TAB PO ONE (10:30)
--- NOTE | 2017-10-29 12:47 | Clinical Documentation Query ---
QUERY 1 OF [address] JORDAN, In your clinical opinion is this patient being managed for: ( x ) Unidentified bacterial/infectious process ( ) Not Agree ( ) Other explanation of clinical findings (Please Explain) ( ) Unable to determine (Please Define) ( ) Need to Discuss The medical record reflects the following clinical findings, treatment, and risk factors. Clinical Indicators: 57 yo female presented with headache. Found to be hypotensive 89/46, HR 92-117, O2 sat 91% on RA. WBC initially 7.96 but have risen to 11.25. Reportedly low grade temp of 99 and less responsive. UA not collected but pt seems to be improving. CXR negative for acute process Treatment:IV levaquin, IV vancomycin, 500 cc NSS bolus, blood cultures pending, doxycycline Risk Factors: ESRD, DM, recent lengthy hospital stay QUERY 2 OF 2 In your clinical opinion is this patient being managed for: (x ) Metabolic encephalopathy ( ) Not Agree ( ) Other explanation of clinical findings (Please Explain) ( ) Unable to determine (Please Define) ( ) Need to Discuss The medical record reflects the following clinical findings, treatment, and risk factors. Clinical Indicators: Pt presented with increasing lethargy and weakness. Subsequent progress note indicates pt much more awake and talkative Treatment: IV levaquin, IV fluid bolus, IV vancomycin, doxycycline, blood cultures, CT head Risk Factors:missed dialysis tx, DM, Please clarify and document your clinical opinion in the progress notes and discharge summary. Terms such as "probable", "suspected", "likely", "questionable", "possible", or "still to be ruled out" are acceptable. IF IN AGREEMENT, YOU MUST DOCUMENT ABOVE DIAGNOSTIC STATEMENT IN DAILY PROGRESS NOTES AND DISCHARGE SUMMARY. This document is not part of the patient's record. Thank You, Helena Tran RN [phone]
--- NOTE | 2017-10-29 12:50 | Pharmacy Progress Note ---
Pharmacy Abx Initial Consult Date of Service Oct 29, 2017. Pharmacy Dosing Scope Date of Consult: 10/28/17 Consultation requested by: Geraldine Negron Pharmacy is consulted to initiate Vancomycin and levaquin IV dosing therapy, order appropriate labs and adjust drug dose/frequency. Subjective The patient is a 57 year old female admitted on Oct 28, 2017 at 14:38. Objective Height (Feet): 5 Height (Inches): 1.00 Weight (Kilograms): 64.300 Vital Signs (Past 12Hrs) Vital Signs Past 12 Hours Date Time Temp Pulse Resp B/P (MAP) Pulse Ox O2 Delivery O2 Flow Rate FiO2 10/29/17 12:00 90 Room Air 2.0 10/29/17 08:00 90 Room Air 2.0 10/29/17 08:00 37.1 97 18 97/68 (78) 90 Room Air 10/29/17 04:00 Room Air 10/29/17 03:35 37.5 98 17 96/60 (72) 90 Nasal Cannula 2.0 Lab Results (24Hrs) Laboratory Tests (24 Hours) Test 10/28/17 19:45 10/29/17 05:43 Lactic Acid Level 4.9 mmol/L (0.4-2.0) *H White Blood Count 11.25 K/uL (4.8-10.8) H Red Blood Count 3.84 M/uL (4.2-5.4) L Hemoglobin 11.6 g/dL (12.0-16.0) L Hematocrit 36.0 % (37-47) L Mean Corpuscular Volume 93.8 fL (80-100) Mean Corpuscular Hemoglobin 30.2 pg (25-34) Mean Corpuscular Hemoglobin Concent 32.2 g/dl (32-36) Platelet Count 93 K/uL (130-400) L Mean Platelet Volume 12.1 fL (7.4-10.4) H Neutrophils (%) (Auto) 69.6 % Lymphocytes (%) (Auto) 21.3 % Monocytes (%) (Auto) 8.4 % Eosinophils (%) (Auto) 0.3 % Basophils (%) (Auto) 0.2 % Neutrophils # (Auto) 7.84 K/uL (1.4-6.5) H Lymphocytes # (Auto) 2.40 K/uL (1.2-3.4) Monocytes # (Auto) 0.94 K/uL (0.11-0.59) H Eosinophils # (Auto) 0.03 K/uL (0-0.5) Basophils # (Auto) 0.02 K/uL (0-0.2) Micro Results Date/Time Source Procedure Growth Status 10/28/17 17:06 Blood Blood Culture Pending Received 10/28/17 10:30 Blood Blood Culture Pending Received 10/28/17 21:57 Nasal MRSA DNA Surveillance Screen - Final Specimen Negative for MRSA by DNA Probe Complete Risk Factors for Resistance * Resident in a [facility] or extended-care facility * Chronic dialysis within the past 30 days: usual schedule MWF * 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 * Usual HD schedule MWF. * Missed HD on 10/28 due to hypotension. * MRSA nasal swab is negative * Blood Cultures pending * Mild leukocytosis Plan Vancomycin and Levaquin empiric treatment for fever of unknown origin. Vancomycin IV * Loading dose: 1250 mg ( 19 mg/kg) * Goal trough level 15 to 20 mcg/mL * Random level 10/29 am=25.1 * HD expected today, no dose will be ordered today. * No further levels will be ordered unless Vanc is continued Levaquin * Loading dose 750mg IV x 1 * Maintenance [id number] IV q 48 hours for patient on IHD. * Pt will only receive 1x 500mg dose unless indication is changed from Empiric 48 hour therapy Pharmacy will continue to follow and will adjust dose/frequency as necessary. Thank you.
--- NOTE | 2017-10-29 17:01 | ECHOCARDIOGRAM REPORT ---
*NOTICE TO RECEIVING LIBERTARIAN AGENCY This information is strictly Confidential and protected under [place] law. [place] law prohibits you from making any further disclosure of this information unless further disclosure is expressly permitted by the written consent of the person to whom it pertains or is authorized by law. A general authorization for the release of medical or other information is not sufficient for this purpose. Hospital accepts no responsibility if the information is made available to any other person, INCLUDING THE PATIENT. Interpretation Summary * Name: KWASI JUAREZ Study Date: 10/29/2017 07:17 AM BP: 96/60 mmHg * Patient Location: .2T\S\S231\S\1 HR: 98 * : 1960 (M/d/yyyy) Gender: Female Height: 65 in * Age: 57 yrs Ethnicity: [place] Weight: 141 lb * Ordering Physician: Erin Negron * Referring Physician: Reddy Boles * Performed By: Andrew Sutherland * * Reason For Study: Severe Hypotension * BSA: 1.7 m2 * -- Conclusions -- * 1. Normal LV size. Normal LV wall thickness. * 2. Normal LV systolic function. LVEF 55-60%. * 3. Normal RV size and function. * 4. Aortic sclerosis without stenosis. * 5. Normal estimated PA and RA pressures. * 6. Compared with prior study on 10/25/2016: No significant change Procedure Details * A complete two-dimensional transthoracic echocardiogram was performed (2D, M-mode, Doppler and color flow Doppler). Left Ventricle * The left ventricle is grossly normal size. * There is normal left ventricular wall thickness. * Ejection Fraction = 55-60%. * Abnormal septal motion potentially consistent with RV volume overload. Right Ventricle * The right ventricle is grossly normal size. * The right ventricular systolic function is qualitatively normal. Atria * The left atrial size is normal. * Right atrial size is normal. * No ASD detected; PFO is not assessed. Mitral Valve * The mitral valve is grossly normal. * There is mild mitral annular calcification. * There is no mitral valve stenosis. * Significant mitral regurgitation is absent. Tricuspid Valve * The tricuspid valve is not well visualized, but is grossly normal. * There is trace tricuspid regurgitation. Aortic Valve * Aortic valve sclerosis mild, without significant aortic valvular stenosis. * No hemodynamically significant valvular aortic stenosis. * There is no significant aortic regurgitation. Pulmonic Valve * The pulmonary valve is inadequately visualized, but the Doppler data is adequate for interpretation. * There is no pulmonic valvular stenosis. * Trace pulmonic valvular regurgitation. Great Vessels * The aortic root and proximal ascending aorta are normal sized. Pericardium/Pleural * There is no pericardial effusion. Great Vessels * Normal inferior vena cava size and collapsability with sniff indicates a normal right atrial pressure of 3 mmHg MMode 2D Measurements and Calculations IVSd 1.0 cm IVSs 1.3 cm LVIDd 4.0 cm LVIDs 2.7 cm LVPWd 0.95 cm LVPWs 1.3 cm IVS/LVPW 1.1 FS 31.3 % EDV(Teich) 69.6 ml ESV(Teich) 28.1 ml EF(Teich) 59.6 % EDV(cubed) 63.5 ml ESV(cubed) 20.6 ml EF(cubed) 67.5 % % IVS thick 26.3 % % LVPW thick 38.5 % LV mass(C)d 124.5 grams LV mass(C)dI 73.0 grams/m\S\2 LV mass(C)s 111.2 grams LV mass(C)sI 65.2 grams/m\S\2 SV(Teich) 41.5 ml SI(Teich) 24.3 ml/m\S\2 SV(cubed) 42.9 ml SI(cubed) 25.2 ml/m\S\2 Ao root diam 3.0 cm Ao root area 7.3 cm\S\2 ACS 1.2 cm LA dimension 3.1 cm asc Aorta Diam 2.7 cm LA/Ao 1.0 EDV(MOD-sp4) 55.0 ml ESV(MOD-sp4) 18.1 ml EF(MOD-sp4) 67.2 % EDV(MOD-sp2) 49.5 ml ESV(MOD-sp2) 22.6 ml EF(MOD-sp2) 54.3 % SV(MOD-sp4) 36.9 ml SI(MOD-sp4) 21.7 ml/m\S\2 SV(MOD-sp2) 26.9 ml SI(MOD-sp2) 15.8 ml/m\S\2 Doppler Measurements and Calculations MV E max shelley 85.7 cm/sec MV A max shelley 113.2 cm/sec MV E/A 0.76 MV P1/2t max shelley 92.7 cm/sec MV P1/2t 59.3 msec MVA(P1/2t) 3.7 cm\S\2 MV dec slope 457.8 cm/sec\S\2 MV dec time 0.28 sec Ao V2 max 135.9 cm/sec Ao max PG 7.4 mmHg Ao max PG (full) 3.5 mmHg LV V1 max PG 3.9 mmHg LV V1 max 98.7 cm/sec PA V2 max 101.4 cm/sec PA max PG 4.1 mmHg PI max shelley 188.1 cm/sec PI max PG 14.2 mmHg PI dec slope 240.8 cm/sec\S\2 PI P1/2t 228.7 msec TR max shelley 220.1 cm/sec
[2017-10-29] MEDS ORDERED: LORAZEPAM 2 MG/ML 1 ML VIAL IV PRN (18:15)
[2017-10-29] MEDS: BOOST GLUCOSE CONTROL PO SCH (23:25)
[2017-10-30] VITALS (11 sets, daily range): BP systolic 64–117; BP diastolic 40–63; PULSE 90–111; TEMP 36.3–36.6; O2SAT 91–100
[2017-10-30] MEDS: ATORVASTATIN 40 MG TAB PO SCH ×2 (01:19→21:05)
[2017-10-30] MEDS: GABAPENTIN 100 MG CAP PO SCH ×3 (01:19→21:04)
[2017-10-30] MEDS: DOXYCYCLINE HYCLATE 100 MG CAP PO SCH ×3 (01:19→21:06)
[2017-10-30] MEDS: MIRTAZAPINE TAB 15 MG TAB PO SCH ×2 (01:20→21:05)
[2017-10-30] MEDS: TOPIRAMATE 25 MG TAB PO SCH ×3 (01:20→21:04)
[2017-10-30] MEDS: OXYCODONE/ACETAMINOPHEN 5-325 TAB PO PRN ×2 (01:24→17:29)
[2017-10-30 06:37] LABS: HEMATOCRIT 30.7 % (37-47); HEMOGLOBIN 9.9 g/dL (12.0-16.0); MEAN CELL VOLUME 92.7 fL (80-100); MEAN CORPUSCULAR HEMOGLOBIN 29.9 pg (25-34); MEAN CORPUSCULAR HGB CONC 32.2 g/dl (32-36); PLATELET COUNT 92 K/uL (130-400); RED CELL DISTRIBUTION WIDTH CV 18.9 % (11.5-14.5); RED CELL DISTRIBUTION WIDTH SD 64.3 fL (36.4-46.3); WHITE BLOOD COUNT 7.97 K/uL (4.8-10.8)
[2017-10-30 06:53] LABS: EOS % 0.4 %; EOS ABS # 0.03 K/uL (0-0.5); IG# 0.02 K/uL (0.00-0.02); LYMPH % 18.4 %; LYMPH ABS # 1.47 K/uL (1.2-3.4); MONO % 9.8 %; MONO ABS # 0.78 K/uL (0.11-0.59); NEUT % 71.1 %; NEUT ABS # 5.67 K/uL (1.4-6.5)
[2017-10-30 07:10] LABS: CALCIUM 7.9 mg/dl (8.5-10.1); CREATININE 3.98 mg/dl (0.60-1.20); POTASSIUM 3.2 mmol/L (3.5-5.1)
--- NOTE | 2017-10-30 07:47 | Nephrology Progress Note ---
Nephrology Progress Note Date of Service: Oct 30, 2017. Subjective 57 yo female with esrd with prolonged hospitlization in [place] and now with colostomy. presented wtih weakness, confusion, hypotension. had dialysis yesterday with minimal fluid removal. pt comfortable this morning. more alert. eating breakfast. no sob. Objective Date Time Temp Pulse Resp B/P (MAP) Pulse Ox O2 Delivery O2 Flow Rate FiO2 10/30/17 07:27 36.5 96 18 99/61 (74) 98 Nasal Cannula 2.0 10/30/17 04:00 Nasal Cannula 2.0 10/30/17 03:15 36.3 97 16 88/54 (65) 99 Nasal Cannula 2.0 10/30/17 00:51 36.3 94 117/63 (81) 10/30/17 00:00 Nasal Cannula 2.0 10/29/17 23:40 93 114/65 10/29/17 23:24 98 94/41 10/29/17 23:14 95 101/42 10/29/17 23:00 92 70/33 10/29/17 22:28 90 83/30 10/29/17 22:23 90 91/36 10/29/17 22:10 95 70/35 10/29/17 22:00 90 91/36 10/29/17 21:40 90 78/40 10/29/17 21:20 86 80/41 10/29/17 21:00 86 95/53 10/29/17 21:00 36.8 85 94/48 (63) 10/29/17 20:45 87 105/57 10/29/17 20:00 Room Air 10/29/17 19:40 36.5 80 20 88/56 (67) 92 Room Air 10/29/17 16:00 91 Room Air 10/29/17 15:50 36.5 86 20 69/47 (54) 91 Room Air 10/29/17 14:38 81 10/29/17 12:00 36.8 93 20 75/44 (54) 93 Room Air 10/29/17 12:00 90 Room Air 2.0 10/29/17 08:00 90 Room Air 2.0 10/29/17 08:00 37.1 97 18 97/68 (78) 90 Room Air Physical Exam: General-aaox3 Eyes-no scleral icterus ENT-mmm Neck-supple Lungs-left sided rales Heart-rrr Abdomen-+colostomy, bs+, soft Extremities-no c/c/e Neuro-nonfocal Current Inpatient Medications Medications (Trade) Dose Ordered Sig/Sandy Route Start Time Stop Time Status Last Admin Dose Admin Aspirin (Ecotrin Tab) 81 mg DAILY PO 10/29/17 09:00 11/28/17 08:59 10/29/17 07:58 81 MG Atorvastatin Calcium (Lipitor Tab) 40 mg QPM PO 10/28/17 21:00 11/27/17 20:59 10/30/17 01:19 40 MG Vitamin B Complex/ Vit C/Folic Acid (Nephrocaps) 1 cap DAILY PO 10/29/17 09:00 11/28/17 08:59 10/29/17 07:59 1 CAP Cyanocobalamin (Vitamin B-12 Tab) 1,000 mcg DAILY PO 10/29/17 09:00 11/28/17 08:59 10/29/17 07:58 1,000 MCG Folic Acid (Folvite Tab) 2 mg DAILY PO 10/29/17 09:00 11/28/17 08:59 10/29/17 07:57 2 MG Loratadine (Claritin Tab) 10 mg DAILY PO 10/29/17 09:00 11/28/17 08:59 10/29/17 07:58 10 MG Mirtazapine (Remeron Tab) 30 mg HS PO 10/28/17 21:00 11/27/17 20:59 10/30/17 01:20 30 MG Oxycodone/ Acetaminophen (Percocet 5-325mg Tab) 1 tab Q6H PRN PO 10/28/17 14:45 11/11/17 14:44 10/30/17 01:24 1 TAB Pyridoxine HCl (Vitamin B-6 Tab) 50 mg DAILY PO 10/29/17 09:00 11/28/17 08:59 10/29/17 07:57 50 MG Topiramate (Topamax Tab) 25 mg BID PO 10/28/17 21:00 11/27/17 20:59 10/30/17 01:20 25 MG Miscellaneous Information (Order Awaiting Action) 1 ea QS N/A 10/28/17 16:30 11/27/17 16:29 Miscellaneous Information (Order Awaiting Action) 1 ea QS N/A 10/28/17 16:30 11/27/17 16:29 Doxycycline Hyclate (Vibramycin Cap) 100 mg BID PO 10/28/17 21:00 11/07/17 20:59 10/30/17 01:19 100 MG Lactobacillus Acidophilus (Floranex Tab) 1 tab DAILY PO 10/29/17 09:00 11/28/17 08:59 10/29/17 07:58 1 TAB Miscellaneous Information (Consult) 1 ea UD PRN N/A 10/28/17 15:30 11/27/17 15:29 Insulin Aspart (novoLOG ASPART) SLIDING SCALE If C... ACHS SC 10/28/17 17:00 11/27/17 16:59 10/29/17 17:51 1 UNITS Glucose (Glucose 40% Gel) 15-30 GRAMS 15 GRAMS... UD PRN PO 10/28/17 15:30 11/27/17 15:29 Glucose (Glucose Chew Tab) 4-8 Tablets 4 Tabl... UD PRN PO 10/28/17 15:30 11/27/17 15:29 Dextrose (Dextrose 50% 50ML Syringe) 25-50ML OF 50% DW IV FOR... UD PRN IV 10/28/17 15:30 11/27/17 15:29 10/28/17 23:59 25 ML Glucagon (Glucagon Inj) 1 mg UD PRN SQ 10/28/17 15:30 11/27/17 15:29 Levofloxacin (Consult) 1 ea UD PRN N/A 10/28/17 16:45 11/27/17 16:44 Heparin Sodium (Porcine) (Heparin Sq 5000 Unit/0.5ml) 5,000 unit BID SQ 10/30/17 09:00 11/29/17 08:59 Levofloxacin 500 mg/Prmx 100 ml @ 100 mls/hr Q48H IV 10/30/17 17:00 10/30/17 17:59 Enteral Nutritional Formula (Boost Glucose Control) 1 can BID@1000,2100 PO 10/29/17 21:00 11/28/17 20:59 Gabapentin (Neurontin Cap) 100 mg BID PO 10/29/17 21:00 11/28/17 20:59 10/30/17 01:19 100 MG Lorazepam (Ativan Inj) 0.5 mg Q8 PRN IV 10/29/17 18:15 11/28/17 18:14 Last 24 Hours Test 10/29/17 10:58 10/29/17 11:24 10/29/17 16:17 10/29/17 20:08 Random Vancomycin Level 25.1 mcg/ml Bedside Glucose 112 mg/dl 128 mg/dl 120 mg/dl Test 10/30/17 00:10 10/30/17 06:07 Hepatitis B Surface Antigen NEG Hepatitis B Surface Antibody POS White Blood Count 7.97 K/uL Red Blood Count 3.31 M/uL Hemoglobin 9.9 g/dL Hematocrit 30.7 % Mean Corpuscular Volume 92.7 fL Mean Corpuscular Hemoglobin 29.9 pg Mean Corpuscular Hemoglobin Concent 32.2 g/dl Platelet Count 92 K/uL Mean Platelet Volume 12.0 fL Neutrophils (%) (Auto) 71.1 % Lymphocytes (%) (Auto) 18.4 % Monocytes (%) (Auto) 9.8 % Eosinophils (%) (Auto) 0.4 % Basophils (%) (Auto) 0.0 % Neutrophils # (Auto) 5.67 K/uL Lymphocytes # (Auto) 1.47 K/uL Monocytes # (Auto) 0.78 K/uL Eosinophils # (Auto) 0.03 K/uL Basophils # (Auto) 0.00 K/uL RDW Standard Deviation 64.3 fL RDW Coefficient of Variation 18.9 % Immature Granulocyte % (Auto) 0.3 % Immature Granulocyte # (Auto) 0.02 K/uL Toxic Vacuolation 1+ Large Platelets 1+ Sodium Level 139 mmol/L Potassium Level 3.2 mmol/L Chloride Level 99 mmol/L Carbon Dioxide Level 29 mmol/L Anion Gap 11.0 mmol/L Blood Urea Nitrogen 17 mg/dl Creatinine 3.98 mg/dl Est Creatinine Clear Calc Drug Dose 14.0 ml/min Estimated GFR () 13.8 Estimated GFR (Non- 11.9 BUN/Creatinine Ratio 4.2 Random Glucose 76 mg/dl Calcium Level 7.9 mg/dl Assessment & Plan ESRD-normally dialyzes m-w-f however had dialysis yesterday and electrolytes and volume status are acceptable. does have rales at the left base but with bp issues, would not be aggressive with fluid removal and pt is not symptomatically sob. hold on dialysis today. will do dialysis again on saturday.
[2017-10-30] MEDS: INSULIN ASPART 100 UNITS/ML 3 ML PEN SC SCH ×4 (08:13→21:00)
[2017-10-30] MEDS: ASPIRIN 81 MG ECTAB PO SCH (08:14)
[2017-10-30] MEDS: LACTOBACILLUS ACIDOPHILUS (FLORANEX) TAB PO SCH (08:14)
[2017-10-30] MEDS: NEPHROCAPS PO SCH (08:14)
[2017-10-30] MEDS: CYANOCOBALAMIN 500 MCG TAB (VIT B-12) PO SCH (08:14)
[2017-10-30] MEDS: LORATADINE 10 MG TAB PO SCH (08:14)
[2017-10-30] MEDS: PYRIDOXINE HCL 50 MG TAB PO SCH (08:15)
[2017-10-30] MEDS: HEPARIN SOD 5000 UNIT/0.5 ML CARP SQ SCH ×2 (08:17→21:18)
[2017-10-30] MEDS: BOOST GLUCOSE CONTROL PO SCH ×2 (08:24→21:00)
[2017-10-30] MEDS ORDERED: POTASSIUM CHLORIDE 20 MEQ TABCR PO ONE (09:15)
[2017-10-30] MEDS ORDERED: BACLOFEN 10 MG TAB PO PRN (10:45)
--- NOTE | 2017-10-30 10:59 | Hospitalist Progress Note ---
Hospitalist Progress Note Date of Service Oct 30, 2017. Subjective Pt evaluation today including: conversation w/ patient, physical exam, chart review, lab review, review of studies Pain: Bilateral lower extremities PO Intake: Good Voiding: no voiding problems The patient was seen and examined this morning. Pt reports doing well other than having pain in both of her lower legs and feet. She does not know what this is from, and cant describe it moreso than an intense ache. The pain is not sharp or shooting in nature. Otherwise she has no complaints. ROS: 6 point ROS reviewed and otherwise negative. Objective Vital Signs Date Time Temp Pulse Resp B/P (MAP) Pulse Ox O2 Delivery O2 Flow Rate FiO2 10/30/17 08:00 Nasal Cannula 2.0 10/30/17 07:27 36.5 96 18 99/61 (74) 98 Nasal Cannula 2.0 10/30/17 04:00 Nasal Cannula 2.0 10/30/17 03:15 36.3 97 16 88/54 (65) 99 Nasal Cannula 2.0 10/30/17 00:51 36.3 94 117/63 (81) 10/30/17 00:00 Nasal Cannula 2.0 10/29/17 23:40 93 114/65 10/29/17 23:24 98 94/41 10/29/17 23:14 95 101/42 10/29/17 23:00 92 70/33 10/29/17 22:28 90 83/30 10/29/17 22:23 90 91/36 10/29/17 22:10 95 70/35 10/29/17 22:00 90 91/36 10/29/17 21:40 90 78/40 10/29/17 21:20 86 80/41 10/29/17 21:00 86 95/53 10/29/17 21:00 36.8 85 94/48 (63) 10/29/17 20:45 87 105/57 10/29/17 20:00 Room Air 10/29/17 19:40 36.5 80 20 88/56 (67) 92 Room Air 10/29/17 16:00 91 Room Air 10/29/17 15:50 36.5 86 20 69/47 (54) 91 Room Air 10/29/17 14:38 81 10/29/17 12:00 36.8 93 20 75/44 (54) 93 Room Air 10/29/17 12:00 90 Room Air 2.0 Physical Exam Notes: General Appearance: WD/WN, no apparent distress, sitting up in bed, awake and alert Head: normocephalic, atraumatic Eyes: PERRL, EOMI ENT: hearing grossly normal, + pertinent finding (MMM) Neck: supple, no JVD Respiratory/Chest: + pertinent finding (on room air, improved breath sounds, faint rhonchi in RLL, diminished breath sounds in Left base. ) Cardiovascular: no JVD, no murmur, NSR Abdomen/GI: normal bowel sounds, soft, + pertinent finding (hypoactive bowel sounds, + tunneling abdominal wound with packing, + colostomy RLQ, nontender with palpation) Back: normal inspection, no CVA tenderness Extremities/Musculoskeletal: pain with minimal manipulation of bilateral lower extremities. no pedal edema, + pertinent finding (AVF in LUE with +thrill) Neurologic/Psych: alert, + oriented to place, self and time Skin: warm/dry, normal color Laboratory Results Last 24 Hours Test 10/29/17 10:58 10/29/17 11:24 10/29/17 16:17 10/29/17 20:08 Random Vancomycin Level 25.1 mcg/ml Bedside Glucose 112 mg/dl 128 mg/dl 120 mg/dl Test 10/30/17 00:10 10/30/17 06:07 10/30/17 06:38 10/30/17 07:00 Hepatitis B Surface Antigen NEG Hepatitis B Surface Antibody POS White Blood Count 7.97 K/uL Red Blood Count 3.31 M/uL Hemoglobin 9.9 g/dL Hematocrit 30.7 % Mean Corpuscular Volume 92.7 fL Mean Corpuscular Hemoglobin 29.9 pg Mean Corpuscular Hemoglobin Concent 32.2 g/dl Platelet Count 92 K/uL Mean Platelet Volume 12.0 fL Neutrophils (%) (Auto) 71.1 % Lymphocytes (%) (Auto) 18.4 % Monocytes (%) (Auto) 9.8 % Eosinophils (%) (Auto) 0.4 % Basophils (%) (Auto) 0.0 % Neutrophils # (Auto) 5.67 K/uL Lymphocytes # (Auto) 1.47 K/uL Monocytes # (Auto) 0.78 K/uL Eosinophils # (Auto) 0.03 K/uL Basophils # (Auto) 0.00 K/uL RDW Standard Deviation 64.3 fL RDW Coefficient of Variation 18.9 % Immature Granulocyte % (Auto) 0.3 % Immature Granulocyte # (Auto) 0.02 K/uL Toxic Vacuolation 1+ Large Platelets 1+ Sodium Level 139 mmol/L Potassium Level 3.2 mmol/L Chloride Level 99 mmol/L Carbon Dioxide Level 29 mmol/L Anion Gap 11.0 mmol/L Blood Urea Nitrogen 17 mg/dl Creatinine 3.98 mg/dl Est Creatinine Clear Calc Drug Dose 14.0 ml/min Estimated GFR () 13.8 Estimated GFR (Non- 11.9 BUN/Creatinine Ratio 4.2 Random Glucose 76 mg/dl Calcium Level 7.9 mg/dl Bedside Glucose 71 mg/dl 72 mg/dl Assessment and Plan This is a 57 yo M with PMHx of ESRD on HD M//, HTN, HLD, DMII, diabetic neuropathy, depression, hx of subarachnoid hemorrhage Sep 2017 where pt was admitted x ~1 month and was intubated and extubated several times, and required artificial ventilation for over 3 weeks, cognitive dysfunction, GERD, inflammatory polyneuropathy, who presents with acute onset of headache 1 day ago Headache/lethargy/weakness due to metabolic encephalopathy Hypotension Unidentified bacterial/infectious process - Admit to tele due to hypotension -resolved - K = 3.2 and replaced via po - Follow BCx - NGTD - urine not collected last evening, pt appears to be improving. If any changes in mentation/symptoms or vitals, then will need a catheterized urine. Already on antibiotics. - WBC improving - MRSA swab neg - Start on levaquin and vancomycin empirically - antibiotics okay with family - Check Echo with severe hypotension, troponins x 3 are neg Bilateral lower extremity pain - Lyrica was stopped and pt missed two doses for unknown reason. Will resume. Also checking arterial u/s of BLE due to pain. Will add on baclofen for muscle spasm/cramping. ESRD on HD - Normal schedule //, did not receive dialysis on 10/28 due to hypotension as above - last HD on 10/29 will plan on next session Saturday to resume normal schedule. Hx of ischemic colitis, s/p colostomy placement - Patient was admitted in [place] end of August through most of September for this, was intubated during ~3 weeks at that time. - [place]s [place] [facility] [place]. Armando Marques with gen surg - has fu appt on . - Wound care consulted - Abdominal wound at the bottom of vertical incision appears to be unhealed, has Kerlix packing inside, continue doxycycline for this - No sacral decub wounds, requires molly lift, waffle boots for heel pressure offloading Hx subarachnoid hemorrhage - Continue on lovenox at this time as CT of the head was negative. If any changes in mental status and consider urgent MRI of the brain - Will use heparin subq for DVT ppx instead of lovenox in the setting of ESRD. DM II Diabetic neuropathy - ISS with accuchecks achs Depression -Continue home meds DVT prophylaxis: heparin subq CODE STATUS: DO NOT RESUSCITATE - POLST completed saying pt is on comfort measures only. Will not provide aggressive measures - this rest with the family at bedside and they are agreeable. Continue dialysis and antibiotics Disposition: Patient from [facility], possible discharge tomorrow.
[2017-10-30] MEDS: PREGABALIN 100 MG CAP PO SCH ×2 (11:47→21:03)
--- NOTE | 2017-10-30 15:26 | DIAGNOSTIC IMAGING REPORT ---
ART DOP LOWER EXT BILAT CLINICAL HISTORY: severe leg pain, cramping sensation pain COMPARISON STUDY: 10/26/2016 FINDINGS: Real-time as well as Doppler evaluation of the arterial structures of the lower legs was performed. Waveforms are triphasic throughout. Velocity characteristics are unremarkable. Considerable plaque formation is noted bilaterally. Conclusion right posterior tibial artery. Dampened monophasic waveforms from the popliteal regions inferior to the ankles. Considerable increase in velocities of the thighs. Blood pressure indices could not be obtained as patient could not cooperate. IMPRESSION: 1. High-grade stenosis of the proximal superficial femoral arteries bilaterally. This is seen at multilevel regions bilaterally. 2. 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 3. Dampened flow characteristics of the patent runoff vessels of the lower leg consistent with a dampened in flow blood characteristics/inflow disease. The above report was generated using voice recognition software. It may contain grammatical, syntax or spelling errors. Electronically signed by: Daniel Griffith M.D. 10/30/2017 3:25 PM Dictated Date/Time: 10/30/2017 3:22 PM
[2017-10-30] MEDS ORDERED: LEVOFLOXACIN 500MG / D5W IV SCH ×2 (17:00)
[2017-10-30] MEDS ORDERED: SODIUM CHLORIDE 0.9% 500ML 500 ML IV ONE (22:45)
[2017-10-31] VITALS: BP 96/62; PULSE 85; TEMP 36.8; O2SAT 100
[2017-10-31] MEDS: OXYCODONE/ACETAMINOPHEN 5-325 TAB PO PRN ×2 (01:32→08:55)
[2017-10-31 07:48] VITALS: BP 89/54; PULSE 80; TEMP 36.5; O2SAT 100
[2017-10-31] MEDS ORDERED: POTASSIUM CHLORIDE 20 MEQ TABCR PO SCH (08:00)
[2017-10-31 08:27] LABS: HEMATOCRIT 34.2 % (37-47); HEMOGLOBIN 11.1 g/dL (12.0-16.0); MEAN CELL VOLUME 93.2 fL (80-100); MEAN CORPUSCULAR HEMOGLOBIN 30.2 pg (25-34); MEAN CORPUSCULAR HGB CONC 32.5 g/dl (32-36); MEAN PLATELET VOLUME 12.5 fL (7.4-10.4); PLATELET COUNT 83 K/uL (130-400); RED CELL DISTRIBUTION WIDTH CV 18.8 % (11.5-14.5); RED CELL DISTRIBUTION WIDTH SD 63.5 fL (36.4-46.3)
--- NOTE | 2017-10-31 08:28 | Hospitalist Progress Note ---
Hospitalist Progress Note Date of Service Oct 31, 2017. Objective Vital Signs Date Time Temp Pulse Resp B/P (MAP) Pulse Ox O2 Delivery O2 Flow Rate FiO2 10/31/17 07:48 36.5 80 22 89/54 (66) 100 Nasal Cannula 2.0 10/31/17 01:05 Nasal Cannula 2.0 10/31/17 00:00 36.8 85 18 96/62 (73) 100 Nasal Cannula 2.0 10/30/17 22:11 78/42 (54) 10/30/17 21:19 72/40 (51) 10/30/17 20:13 64/42 (49) 10/30/17 19:07 36.5 92 20 68/41 (50) 91 Room Air 10/30/17 18:40 36.4 111 20 96 2.0 10/30/17 16:00 96 Nasal Cannula 2.0 10/30/17 15:24 36.4 111 20 98/63 (75) 98 Nasal Cannula 2.0 10/30/17 12:00 Nasal Cannula 2.0 10/30/17 11:33 36.6 90 20 95/61 (72) 100 Room Air Laboratory Results Last 24 Hours Test 10/30/17 11:20 10/30/17 16:20 10/30/17 19:52 10/31/17 05:39 Bedside Glucose 182 mg/dl 71 mg/dl 104 mg/dl Test 10/31/17 07:27 Bedside Glucose 71 mg/dl Assessment and Plan This is a 57 yo M with PMHx of ESRD on HD M/W/F, HTN, HLD, DMII, diabetic neuropathy, depression, hx of subarachnoid hemorrhage Sep 2017 where pt was admitted x ~1 month and was intubated and extubated several times, and required artificial ventilation for over 3 weeks, cognitive dysfunction, GERD, inflammatory polyneuropathy, who presents with acute onset of headache 1 day ago Headache/lethargy/weakness due to metabolic encephalopathy Hypotension Unidentified bacterial/infectious process - Admit to tele due to hypotension -resolved - K = 3.2 and replaced via po - Follow BCx - NGTD - urine not collected last evening, pt appears to be improving, Abx off at this time as pt shows improvement. - WBC improving - MRSA swab neg - Check Echo with severe hypotension, troponins x 3 are neg Bilateral lower extremity pain - Lyrica was stopped and pt missed two doses for unknown reason. Will resume. Also checking arterial u/s of BLE due to pain. Will add on baclofen for muscle spasm/cramping. - Art U/S BLE showing high grade stenosis of superficial femoral arteries bilaterally, also complete occlusion of the right dorsalis pedis artery. ESRD on HD - Normal schedule M/W/F, did not receive dialysis on 10/28 due to hypotension as above - last HD on 10/29 will plan on next session Saturday to resume normal schedule. Hx of ischemic colitis, s/p colostomy placement - Patient was admitted in [place] end of August through most of September for this, was intubated during ~3 weeks at that time. - [place]s with [facility] [place]. Armando Marques with gen surg - has fu appt on . - Wound care consulted - Abdominal wound at the bottom of vertical incision appears to be unhealed, has Kerlix packing inside, continue doxycycline for this - No sacral decub wounds, requires molly lift, waffle boots for heel pressure offloading Hx subarachnoid hemorrhage - Continue on lovenox at this time as CT of the head was negative. If any changes in mental status and consider urgent MRI of the brain - Will use heparin subq for DVT ppx instead of lovenox in the setting of ESRD. DM II Diabetic neuropathy - ISS with accuchecks achs Depression -Continue home meds DVT prophylaxis: heparin subq CODE STATUS: DO NOT RESUSCITATE - POLST completed saying pt is on comfort measures only. Will not provide aggressive measures - this rest with the family at bedside and they are agreeable. Continue dialysis and antibiotics Disposition: Patient from [facility], possible discharge tomorrow.
[2017-10-31 08:54] LABS: BASO % 0.3 %; BASO ABS # 0.02 K/uL (0-0.2); EOS % 2.1 %; EOS ABS # 0.13 K/uL (0-0.5); IG# 0.04 K/uL (0.00-0.02); LYMPH % 33.9 %; LYMPH ABS # 2.07 K/uL (1.2-3.4); MONO % 10.2 %; MONO ABS # 0.62 K/uL (0.11-0.59); NEUT % 52.8 %; NEUT ABS # 3.22 K/uL (1.4-6.5)
[2017-10-31] MEDS: LACTOBACILLUS ACIDOPHILUS (FLORANEX) TAB PO SCH (08:54)
[2017-10-31] MEDS: PREGABALIN 100 MG CAP PO SCH (08:54)
[2017-10-31] MEDS: DOXYCYCLINE HYCLATE 100 MG CAP PO SCH (08:54)
[2017-10-31] MEDS: CYANOCOBALAMIN 500 MCG TAB (VIT B-12) PO SCH (08:54)
[2017-10-31] MEDS: NEPHROCAPS PO SCH (08:54)
[2017-10-31] MEDS: PYRIDOXINE HCL 50 MG TAB PO SCH (08:55)
[2017-10-31] MEDS: ASPIRIN 81 MG ECTAB PO SCH (08:55)
[2017-10-31] MEDS: LORATADINE 10 MG TAB PO SCH (08:55)
[2017-10-31] MEDS: BOOST GLUCOSE CONTROL PO SCH (08:55)
[2017-10-31] MEDS: HEPARIN SOD 5000 UNIT/0.5 ML CARP SQ SCH (08:56)
[2017-10-31] MEDS: TOPIRAMATE 25 MG TAB PO SCH (08:56)
[2017-10-31] MEDS: GABAPENTIN 100 MG CAP PO SCH (08:56)
[2017-10-31] MEDS: INSULIN ASPART 100 UNITS/ML 3 ML PEN SC SCH ×2 (08:57→12:01)
--- NOTE | 2017-10-31 09:03 | Nephrology Progress Note ---
Nephrology Progress Note Date of Service: Oct 31, 2017. Subjective 57 yo female with esrd with prolonged hospitlization in [place] and now with colostomy. presented wtih weakness, confusion, hypotension. last dialysis was on saturday. pt not eating well, continues to be confused. did not know the president, where she was or the year. does know her name. Objective Date Time Temp Pulse Resp B/P (MAP) Pulse Ox O2 Delivery O2 Flow Rate FiO2 10/31/17 07:48 36.5 80 22 89/54 (66) 100 Nasal Cannula 2.0 10/31/17 01:05 Nasal Cannula 2.0 10/31/17 00:00 36.8 85 18 96/62 (73) 100 Nasal Cannula 2.0 10/30/17 22:11 78/42 (54) 10/30/17 21:19 72/40 (51) 10/30/17 20:13 64/42 (49) 10/30/17 19:07 36.5 92 20 68/41 (50) 91 Room Air 10/30/17 18:40 36.4 111 20 96 2.0 10/30/17 16:00 96 Nasal Cannula 2.0 10/30/17 15:24 36.4 111 20 98/63 (75) 98 Nasal Cannula 2.0 10/30/17 12:00 Nasal Cannula 2.0 10/30/17 11:33 36.6 90 20 95/61 (72) 100 Room Air Physical Exam: General-aaox1 Eyes-no scleral icterus ENT-mmm Neck-supple Lungs-decreased breath sounds at the bases Heart-regular Abdomen-+colostomy, bs+, soft Extremities-no c/c/e Neuro-nonfocal, confused Current Inpatient Medications Medications (Trade) Dose Ordered Sig/Sandy Route Start Time Stop Time Status Last Admin Dose Admin Aspirin (Ecotrin Tab) 81 mg DAILY PO 10/29/17 09:00 11/28/17 08:59 10/31/17 08:55 81 MG Atorvastatin Calcium (Lipitor Tab) 40 mg QPM PO 10/28/17 21:00 11/27/17 20:59 10/30/17 21:05 40 MG Vitamin B Complex/ Vit C/Folic Acid (Nephrocaps) 1 cap DAILY PO 10/29/17 09:00 11/28/17 08:59 10/31/17 08:54 1 CAP Cyanocobalamin (Vitamin B-12 Tab) 1,000 mcg DAILY PO 10/29/17 09:00 11/28/17 08:59 10/31/17 08:54 1,000 MCG Folic Acid (Folvite Tab) 2 mg DAILY PO 10/29/17 09:00 11/28/17 08:59 10/31/17 08:55 2 MG Loratadine (Claritin Tab) 10 mg DAILY PO 10/29/17 09:00 11/28/17 08:59 10/31/17 08:55 10 MG Mirtazapine (Remeron Tab) 30 mg HS PO 10/28/17 21:00 11/27/17 20:59 10/30/17 21:05 30 MG Oxycodone/ Acetaminophen (Percocet 5-325mg Tab) 1 tab Q6H PRN PO 10/28/17 14:45 11/11/17 14:44 10/31/17 08:55 1 TAB Pyridoxine HCl (Vitamin B-6 Tab) 50 mg DAILY PO 10/29/17 09:00 11/28/17 08:59 10/31/17 08:55 50 MG Topiramate (Topamax Tab) 25 mg BID PO 10/28/17 21:00 11/27/17 20:59 10/31/17 08:56 25 MG Miscellaneous Information (Order Awaiting Action) 1 ea QS N/A 10/28/17 16:30 11/27/17 16:29 Miscellaneous Information (Order Awaiting Action) 1 ea QS N/A 10/28/17 16:30 11/27/17 16:29 Doxycycline Hyclate (Vibramycin Cap) 100 mg BID PO 10/28/17 21:00 11/07/17 20:59 10/31/17 08:54 100 MG Lactobacillus Acidophilus (Floranex Tab) 1 tab DAILY PO 10/29/17 09:00 11/28/17 08:59 10/31/17 08:54 1 TAB Insulin Aspart (novoLOG ASPART) SLIDING SCALE If C... ACHS SC 10/28/17 17:00 11/27/17 16:59 10/30/17 11:50 2 UNITS Glucose (Glucose 40% Gel) 15-30 GRAMS 15 GRAMS... UD PRN PO 10/28/17 15:30 11/27/17 15:29 Glucose (Glucose Chew Tab) 4-8 Tablets 4 Tabl... UD PRN PO 10/28/17 15:30 11/27/17 15:29 Dextrose (Dextrose 50% 50ML Syringe) 25-50ML OF 50% DW IV FOR... UD PRN IV 10/28/17 15:30 11/27/17 15:29 10/28/17 23:59 25 ML Glucagon (Glucagon Inj) 1 mg UD PRN SQ 10/28/17 15:30 11/27/17 15:29 Heparin Sodium (Porcine) (Heparin Sq 5000 Unit/0.5ml) 5,000 unit BID SQ 10/30/17 09:00 11/29/17 08:59 10/31/17 08:56 5,000 UNIT Enteral Nutritional Formula (Boost Glucose Control) 1 can BID@1000,2100 PO 10/29/17 21:00 11/28/17 20:59 10/31/17 08:55 1 CAN Gabapentin (Neurontin Cap) 100 mg BID PO 10/29/17 21:00 11/28/17 20:59 10/31/17 08:56 100 MG Lorazepam (Ativan Inj) 0.5 mg Q8 PRN IV 10/29/17 18:15 11/28/17 18:14 Potassium Chloride (Klor-Con Tab) 20 meq QAM PO 10/31/17 08:00 11/30/17 08:59 10/31/17 08:56 20 MEQ Pregabalin (Lyrica Cap) 100 mg BID PO 10/30/17 11:00 11/29/17 10:59 10/31/17 08:54 100 MG Baclofen (Lioresal Tab) 10 mg BID PRN PO 10/30/17 10:45 11/29/17 10:44 Last 24 Hours Test 10/30/17 11:20 10/30/17 16:20 10/30/17 19:52 10/31/17 05:39 Bedside Glucose 182 mg/dl 71 mg/dl 104 mg/dl White Blood Count 6.10 K/uL Red Blood Count 3.67 M/uL Hemoglobin 11.1 g/dL Hematocrit 34.2 % Mean Corpuscular Volume 93.2 fL Mean Corpuscular Hemoglobin 30.2 pg Mean Corpuscular Hemoglobin Concent 32.5 g/dl Platelet Count 83 K/uL Mean Platelet Volume 12.5 fL Neutrophils (%) (Auto) 52.8 % Lymphocytes (%) (Auto) 33.9 % Monocytes (%) (Auto) 10.2 % Eosinophils (%) (Auto) 2.1 % Basophils (%) (Auto) 0.3 % Neutrophils # (Auto) 3.22 K/uL Lymphocytes # (Auto) 2.07 K/uL Monocytes # (Auto) 0.62 K/uL Eosinophils # (Auto) 0.13 K/uL Basophils # (Auto) 0.02 K/uL RDW Standard Deviation 63.5 fL RDW Coefficient of Variation 18.8 % Immature Granulocyte % (Auto) 0.7 % Immature Granulocyte # (Auto) 0.04 K/uL Platelet Estimate DECREASED Anisocytosis PRESENT Target Cells 1+ Test 10/31/17 07:27 Bedside Glucose 71 mg/dl Assessment & Plan ESRD-normally dialyzes m-w-. last dialysis was on saturday. volume status is good. electrolytes are stable at last check. hold on dialysis for now and re- evaluate tomorrow.
[2017-10-31] MEDS ORDERED: NUTR-7 PO (12:23)
--- NOTE | 2017-10-31 12:32 | Discharge Instructions ---
Discharge Instructions Date of Service Oct 31, 2017. Admission Reason for Admission: Hypotension Discharge Discharge Diagnosis / Problem: Hypotension Discharge Goals Goal(s): Decrease discomfort, Improve function, Increase independence, Improve disease control Activity Recommendations Activity Limitations: resume your previous activity Lifting Limitations: no more than 10 pounds, gradually increase as tolerated Exercise/Sports Limitations: gradually increase as tolerated Shower/Bathe: no limitations Driving or Machine Use: Do Not Drive . Instructions / Follow-Up Instructions / Follow-Up You were admitted to [facility] with hypotension, lethargy and altered mental status and diagnosed with hypotension and metabolic encephalopathy. During your stay here you were treated with intravenous fluids which improved BP. You were treated with 2 days of empiric antibiotics but no clear source of infection was found. Your altered mental status was likely due to low blood profusion which improved with fluids. You got dialysis on 10/29/17, your next session should be on Saturday11/01/17. Imaging studies which were completed included: CT of the head which was negative for stroke. An arterial doppler of bilateral lower extremities showed extensive arterial occlusion which is the cause for your chronic leg pain. There is no surgical intervention indicated at this time. Continue taking medications for pain, and using pillows to lift your legs, heat and ice for symptomatic relief. Medications: Continue taking your medications as above. Appointments: Follow up with your Primary Care Provider at [facility] within 24-48 hours of arrival there. Current Hospital Diet Patient's current hospital diet: Renal Diet, Diabetes Type 2 Diet Discharge Diet Recommended Diet: Diabetes Type 2 Diet, Renal Diet Pending Studies Studies pending at discharge: no Medical Emergencies . Who to Call and When: Medical Emergencies: If at any time you feel your situation is an emergency, please call 911 immediately. . Non-Emergent Contact Non-Emergency issues call your: Primary Care Provider Call Non-Emergent contact if: you have a fever, temperature is above 100.5, your pain is not controlled, your pain is worsening, your pain is unusual for you, your pain is concerning you, you have any medication questions . Past History Medical & Surgical History: (1) Hypotension (2) ESRD (end stage renal disease) on dialysis (3) Subarachnoid hemorrhage (4) History of ischemic colitis (5) Colostomy in place (6) Diarrhea (7) Major depression, chronic . "Provider Documentation" section prepared by Geraldine Negron. . VTE Core Measure Inpt VTE Proph given/why not?: Enoxaparin (Lovenox)SQ, [place]. [place], SCD's
--- NOTE | 2017-10-31 12:36 | Discharge Summary ---
Discharge Summary Date of Service Oct 31, 2017. Discharge Summary Admission Date: Oct 28, 2017 at 14:38 Discharge Date: Oct 31, 2017 Discharge Disposition: alf facility Principal Diagnosis: Hypotension Problems/Secondary Diagnoses: Medical Problems: (1) Colostomy in place (2) Dependence on renal dialysis (3) Diarrhea (4) ESRD (end stage renal disease) on dialysis (5) History of ischemic colitis (6) Hyperlipidemia (7) Hypotension (8) Major depression, chronic (9) Renal cyst (10) S/p nephrectomy (11) Sepsis (12) Subarachnoid hemorrhage Surgical Problems: (1) S/P appendectomy (2) S/P cholecystectomy Immunizations: Have You Had Influenza Vaccine: Unknown History of Tetanus Vaccine?: Unknown History of Pneumococcal: Unknown History of Hepatitis B Vaccine: Unknown Procedures: CT SCAN OF THE BRAIN WITHOUT IV CONTRAST 10/28/17 IMPRESSION: There is no hemorrhage, mass effect, or evidence of acute territorial ischemia by CT criteria. CHEST ONE VIEW PORTABLE 10/28/17 IMPRESSION: Stable mild diffuse interstitial thickening which is likely chronic. No acute process within the chest. ART DOP LOWER EXT BILAT 10/28/17 IMPRESSION: 1. High-grade stenosis of the proximal superficial femoral arteries bilaterally. This is seen at multilevel regions bilaterally. 2. 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 3. Dampened flow characteristics of the patent runoff vessels of the lower leg consistent with a dampened in flow blood characteristics/inflow disease. Consultations: Nephrology Wound Care Medication Reconciliation New Medications: Nutritional Supplements (Boost) 1 Liq Liq 1 CAN PO BID@1000,2100 for 30 Days, #60 DOSE Continued Medications: Amino Acids (Liquacel) 1 Liq Liq 30 ML PO BID Aspirin (Aspirin) 81 Mg Tab 81 MG PO DAILY Atorvastatin (Lipitor) 40 Mg Tab 40 MG PO QPM, TAB B-Complex W/ C & Folic Acid (Haakon Caps) 1 Cap Cap 1 CAP PO DAILY Cyanocobalamin (Vitamin B-12) 1,000 Mcg Tab 1000 MCG PO DAILY, TAB Dextrose (Diabetic Use) (Insta-Glucose) 77.4 % Gel 1 APPLN PO UD PRN for HYPOGLYCEMIA PROTOCOL NEEDED FOR HYPOGLYCEMIA BLOOD GLUCOSE < 60 AND/OR SYMPTOMATIC HYPOGLYCEMIA. MUST BE RESPONSIVE AND ABLE TO SAFELY SWALLOW. Doxercalciferol (Doxercalciferol) 4 Mcg/2 Ml Inj 2 MCG PO 3XWK MON,WED,FRI Doxycycline Hyclate (Doxycycline Hyclate) 100 Mg Tab 100 MG PO BID Enoxaparin (Lovenox) 40 Mg/0.4 Ml Inj 40 MG SQ DAILY Folic Acid (Folic Acid) 1 Mg Tab 2 MG PO DAILY Glucagon (Glucagon Emergency Kit) 1 Mg Kit 1 DOSE IM UD PRN for HYPOGLYCEMIA PROTOCOL NEEDED FOR HYPOGLYCEMIA BLOOD GLUCOSE < 60 AND/OR SYMPTOMATIC/UNRESPONSIVE HYPOGLYCEMIA. MAY REPEAT IN 15 MINUTES IF NEEDED. Lactobacillus (Acidophilus) 1 Cap Cap 1 CAP PO DAILY Loratadine (Claritin) 10 Mg Tab 10 MG PO DAILY, TAB Mirtazapine (Remeron) 30 Mg Tab 30 MG PO HS Oxycodone/Acetaminophen 5MG/325MG (Percocet 5MG/325MG) Tab 1 TABLET PO Q6H PRN for Pain, TAB PAIN Pregabalin (Lyrica) 100 Mg Cap 100 MG PO BID, CAP Pyridoxine Hcl (Vitamin B 6) 50 Mg Tab 50 MG PO DAILY Topiramate (Topamax ) 25 Mg Tab 25 MG PO BID, TAB [Protein Supplement] () 30 ML PO BID Discharge Exam The patient was seen and examined this morning. Pt reports doing better today. Her legs are still intermittently painful. She reports her breathing is fine, and denies any type of chest pain. She denies any shortness of breath currently. ROS: Constitutional: No fever, sweats or chills Eyes: No diplopia, no worsening or blurred vision ENT: normal hearing, no trouble swallowing Respiratory: No cough, sputum, dyspnea at rest or on exertion Cardiovascular: No chest pain, tightness or palpitations Abdomen: No pain, nausea, vomiting, diarrhea or constipation Musculoskeletal: + calf and feet pain in BLE, chronic Neurologic: No weakness, numbness/tingling Psychiatric: No anxiety or depression Skin: No rash or itch PE: General Appearance: WD/WN, no apparent distress, sitting up in bed, awake and alert Head: normocephalic, atraumatic Eyes: PERRL, EOMI ENT: hearing grossly normal, + pertinent finding (MMM) Neck: supple, no JVD Respiratory/Chest: + pertinent finding (on room air, improved breath sounds, faint rhonchi in RLL, diminished breath sounds in Left base. ) Cardiovascular: no JVD, no murmur, NSR Abdomen/GI: normal bowel sounds, soft, + pertinent finding (hypoactive bowel sounds, + tunneling abdominal wound with packing, + colostomy RLQ, nontender with palpation) Back: normal inspection, no CVA tenderness Extremities/Musculoskeletal: pain with minimal manipulation of bilateral lower extremities. no pedal edema, + pertinent finding (AVF in LUE with +thrill) Neurologic/Psych: alert, + oriented to place, self and time Skin: warm/dry, normal color Hospital Course This is a 57 yo M with PMHx of ESRD on HD M/W/, HTN, HLD, DMII, diabetic neuropathy, depression, hx of subarachnoid hemorrhage Sep 2017 where pt was admitted x ~1 month and was intubated and extubated several times, and required artificial ventilation for over 3 weeks, cognitive dysfunction, GERD, inflammatory polyneuropathy, who presents with acute onset of headache 1 day [employer]. Imaging studies were reviewed and negative. Pt was found to be hypotensive likely from poor oral intake. Headache/lethargy/weakness due to metabolic encephalopathy Hypotension Unidentified bacterial/infectious process - Resolved with gentle fluids at time of admission. Likely due to poor oral intake. - K = 3.2 and replaced via po - Follow BCx - NGTD - WBC stable, MRSA swab negAbx off at this time as pt shows improvement - no clear infectious source identified. . -Echo with severe hypotension done on 10/29 - normal EF, no wall motion abnormalities, troponins x 3 are neg - Pt can continue supplemental O2 as needed for comfort. Bilateral lower extremity pain - Lyrica 100 mg BID. - Art U/S BLE showing high grade stenosis of superficial femoral arteries bilaterally, also complete occlusion of the right dorsalis pedis artery. ESRD on HD - Normal schedule //, did not receive dialysis on 10/28 due to hypotension as above - last HD on 10/29 will plan on next session Saturday to resume normal schedule. Hx of ischemic colitis, s/p colostomy placement - Patient was admitted in [place] end of August through most of September for this, was intubated during ~3 weeks at that time. - Follows with [facility]- Dr. Armando Marques with gen surg - has fu appt on . - Wound care consulted - Abdominal wound at the bottom of vertical incision appears to be unhealed, has Kerlix packing inside, continue doxycycline for this - No sacral decub wounds, requires molly lift, waffle boots for heel pressure offloading Hx subarachnoid hemorrhage - stable DM II Diabetic neuropathy - ISS with accuchecks achs Depression -Continue home meds DVT prophylaxis: heparin subq CODE STATUS: DO NOT RESUSCITATE - POLST completed saying pt is on comfort measures only. Will not provide aggressive measures - this rest with the family at bedside and they are agreeable. Continue dialysis and antibiotics Disposition: Patient from [facility], discharge today Total Time Spent: Greater than 30 minutes This includes examination of the patient, discharge planning, medication reconciliation, and communication with other providers. Discharge Instructions Please refer to the electronic Patient Visit Report (Discharge Instructions) for additional information. Follow-Up Follow up with your Primary Care Provider at [facility] within 24-48 hours of arrival. Additional Copies To Reddy Boles
[2017-10-31 13:24] VITALS: BP 89/54; PULSE 80; TEMP 36.5; O2SAT 100
== END 2017-10-31 14:39 | DRG 867 ==
LOC: EDBD 09:34 → C.EDB 09:35 → C.2T 14:38 → EDBEDREQ 14:42 → ENRESERV 15:19 → C.4E 10-30 19:01
PROVIDERS: ADMIT Family Medicine; ATTEND Internal Medicine
DX: A49.9 Bacterial infection, unspecified (principal); G93.41 Metabolic encephalopathy; N18.6 End stage renal disease; I12.0 Hypertensive chronic kidney disease with stage 5 chronic kidney disease or end stage renal disease; I95.89 Other hypotension; Z99.2 Dependence on renal dialysis; K21.9 Gastro-esophageal reflux disease without esophagitis; E11.21 Type 2 diabetes mellitus with diabetic nephropathy; Z93.3 Colostomy status; Z79.82 Long term (current) use of aspirin; D64.9 Anemia, unspecified; E11.40 Type 2 diabetes mellitus with diabetic neuropathy, unspecified; F32.9 Major depressive disorder, single episode, unspecified; I73.9 Peripheral vascular disease, unspecified

== ENCOUNTER → 2017-10-28 | Outpatient (CLI) | payer OTHER ==
[~2017-10-28] MED LIST changes: -NUTR-7 PO
[2017-10-28 09:30] LABS: INFLUENZA B ANTIGEN Neg for Influ B (NEG)
== END ==
LOC: C.LABUPBEA 07:48
PROVIDERS: ATTEND Nurse Practitioner Family
DX: R50.9 Fever, unspecified (principal); R09.81 Nasal congestion